=== PATIENT | female | born 1980 | race Asian ===

== ENCOUNTER 2019-10-19 06:47 | Outpatient (CLI) | payer OTHER, SELFPAY ==
--- NOTE | ~2019-10-19 | US_ITS ---
EXAMINATION: US thyroid DATE: 10/19/2019 08:04 INDICATION: Nontoxic goiter TECHNIQUE: Multiple ultrasound images of the thyroid were obtained. COMPARISON: None. FINDINGS: The right thyroid lobe measures 4.8 x 1.9 x 1.9 cm. The left thyroid lobe measures 4.6 x 1.6 x 1.8 c m. Thyroid isthmus measures 3-4 mm in thickness. No discrete nodules identified. There is normal echo texture, echogenicity and vascular flow throughout the thyroid gland. IMPRESSION: 1. Normal thyroid ultrasound. Reviewed, dictated and finalized at location A.
[2019-10-19 08:00] LABS: Alanine Aminotransferase 14 U/L (4-35); Albumin Level 4.4 g/dL (3.5-5.1); Alkaline Phosphatase 52 U/L (38-126); Aspartate Amino Transferase 26 U/L (14-36); Bilirubin,Total 0.3 mg/dL (0.2-1.3); Blood Urea Nitrogen 10 mg/dL (7-17); Calcium 9.3 mg/dL (8.4-10.2); Carbon Dioxide 28 mmol/L (22-30); Chloride 107 mmol/L (98-107); Estimated Glomerular Filt Rate > 60; Glucose 87 mg/dL (65-105); Magnesium 2.1 mg/dL (1.6-2.3); Potassium 3.7 mmol/L (3.4-5.0); Sodium 142 mmol/L (137-145)
[2019-10-19 11:10] LABS: Free T4 Free Thyroxine 1.19 ng/mL (0.78-2.19); Vitamin D 25 Hydroxy 20.5 ng/mL
[2019-10-20 20:15] LABS: Triiodothyronine T3 Free 2.7 pg/mL (2.3-4.2)
[2019-10-21 02:00] LABS: Thyroid Peroxidase Antibodies 7 IU/mL (<9)
[2019-10-21 04:08] LABS: Adrenocorticotropic Hormone 19 pg/mL (6-50)
[2019-10-21 15:06] LABS: Thyroid Stimulating Immunoglob 182 % baseline (<140)
== END 2019-10-19 06:48 | disposition home or self-care (01) ==
PROVIDERS: Visit Provider Internal Medicine Endocrinology, Diabetes & Metabolism
DX: E05.90 Thyrotoxicosis, unspecified without thyrotoxic crisis or storm (principal); I95.9 Hypotension, unspecified; E87.6 Hypokalemia; E55.9 Vitamin D deficiency, unspecified
CPT/HCPCS: 36415; 76536; 80053; 82024; 82088; 82248; 82306; 82533; 83735; 84133; 84244; 84439; 84443; 84445; 84481; 86376

== ENCOUNTER 2019-12-12 07:16 | Outpatient (CLI) | payer OTHER, SELFPAY ==
[2019-12-12 08:25] LABS: Alanine Aminotransferase 14 U/L (4-35); Albumin Level 4.2 g/dL (3.5-5.1); Alkaline Phosphatase 55 U/L (38-126); Aspartate Amino Transferase 24 U/L (14-36); Bilirubin,Total 0.2 mg/dL (0.2-1.3); Blood Urea Nitrogen 15 mg/dL (7-17); Calcium 8.6 mg/dL (8.4-10.2); Carbon Dioxide 27 mmol/L (22-30); Chloride 106 mmol/L (98-107); Estimated Glomerular Filt Rate > 60; Glucose 70 mg/dL (65-105); Potassium 3.7 mmol/L (3.4-5.0); Sodium 140 mmol/L (137-145)
[2019-12-12 09:45] LABS: Free T4 Free Thyroxine 1.03 ng/mL (0.78-2.19); Vitamin D 25 Hydroxy 44.5 ng/mL
[2019-12-15 04:39] LABS: Thyroid Peroxidase Antibodies 6 IU/mL (<9)
[2019-12-15 12:24] LABS: Triiodothyronine T3 Free 2.7 pg/mL (2.3-4.2)
[2019-12-15 12:40] LABS: Thyroid Stimulating Immunoglob 164 % baseline (<140)
== END 2019-12-12 07:17 | disposition home or self-care (01) ==
PROVIDERS: PCP Family Medicine; Visit Provider Internal Medicine Endocrinology, Diabetes & Metabolism
DX: E05.90 Thyrotoxicosis, unspecified without thyrotoxic crisis or storm (principal); E55.9 Vitamin D deficiency, unspecified
CPT/HCPCS: 36415; 80053; 82306; 84439; 84443; 84445; 84481; 86376

== ENCOUNTER 2020-04-16 08:34 | Outpatient (CLI) | payer OTHER, SELFPAY ==
[2020-04-16 09:12] LABS: Alanine Aminotransferase 15 U/L (4-35); Albumin Level 4.1 g/dL (3.5-5.1); Alkaline Phosphatase 43 U/L (38-126); Anion Gap 7 mmol/L (8-16); Aspartate Amino Transferase 25 U/L (14-36); Bilirubin,Total 0.5 mg/dL (0.2-1.3); Blood Urea Nitrogen 16 mg/dL (7-17); Carbon Dioxide 23 mmol/L (22-30); Chloride 110 mmol/L (98-107); Estimated Glomerular Filt Rate > 60; Glucose 66 mg/dL (65-105); Potassium 3.4 mmol/L (3.4-5.0); Sodium 140 mmol/L (137-145)
[2020-04-16 11:03] LABS: Free T4 Free Thyroxine 1.26 ng/mL (0.78-2.19); Vitamin D 25 Hydroxy 39.5 ng/mL
[2020-04-20 06:00] LABS: Thyroid Peroxidase Antibodies 7 IU/mL (<9)
[2020-04-20 14:27] LABS: Thyroid Stimulating Immunoglob 172 % baseline (<140)
[2020-04-21 05:24] LABS: Triiodothyronine T3 Free 2.9 pg/mL (2.3-4.2)
== END 2020-04-16 08:35 | disposition home or self-care (01) ==
PROVIDERS: PCP Family Medicine; Visit Provider Internal Medicine Endocrinology, Diabetes & Metabolism
DX: E05.90 Thyrotoxicosis, unspecified without thyrotoxic crisis or storm (principal); E55.9 Vitamin D deficiency, unspecified
CPT/HCPCS: 36415; 80053; 82248; 82306; 84439; 84443; 84445; 84481; 86376

== ENCOUNTER 2020-11-26 07:52 | Outpatient (CLI) | payer OTHER, SELFPAY ==
[2020-11-26 09:01] LABS: Alanine Aminotransferase 13 U/L (4-35); Albumin Level 4.4 g/dL (3.5-5.1); Alkaline Phosphatase 47 U/L (38-126); Anion Gap 6 mmol/L (8-16); Aspartate Amino Transferase 31 U/L (14-36); Bilirubin,Total 0.2 mg/dL (0.2-1.3); Blood Urea Nitrogen 13 mg/dL (7-17); Calcium 9.4 mg/dL (8.4-10.2); Carbon Dioxide 23 mmol/L (22-30); Chloride 114 mmol/L (98-107); Estimated Glomerular Filt Rate > 60; Glucose 72 mg/dL (65-105); Potassium 3.3 mmol/L (3.4-5.0); Sodium 143 mmol/L (137-145)
[2020-11-26 09:31] LABS: Thyroid Stimulating Hormone < 0.015 uIU/mL (0.465-4.680)
[2020-11-26 10:07] LABS: Free T4 Free Thyroxine 1.23 ng/mL (0.78-2.19); Vitamin D 25 Hydroxy 39.6 ng/mL
[2020-11-29 08:22] LABS: Thyroid Peroxidase Antibodies 6 IU/mL (<9)
[2020-11-30 14:36] LABS: Thyroid Stimulating Immunoglob 199 % baseline (<140)
[2020-12-01 07:00] LABS: Triiodothyronine T3 Free 3.1 pg/mL (2.3-4.2)
== END 2020-11-26 07:53 | disposition home or self-care (01) ==
PROVIDERS: PCP Family Medicine; Visit Provider Internal Medicine Endocrinology, Diabetes & Metabolism
DX: E05.90 Thyrotoxicosis, unspecified without thyrotoxic crisis or storm (principal); E55.9 Vitamin D deficiency, unspecified
CPT/HCPCS: 36415; 80053; 82306; 84439; 84443; 84445; 84481; 86376

== ENCOUNTER 2020-12-09 08:55 | Outpatient (CLI) | payer OTHER, SELFPAY ==
--- NOTE | 2020-12-12 11:34 | WPDHOMESLEEP ---
Sleep Study - Home Unattended Date of Study: 12/09/20 Ordering Provider: Fabián Holman MD Interpreting Provider: Debra Parsons MD Home Sleep Study Type: Apnea Link Air Height: 1.55 m Weight: 53.524 kg Body Mass Index: 22.3 Neck Circumference (inches): 12.25 [place]: 10 Reason for Sleep Study witnessed apneas; paroxysmal nocturnal dyspnea, RV enlargement, moderate tricuspid regurgitation Sleep History Viola Davis is a 40 year old female with witnessed apneas per her . She has paroxysmal nocturnal dyspnea. Echocardiogram on 12/04/2019 shows normal LV systolic function, EF 60-65%, moderate enlargement of the right ventricle with mild right ventricular hypokinesis, moderate enlargement of the right atrium, moderate tricuspid regurgitation and pulmonary hypertension, improved compared to ECHO June 2018 with RVSP 40-45 mmHg. She does not awaken suddenly from sleep feeling short of breath. She does not awaken at night with heartburn, belching or coughing. She rarely snores. She does not snore loudly enough that others complain. She rarely has trouble sleeping with a cold. She does not gasp for breath at night. She occasionally has breathing problems witnessed by her . She does not sweat excessively at night. She rarely notices her heart pounding or beating irregularly at night. She rarely falls asleep during the day, rarely falls asleep involuntarily however occasionally falls asleep while driving. She does not have loss of muscle tone with strong emotion. She does not have daytime difficulties due to excessive sleepiness. She does not feel paralyzed on waking or falling asleep and does not have vivid dreamlike scenes upon awakening or falling asleep. She does not feel afraid to go to sleep. She rarely has nightmares. She rarely remembers her dreams. She rarely has racing thoughts. She rarely feels sad, depressed or anxious. She occasionally has muscular tension. She does not notice parts of her body jerking and she does not kick at night. She frequently has crawling and aching feelings in her legs. She occasionally has leg pain at night. She does not have morning jaw pain. She does not grind her teeth during sleep. She rarely is bothered by pain during the day. She occasionally has awakened by pain at night. She rarely wakes up feeling stiff in the morning. She frequently wakes up with sore achy muscles. She rarely wakes up with pain in the neck and spine. She has headaches, fatigue and memory problems Normal bedtime is between 9:00 p.m. and 10:00 p.m., falling asleep within 10-30 minutes, typically waking 3-5 times at night to go to the bathroom or take care of her child. She stays awake anywhere between 2-5 minutes. She wakes the morning at 4:30 a.m.. Her weekend schedule is different, going to bed between 9:00 p.m. and midnight, waking by 7:00 a.m.. She does take naps in the afternoon or evening. A short 10-15 minute nap can be refreshing. Most of the time she feels good in the morning. Habits: Never smoked. Caffeine 1 serving per day. Alcohol 3 glasses of wine per week. No recreational drugs. [facility] Past Medical History Medical History (Updated 12/12/20 @ 11:50 by Debra Parsons MD) Hypersomnolence Hyperthyroidism Non-rheumatic mitral regurgitation Palpitation Pulmonary hypertension Right ventricular enlargement Seasonal allergies SVT (supraventricular tachycardia) Surgical History Surgical History Previous section Family History Family History Father Family history of emphysema Mother Diabetes mellitus Social History Social History Smoking status: Never smoker Alcohol intake: never Medications Medications: methimazole 5 mg 3 times a day ferrous sulfate 325 mg extended release ( 6
[2020-12-12 12:00] VITALS: BMI 22.3
== END 2020-12-13 09:23 | disposition home or self-care (01) ==
LOC: ANHCSM 12-13 08:55
PROVIDERS: PCP Family Medicine; Visit Provider Internal Medicine Cardiovascular Disease
DX: G47.19 Other hypersomnia (principal); I27.20 Pulmonary hypertension, unspecified; I51.7 Cardiomegaly; I47.1 Supraventricular tachycardia; R06.81 Apnea, not elsewhere classified
CPT/HCPCS: 95806

== ENCOUNTER 2021-01-26 11:42 | Outpatient (CLI) | payer OTHER, SELFPAY ==
--- NOTE | ~2021-01-26 | NM_ITS ---
EXAMINATION: NM thyroid scan w uptake DATE: 01/27/2021 12:48 INDICATION: Hyperthyroidism. COMPARISON: Ultrasound 10/19/2019 TECHNIQUE: 0.379 mCi I-123 was administered orally. Scintigraphic images of the thyroid gland were o btained at 24 hours. Thyroid uptake was calculated by the technologist. FINDINGS: The thyroid uptake is 37% (normal 10-30%), with the right lobe measuring 18% uptake and the left 21%. There is no focal area of decreased or increased activity to suggest hypofunctioning or hyperfunctio bijan nodule. IMPRESSION: 1. Increased 24-hour iodine uptake, consistent with Graves' disease. Reviewed, dictated and finalized at location A.
== END 2021-01-26 11:43 | disposition home or self-care (01) ==
PROVIDERS: PCP Family Medicine; Visit Provider Internal Medicine Endocrinology, Diabetes & Metabolism
DX: E05.90 Thyrotoxicosis, unspecified without thyrotoxic crisis or storm (principal)
CPT/HCPCS: 78014; A9516

== ENCOUNTER 2021-03-03 17:11 | Outpatient (CLI) | payer OTHER, SELFPAY ==
[2021-03-03 18:11] LABS: Alanine Aminotransferase 20 U/L (4-35); Albumin Level 4.5 g/dL (3.5-5.1); Alkaline Phosphatase 51 U/L (38-126); Anion Gap 9 mmol/L (8-16); Aspartate Amino Transferase 27 U/L (14-36); Bilirubin,Total 0.3 mg/dL (0.2-1.3); Blood Urea Nitrogen 11 mg/dL (7-17); Carbon Dioxide 19 mmol/L (22-30); Chloride 111 mmol/L (98-107); Estimated Glomerular Filt Rate > 60; Glucose 106 mg/dL (65-110); Potassium 3.2 mmol/L (3.4-5.0); Sodium 139 mmol/L (137-145)
[2021-03-03 19:38] LABS: Free T4 Free Thyroxine 0.98 ng/mL (0.78-2.19)
[2021-03-06 02:22] LABS: Thyroid Peroxidase Antibodies 7 IU/mL (<9)
[2021-03-09 13:12] LABS: Thyroid Stimulating Immunoglob 120 % baseline (<140)
[2021-03-11 07:20] LABS: Triiodothyronine T3 Free 2.8 pg/mL (2.3-4.2)
== END 2021-03-03 17:12 | disposition home or self-care (01) ==
LOC: ANHLAB 17:11
PROVIDERS: PCP Family Medicine; Visit Provider Internal Medicine Endocrinology, Diabetes & Metabolism
DX: E05.90 Thyrotoxicosis, unspecified without thyrotoxic crisis or storm (principal)
CPT/HCPCS: 36415; 80053; 84439; 84443; 84445; 84481; 86376

== ENCOUNTER 2021-08-07 09:04 | Outpatient (CLI) | payer OTHER, SELFPAY ==
[2021-08-10 05:16] LABS: Triiodothyronine T3 Free 2.4 pg/mL (2.3-4.2)
== END 2021-08-07 09:05 | disposition home or self-care (01) ==
PROVIDERS: PCP Family Medicine
DX: E05.90 Thyrotoxicosis, unspecified without thyrotoxic crisis or storm (principal)
CPT/HCPCS: 36415; 84439; 84443; 84481

== ENCOUNTER 2022-02-09 15:51 | Outpatient (CLI) | payer OTHER, SELFPAY ==
[2022-02-09 18:50] LABS: Free T4 Free Thyroxine 1.29 ng/mL (0.78-2.19)
[2022-02-13 20:04] LABS: Triiodothyronine T3 Free 2.8 pg/mL (2.3-4.2)
== END 2022-02-09 15:52 | disposition home or self-care (01) ==
LOC: ANHLAB 15:56
PROVIDERS: PCP Family Medicine
DX: E05.00 Thyrotoxicosis with diffuse goiter without thyrotoxic crisis or storm (principal)
CPT/HCPCS: 36415; 84439; 84443; 84481

== ENCOUNTER 2022-06-23 07:51 | Outpatient (CLI) | payer OTHER, SELFPAY ==
[2022-06-23 08:33] LABS: Anion Gap 10 mmol/L (8-16); Blood Urea Nitrogen 14 mg/dL (7-17); Calcium 8.5 mg/dL (8.4-10.2); Carbon Dioxide 21 mmol/L (22-30); Chloride 112 mmol/L (98-107); Cholesterol 148 mg/dL (0-200); Estimated Glomerular Filt Rate > 60; Glucose 61 mg/dL (65-110); HDL Direct 53 mg/dL; Potassium 3.5 mmol/L (3.4-5.0); Sodium 143 mmol/L (137-145); Triglycerides 82 mg/dL (<150)
[2022-06-23 08:41] LABS: LDL Cholesterol Direct 55 mg/dL
[2022-06-23 09:12] LABS: Vitamin D 25 Hydroxy 34.4 ng/mL
== END 2022-06-23 07:52 | disposition home or self-care (01) ==
LOC: ANHLAB 07:54
PROVIDERS: PCP Family Medicine; Visit Provider Family Medicine
DX: Z00.00 Encounter for general adult medical examination without abnormal findings (principal); Z13.1 Encounter for screening for diabetes mellitus; Z13.220 Encounter for screening for lipoid disorders; E55.9 Vitamin D deficiency, unspecified
CPT/HCPCS: 36415; 80048; 80061; 82306

== ENCOUNTER 2023-07-06 08:24 | Outpatient (CLI) | payer OTHER, SELFPAY ==
[2023-07-06 10:03] LABS: Alanine Aminotransferase 21 U/L (6-35); Albumin Level 4.1 g/dL (3.5-5.1); Alkaline Phosphatase 54 U/L (38-126); Anion Gap 9 mmol/L (8-16); Aspartate Amino Transferase 29 U/L (14-36); Bilirubin,Total 0.5 mg/dL (0.2-1.3); Blood Urea Nitrogen 15 mg/dL (7-17); Calcium 8.5 mg/dL (8.4-10.2); Carbon Dioxide 18 mmol/L (22-30); Chloride 117 mmol/L (98-107); Cholesterol 151 mg/dL (0-200); Estimated Glomerular Filt Rate 41; Glucose 79 mg/dL (65-110); HDL Direct 50 mg/dL; Potassium 3.1 mmol/L (3.4-5.0); Sodium 144 mmol/L (137-145); Triglycerides 58 mg/dL (<150)
[2023-07-06 10:14] LABS: LDL Cholesterol Direct 71 mg/dL
[2023-07-06 10:33] LABS: Free T4 Free Thyroxine 1.21 ng/mL (0.78-2.19)
[2023-07-06 10:34] LABS: Thyroid Stimulating Hormone 0.799 uIU/mL (0.465-4.680)
== END 2023-07-06 08:25 | disposition home or self-care (01) ==
LOC: ANHLAB 08:26
PROVIDERS: PCP Family Medicine; Visit Provider Physician Assistant Medical
DX: E05.00 Thyrotoxicosis with diffuse goiter without thyrotoxic crisis or storm (principal); E78.2 Mixed hyperlipidemia
CPT/HCPCS: 36415; 80053; 80061; 84439; 84443

== ENCOUNTER 2023-07-11 15:39 | Outpatient (CLI) | payer OTHER, SELFPAY ==
[2023-07-11 16:07] LABS: Basophils Percent Auto 0.3 % (0.2-1.2); Eosinophils Absolute Auto 0.1 K/mm3 (0-0.3); Hematocrit 32.4 % (37.0-47.0); Hemoglobin 10.3 g/dL (12.0-15.0); Immature Granulocyte Absolute 0.02 K/mm3 (0.00-0.031); Immature Granulocyte Percent A 0.3 % (0-0.5); Lymphocytes Absolute Auto 2.02 K/mm3 (0.9-3.2); Lymphocytes Percent Auto 33.3 % (18.3-44.2); Mean Corpuscular HGB Conc 31.8 g/dl (32-36); Mean Corpuscular Hemoglobin 30.5 pg (26-34); Mean Corpuscular Volume 95.9 fl (80-100); Mean Platelet Volume 9.7 fl (7.4-10.4); Monocytes Absolute Auto 0.5 K/mm3 (0.1-0.6); Monocytes Percent Auto 8.7 % (2.6-8.5); Neutrophils Absolute Auto 3.4 K/mm3 (1.3-6.7); Neutrophils Percent Auto 55.4 % (45.5-73.1); Platelet Count Result 221 k/mm3 (150-375); Red Blood Count 3.38 M/mm3 (4.2-5.4); Red Cell Distribution Width 13.2 % (11.5-14.5); White Blood Count 6.1 K/mm3 (4.5-10.0)
[2023-07-11 17:13] LABS: Anion Gap 7 mmol/L (8-16); Blood Urea Nitrogen 14 mg/dL (7-17); Calcium 8.4 mg/dL (8.4-10.2); Carbon Dioxide 19 mmol/L (22-30); Chloride 114 mmol/L (98-107); Estimated Glomerular Filt Rate 41; Glucose 103 mg/dL (65-110); Magnesium 1.9 mg/dL (1.6-2.3); Potassium 2.8 mmol/L (3.4-5.0); Sodium 140 mmol/L (137-145)
== END 2023-07-11 15:40 | disposition home or self-care (01) ==
LOC: ANHLAB 15:40
PROVIDERS: PCP Family Medicine; Visit Provider Physician Assistant Medical
DX: E87.6 Hypokalemia (principal); R53.83 Other fatigue
CPT/HCPCS: 36415; 80048; 83735; 85025

== ENCOUNTER 2023-07-12 21:08 | Emergency (ER) | payer OTHER, SELFPAY ==
[2023-07-12] VITALS (7 sets, daily range): BP systolic 110–115; BP diastolic 72–86; PULSE 68–77; RESP 13–18; TEMP 37.1; O2SAT 100
--- NOTE | 2023-07-12 21:18 | ECG_ITS ---
Measurements Intervals [place] Rate: 66 P: 57 DE: 148 QRS: 65 QRSD: 111 T: 31 QT: 366 QTc: 386 Interpretive Statements SINUS RHYTHM MODERATE INTRAVENTRICULAR CONDUCTION DELAY [110+ ms QRS DURATION] NONSPECIFIC T-WAVE ABNORMALITY NO PREVIOUS ECG AVAILABLE FOR COMPARISON Electronically Signed On 07-13-2023 9:02:13 CANDY DEPOSITING MACHINE OPERATOR by Sherrill Marroquin M.D.
[2023-07-12 21:32] LABS: Basophils Percent Auto 0.3 % (0.2-1.2); Eosinophils Absolute Auto 0.2 K/mm3 (0-0.3); Eosinophils Percent Auto 2.8 % (0-4.4); Hematocrit 36.1 % (37.0-47.0); Hemoglobin 11.2 g/dL (12.0-15.0); Immature Granulocyte Absolute 0.01 K/mm3 (0.00-0.031); Immature Granulocyte Percent A 0.1 % (0-0.5); Lymphocytes Absolute Auto 2.76 K/mm3 (0.9-3.2); Lymphocytes Percent Auto 40.1 % (18.3-44.2); Mean Corpuscular Hemoglobin 30.3 pg (26-34); Mean Corpuscular Volume 97.6 fl (80-100); Mean Platelet Volume 9.7 fl (7.4-10.4); Monocytes Absolute Auto 0.6 K/mm3 (0.1-0.6); Neutrophils Absolute Auto 3.3 K/mm3 (1.3-6.7); Neutrophils Percent Auto 47.7 % (45.5-73.1); Platelet Count Result 239 k/mm3 (150-375); Red Cell Distribution Width 13.3 % (11.5-14.5); White Blood Count 6.9 K/mm3 (4.5-10.0)
--- NOTE | 2023-07-12 21:42 | ED.GENADULT ---
HPI - General Adult General Chief complaint: Unspecified Stated complaint: potassium levels are low Time Seen by Provider: 07/12/23 21:26 History of Present Illness HPI narrative: 42-year-old female presenting to the emergency department for evaluation of low potassium. Patient had follow-up with a new primary care physician last week and had labs drawn on Saturday. Patient was called yesterday to have repeat labs and her potassium was still low. Patient was called today and told that she needed to present to the emergency department for her critically low potassium. Patient states he does have history of Graves disease and has had issues with tachycardia previously for which he follows up with Dr. Holman. patient denies any nausea vomiting diarrhea chest pain shortness of breath decreased p.o. intake or urinary symptoms Related Data Allergies Allergy/AdvReac Type Severity Reaction Status Date / Time No Known Allergies Allergy Verified 07/02/23 13:51 Review of Systems Review of Systems: All systems reviewed & are unremarkable except as noted in HPI and below PMFSH Past Medical History Medical History (Updated 07/13/23 @ 01:23 by Dm Valladares MD) Hypersomnolence Hyperthyroidism Non-rheumatic mitral regurgitation Palpitation Pulmonary hypertension Right ventricular enlargement Seasonal allergies SVT (supraventricular tachycardia) Surgical History Surgical History Previous section Family History Family History Father Family history of emphysema Mother Diabetes mellitus Social History Social History Smoking status: Never smoker Alcohol intake: never Exam Narrative: APPEARANCE: Well appearing, no pain, no distress, well-nourished. HEAD: normocephalic, atraumatic. EYES: PERRLA/EOMI, conjunctivae clear. NOSE: Normal no drainage NECK: Supple. No adenopathy, no masses. RESPIRATORY: Airway patent, respirations nonlabored. Clear to auscultation bilaterally, no rales, rhonchi, wheezing. CARDIOVASCULAR: Regular rate and rhythm without murmurs rubs or gallops. ABDOMINAL: Soft, nontender, nondistended, normal bowel sounds MUSCULOSKELETAL: Moves all extremities. Strength/ROM intact, No edema, No calf tenderness. NEURO: Alert. Cranial nerves II through XII intact. grossly intact SKIN: Warm, dry. Normal Color Course Course Emergency Course: 42-year-old female presenting to the emergency department for evaluation of hypokalemia. Patient's potassium was replaced both IV and orally. On recheck patient's potassium was 3.5. Patient and family were updated on the results of the workup and on the improved potassium. They were encouraged to have close follow-up with the primary care physician. They were also advised to take the potassium supplements that they have at home. Vital Signs Vital signs: Vital Signs Temperature 98.8 F 07/12/23 21:10 Pulse Rate 73 07/12/23 21:10 Respiratory Rate 14 07/12/23 21:10 Blood Pressure 115/72 07/12/23 21:10 Pulse Oximetry 100 07/12/23 21:10 Oxygen Delivery Room Air 07/12/23 21:10 Temperature 98.8 F 07/12/23 21:10 Pulse Rate 68 07/12/23 21:46 Respiratory Rate 17 07/12/23 21:46 Blood Pressure 111/80 07/12/23 21:46 Pulse Oximetry 100 07/12/23 21:46 Oxygen Delivery Room Air 07/12/23 21:10 Medical Decision Making Vital Signs Vital Signs: Vital Signs Temperature 98.8 F 07/12/23 21:10 Pulse Rate 73 07/12/23 21:10 Respiratory Rate 14 07/12/23 21:10 Blood Pressure 115/72 07/12/23 21:10 Pulse Oximetry 100 07/12/23 21:10 Oxygen Delivery Room Air 07/12/23 21:10 Temperature 98.8 F 07/12/23 21:10 Pulse Rate 68 07/12/23 21:46 Respiratory Rate 17 07/12/23 21:46 Blood Pressure 111/80 07/12/23 21:46 Pulse Oximet
[2023-07-12 21:48] LABS: Alanine Aminotransferase 23 U/L (6-35); Albumin Level 4.6 g/dL (3.5-5.1); Alkaline Phosphatase 61 U/L (38-126); Anion Gap 13 mmol/L (8-16); Aspartate Amino Transferase 34 U/L (14-36); Bilirubin,Total 0.4 mg/dL (0.2-1.3); Blood Urea Nitrogen 13 mg/dL (7-17); Calcium 9.1 mg/dL (8.4-10.2); Carbon Dioxide 18 mmol/L (22-30); Chloride 112 mmol/L (98-107); Estimated CRCL calculation 29 ml/min; Estimated Glomerular Filt Rate 35; Glucose 64 mg/dL (65-110); Potassium 2.5 mmol/L (3.4-5.0); Sodium 143 mmol/L (137-145)
[2023-07-12 21:54] LABS: Troponin I < 0.012 ng/mL (0.000-0.034)
[2023-07-12] MEDS: SODIUM CHLORIDE 0.9% IV 1,000 ML 999 ML IV CONT (22:18)
[2023-07-12] MEDS: POTASSIUM CHLORIDE 20 MEQ PACKET (FOR LIQUID) 40 MEQ PO (22:18)
[2023-07-12] MEDS: KCL 20 MEQ/SW 100 ML 100 ML 50 MEQ IVPB (22:19)
--- NOTE | 2023-07-12 23:19 | PC.NURSE ---
This RN assumed care of patient. This RN took patient report from ROMAN Soni.
[2023-07-13] MEDS: SODIUM CHLORIDE 0.9% IV 1,000 ML 200 ML IV CONT (00:38)
[2023-07-13 01:14] LABS: Anion Gap 8 mmol/L (8-16); Blood Urea Nitrogen 13 mg/dL (7-17); Calcium 7.8 mg/dL (8.4-10.2); Carbon Dioxide 17 mmol/L (22-30); Chloride 118 mmol/L (98-107); Estimated CRCL calculation 31 ml/min; Estimated Glomerular Filt Rate 38; Glucose 85 mg/dL (65-110); Potassium 3.5 mmol/L (3.4-5.0); Sodium 143 mmol/L (137-145)
== END 2023-07-13 01:56 | disposition home or self-care (01) ==
PROVIDERS: Emergency Provider Emergency Medicine; PCP Family Medicine
DX: E87.6 Hypokalemia (principal)
CPT/HCPCS: 36415; 80048; 80053; 84484; 85025; 93005; 96361; 96365; 96366; 99284; A9270; J3480; J7030

== ENCOUNTER 2023-07-16 16:57 | Outpatient (CLI) | payer OTHER, SELFPAY ==
[2023-07-16 17:29] LABS: Appearance Urine Clear (Clear); Bilirubin Urine Negative (Negative); Blood Urine Negative (Negative); Color Urine Yellow (Yellow); Glucose Urine UA Negative (Negative); Ketones Urine Negative (Negative); Leukocyte Esterase Ur Negative LEU/UL (Negative); Nitrate Urine Negative (Negative); Protein Urine Negative (Negative); Specific Grav Ur 1.005 (1.001-1.035); Urobilinogen Urine 0.2 mg/dL (<2.0)
[2023-07-16 17:34] LABS: Add Urine Microscopic? NO
[2023-07-16 18:26] LABS: Anion Gap 12 mmol/L (8-16); Blood Urea Nitrogen 18 mg/dL (7-17); Carbon Dioxide 17 mmol/L (22-30); Chloride 109 mmol/L (98-107); Estimated Glomerular Filt Rate 35; Glucose 119 mg/dL (65-110); Potassium 2.6 mmol/L (3.4-5.0); Sodium 138 mmol/L (137-145)
== END 2023-07-16 16:58 | disposition home or self-care (01) ==
LOC: ANHLAB 16:59
PROVIDERS: PCP Family Medicine; Visit Provider Family Medicine
DX: N28.9 Disorder of kidney and ureter, unspecified (principal); E87.6 Hypokalemia
CPT/HCPCS: 36415; 80048; 81003

== ENCOUNTER 2023-07-18 15:34 | Outpatient (CLI) | payer OTHER, SELFPAY ==
--- NOTE | ~2023-07-18 | US_ITS ---
EXAMINATION: US thyroid DATE: 07/18/2023 15:59 INDICATION: Thyroid toxicosis with diffuse goiter. TECHNIQUE: Multiple ultrasound images of the thyroid were obtained. COMPARISON: 10/19/2019; thyroid scan 01/27/2021. FINDINGS: The right thyroid lobe measures 4.8 x 1.6 x 1.7 cm. The left thyroid lobe measures 5.1 x 1.4 x 2.1 c m. The isthmus measures 0.5 cm. There is normal echotexture and echogenicity throughout the thyroid g land. No discrete nodules identified. Normal vascular flow is present. IMPRESSION: Normal thyroid ultrasound findings. Reviewed, dictated and finalized at location K. CE SPECIALIST
== END 2023-07-18 15:35 | disposition home or self-care (01) ==
LOC: ANHIMG 15:38
PROVIDERS: PCP Family Medicine; Visit Provider Physician Assistant Medical
DX: E05.00 Thyrotoxicosis with diffuse goiter without thyrotoxic crisis or storm (principal)
CPT/HCPCS: 76536

== ENCOUNTER 2023-07-19 15:56 | Outpatient (CLI) | payer OTHER, SELFPAY ==
[2023-07-19 16:35] LABS: Anion Gap 9 mmol/L (8-16); Blood Urea Nitrogen 14 mg/dL (7-17); Calcium 8.6 mg/dL (8.4-10.2); Carbon Dioxide 15 mmol/L (22-30); Chloride 115 mmol/L (98-107); Estimated Glomerular Filt Rate 38; Glucose 97 mg/dL (65-110); Potassium 3.8 mmol/L (3.4-5.0); Sodium 139 mmol/L (137-145)
[2023-07-19 16:44] LABS: Potassium Urine Random 73.8 meq/L
== END 2023-07-19 15:57 | disposition home or self-care (01) ==
PROVIDERS: PCP Family Medicine; Visit Provider Family Medicine
DX: E87.6 Hypokalemia (principal)
CPT/HCPCS: 36415; 80048; 84133

== ENCOUNTER 2023-07-29 17:03 | Outpatient (CLI) | payer OTHER, SELFPAY ==
[2023-07-29 17:55] LABS: Anion Gap 14 mmol/L (8-16); Blood Urea Nitrogen 7 mg/dL (7-17); Carbon Dioxide 13 mmol/L (22-30); Chloride 113 mmol/L (98-107); Estimated Glomerular Filt Rate 49; Glucose 93 mg/dL (65-110); Potassium 3.3 mmol/L (3.4-5.0); Sodium 140 mmol/L (137-145)
== END 2023-07-29 17:04 | disposition home or self-care (01) ==
LOC: ANHLAB 17:04
PROVIDERS: PCP Family Medicine; Visit Provider Family Medicine
DX: E87.6 Hypokalemia (principal)
CPT/HCPCS: 36415; 80048

== ENCOUNTER 2023-08-08 08:08 | Emergency (ER) | payer OTHER, SELFPAY ==
--- NOTE | ~2023-08-08 | XR_ITS ---
EXAMINATION: XR chest 2V DATE: 08/08/2023 08:35 INDICATION: Productive cough. TECHNIQUE: Frontal and lateral views of the chest were obtained. COMPARISON: Chest CT 05/31/2017 FINDINGS: There are airspace opacities in the right middle lobe, posterior segment right upper lobe, and lingula, consistent with pneumonia. No pleural effusion or pneumothorax. The heart size is normal . IMPRESSION: 1. Bilateral pneumonia. Reviewed, dictated and finalized at location E. H FINISHER IMPRESSION: 1. Bilateral pneumonia.
--- NOTE | 2023-08-08 08:15 | ED.URI ---
HPI - URI/Sore Throat General Chief Complaint: Upper Respiratory Infection Stated Complaint: cough,congestion Time Seen by Provider: 08/08/23 08:15 Source: patient Mode of arrival: ambulatory Limitations: no limitations History of Present Illness HPI Narrative: Viola is a 42-year-old female patient presenting to the clinic today with complaints cough and congestion x3 weeks. She reports that she initially had fever with the illness and that went away however yesterday she developed a fever again. Temperature today is 39.4? C. Reporting some shortness of breath as well. SpO2 is 100% is able to speak in full sentences. MD elicited complaint: fever, cough, nasal congestion and other (Shortness of breath) Related Data Allergies Allergy/AdvReac Type Severity Reaction Status Date / Time No Known Allergies Allergy Verified 08/08/23 08:15 Review of Systems Review of Systems: Pertinent positives per HPI. Patient denies any fever, chills, rash, headache, visual changes, dizziness,chest pain, palpitations, nausea, vomiting, diarrhea, constipation, abdominal pain, or any urinary issues. PMFSH Past Medical History Medical History Hypersomnolence Hyperthyroidism Non-rheumatic mitral regurgitation Palpitation Pulmonary hypertension Right ventricular enlargement Seasonal allergies SVT (supraventricular tachycardia) Surgical History Surgical History Previous section Family History Family History Father Family history of emphysema Mother Diabetes mellitus Social History Social History Smoking status: Never smoker Alcohol intake: never Comments At the time of my signature, I reviewed and agree with the nursing past medical, surgical, social, and family history. There is no relevant family history pertinent to the patient complaint. Exam Narrative: General: Well-developed, well nourished, in no apparent distress Head: Normocephalic, atraumatic Eyes: Pupils equally round and reactive to light bilaterally, EOM intact, sclera and conjunctive clear, no discharge, lids normal Ears: TMs intact and congested, ear canals clear, no drainage, grossly hearing normal. Nose: Nares patent, clear nasal discharge, no inflammation, no sinus tenderness. Mouth: Oral pharynx without lesions or masses, good dentition, MMM. Postnasal drip Neck: Supple, trachea midline, no enlargement of anterior or posterior cervical nodes, no thyroid masses or goiter palpable. Cardio: Regular rate and rhythm, s1 and s2 normal, no murmur appreciated. Resp: Coarse and congested lung sounds, no wheezing or rubs Course Course Emergency Course: Portions of this record may have been created with voice recognition software. Level of Care: Express Care Visit Vital Signs Vital signs: Vital signs reviewed MDM - URI/Sore Throat MDM Narrative Medical decision making narrative: At the time of visit patient is resting comfortably on the exam table. Patient appears to be nontoxic. Chest x-ray shows bilateral pneumonia. SpO2 is 100% on room air. Patient is febrile-600 mg of Motrin given in the clinic today. Incentive spirometer given and instructions on how to use or reviewed, prescriptions for azithromycin, Augmentin, albuterol inhaler, and Mucinex was sent to the pharmacy. Supportive measures were discussed with the patient and they voiced understanding discharge instructions and agrees to treatment plan. Strict return precautions reviewed Differential Diagnosis Differential diagnosis: Likely upper respiratory infection, otitis media, sinusitis, viral infection, bronchitis, influenza, pharyngitis and other (COVID) Imaging Data Radiologist's impression: ITS Impressions Chest X-Ray 08/08/23
[2023-08-08 08:19] VITALS: BP 111/64; PULSE 101; RESP 16; TEMP 39.4; O2SAT 100
[2023-08-08 08:46] VITALS: TEMP 39.4
[2023-08-08] MEDS: IBUPROFEN 600 MG TABLET PO (08:46)
== END 2023-08-08 08:58 | disposition home or self-care (01) ==
PROVIDERS: Emergency Provider Nurse Practitioner Family; PCP Family Medicine
DX: J18.9 Pneumonia, unspecified organism (principal); E05.90 Thyrotoxicosis, unspecified without thyrotoxic crisis or storm; I27.20 Pulmonary hypertension, unspecified
CPT/HCPCS: 71046; 99213; A9270; G0463

== ENCOUNTER 2023-08-21 15:16 | Outpatient (CLI) | payer OTHER, SELFPAY ==
--- NOTE | ~2023-08-21 | XR_ITS ---
XR chest 2V DATE: 08/21/2023 15:43 INDICATION: Pneumonia TECHNIQUE: PA and lateral views COMPARISON: 08/08/2023 2 view chest FINDINGS: The right cardiac margin is now visible since 08/08/2023 indicating improvement of middle lo be infiltrate or atelectasis. There is persistent infiltrate or atelectasis in both lower lung zones and the right mid lung. The infiltrates appear mildly improved on the right, relatively unchanged in the left. No pleural effusion or pulmonary vascular congestion or pneumothorax. Normal heart size. No hilar or mediastinal enlargement. Included skeletal structures are unremarkable. IMPRESSION: Mild interval improvement of right mid and lower lung infiltrates and stable left lower l jill infiltrate since 08/08/2023 Reviewed, dictated and finalized at location B. RUCTIONAL RESOURCE TEACHER IMPRESSION: Mild interval improvement of right mid and lower lung infiltrates a nd stable left lower lung infiltrate since 08/08/2023
== END 2023-08-21 15:17 | disposition home or self-care (01) ==
LOC: ANHIMG 15:18
PROVIDERS: PCP Family Medicine; Visit Provider Internal Medicine Nephrology
DX: E87.6 Hypokalemia (principal); R94.4 Abnormal results of kidney function studies
CPT/HCPCS: 71046

== ENCOUNTER 2023-08-24 10:23 | Outpatient (CLI) | payer OTHER, SELFPAY ==
[2023-08-24 11:07] LABS: Hematocrit 33.1 % (37.0-47.0); Mean Corpuscular HGB Conc 30.2 g/dl (32-36); Mean Corpuscular Hemoglobin 29.9 pg (26-34); Mean Corpuscular Volume 99.1 fl (80-100); Mean Platelet Volume 9.6 fl (7.4-10.4); Platelet Count Result 248 k/mm3 (150-375); Red Blood Count 3.34 M/mm3 (4.2-5.4); Red Cell Distribution Width 14.7 % (11.5-14.5); White Blood Count 4.4 K/mm3 (4.5-10.0)
[2023-08-24 11:17] LABS: Appearance Urine Clear (Clear); Bacteria Urine None Seen /hpf; Bilirubin Urine Negative (Negative); Blood Urine Negative (Negative); Color Urine Yellow (Yellow); Glucose Urine UA Negative (Negative); Ketones Urine Negative (Negative); Leukocyte Esterase Ur Negative LEU/UL (NEGATIVE); Nitrate Urine Negative (Negative); Non Pathogenic Casts 0-2; Protein Urine Trace mg/dL (Negative); RBC Urine 0-2 /hpf (0-2); Specific Grav Ur 1.005 (1.001-1.035); Squamous Epithelial Cell Urine Few /hpf (Few); Urobilinogen Urine 0.2 mg/dL (<2.0); WBC Urine 0-5 /hpf (0-3); pH Urine 7.5 (5.0-9.0)
[2023-08-24 11:18] LABS: Add Urine Microscopic? YES
[2023-08-24 11:30] LABS: Erythrocyte Sedimentation Rate 72 mm/hr (0-20)
[2023-08-24 11:34] LABS: Complement C3 77 mg/dL (88-165)
[2023-08-24 12:05] LABS: Albumin Level 3.8 g/dL (3.5-5.1); Anion Gap 9 mmol/L (8-16); Blood Urea Nitrogen 10 mg/dL (7-17); Calcium 8.7 mg/dL (8.4-10.2); Carbon Dioxide 18 mmol/L (22-30); Chloride 115 mmol/L (98-107); Creatine Kinase 36 U/L (30-135); Estimated Glomerular Filt Rate 49; Glucose 87 mg/dL (65-110); Potassium 2.6 mmol/L (3.4-5.0); Sodium 142 mmol/L (137-145)
[2023-08-24 12:17] LABS: Creatinine Urine 27.9 mg/dL; Total Protein Urine Random 37 mg/dL; Ur Ttl Prot Creatinine Ratio 1.33 mg/mg (0-0.20)
[2023-08-24 12:18] LABS: Potassium Urine Random 21.4 meq/L; Sodium Urine Random 44 meq/L
[2023-08-27 01:03] LABS: Lambda Light Chain 68.7 mg/L (5.7-26.3)
[2023-08-28 10:31] LABS: Anti Glomerular Basement Memb <1.0 AI (<1.0)
[2023-08-28 13:22] LABS: Chloride Rand Ur 57 mmol/L (32-290); Chloride/Creatinine Rand Ur 190 (38-318); Creatinine Random Urine 30 mg/dL (20-275)
[2023-08-29 09:46] LABS: Complement Total CH50 50 U/mL (31-60)
[2023-08-29 14:44] LABS: Anti Nuclear Antibody Pattern Nuclear, Speckled; Anti Nuclear Antibody Titer >=1:1280 (Negative)
[2023-08-29 16:41] LABS: Renin 1.21 ng/mL/h (0.25-5.82)
[2023-08-30 14:10] LABS: ANCA Screen Negative (Negative)
== END 2023-08-24 10:24 | disposition home or self-care (01) ==
LOC: ANHLAB 10:24
PROVIDERS: PCP Family Medicine; Visit Provider Internal Medicine Nephrology
DX: R94.4 Abnormal results of kidney function studies (principal); E87.6 Hypokalemia
CPT/HCPCS: 36415; 80069; 81001; 82088; 82436; 82550; 82570; 83520; 83883; 84133; 84156; 84244; 84300; 85027; 85652; 86036; 86038; 86039; 86160; 86162; 86334

== ENCOUNTER 2023-08-26 06:42 | Outpatient (CLI) | payer OTHER, SELFPAY ==
[2023-08-26 09:17] LABS: Potassium 24 Hour Urine 42.7 mmol/24 (25-125)
[2023-08-30 15:43] LABS: Albumin 5 %; Creat 24 Hr 0.86 g/24 h (0.50-2.15); Pro/Creat Ratio 1022 mg/g creat (<150); Pro/Creat Ratio mg/mg 1.022 (<0.150); Protein,total, 24 Hr Ur 882 mg/24 h (<150)
== END 2023-08-26 06:43 | disposition home or self-care (01) ==
LOC: ANHLAB 06:43
PROVIDERS: PCP Family Medicine; Visit Provider Internal Medicine Nephrology
DX: R94.4 Abnormal results of kidney function studies (principal); E87.6 Hypokalemia
CPT/HCPCS: 82530; 86335

== ENCOUNTER 2023-09-02 16:44 | Outpatient (CLI) | payer OTHER, SELFPAY ==
--- NOTE | ~2023-09-02 | US_ITS ---
EXAMINATION: US renal BI DATE: 09/02/2023 17:30 INDICATION: Disorder of the kidneys with low potassium TECHNIQUE: Multiple ultrasound grayscale images of the kidneys were obtained. COMPARISON: None. FINDINGS: The right kidney measures 10.5 x 4.4 x 5.2 cm. The left kidney measures 11.6 x 5.5 x 4.0 cm. The kidn eys demonstrate normal echogenicity. There is mild bilateral hydronephrosis. No stones identified. Th e normal-appearing bladder is distended to 13.2 x 12.5 x 9.7 cm. Bilateral ureteral jets are visualiz ed in the bladder on color Doppler. IMPRESSION: 1. Mild bilateral hydronephrosis with bilateral ureteral jets visualized in the bladder. Involvement of both kidneys suggests either chronic bladder obstruction or neurogenic bladder. No evident urolit hiasis. Reviewed, dictated and finalized at location A. NEL MARKETING MANAGER IMPRESSION: 1. Mild bilateral hydronephrosis with bilateral ureteral jets visualized in th e bladder. Involvement of both kidneys suggests either chronic bladder obstruct ion or neurogenic bladder. No evident urolithiasis.
== END 2023-09-02 16:45 | disposition home or self-care (01) ==
LOC: ANHIMG 16:46
PROVIDERS: PCP Family Medicine; Visit Provider Internal Medicine Nephrology
DX: N13.39 Other hydronephrosis (principal)
CPT/HCPCS: 76775

== ENCOUNTER 2023-09-17 08:45 | Outpatient (CLI) | payer OTHER, SELFPAY ==
[2023-09-16 09:49] VITALS: BMI 19.4
--- NOTE | 2023-09-16 09:49 | PC.NURSE ---
Pre Radiology instructions Report to the outpatient [facility] on date 09/17/23 at time 0830 for procedure Time: 1030. YOU MAY BE MONITORED AT HOSPITAL FOR UP TO 4 HOURS AFTER YOUR PROCEDURE. A visitor will be allowed to accompany the patient into the hospital. You and your visitor will be asked to self-screen and do not enter if you have any COVID symptoms. A mask is OPTIONAL within the hospital. Patients are to have no food or drink 6 hours prior to procedure time Driving will be restricted after the procedure, you must have a person to drive you home. Labs will be drawn in preop area and once reviewed, you will be taken to radiology area for procedure. When the procedure is completed, you will be taken to outpatient where you will be monitored for several hours. You may have one visitor in this area. Other than holding anti-coagulants, patient may take other medication(s) as scheduled. Prior to your appointment date patients are instructed to hold anti-coagulants after discussing with ordering provider to stop. If unable to discontinue anti-coagulants please notify radiologist. ? No aspirin or warfarin (Coumadin) for 7 days prior to the procedure. ? No clopidogrel (Plavix), ticagrelor (Brilinta), prasugrel (Effient) or dabigatran (Pradaxa) for 5 days prior to the procedure. ? No rivaroxaban (Xarelto), apixaban (Eliquis), dipyridamole (Aggrenox or Persantine) or cilostazol (Pletal) for 2 days prior to the procedure. Medications to discontinue per physician: N/A Date to take last dose: N/A Please leave all valuables, including medications, at home the day of procedure. The hospital will not accept responsibility for valuables. Wear comfortable, loose fitting clothing.? Follow any additional instructions given to you from ordering provider. Telephone instructions given to PT - BENNETT PATEL and asked if any additional questions and then verbalized understanding. Patient advised to call scheduling provider office or registration scheduling [phone] if any additional questions.
[2023-09-17] VITALS (13 sets, daily range): BP systolic 83–103; BP diastolic 52–70; PULSE 61–84; RESP 15–18; TEMP 36.9; O2SAT 98–100
--- NOTE | ~2023-09-17 | US_ITS ---
EXAMINATION: US biopsy renal DATE: 09/17/2023 10:55 INDICATION: Renal potassium wasting. Increased creatinine. Positive OSMANY. TECHNIQUE: The procedure including the risks, benefits, and alternatives was discussed with the patie nt. Risks discussed included bleeding and infection. The patient understood the risks and agreed to p roceed. A timeout was performed to verify the patient's name, date of , and procedure to be p erformed. The skin overlying the left kidney was prepped and draped in usual sterile fashion. Anest hetic was administered with 1% lidocaine subcutaneously. An 18 gauge core biopsy needle was then use d to obtain 3 core biopsy specimens under continuous sonographic guidance. The entry site was cleaned and dressed. There were no immediate complications. FINDINGS: Ultrasound images demonstrate the needle in the kidney. IMPRESSION: 1. Ultrasound-guided random left kidney core needle biopsy. Reviewed, dictated and finalized at location A. RICT TRAFFIC CHIEF
[2023-09-17 09:24] LABS: Mean Platelet Volume 9.5 fl (7.4-10.4); Platelet Count Result 241 k/mm3 (150-375)
[2023-09-17 09:47] LABS: INR 0.9; Prothrombin Time 12.3 Seconds (11.1-14.7)
--- NOTE | 2023-09-17 11:15 | SUR.PHASEII ---
1110: Dr. Clarke at bedside to assess patient. No new orders.
[2023-09-17] MEDS: SODIUM CHLORIDE 0.9% IV 250 ML 999 ML IV CONT (11:16)
[2023-09-17] MEDS: SODIUM CHLORIDE 0.9% IV 1,000 ML 100 ML IV CONT (12:01)
== END 2023-09-17 15:00 | disposition home or self-care (01) ==
LOC: ANHSURGERY 15:49
PROVIDERS: PCP Family Medicine; Referring Provider Internal Medicine Nephrology; Visit Provider Radiology Diagnostic Radiology
PROC: (CPT 76942; principal; 2023-09-17 10:30)
DX: Z01.818 Encounter for other preprocedural examination (principal); E87.6 Hypokalemia; R76.0 Raised antibody titer; R94.4 Abnormal results of kidney function studies
CPT/HCPCS: 36415; 50200; 76942; 85049; 85610; 88300; 88305; 88313; 88329; 88342; 88346; 88350; J7030

== ENCOUNTER 2023-09-21 11:23 | Emergency (ER) | payer OTHER, SELFPAY ==
--- NOTE | ~2023-09-21 | XR_ITS ---
EXAMINATION: XR chest 2V DATE: 09/21/2023 11:53 INDICATION: Cough. Pneumonia. Fever. TECHNIQUE: Frontal and lateral views of the chest were obtained. COMPARISON: Chest 2 views 08/21/2023, chest CT 05/31/2017 FINDINGS: There are airspace opacities in right middle lobe and lingula. No pleural effusion or pneum othorax. The heart size is normal. IMPRESSION: 1. Airspace opacities in right middle lobe and lingula with worsening in the right middle lobe, consi stent with pneumonia. Reviewed, dictated and finalized at location A. PER OPENER IMPRESSION: 1. Airspace opacities in right middle lobe and lingula with worsening in the ri ght middle lobe, consistent with pneumonia.
[2023-09-21 11:39] VITALS: BP 118/69; PULSE 103; RESP 18; TEMP 39; O2SAT 100
--- NOTE | 2023-09-21 11:44 | ED.GENADULT ---
HPI - General Adult General Chief complaint: Upper Respiratory Infection Stated complaint: pain in chest right side, cold,cough,fever Source: patient, RN notes reviewed and old records reviewed Mode of arrival: ambulatory Limitations: no limitations History of Present Illness HPI narrative: 43-year-old female presents to [facility] with complaints of cough, congestion, bilateral rib pain this started several days ago. Patient states had cough to 3 weeks ago but unclear if cough is been continuous. Patient taking [id number] medications with no relief. Patient this is states started during fever last p.m. Related Data Allergies Allergy/AdvReac Type Severity Reaction Status Date / Time No Known Allergies Allergy Verified 09/21/23 11:25 Review of Systems Constitutional: Constitutional: Reports no additional constitutional complaints, Reports body ache(s), Denies chills, Denies fatigue, Reports fever(s) and Denies headache(s) Eyes: Eyes: Reports no additional eye complaints and Denies blurry vision ENT: Reports system reviewed and no additional complaints, except as documented, Denies vertigo, Denies dizziness, Denies ear discharge, Denies otalgia, Denies facial pain, Denies headache(s), Reports nasal congestion, Reports nasal discharge, Denies sinus pain, Denies sinus pressure and Denies sore throat Cardiovascular: Cardiovascular: Reports no additional cardiovascular complaints, Denies chest pain, Denies chest pain at rest, Denies rapid heart rate, Denies dyspnea and Reports other ( Bilateral rib pain) Respiratory: Respiratory: Reports no additional respiratory complaints, Reports chest congestion, Reports cough, Denies pain on inspiration, Reports pain with cough and Denies dyspnea Gastrointestinal: Gastrointestinal: Denies abdominal pain, Denies diarrhea, Denies nausea and Denies vomiting Integumentary/Breasts: Skin/Breast: Denies rash Neurologic: Reports system reviewed and no additional complaints, except as documented, Denies vertigo, Denies dizziness and Denies headache(s) Endocrine: Endocrine: Denies fatigue PMF Past Medical History Medical History Hypersomnolence Hyperthyroidism Non-rheumatic mitral regurgitation Palpitation Pulmonary hypertension Right ventricular enlargement Seasonal allergies SVT (supraventricular tachycardia) Surgical History Surgical History Previous section Family History Family History Father Family history of emphysema Mother Diabetes mellitus Social History Social History Smoking status: Never smoker Alcohol intake: never Do You Feel Safe in your Home?: Yes Lack of Transportation: No Lack of Food: Never True Current Housing: I Have Housing Concerned About Future Housing: No Difficulty Paying Gas/Electric Bills: No Difficulty Paying for Meds: No Currently Unemployed: No Education: High School Diploma/GED Difficulty w/ Childcare or Family Care: No Gender identity (if verbalized by the patient): Female Comments At the time of my signature, I reviewed and agree with the nursing past medical, surgical, social, and family history. There is no relevant family history pertinent to the patient complaint. Exam Const: General: cooperative, healthy appearing, no acute distress and well nourished Nutritional Appearance: well nourished Orientation/consciousness: patient oriented x3 Limitations: no limitations HENMT: Head: normal to inspection and normocephalic Ears: external ears normal, TM's normal bilaterally, EAC's normal and mastoids normal Face/Nose/Sinus: Normal nasal mucous membranes and turbinates present, normal facial exam and sinuses nontender Face and sinus: normal facial exam Mouth: Yes Normal oral and p
[2023-09-21 11:55] VITALS: TEMP 39
[2023-09-21] MEDS: ACETAMINOPHEN 500 MG TABLET 1000 MG PO (11:55)
[2023-09-21 12:12] VITALS: TEMP 38.1
== END 2023-09-21 12:12 | disposition home or self-care (01) ==
PROVIDERS: Emergency Provider Registered Nurse; PCP Family Medicine
DX: J18.9 Pneumonia, unspecified organism (principal); Z20.822 Contact with and (suspected) exposure to COVID-19; E05.90 Thyrotoxicosis, unspecified without thyrotoxic crisis or storm; I34.0 Nonrheumatic mitral (valve) insufficiency; I27.20 Pulmonary hypertension, unspecified
CPT/HCPCS: 71046; 87426; 87804; 99213; A9270; G0463

== ENCOUNTER 2023-10-17 14:47 | Outpatient (CLI) | payer OTHER, SELFPAY ==
[2023-10-17 16:47] LABS: Alanine Aminotransferase 18 U/L (6-35); Albumin Level 4.2 g/dL (3.5-5.1); Alkaline Phosphatase 79 U/L (38-126); Anion Gap 9 mmol/L (4-12); Aspartate Amino Transferase 30 U/L (14-36); Bilirubin,Total 0.4 mg/dL (0.2-1.3); Blood Urea Nitrogen 18 mg/dL (7-17); Calcium 9.2 mg/dL (8.4-10.2); Carbon Dioxide 15 mmol/L (22-30); Chloride 116 mmol/L (98-107); Estimated Glomerular Filt Rate 49; Glucose 75 mg/dL (65-110); Potassium 3.4 mmol/L (3.4-5.0); Sodium 140 mmol/L (137-145)
[2023-10-17 17:17] LABS: Thyroid Stimulating Hormone < 0.015 uIU/mL (0.465-4.680)
[2023-10-17 17:35] LABS: Free T4 Free Thyroxine 3.96 ng/mL (0.78-2.19)
[2023-10-21 20:01] LABS: Thyrotropin Receptor Antibody 4.16 IU/L (<=2.00)
[2023-10-22 06:01] LABS: Thyroid Peroxidase Antibodies 5 IU/mL (<9)
[2023-10-23 14:15] LABS: Thyroid Stimulating Immunoglob 278 % baseline (<140)
== END 2023-10-17 14:48 | disposition home or self-care (01) ==
LOC: ANHLAB 14:49
PROVIDERS: PCP Family Medicine; Visit Provider Internal Medicine
DX: E87.6 Hypokalemia (principal); E05.00 Thyrotoxicosis with diffuse goiter without thyrotoxic crisis or storm
CPT/HCPCS: 36415; 80053; 83519; 84439; 84443; 84445; 86376

== ENCOUNTER 2023-11-04 15:52 | Outpatient (CLI) | payer OTHER, SELFPAY ==
--- NOTE | ~2023-11-04 | XR_ITS ---
EXAMINATION: XR chest 2V 11/04/2023 15:41 INDICATION: Pneumonia PROCEDURE: Comparison to multiple prior studies sequentially, with oldest reviewed study dated 2023. COMPARISON: 08/21/2023 FINDINGS: The lungs are clear. The cardiomediastinal silhouette is within normal limits. There are no pleural effusions. There is no pneumothorax suspected. IMPRESSION: 1: NO ACUTE CARDIOPULMONARY DISEASE. Reviewed, dictated and finalized at location B.
[2023-11-04 16:06] LABS: Eosinophils Absolute Auto 0.2 K/mm3 (0-0.3); Eosinophils Percent Auto 4.2 % (0-4.4); Hematocrit 37.9 % (37.0-47.0); Hemoglobin 11.8 g/dL (12.0-15.0); Immature Granulocyte Absolute 0.01 K/mm3 (0.00-0.031); Immature Granulocyte Percent A 0.2 % (0-0.5); Lymphocytes Absolute Auto 1.85 K/mm3 (0.9-3.2); Lymphocytes Percent Auto 36.7 % (18.3-44.2); Mean Corpuscular HGB Conc 31.1 g/dl (32-36); Mean Corpuscular Hemoglobin 29.9 pg (26-34); Mean Corpuscular Volume 95.9 fl (80-100); Mean Platelet Volume 9.8 fl (7.4-10.4); Monocytes Absolute Auto 0.7 K/mm3 (0.1-0.6); Monocytes Percent Auto 14.3 % (2.6-8.5); Neutrophils Absolute Auto 2.3 K/mm3 (1.3-6.7); Neutrophils Percent Auto 44.6 % (45.5-73.1); Platelet Count Result 217 k/mm3 (150-375); Red Blood Count 3.95 M/mm3 (4.2-5.4); Red Cell Distribution Width 12.9 % (11.5-14.5)
== END 2023-11-04 15:53 | disposition home or self-care (01) ==
LOC: ANHIMG 15:53
PROVIDERS: PCP Family Medicine; Visit Provider Physician Assistant
DX: J18.9 Pneumonia, unspecified organism (principal); D64.9 Anemia, unspecified
CPT/HCPCS: 36415; 71046; 85025

== ENCOUNTER 2023-11-12 13:12 | Outpatient (CLI) | payer OTHER, SELFPAY ==
--- NOTE | ~2023-11-12 | NM_ITS ---
EXAMINATION: GLADIS jordan renal scan DATE: 11/12/2023 14:27 INDICATION: Abnormal result of kidney function studies TECHNIQUE: 7.8 mCi Tc-99m MAG3 was administered IV. 40 mg furosemide was administered IV immediately afterward. The patient was scanned in the supine position. A posterior abdominal radionuclide angiog opal was obtained. A subsequent time course of static images of the kidneys, ureters, and bladder was obtained. COMPARISON: None FINDINGS: The posterior abdominal radionuclide angiogram and sequential static images show normal size, positio n, and morphology of the kidneys. Peak renal parenchymal uptake was 3.4 min in left kidney and 3.4 mi n in right kidney (normal peak 3-5 minutes). The relative early renal uptake was 49% on the left and 51% on the right (<40% is abnormal). No abnormalities of the ureters or bladder are seen. T1/2 for clearance of activity from the left kidney and proximal collecting system was 8 minutes. T1/2 for clearance of activity from the right kidney and proximal collecting system was 9 minutes. Notes on interpretation: T1/2 <10 minutes is normal, 10-15 minutes is low grade obstruction of questi onable clinical significance, 15-20 minutes is partial obstruction that is likely clinically signific ant, >20 minutes is high grade obstruction. Note that false positives may be seen with supine positio bijan, dehydration, severely dilated nonobstructed kidney, atonic collecting system, poor renal functi on, and chronic furosemide use. IMPRESSION: 1. Symmetric kidney function. 2. No delay in contrast clearance from either kidney to suggest fixed obstruction. Reviewed, dictated and finalized at location A. IMPRESSION: 1. Symmetric kidney function. 2. No delay in contrast clearance from either kidney to suggest fixed obstruct ion.
== END 2023-11-12 13:13 | disposition home or self-care (01) ==
LOC: ANHIMG 13:16
PROVIDERS: PCP Family Medicine; Visit Provider Internal Medicine Nephrology
DX: R94.4 Abnormal results of kidney function studies (principal)
CPT/HCPCS: 78708; A9562; J1940

== ENCOUNTER 2023-11-12 15:12 | Outpatient (CLI) | payer OTHER, SELFPAY ==
--- NOTE | ~2023-11-12 | CT_ITS ---
Non-contrast CT scan of the Abdomen and Pelvis Clinical indication: Hydronephrosis Technique: 2.5 mm axial scans were obtained through the abdomen and pelvis without intravenous or or al contrast. Dose reduction technique was used on this scan by utilizing automated exposure control a nd iterative reconstruction technique. The dose-length product (DLP) was 213.59 mGy-cm. Findings: Images through the lung bases reveal chronic scarring and mild bronchiectatic change in th e lingula and right middle lobe. Probable minimal bilateral hydronephrosis. No renal mass or stone identified. The liver, spleen, pancreas, gallbladder, and adrenals appear normal. There is no aortic aneurysm. There is no evidence of bowel obstruction. Images through the pelvis were performed. There is no evidence of ascites or lymphadenopathy. Urinary bladder is well distended, otherwise unremarkable. IUD in place. No adnexal mass seen. Impression: Minimal bilateral hydronephrosis, possibly related to distended urinary bladder. No obstructing mass or stone identified. Correlate for any possibility of bladder outlet obstruction. IUD in place. Reviewed, dictated and finalized at [facility]. Impression: Minimal bilateral hydronephrosis, possibly related to distended urinary bladder . No obstructing mass or stone identified. Correlate for any possibility of radha dder outlet obstruction. IUD in place.
== END 2023-11-12 15:13 ==
PROVIDERS: PCP Urology; Visit Provider Urology
DX: N13.30 Unspecified hydronephrosis (principal); Z97.5 Presence of (intrauterine) contraceptive device
CPT/HCPCS: 74176

== ENCOUNTER 2023-11-20 15:54 | Outpatient (CLI) | payer OTHER, SELFPAY ==
--- NOTE | ~2023-11-20 | MM_ITS ---
EXAMINATION: MM screening vishnu BI w danny HISTORY: Screening TECHNIQUE: Craniocaudal and mediolateral oblique 3-D tomosynthesis images were obtained and synthetic 2-D images were generated. CAD analysis was submitted and interpreted. COMPARISON: No prior mammogram is available for comparison at this institution. BREAST PARENCHYMAL COMPOSITION: Dense: The breasts are extremely dense, which lowers the sensitivity of mammography. FINDINGS: There is no evidence of suspicious mass, calcification, or architectural distortion to sugg est malignancy in either breast. There has been no suspicious interval change. IMPRESSION: 1. No mammographic evidence of malignancy. 2. Recommend routine screening mammography in one year. BI-RADS Category 1: Negative Reviewed, dictated and finalized at location B.
== END 2023-11-20 15:55 | disposition home or self-care (01) ==
LOC: ANHIMG 15:57
PROVIDERS: PCP Urology; Visit Provider Physician Assistant Medical
DX: Z12.31 Encounter for screening mammogram for malignant neoplasm of breast (principal)
CPT/HCPCS: 77063; 77067

== ENCOUNTER 2023-12-12 15:53 | Outpatient (CLI) | payer OTHER, SELFPAY ==
[2023-12-12 16:32] LABS: Albumin Level 4.1 g/dL (3.5-5.1); Anion Gap 10 mmol/L (4-12); Blood Urea Nitrogen 15 mg/dL (7-17); Calcium 8.3 mg/dL (8.4-10.2); Carbon Dioxide 14 mmol/L (22-30); Chloride 117 mmol/L (98-107); Estimated Glomerular Filt Rate 35; Glucose 93 mg/dL (65-110); Phosphorus 2.7 mg/dL (2.5-4.5); Potassium 2.5 mmol/L (3.4-5.0); Sodium 141 mmol/L (137-145)
== END 2023-12-12 15:54 | disposition home or self-care (01) ==
PROVIDERS: PCP Family Medicine; Visit Provider Internal Medicine Nephrology
DX: R94.4 Abnormal results of kidney function studies (principal)
CPT/HCPCS: 36415; 80069

== ENCOUNTER 2023-12-17 16:39 | Outpatient (CLI) | payer OTHER, SELFPAY ==
[2023-12-17 17:19] LABS: Anion Gap 6 mmol/L (4-12); Blood Urea Nitrogen 14 mg/dL (7-17); Calcium 8.5 mg/dL (8.4-10.2); Carbon Dioxide 16 mmol/L (22-30); Chloride 117 mmol/L (98-107); Estimated Glomerular Filt Rate 41; Glucose 90 mg/dL (65-110); Phosphorus 2.5 mg/dL (2.5-4.5); Potassium 3.5 mmol/L (3.4-5.0); Sodium 139 mmol/L (137-145)
== END 2023-12-17 16:40 | disposition home or self-care (01) ==
LOC: ANHLAB 16:41
PROVIDERS: PCP Family Medicine; Visit Provider Internal Medicine Nephrology
DX: E87.6 Hypokalemia (principal)
CPT/HCPCS: 36415; 80069

== ENCOUNTER 2024-01-02 15:53 | Outpatient (CLI) | payer OTHER, SELFPAY ==
[2024-01-02 16:53] LABS: Albumin Level 4.7 g/dL (3.5-5.1); Anion Gap 12 mmol/L (4-12); Blood Urea Nitrogen 16 mg/dL (7-17); Calcium 8.8 mg/dL (8.4-10.2); Carbon Dioxide 17 mmol/L (22-30); Chloride 114 mmol/L (98-107); Estimated Glomerular Filt Rate 41; Glucose 69 mg/dL (65-110); Phosphorus 3.6 mg/dL (2.5-4.5); Sodium 143 mmol/L (137-145)
[2024-01-02 16:58] LABS: Complement C3 88 mg/dL (88-165)
[2024-01-02 17:23] LABS: Erythrocyte Sedimentation Rate 25 mm/hr (0-20)
[2024-01-06 12:24] LABS: NIL 0.02 IU/mL; Quantiferon TB Plus, 1T NEGATIVE (NEGATIVE); TB1-NIL 0.02 IU/mL; TB2-NIL 0.03 IU/mL
[2024-01-06 12:43] LABS: Angiotensin Converting Enzyme 33 U/L (9-67); Complement Total CH50 46 U/mL (31-60)
[2024-01-06 13:19] LABS: SM Antibody <1.0 NEG AI (<1.0 NEG); SM/RNP Antibody <1.0 NEG AI (<1.0 NEG); SS-A >8.0 POS AI (<1.0 NEG); SS-B 3.8 POS AI (<1.0 NEG)
[2024-01-07 13:00] LABS: Anti Nuclear Antibody Pattern Nuclear, Speckled
[2024-01-09 22:28] LABS: Cryoglobulin, QL Negative (Negative)
== END 2024-01-02 15:54 | disposition home or self-care (01) ==
LOC: ANHLAB 15:54
PROVIDERS: PCP Family Medicine; Visit Provider Internal Medicine Nephrology
DX: N12 Tubulo-interstitial nephritis, not specified as acute or chronic (principal); R94.4 Abnormal results of kidney function studies; E87.6 Hypokalemia
CPT/HCPCS: 36415; 80069; 82164; 82595; 85652; 86038; 86039; 86160; 86162; 86225; 86235; 86480

== ENCOUNTER 2024-01-04 07:36 | Outpatient (CLI) | payer OTHER, SELFPAY ==
[2024-01-04 08:47] LABS: Alanine Aminotransferase 18 U/L (6-35); Alkaline Phosphatase 64 U/L (38-126); Aspartate Amino Transferase 26 U/L (14-36); Bilirubin,Total 0.4 mg/dL (0.2-1.3); Cholesterol 128 mg/dL (0-200); HDL Direct 47 mg/dL; Triglycerides 74 mg/dL (<150)
[2024-01-04 08:58] LABS: LDL Cholesterol Direct 67 mg/dL
== END 2024-01-04 07:37 | disposition home or self-care (01) ==
LOC: ANHLAB 07:37
PROVIDERS: PCP Family Medicine; Visit Provider Physician Assistant Medical
DX: Z00.00 Encounter for general adult medical examination without abnormal findings (principal); E78.2 Mixed hyperlipidemia
CPT/HCPCS: 36415; 80061; 80076

== ENCOUNTER 2024-01-13 16:35 | Outpatient (CLI) | payer OTHER, SELFPAY ==
[2024-01-13 17:20] LABS: Albumin Level 4.3 g/dL (3.5-5.1); Anion Gap 8 mmol/L (4-12); Blood Urea Nitrogen 17 mg/dL (7-17); Calcium 8.3 mg/dL (8.4-10.2); Carbon Dioxide 17 mmol/L (22-30); Chloride 113 mmol/L (98-107); Estimated Glomerular Filt Rate 41; Glucose 90 mg/dL (65-110); Phosphorus 3.3 mg/dL (2.5-4.5); Potassium 3.9 mmol/L (3.4-5.0); Sodium 138 mmol/L (137-145)
[2024-01-16 10:54] LABS: NIL 0.04 IU/mL; Quantiferon TB Plus, 1T NEGATIVE (NEGATIVE); TB1-NIL 0.01 IU/mL; TB2-NIL 0.01 IU/mL
== END 2024-01-13 16:36 | disposition home or self-care (01) ==
LOC: ANHLAB 16:37
PROVIDERS: PCP Family Medicine; Visit Provider Internal Medicine Nephrology
DX: N12 Tubulo-interstitial nephritis, not specified as acute or chronic (principal)
CPT/HCPCS: 36415; 80069; 86480

== ENCOUNTER 2024-02-04 15:08 | Outpatient (CLI) | payer OTHER, SELFPAY ==
[2024-02-04 15:42] LABS: Hemoglobin 11.8 g/dL (12.0-15.0); Mean Corpuscular HGB Conc 31.9 g/dl (32-36); Mean Corpuscular Hemoglobin 29.6 pg (26-34); Mean Platelet Volume 9.6 fl (7.4-10.4); Platelet Count Result 243 k/mm3 (150-375); Red Blood Count 3.98 M/mm3 (4.2-5.4); Red Cell Distribution Width 13.5 % (11.5-14.5); White Blood Count 4.3 K/mm3 (4.5-10.0)
[2024-02-04 15:56] LABS: Alanine Aminotransferase 25 U/L (6-35); Albumin Level 4.3 g/dL (3.5-5.1); Alkaline Phosphatase 64 U/L (38-126); Anion Gap 9 mmol/L (4-12); Aspartate Amino Transferase 28 U/L (14-36); Bilirubin,Total 0.3 mg/dL (0.2-1.3); Blood Urea Nitrogen 20 mg/dL (7-17); Calcium 8.7 mg/dL (8.4-10.2); Carbon Dioxide 20 mmol/L (22-30); Chloride 111 mmol/L (98-107); Estimated Glomerular Filt Rate 44; Glucose 93 mg/dL (65-110); Potassium 3.5 mmol/L (3.4-5.0); Sodium 140 mmol/L (137-145)
[2024-02-04 16:19] LABS: Free T4 Free Thyroxine 1.24 ng/mL (0.78-2.19)
[2024-02-04 16:26] LABS: Thyroid Stimulating Hormone < 0.015 uIU/mL (0.465-4.680); Total Triiodothyronine (T3) 1.59 NG/ML (0.97-1.69)
== END 2024-02-04 15:09 | disposition home or self-care (01) ==
LOC: ANHLAB 15:09
PROVIDERS: PCP Family Medicine; Visit Provider Internal Medicine
DX: E05.00 Thyrotoxicosis with diffuse goiter without thyrotoxic crisis or storm (principal)
CPT/HCPCS: 36415; 80053; 84439; 84443; 84480; 85027

== ENCOUNTER 2024-03-19 14:52 | Outpatient (CLI) | payer OTHER, SELFPAY ==
[2024-03-19 15:19] LABS: Hematocrit 37.2 % (37.0-47.0); Hemoglobin 11.7 g/dL (12.0-15.0); Mean Corpuscular HGB Conc 31.5 g/dl (32-36); Mean Corpuscular Hemoglobin 30.6 pg (26-34); Mean Corpuscular Volume 97.4 fl (80-100); Mean Platelet Volume 9.7 fl (7.4-10.4); Platelet Count Result 244 k/mm3 (150-375); Red Blood Count 3.82 M/mm3 (4.2-5.4); Red Cell Distribution Width 13.2 % (11.5-14.5); White Blood Count 5.6 K/mm3 (4.5-10.0)
[2024-03-19 15:31] LABS: Albumin Level 4.4 g/dL (3.5-5.1); Anion Gap 14 mmol/L (4-12); Blood Urea Nitrogen 21 mg/dL (7-17); Calcium 8.6 mg/dL (8.4-10.2); Carbon Dioxide 12 mmol/L (22-30); Chloride 111 mmol/L (98-107); Estimated Glomerular Filt Rate 38; Glucose 85 mg/dL (65-110); Phosphorus 4.3 mg/dL (2.5-4.5); Potassium 3.3 mmol/L (3.4-5.0); Sodium 137 mmol/L (137-145)
[2024-03-19 15:58] LABS: Total Triiodothyronine (T3) 1.55 NG/ML (0.97-1.69)
[2024-03-19 17:21] LABS: Creatinine Urine 57.3 mg/dL; Total Protein Urine Random 52 mg/dL; Ur Ttl Prot Creatinine Ratio 0.91 mg/mg (0-0.20)
[2024-03-19 17:27] LABS: Parathyroid Intact 37.4 pg/mL (14.5-75.2)
== END 2024-03-19 14:53 | disposition home or self-care (01) ==
LOC: ANHLAB 14:54
PROVIDERS: Internal Medicine Nephrology; PCP Family Medicine; Visit Provider Internal Medicine
DX: E05.00 Thyrotoxicosis with diffuse goiter without thyrotoxic crisis or storm (principal); R94.4 Abnormal results of kidney function studies
CPT/HCPCS: 36415; 80069; 82570; 83970; 84156; 84439; 84480; 85027

== ENCOUNTER 2024-06-08 17:11 | Outpatient (CLI) | payer OTHER, SELFPAY ==
[2024-06-08 18:05] LABS: Alanine Aminotransferase 25 U/L (6-35); Alkaline Phosphatase 61 U/L (38-126); Anion Gap 9 mmol/L (4-12); Aspartate Amino Transferase 33 U/L (14-36); Bilirubin,Total 0.2 mg/dL (0.2-1.3); Blood Urea Nitrogen 17 mg/dL (7-17); Calcium 8.4 mg/dL (8.4-10.2); Carbon Dioxide 22 mmol/L (22-30); Chloride 108 mmol/L (98-107); Estimated Glomerular Filt Rate 44; Glucose 77 mg/dL (65-110); Potassium 3.4 mmol/L (3.4-5.0); Sodium 139 mmol/L (137-145)
[2024-06-08 18:34] LABS: Total Triiodothyronine (T3) 1.33 NG/ML (0.97-1.69)
== END 2024-06-08 17:12 | disposition home or self-care (01) ==
LOC: ANHLAB 17:13
PROVIDERS: PCP Family Medicine; Visit Provider Internal Medicine
DX: E05.00 Thyrotoxicosis with diffuse goiter without thyrotoxic crisis or storm (principal)
CPT/HCPCS: 36415; 80053; 84439; 84443; 84480

== ENCOUNTER 2024-07-11 09:34 | Outpatient (CLI) | payer OTHER, SELFPAY ==
[2024-07-11 09:49] LABS: Basophils Percent Auto 0.3 % (0.2-1.2); Eosinophils Absolute Auto 0.3 K/mm3 (0-0.3); Eosinophils Percent Auto 4.3 % (0-4.4); Hematocrit 40.2 % (37.0-47.0); Hemoglobin 12.9 g/dL (12.0-15.0); Immature Granulocyte Absolute 0.01 K/mm3 (0.00-0.031); Immature Granulocyte Percent A 0.2 % (0-0.5); Lymphocytes Absolute Auto 1.38 K/mm3 (0.9-3.2); Mean Corpuscular HGB Conc 32.1 g/dl (32-36); Mean Corpuscular Hemoglobin 31.4 pg (26-34); Mean Corpuscular Volume 97.8 fl (80-100); Mean Platelet Volume 9.5 fl (7.4-10.4); Monocytes Absolute Auto 0.6 K/mm3 (0.1-0.6); Monocytes Percent Auto 9.9 % (2.6-8.5); Neutrophils Absolute Auto 3.5 K/mm3 (1.3-6.7); Neutrophils Percent Auto 61.3 % (45.5-73.1); Platelet Count Result 203 k/mm3 (150-375); Red Blood Count 4.11 M/mm3 (4.2-5.4); White Blood Count 5.8 K/mm3 (4.5-10.0)
[2024-07-11 10:11] LABS: Alanine Aminotransferase 31 U/L (6-35); Albumin Level 4.4 g/dL (3.5-5.1); Alkaline Phosphatase 62 U/L (38-126); Aspartate Amino Transferase 37 U/L (14-36); Bilirubin,Total 0.7 mg/dL (0.2-1.3); Cholesterol 165 mg/dL (0-200); HDL Direct 56 mg/dL; Triglycerides 68 mg/dL (<150)
[2024-07-11 10:22] LABS: LDL Cholesterol Direct 66 mg/dL
[2024-07-11 10:47] LABS: Iron 75 ug/dL (37-170)
[2024-07-11 10:56] LABS: Percent Iron Saturation 25 % (20-50)
--- OUTSIDE RECORDS SUMMARY | 2024-07-18 11:43 | XMS_ITS | Clinical Summary ---
Author Organization [facility] Address [address] [place] [address]. [place], [place] [id number] [place] [address] Care Team Providers Care Metal Grader Name Role Phone Shabana Silva Primary Care Provider [phone] Allergies No known active allergies Medications metroNIDAZOLE (FLAGYL) 500 MG tablet Take 1 tablet (500 mg total) by mouth every 8 (eight) hours. Active triamcinolone (KENALOG) 0.1 % cream Apply topically 2 (two) times daily. Active potassium chloride CR (KLOR-CON M) 20 MEQ tablet Take 1 tablet (20 mEq total) by mouth daily. Active Vitamin D, Ergocalciferol, 47487 units Cap Take 1 capsule every week by oral route in the morning for 90 days Active Active Problems Problem Noted Date Diagnosed Date History of itching of eye 09/19/2022 Hyperthyroidism 08/06/2022 Pain in both feet 07/26/2022 Family History Medical History Relation Comments Diabetes Mother Lupus Sister Erythematosis Relation Status Comments Mother Sister Social History Tobacco Use Types Packs/Day Years Used Date Smoking Tobacco: Never Smokeless Tobacco: Never Tobacco Cessation:Counseling Given: Not Answered Comments Unknown Sex and Gender Information Value Date Recorded Sex Assigned at Female 10/02/2022 11:35 AM CDT Legal Sex Female 11:30 AM CDT Gender Identity Female 10/02/2022 11:35 AM CDT Sexual Orientation Not on file Plan of Treatment Health Maintenance Due Date Last Done Comments Cervical Cancer Screening Pa p Smear (Age 30 to 64) Every 3 Years 1978 Colorectal Cancer Screening Colonoscopy (10 Years) 1978 Annual Physical 1981 Hepatitis C 1996 DTaP, Tdap and Td Vaccines ( 1 - Tdap) 1997 Hepatitis B Vaccines (1 of 3 - 19+ 3-dose series) 1997 Cervical Cancer Screening Pelon blackburn with HPV Testing (Age 30 to 64) Every 5 Years 2008 Cervical Cancer Screening with HPV 2008 Mammogram Screening 2018 COVID-19 Vaccine ( - 2023-2 5 season) 2024 Influenza Adult (#1) 2024 HPV Vaccines Aged Out No longer eligi ble based on patient's age to complete this topic Meningococcal Vaccine Aged Out No dionne kelsy eligible based on patient's age to complete this topic Pneumococcal Vaccine: Pediat rics (0 to 5 Years) and At-Risk Patients (6 to 64 Years) Aged Out No longer eligible b ased on patient's age to complete this topic RSV Immunizations Under 20 Months Aged Out No longer eligible based on patient's age to complete this topic Insurance [employer] Care Teams Metal Grader Relationship Specialty Start Date End Date Shabana Silva PA [address] [place] [address] PCP - General PHYSICIAN METALLOGRAPHY TEACHER 01/14/23
--- OUTSIDE RECORDS SUMMARY | 2024-07-18 11:43 | XMS_ITS | Encounter Summary ---
Author Organization [facility] Address [address] [place] [address]. [place], [place] [id number] [place] [address] Care Team Providers Care Solar Installation Helper Name Role Phone Unavailable Primary Care Provider Unavailabl e Reason for Visit * Reason Comments Lab (SCAN) Encounter Details Date Type Department Care Team (Latest Contact Info) Description 06/23/2022 Scan [facility] Scanned, [facility] Lab (SCAN) Social History Tobacco Use Types Packs/Day Years Used Date Smoking Tobacco: Never Assessed Comments Unknown Sex and Gender Information Value Date Recorded Sex Assigned at Female 10/02/2022 11:35 AM CDT Legal Sex Female 11:30 AM CDT Gender Identity Female 10/02/2022 11:35 AM CDT Sexual Orientation Not on file documented as of this encounter Plan of Treatment Not on file documented as of this encounter Procedures Procedure Name Priority Date/Time Associated Diagnosis Comments OUTSIDE LAB (SCAN ORDER) 06/23/2022 OUTSIDE LAB (SCAN ORDER) 06/23/2022 documented in this encounter Results * OUTSIDE LAB (SCAN) (06/23/2022) 06/23/2022 [facility] Scanned SCANNING Final Resu lt * OUTSIDE LAB (SCAN) (06/23/2022) 06/23/2022 [facility] Scanned SCANNING Final Resu lt documented in this encounter Visit Diagnoses Not on filedocumented in this encounter
--- OUTSIDE RECORDS SUMMARY | 2024-07-18 11:43 | XMS_ITS | Clinical Summary ---
Author Organization [facility] Address [address] [place] [address] Phone Care Team Providers Care Resort Housekeeper Name Role Phone Unavailable Primary Care Provider Unavailabl e Social History Tobacco Use Types Packs/Day Years Used Date Smoking Tobacco: Never Assessed Comments Unknown Sex and Gender Information Value Date Recorded Sex Assigned at Not on file Legal Sex Female 5:13 PM CDT Gender Identity Not on file Sexual Orientation Not on file Plan of Treatment Health Maintenance Due Date Last Done Comments Hepatitis C Virus (HCV) Screening 1978 Hepatitis B Immunization (1 of 3 - 19+ 3-dose series) 1997 Pap Smear 1999 Cervical Cancer Screening (CCS) 2008 HPV/Cotest 2008 Discussion re Starting/Frequency of Mammograms 2018 SARS-COV-2 Immunization ( season) 2023 07/16/2021, 10/15/2020, 09/23/2020 Colonoscopy 2023 Colorectal Cancer Screening 2023 Influenza Immunization (Season Ended) 2024 04/29/2021, 05/21/2020, 04/30/2019, Additional history exists DTaP/Tdap/Td Immunization Discontinued 04/12/2017 TdaP Immunization Completed 04/12/2017 Meningococcal Immunization (ACWY) Aged Out No longer eligible based on patient's age to complete this topic Pneumococcal Immunization Combined Aged Out No longer eligible based on patient's age to complete this topic Rotavirus Immunization Aged Out No lo nger eligible based on patient's age to complete this topic
--- OUTSIDE RECORDS SUMMARY | 2024-07-18 11:43 | XMS_ITS | Encounter Summary ---
Author Organization [facility] Address [address] [place] [address] Care Team Providers Care Can Tender Name Role Phone Unavailable Primary Care Provider Unavailabl e Encounter Details Date Type Department Care Team (Late st Contact Info) Description 06/21/2021 Lab Requisition [facility] Community Testing [facility] [address] [place] [address] James Arndt MD [address] [place] [address] [place] [address] Social History Tobacco Use Types Packs/Day Years Used Date Smoking Tobacco: Never Assessed Comments Unknown Sex and Gender Information Value Date Recorded Sex Assigned at Not on file Legal Sex Female 5:13 PM CDT Gender Identity Not on file Sexual Orientation Not on file documented as of this encounter Plan of Treatment Not on file documented as of this encounter Procedures Procedure Name Priority Date/Time Associated Diagnosis Comments SARS-COV-2 PCR [facility] ONLY Routine 06/21/2021 1:00 PM ROLLER BEARING INSPECTOR documented in this encounter Visit Diagnoses Not on filedocumented in this encounter
--- OUTSIDE RECORDS SUMMARY | 2024-07-18 11:43 | XMS_ITS | Encounter Summary ---
Author Organization [facility] Address [address] [place] [address] Care Team Providers Care Display Maker Name Role Phone Unavailable Primary Care Provider Unavailabl e Encounter Details Date Type Department Care Team (Late st Contact Info) Description 06/21/2021 1:00 PM EQUIPMENT SERVICES ASSOCIATE Rapid Evaluation [facility] Community Testing [facility] [address] [place] [address] Social History Tobacco Use Types Packs/Day Years Used Date Smoking Tobacco: Never Assessed Comments Unknown Sex and Gender Information Value Date Recorded Sex Assigned at Not on file Legal Sex Female 5:13 PM CDT Gender Identity Not on file Sexual Orientation Not on file documented as of this encounter Plan of Treatment Not on file documented as of this encounter Visit Diagnoses Not on filedocumented in this encounter
--- OUTSIDE RECORDS SUMMARY | 2024-07-18 11:43 | XMS_ITS | Encounter Summary ---
Author Organization [facility] Address [address] [place] [address]. [place], [place] [id number] [place] [address] Care Team Providers Care Distillery Laborer Name Role Phone Unavailable Primary Care Provider Unavailabl e Reason for Visit * Reason Onset Date Comments Appointment Request 10/02/2022 Encounter Details Date Type Department Care Team (Late st Contact Info) Description 10/02/2022 Telephone [facility] End[facility] - [place] [address] Norman Mena MD Appointment Request Social History Tobacco Use Types Packs/Day Years Used Date Smoking Tobacco: Never Assessed Comments Unknown Sex and Gender Information Value Date Recorded Sex Assigned at Female 10/02/2022 11:35 AM CDT Legal Sex Female 11:30 AM CDT Gender Identity Female 10/02/2022 11:35 AM CDT Sexual Orientation Not on file documented as of this encounter Progress Notes * Marry Don - 10/02/2022 11:41 AM CDT Patient and her returned call to start new patient appt with Dr Mena? Patient verbalized??HIPPA??authorization? Completed registration? Please return call to patients regarding??scheduling? [phone]?? documented in this encounter Plan of Treatment Not on file documented as of this encounter Visit Diagnoses Not on filedocumented in this encounter
--- OUTSIDE RECORDS SUMMARY | 2024-07-18 11:44 | XMS_ITS | Encounter Summary ---
Author Organization [facility] Address [address] [place] [address] Phone Care Team Providers Care Hot Blast Worker Name Role Phone Gloria Paula MD Primary Care Provider + Reason for Visit * Consultation (Routine) - Closed Specialty Diagnoses / Procedures Referred By Myron t Referred To Contact Endocrinology Diagnoses Hyperthyroidism Kezia Marshall MD Phone: tel: fax: [facility] (All Locations) Referral ID Status Reason Start Date Expiration Date V isits Requested Visits Authorized [id number] Closed Specialty Services Required 04/24/2021 12 12 Encounter Details Date Type Department Care Team (Latest Contact Info) Description 07/24/2022 4:40 PM VIDEO GAME PROGRAMMER Telemedicine [facility] Endocrinology Metabolism and Lipid [address] [facility] Advanced Medicine 5th [place] [address] [place] [phone] Graves disease (Primary Dx) Social History Tobacco Use Types Packs/Day Years Used Date Smoking Tobacco: Never Smokeless Tobacco: Never Tobacco Cessation:Counseling Given: Not Answered Alcohol Use Standard Drinks/Week Comments No 0 (1 standard drink = 0.6 oz pur e alcohol) Comments Unknown Sex and Gender Information Value Date Recorded Sex Assigned at Not on file Legal Sex Female 4:09 PM CDT Gender Identity Not on file Sexual Orientation Straight 04/26/2021 12 :41 PM CDT documented as of this encounter Last Filed Vital Signs Vital Sign Reading Time Taken Comments Blood Pressure - - Pulse - - Temperature - - Respiratory Rate - - Oxygen Saturation - - Inhaled Oxygen Concentration - - Weight 50.8 kg (112 lb) 07/24/2022 10:29 AM VIDEO GAME PROGRAMMER Height 154.9 cm (5' 1 ) 07/24/2022 10:29 AM VIDEO GAME PROGRAMMER Body Mass Index 21.16 07/24/2022 10:29 AM VIDEO GAME PROGRAMMER documented in this encounter Progress Notes * Michael Luo MD - 07/24/2022 4:40 PM CST Images from the original note were not included. This was a telemedicine visit with Viola Davis alone which took place via Real-time video connection (Uptake, Un[employer]istry[employer] or similar). During the visit, I was located in the office and the patient was located [facility]. The patient visit started at 4:40 and ended at 5:00 PM. My total encounter time on 07/24/2022 was 20 minutes which was spent in the activities documented in the note. This includes time spent prior to the visit and after the visit in direct care of the patient. This time does not include time spent in any separately reportable services. The patient: has been informed that the visit may not be secure and acknowledged the information. The option of participating in a telephone or video visit during the [facility] [place] [address] emergencywas explained to them. After being given an opportunity to ask questions about and discuss this type of visit, they verbally consented to proceeding with the telephone/video visit and understand thatthis service replaces an office visit. Chief Complain: Graves disease Viola Davis is a 41 y.o. female who returns for follow of Graves disease She was initially referred here by another president practicing urologist Dr. Marshall for hyperthyroidism for possible NAVAS. She said that she was diagnosed with Graves disease 4 years ago during her . She wasinitially on PTU then during her 4th month of was switched to methimazole. At the beginning , she was on 5 mg daily but for the last 2 years a, she has been on 5 mg EOD. Previous labs showed elevated TSI, with normal TPO. She initially agreed on NAVAS but refused later on given the holidays 06/11: Reviewed and discussed NM scans with patient She refused NAVAS scan given the upcoming holidays and logistics of staying away from her children She reported stopping her MMI 1 month prior to NM scans Her TFT were normal 06/01/2021 Advised to continue to hold MMI for given normal TFT and recheck TFT Her TFT remain normal off MMI Patient doing well now and denies sx of hyperthyroidism No recent TFT , although patient thinks she did have them checked through PCP We obtained outside labs records below and left VM to PCP office to get those if any I have reviewed: allergies, current medications, past family history, past medical history, past social history, past surgical history, and problem list Review of Systems Review of systems per HPI and otherwise all other systems are negative Physical exam: Ht 154.9 cm (5' 1 ) Wt 50.8 kg (112 lb) BMI 21.16 kg/m?? General: Alert, no visible distress Eyes: EOMI, no proptosis visible Neck: No obvious neck masses appreciated on visual exam Lungs: normal effort, appears comfortable Neuro: grossly intact, alert and oriented x 3 Skin: No rash visible Psych: cooperative, normal insight and judgement, appropriate affect Lab Review Lab Results Component Value Date TSH 1.23 06/01/2021 TSH 2.47 05/01/2021 FREET4 1.32 06/01/2021 FREET4 1.15 05/01/2021 Assessment/Plan Problem List Endocrine and Metabolic Graves disease - Primary Current Assessment & Plan Off MMI Follow up thyroid function tests All questions answered Patient in agreement with the above plan Return to clinic as needed Michael Luo MD O GAME PROGRAMMER documented in this encounter Miscellaneous Notes * Assessment & Plan Note - Michael Luo MD - 07/24/2022 4:27 PM CSTAssociated Problem(s): Graves disease Off MMI Follow up thyroid function tests O GAME PROGRAMMER documented in this encounter Plan of Treatment Not on file documented as of this encounter Visit Diagnoses Diagnosis Graves disease- Primary Toxic diffuse goiter without mention of thyrotoxic crisis or storm documented in this encounter Care Teams Hot Blast Worker Relationship Specialty Start Date End Date Gloria Paula MD [address] [place] [address] [place] [address] PCP - General Family Medicine 12/04/19 documented as of this encounter
--- OUTSIDE RECORDS SUMMARY | 2024-07-18 11:44 | XMS_ITS | Encounter Summary ---
Author Organization [facility] Address [address] [place] [address] Phone Care Team Providers Care Family Readiness Support Assistant Name Role Phone Gloria Paula MD Primary Care Provider + Reason for Visit * Consultation (Routine) - Closed Specialty Diagnoses / Procedures Referred By Myron t Referred To Contact Endocrinology Diagnoses Hyperthyroidism Kezia Marshall MD Phone: tel: fax: [facility] (All Locations) Referral ID Status Reason Start Date Expiration Date V isits Requested Visits Authorized [id number] Closed Specialty Services Required 04/24/2021 12 12 Encounter Details Date Type Department Care Team (Latest Contact Info) Description 01/30/2022 4:40 PM CDT Telemedicine [facility] Endocrinology Metabolism and Lipid [address] [facility] 5th [place] [address] [place] [id number] Graves disease (Primary Dx) Social History Tobacco Use Types Packs/Day Years Used Date Smoking Tobacco: Never Smokeless Tobacco: Never Alcohol Use Standard Drinks/Week Comments No 0 [...] - Inhaled Oxygen Concentration - - Weight 51.3 kg (113 lb) 01/30/2022 10:31 AM CDT Height 154.9 cm (5' 1 ) 01/30/2022 10:31 AM CDT Body Mass Index 21.35 01/30/2022 10:31 AM CDT documented in this encounter Progress Notes * Michael Luo MD - 01/30/2022 4:40 PM CDT This was a telemedicine visit with Viola Davis alone which took place via Real-time video connection ([employer], [employer] or similar). During the visit, I was located in the office and the patient was located home in the [facility]. The patient visit started at 4:40 and ended at 5:00 PM. My total encounter time on 01/30/2022 was 20 minutes which was spent in the activities documented in the note.This includes time spent prior to the visit and after the visit in direct care of the patient. Thistime does not include time spent in any separately reportable services. The patient: has been informed that the visit may not be secure and acknowledged the information. The option of participating in a telephone or video visit during the [address] emergency[address] explained to them. After being given an opportunity to ask questions about and discuss this type of visit, they verbally consented to proceeding with the telephone/video visit and understand thatthis service replaces an office visit. Chief Complain: Graves disease ?? Viola Davis is a 41 y.o. female who returns for follow of Graves disease ?? She was initially referred here by another marine geologist ??Dr. Marshall for hyperthyroidism for possible NAVAS. She said that she was diagnosed with Graves disease 4 years ago during her . She was initially on PTU then during her 4th month of was switched to methimazole. At the beginning , she was on 5 mg daily but for the last 2 years a, she has been on 5 mg EOD. Previous labs showed elevated TSI, with normal TPO. ?? She initially agreed on NAVAS but refused [...] for given normal TFT and recheck TFT Patient doing well now and denies sx of hyperthyroidism I have reviewed: allergies, current medications, past family history, past medical history, past social history, past surgical history and problem list Review of Systems Review of systems per HPI and otherwise all other systems are negative Physical exam: Ht 154.9 cm (5' 1 ) Wt 51.3 kg (113 lb) BMI 21.35 kg/m?? General: Alert, no visible distress Eyes: [...] Off MMI Follow up thyroid function tests Relevant Orders T3, free T4, free TSH Thyroid stimulating immunoglobulin All questions answered Patient in agreement with the above plan Return to clinic in 6 months Michael Luo MD * Nisha Trevino RN - 01/30/2022 4:40 PM CDT Orders mailed documented in this encounter Miscellaneous Notes * Assessment & Plan Note - Michael Luo MD - 01/30/2022 4:34 PM CDTAssociated Problem(s): Graves disease Off MMI Follow up thyroid function tests documented in this encounter Plan of Treatment Scheduled Orders Name Type Priority Associated Diagnoses Orde r Schedule T3, free Lab Routine Graves disease Expected: 02/01/2022 (Approximate), Expires: 01/30/2023 T4, free Lab Routine Graves disease Expected: 02/01/2022 (Approximate), Expires: 01/30/2023 TSH Lab Routine Graves disease Expected: 02/01/2022 (Approximate), Expires: 01/30/2023 Thyroid stimulating immunoglobulin Lab Routine Graves disease Expected: 01/30/2022, Expires: 01/30/2023 documented as of this encounter Visit Diagnoses Diagnosis Graves disease- Primary Toxic diffuse goiter without mention of thyrotoxic crisis or storm documented in this encounter Care Teams Family Readiness Support Assistant Relationship Specialty Start Date End Date Gloria Paula MD [address] [address] PCP - General Family Medicine 12/04/19 documented as of this encounter
--- OUTSIDE RECORDS SUMMARY | 2024-07-18 11:44 | XMS_ITS | Encounter Summary ---
Author Organization [facility] Address [address] [place] [address] Phone Care Team Providers Care Dentofacial Orthopedics Dentist Name Role Phone Gloria Paula MD Primary Care Provider + Encounter Details Date Type Department Care Team (Late st Contact Info) Description 06/28/2021 Telephone [facility] Endocrinology Metabolism and Lipid [address] [facility] 5th [place] [address] [place] [address] Nisha Trevino RN Social History Tobacco Use Types Packs/Day Years [...] PM CDT documented as of this encounter Miscellaneous Notes * Telephone Encounter - Nisha Trevino RN - 06/28/2021 4:04 PM CARD ASSEMBLER Orders mailed ASSEMBLER * Telephone Encounter - Nisha Trevino RN - 06/28/2021 4:04 PM CARD ASSEMBLER ----- Message from Michael Luo MD sent at 06/06/2021 9:42 AM CARD ASSEMBLER ----- Patient needs external labs mailed for Jul 2021 Please arrange Thank you! Michael Luo MD ASSEMBLER documented in this encounter Plan of Treatment Not on file documented as of this encounter Visit Diagnoses Not on filedocumented in this encounter Care Teams Dentofacial Orthopedics Dentist Relationship Specialty Start Date End Date Gloria Paula MD [address] [place] [address] PCP - General Family Medicine 12/04/19 documented as of this encounter
--- OUTSIDE RECORDS SUMMARY | 2024-07-18 11:44 | XMS_ITS | Encounter Summary ---
Author Organization [facility] Address [address] [place] [address] Care Team Providers Care Electronic Prepress Operator Name Role Phone Gloria Paula MD Primary Care Provider + Reason for Visit * Cardiology (Routine) - Closed Specialty Diagnoses / Procedures Referred By Myron mojica Referred To Contact Diagnoses Nonrheumatic tricuspid valve regurgitation Right ventricular enlargement Procedures Transthoracic Echo (TTE) Complete W Doppler/CF Radha Murrieta NP [address] [address] Phone: tel: fax: [facility] Referral ID Status Reason Start Date Expiration Date Visits Re quested Visits Authorized [id number] Closed 04/02/2023 05/01/2024 1 1 Encounter Details Date Type Department Care Team (Latest Contact Info) Description 05/31/2023 2:00 PM AMMONIA BOX TENDER Ancillary Procedure [facility] Cardiology [address] [place] [phone] Nonrheumatic tricuspid valve regurgitation; Right ventricular enlargement Social History Tobacco Use Types Packs/Day Years [...] Sign Reading Time Taken Comments Blood Pressure 92/65 05/31/2023 2:41 PM AMMONIA BOX TENDER Pulse - - Temperature - - Respiratory Rate - - Oxygen Saturation - - Inhaled Oxygen Concentration - - Weight - - Height - - Body Mass Index - - documented in this encounter Plan of Treatment Not on file documented as of this encounter Procedures Procedure Name Priority Date/Time Associated Diagnosis Comments TRANSTHORACIC ECHO (TTE) COMPLETE W DOPPLER/CF WO CONTRAST Routine 05/31/2023 2:41 PM AMMONIA BOX TENDER Nonrheumatic tricuspid valve regurgitation Right ventricular enlargement documented in this encounter Results * TRANSTHORACIC ECHO (TTE) COMPLETE W DOPPLER/CF WO CONTRAST (05/31/2023 2:41 PM AMMONIA BOX TENDER) Anatomical Region Laterality Modality Ultrasound 05/31/2023 2:24 PM AMMONIA BOX TENDER Narrative 05/31/2023 4:01 PM AMMONIA BOX TENDER [facility] Cardiology [address] [facility] [address] [id number] [address] [facility] [address] [place], [place] [address] P:[phone] P:[phone] Echocardiographic Report Patient Name: BENNETT DAVIS : 1980 Study Date: 05/31/2023 2:24:09 PM Gender: F Tech: JM Ref Provider: RADHA MURRIETA Height(Cm): 155 BSA: 1.47 Weight(Kg): 49.9 ?Heart Rate: 71 BP: 92 / 65 ? Quality: Good Order Provider: RADHA MURRIETA PROCEDURES: Echocardiographic Report: Transthoracic echocardiogram with complete 2D, M-Mode, and color Doppler examination. With Strain Analysis. INDICATIONS: Evaluate RV enlargement, TR. Measurements: 2D/M Mode ?Doppler Measurement ?Value ?Normal Range ?Measurement ?Value ?Normal Range LVIDd 2D ? 4.16 ? [ 3.90 - 5.30 ] cm ?AGUSTIN Vmax ? 1.84 ? [ 2.00 - 4.00 ] cm2 LVIDs 2D ? 2.74 ? [ 2.30 - 3.90 ] cm ?AV Mean PG ? 3 ?mmHg LVPWd 2D ? 0.94 ? [ 0.60 - 1.00 ] cm ?AV Peak Kiran ?1.19 ? m/s IVSd 2D ?0.87 ? [ 0.60 - 0.90 ] cm ?AV Peak PG ? 6 ?mmHg LA Volume Index ?15 ? [ 16 - 28 ] cc/m2 ? AV VTI ? 23.54 ?cm LVOT Diam ?1.88 ?[ 1.70 - 2.10 ] cm LVOT Peak Kiran ?0.79 ?[ 0.70 - 1.10 ] m/s LVOT VTI ? 14.51 ? cm MV E Peak Kiran ?0.67 ?[ 0.60 - 1.30 ] m/s MV A Peak Kiran ?0.46 ?[ 0.40 - 0.80 ] m/s MV Decel Time ?231 ? [ 150 - 200 ] msec TR Peak Kiran ?0.02 ?m/s TR Peak PG ? 23 ?mmHg Lateral E` ? 0.12 ?m/s E` ? 0.11 ?m/s E/E` ? 5 Measurement ?Value ?Normal Range ?Measurement ?Value ?Normal Range 2D/M Mode ?Doppler - FINDINGS: Interpretation Site: Exam was interpreted at [facility]. Left Ventricle: Normal left ventricular size. Normal left ventricular wall thickness. Normal global left ventricular systolic function. Ejection fraction is visually estimated at 60-65 %. Ejection fraction is measured at 67 %. Global Longitudinal Strain is -22 %. Right Ventricle: Normal right ventricular size. Normal right ventricular systolic function. Left Atrium: The left atrium is normal in size. Right Atrium: The right atrium is normal in size. Atrial Septum: Normal atrial septum. Mitral Valve: Mild mitral valve regurgitation. Aortic Valve: No evidence of hemodynamically significant aortic stenosis by Doppler. Aortic cusps appear mildly sclerotic. Trileaflet aortic valve. No aortic regurgitation. Tricuspid Valve: Estimated peak RVSP is 38 mmHg. Mild tricuspid regurgitation. Pulmonic Valve: Pulmonic valve not well visualized. Pericardium: Normal pericardium with no significant pericardial effusion. Aorta: Normal aortic root. IVC: Dilated inferior vena cava with poor inspiratory collapse consistent with elevated right atrial pressures. CONCLUSIONS: Normal left ventricular size. Normal left ventricular wall thickness. Normal global left ventricular systolic function. Ejection fraction is visually estimated at 60-65 %. Ejection fraction is measured at 67 %. Global Longitudinal Strain is -22 %. Normal right ventricular size. Normal right ventricular systolic function. Mild mitral valve regurgitation. Estimated peak RVSP is 38 mmHg. Mild tricuspid regurgitation. Electronically Signed By: Anai Blankenship MD 2023-05-31 16:01:02 AMMONIA BOX TENDER Procedure Note Anai Blankenship MD - 05/31/2023 [facility] Cardiology [address] [facility] [address] [address] [address] [facility] [address] [address] P:[phone] P:[phone] Echocardiographic Report Patient Name: BENNETT DAVISPatient ID: [id number] : [id number] Date: 05/31/2023 2:24:09 PM Gender: FAccession #: [id number] Tech: JMRef Provider: RADHA MURRIETA Height(Cm): 155BSA: 1.47 Weight(Kg): 49.9 Heart Rate: 71 BP: 92 / 65 Quality: Good Order Provider: RADHA MURRIETA PROCEDURES: Echocardiographic Report: Transthoracic echocardiogram with complete 2D, M-Mode, and color Dopplerexamination. With Strain Analysis. INDICATIONS: Evaluate RV enlargement, TR. Measurements: 2D/M ModeDoppler Measurement Value Normal Range MeasurementValue Normal Range LVIDd 2D 4.16 [ 3.90 - 5.30 ] cm AGUSTIN Vmax1.84 [ 2.00 - 4.00 ] cm2 LVIDs 2D 2.74 [ 2.30 - 3.90 ] cm AV Mean PG3 mmHg LVPWd 2D 0.94 [ 0.60 - 1.00 ] cm AV Peak Vel1.19 m/s IVSd 2D 0.87 [ 0.60 - 0.90 ] cm AV Peak PG6 mmHg LA Volume Index 15 [ 16 - 28 ] cc/m2 AV VTI23.54 cm LVOT Diam 1.88 [ 1.70 - 2.10 ] cm LVOT Peak Kiran 0.79 [ 0.70 - 1.10 ] m/s LVOT VTI 14.51 cm MV E Peak Kiran 0.67 [ 0.60 - 1.30 ] m/s MV A Peak Kiran 0.46 [ 0.40 - 0.80 ] m/s MV Decel Time 231 [ 150 - 200 ] msec TR Peak Kiran 0.02 m/s TR Peak PG 23 mmHg Lateral E` 0.12 m/s E` 0.11 m/s E/E` 5 Measurement Value Normal Range MeasurementValue Normal Range 2D/M ModeDoppler - FINDINGS: Interpretation Site: Exam was interpreted at [facility]. Left Ventricle: Normal left ventricular size. Normal left ventricular wall thickness.Normal global left ventricular systolic function. Ejection fraction is visually estimated at60-65 %. Ejection fraction is measured at 67 %. Global Longitudinal Strain is -22%. Right Ventricle: Normal right ventricular size. Normal right ventricular systolicfunction. Left Atrium: The left atrium is normal in size. Right Atrium: The right atrium is normal in size. Atrial Septum: Normal atrial septum. Mitral Valve: Mild mitral valve regurgitation. Aortic Valve: No evidence of hemodynamically significant aortic stenosis by Doppler.Aortic cusps appear mildly sclerotic. Trileaflet aortic valve. No aorticregurgitation. Tricuspid Valve: Estimated peak RVSP is 38 mmHg. Mild tricuspid regurgitation. Pulmonic Valve: Pulmonic valve not well visualized. Pericardium: Normal pericardium with no significant pericardial effusion. Aorta: Normal aortic root. IVC: Dilated inferior vena cava with poor inspiratory collapse consistent withelevated right atrial pressures. CONCLUSIONS: Normal left ventricular size. Normal left ventricular wall thickness.Normal global left ventricular systolic function. Ejection fraction is visually estimated at60-65 %. Ejection fraction is measured at 67 %. Global Longitudinal Strain is -22%. Normal right ventricular size. Normal right ventricular systolicfunction. Mild mitral valve regurgitation. Estimated peak RVSP is 38 mmHg. Mild tricuspid regurgitation. Electronically Signed By: Anai Blankenship MD 2023-05-31 16:01:02 AMMONIA BOX TENDER Radha Murrieta NP CV ECHO PROCEDURES Final Result documented in this encounter Visit Diagnoses Diagnosis Nonrheumatic tricuspid valve regurgitation Right ventricular enlargement Cardiomegaly documented in this encounter Care Teams Electronic Prepress Operator Relationship Specialty Start Date End Date Gloria Paula MD [address] [place] [address] PCP - General Family Medicine 12/04/19 documented as of this encounter
--- OUTSIDE RECORDS SUMMARY | 2024-07-18 11:44 | XMS_ITS | Encounter Summary ---
Author Organization [facility] Address [address] [place] [address] Phone Care Team Providers Care Employment Law Specialist Name Role Phone Gloria Paula MD Primary Care Provider + Encounter Details Date Type Department Care Team (Late st Contact Info) Description 02/02/2022 Telephone [facility] Endocrinology Metabolism and Lipid [address] [facility] 5th [place] [address] [place] [address] Nisha Trevino RN Social History [...] Telephone Encounter - Nisha Trevino RN - 02/02/2022 2:03 PM CDT Orders mailed * Telephone Encounter - Nisha Trevino RN - 02/02/2022 2:03 PM CDT ----- Message from Nisha Trevino RN sent at 02/01/2022 4:31 PM CDT ----- Printed, need to be mailed ----- Message ----- From: Michale Luo MD Sent: 01/30/2022 4:59 PM CDT To: [facility] Clinical [place], # Please mail external orders documented in this encounter Plan of Treatment Not on file documented as of this encounter Visit Diagnoses Not on filedocumented in this encounter Care Teams Employment Law Specialist Relationship Specialty Start Date End Date Gloria Paula MD [address] [place] [address] PCP - General Family Medicine 12/04/19 documented as of this encounter
--- OUTSIDE RECORDS SUMMARY | 2024-07-18 11:44 | XMS_ITS | Encounter Summary ---
Author Organization [facility] Address [address] [place] [address] Care Team Providers Care Machine Marker Name Role Phone Gloria Paula MD Primary Care Provider + Encounter Details Date Type Department Care Team (Late st Contact Info) Description 06/01/2021 11:45 AM PARARESCUE MANAGER Lab [facility] [address] [facility] 1st [place] [address] Michael Luo MD [address] [address] Graves disease Discharge Disposition: Discharge to home or self care Social History Tobacco Use Types Packs/Day Years [...] PM CDT documented as of this encounter Discharge Disposition Disposition Code Departure Means Destination Discharge to home or self care documented in this encounter Plan of Treatment Not on file documented as of this encounter Procedures Procedure Name Priority Date/Time Associated Diagnosis Comments T3, FREE Routine 06/01/2021 11:36 AM PARARESCUE MANAGER Graves disease TSH Routine 06/01/2021 11:36 AM PARARESCUE MANAGER Graves disease T4, FREE Routine 06/01/2021 11:36 AM PARARESCUE MANAGER Graves disease documented in this encounter Results * T4, free (06/01/2021 11:36 AM PARARESCUE MANAGER) Free T4 1.32 0.90 - 1.70 ng/dL [facility] Blood 06/01/2021 11:3 6 AM PARARESCUE MANAGER 06/01/2021 11:42 AM PARARESCUE MANAGER us Michael Luo MD LAB BLOOD ORDERABLES Final Resu lt Performing Organization Address City/[facility]/ZIP Co de Phone Number [facility] [place] [address] * TSH (06/01/2021 11:36 AM PARARESCUE MANAGER) Thyroid Stimulating Hormone 1.23 0.30 - 4.20 mcIUnit/mL [facility] Blood 06/01/2021 11:3 6 AM PARARESCUE MANAGER 06/01/2021 11:42 AM PARARESCUE MANAGER us Michael Luo MD LAB BLOOD ORDERABLES Final Resu lt Performing Organization Address City/[facility]/ZIP Co de Phone Number [facility] [place] [address] * T3, free (06/01/2021 11:36 AM PARARESCUE MANAGER) Free T3 2.4 2.0 - 4.4 pg/mL [facility] Blood 06/01/2021 11:3 6 AM PARARESCUE MANAGER 06/01/2021 11:42 AM PARARESCUE MANAGER us Michael Luo MD LAB BLOOD ORDERABLES Final Resu lt [facility] [place] [address] documented in this encounter Visit Diagnoses Diagnosis Graves disease Toxic diffuse goiter without mention of thyrotoxic crisis or storm documented in this encounter Care Teams Machine Marker Relationship Specialty Start Date End Date Gloria Paula MD [address] [place] [address] [address] [place] [address] PCP - General Family Medicine 12/04/19 documented as of this encounter
--- OUTSIDE RECORDS SUMMARY | 2024-07-18 11:44 | XMS_ITS | Encounter Summary ---
Author Organization [facility] Address [address] [facility] [address] [place] [address] Care Team Providers Care Circulation Manager Name Role Phone Gloria Paula MD Primary Care Provider + Encounter Details Date Type Department Care Team (Late st Contact Info) Description 04/02/2023 Telephone [facility] Cardiology [address] [place] [address] Tammie Murrieta, LOW [address] [place] [address] Social History Tobacco Use Types Packs/Day Years [...] encounter Miscellaneous Notes * Telephone Encounter - Verónica Reynolds RN - 04/02/2023 2:19 PM CDT Called pt, no answer, unable to leave VM. Called and spoke with pts , message from CT below reviewed, he will have pt call to schedule TTE. * Telephone Encounter - Verónica Reynolds RN - 04/02/2023 2:12 PM CDT ----- Message from Tammie Murrieta NP sent at 04/02/2023 1:17 PM CDT ----- Please let her know I talked to Dr. Holman and he wants her to have another echo b/c it has been 3 years. Please schedule TTE in the next 1-3 months. Thank you. documented in this encounter Plan of Treatment Not on file documented as of this encounter Visit Diagnoses Diagnosis Right ventricular enlargement- Primary Cardiomegaly Nonrheumatic tricuspid valve regurgitation documented in this encounter Care Teams Circulation Manager Relationship Specialty Start Date End Date Gloria Paula MD [address] [place] [address] [address] PCP - General Family Medicine 12/04/19 documented as of this encounter
--- OUTSIDE RECORDS SUMMARY | 2024-07-18 11:44 | XMS_ITS | Encounter Summary ---
Author Organization [facility] Healthcare Address [address] [place] [id number] Care Team Providers Care Aviation Neuropsychologist Name Role Phone Gloria Paula MD Primary Care Provider + Reason for Visit * Reason Comments SVT PHT Valve Disorder Annual f/u Encounter Details Date Type Department Care Team (Latest Contact Info) Description 04/14/2024 3:30 PM CDT Office Visit [facility] Medical Group Cardiology [address] [facility] [address] [place] [address] Fabián Holman MD [facility] [place] [id number] Non-rheumatic mitral regurgitation (Primary Dx); Pulmonary HTN (HCC); SVT (supraventricular tachycardia) (HCC); Right ventricular enlargement; Hypokalemia; Lipid screening Social History Tobacco Use Types Packs/Day Years Used Date Smoking Tobacco: Never Smokeless Tobacco: Never Alcohol Use Standard Drinks/Week Comments No 0 (1 standard drink = 0.6 oz pur e alcohol) Personal Safety Answer Date Recorded Getting School Help Needed Not on file 08/25 Comments Unknown Sex and Gender Information Value Date Recorded Sex Assigned at Not on file Legal Sex Female 4:09 PM CDT Gender Identity Not on file Sexual Orientation Straight 04/26/2021 12 :41 PM CDT documented as of this encounter Last Filed Vital Signs Vital Sign Reading Time Taken Comments Blood Pressure 90/58 04/14/2024 3:26 PM CDT Pulse 79 04/14/2024 3:26 PM CDT Temperature - - Respiratory Rate - - Oxygen Saturation 99% 04/14/2024 3:26 PM CDT Inhaled Oxygen Concentration - - Weight 49 kg (108 lb) 04/14/2024 3:26 PM CDT Height 154.9 cm (5' 1 ) 04/14/2024 3:26 PM CDT Body Mass Index 20.41 04/14/2024 3:26 PM CDT documented in this encounter Progress Notes * Fabián Holman MD - 04/14/2024 3:30 PM CDT [facility] DATE OF VISIT: 04/14/2024 CHIEF COMPLAINT Chief Complaint Patient presents with SVT PHT Valve Disorder Annual f/u HPI Viola Davis is a 43 y.o. female with a history of SVT. I saw her in the hospital in May 2017. She had undergone a on May 29, 2017. She was found to be severely anemic post . She was transferred to the ICU for observational purposes and there were episodes of SVT/tachycardia with a heart rate around 170. EKG appeared to be supraventricular tachycardia possibly AVNRT versus AVRT. She was started on metoprolol. Her electrolytes were also replaced. She did take her metoprolol after she was discharged but then she ran out and did not have it refilled she had no refills. She did started developed worsening palpitations. She went to the ER recently because of SVT. She has had increased episodes of sudden onset and sudden offset palpitations lasting for seconds up to minutes at a time. They did occur 2-3 times daily. In the ER they started her on metoprolol 12.5 mg p.o. b.i.d.. Her symptoms have improved but she is still having some episodes a few times per week. She has also reduced her caffeine intake which has also helped. She has no other associated symptoms and denies any chest pain, shortness of breath, syncope, presyncope, paroxysmal nocturnal dyspnea, orthopnea, edema. Follow-up note 10/18/2017: She has a few episodes of palpitations but these have markedly improved.Her last episode was about a week ago. It lasted for less than 30 seconds. Overall she thinks she is doing much better and she denies any other chest pain, shortness of breath, syncope, presyncope, paroxysmal nocturnal dyspnea, orthopnea, edema. Follow-up note 06/24/2018: She still has palpitations occurring a couple times per week which will last for a few minutes at a time. No associated symptoms of syncope or presyncope. She has no chest pain. No paroxysmal nocturnal dyspnea, orthopnea, shortness of breath Follow-up note 04/15/2019: She denies any chest pain, shortness breath, syncope, presyncope, paroxysmal nocturnal dyspnea, orthopnea, edema or palpitations. Follow-up note 12/22/2019: She denies any chest pain, shortness breath, syncope, presyncope, paroxysmal nocturnal dyspnea orthopnea, edema. She does have some palpitations at times which can last from seconds to minutes. She does have some shortness of breath at that time. She notices these episodes ever she is nervous or stressed. Follow-up note 04/08/2020: MRI showed mild RV enlargement with moderate tricuspid regurgitation. Noother abnormalities are seen. She returns today feeling okay. She has developed some sharp pains inher chest. It is located in left upper chest described as a poking pain. It will last for about 5 minutes and go away on its own. It is not exertional. It does not radiate nor is associated with other symptoms such as nausea, shortness of breath or diaphoresis. She still has some occasional palpitations adequate her rarely. She has no syncope, presyncope, paroxysmal nocturnal dyspnea orthopnea, edema. Follow-up note 10/14/2020: She has had a few palpitations lasting for a couple seconds. It occurs whenever she is stressed or tired. She has no associated symptoms with the palpitations. She denies any chest pain, syncope, presyncope, paroxysmal nocturnal dyspnea, orthopnea. No edema. She is accompanied today with her . Her does state that she has witnessed apnea. She also has excessive daytime sleepiness and hypersomnia. she almost falls asleep driving at times Follow-up note 04/21/2021: Has a few episodes of palpitations which will last for 30 seconds or so.It occurs a couple times per week. Also has some poking chest pain which last for a minute or so usual whenever she is doing activities with her arms. This occurs on a daily basis. Overall though hersymptoms have not changed. She denies any syncope, presyncope, paroxysmal nocturnal dyspnea, orthopnea, edema. No shortness of breath. Follow-up note 02/09/2022: She has some occasional palpitations off and on which last for a few seconds. She would can have a few these a day and then none for several months. Overall these are not change. Otherwise she denies any chest pain, shortness breath, syncope, presyncope, paroxysmal nocturnal dyspnea, orthopnea or edema Follow-up with [facility] [facility] 04/01/2023: She is here for routine annual follow-up. Palpitations remain the same, happening intermittently and lasting for 2-3 seconds. Sometimes she will go days without any palpitations and sometimes she will have 2 or 3 episodes a day. 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 She has no exertional dyspnea. She is concerned her thyroid maybe causing problems again and she has appointment with endocrinology in late April. Follow-up note 04/14/2024: She denies any chest pain, shortness breath, syncope, presyncope, paroxysmal nocturnal dyspnea, orthopnea, edema or palpitations. Has had some low potassium issues and is now on supplement and following Dr. Tompkins MEDICAL HISTORY Past Medical History: Diagnosis Date Thyroid disease Social History Tobacco Use Smoking status: Never Smoker Smokeless tobacco: Never Used Substance Use Topics Alcohol use: No Drug use: No No family history on file. MEDICATIONS Medication List as of April 14, 2024 3:24 PM You have not been prescribed any medications. ALLERGIES No Known Allergies REVIEW OF SYSTEMS Review of Systems Constitutional: Negative for weight gain and weight loss. HENT: Negative for hearing loss. Eyes: Negative for blurred vision and visual disturbance. Cardiovascular: Negative for chest pain, claudication, dyspnea on exertion, irregular heartbeat, leg swelling, near-syncope, orthopnea, palpitations, paroxysmal nocturnal dyspnea and syncope. Respiratory: Negative for cough, hemoptysis, shortness of breath, snoring, sputum production and wheezing. Endocrine: Negative for cold intolerance, heat intolerance and polyuria. Hematologic/Lymphatic: Does not bruise/bleed easily. Skin: Negative for color change and rash. Musculoskeletal: Negative for falls, joint pain, joint swelling and myalgias. Gastrointestinal: Negative for abdominal pain, heartburn, nausea and vomiting. Genitourinary: Negative for dysuria. Neurological: Negative for dizziness, focal weakness, headaches, light- headedness, numbness and weakness. Psychiatric/Behavioral: Negative for depression. The patient is not nervous/anxious. Allergic/Immunologic: Negative for environmental allergies. PHYSICAL EXAM There were no vitals taken for this visit. There is no height or weight on file to calculate BMI. Physical Exam Vitals reviewed. HENT: Head: Normocephalic and atraumatic. Nose: Nose normal. Eyes: General: No scleral icterus. Conjunctiva/sclera: Conjunctivae normal. Cardiovascular: Rate and Rhythm: Normal rate and regular rhythm. Pulses: Intact distal pulses. Heart sounds: Normal heart sounds. No murmur heard. No friction rub. No gallop. Pulmonary: Effort: Pulmonary effort is normal. No respiratory distress. Breath sounds: Normal breath sounds. No wheezing or rales. Chest: Chest wall: No tenderness. Abdominal: General: Bowel sounds are normal. There is no distension. Palpations: Abdomen is soft. Tenderness: There is no abdominal tenderness. Musculoskeletal: General: Normal range of motion. Cervical back: Neck supple. Skin: General: Skin is warm and dry. Neurological: Mental Status: She is alert and oriented to person, place, and time. Psychiatric: Mood and Affect: Mood normal. LABS AND OTHER DIAGNOSTIC TESTS No results found for: WBC , HGB , HCT , MCV , PLT Chemistry No results found for: SODIUM , POTASSIUM , CHLORIDE , CO2 , BUNSER , CREATININE , GLUCOSE No results found for: CALCIUM , ALKPHOS , AST , ALT , BILITOT No results found for: CHOL No results found for: HDL No results found for: LDL ] No results found for: LDLCALC No results found for: TRIG No results found for: CHOLHDL EKG Echo EF 50-55%. Mild LVH. Grade 1 diastolic dysfunction, codb-go-bixsshiw MR, moderate TR, RVSP 35-40. Echo from May 2017 Echocardiogram 12/04/2019 Normal left ventricular systolic function. No focal wall motion abnormalities. Normal left ventricular size. Normal left ventricular wall thickness. Normal left ventricular diastolic function. Ejection fraction is visually estimated at 60-65 %. Ejection fraction is measured at 63 %. At least moderate enlargement of right ventricle. Mild right ventricular hypokinesis. There is mild enlargement of left atrium. There is moderate enlargement of right atrium. Mild mitral valve regurgitation. Moderate tricuspid regurgitation. Mild pulmonic regurgitation. Normal sinus rhythm. PHTN is better. RV is still dilated and probably larger. Echocardiogram June 2018 Normal left ventricular systolic function. No focal wall motion abnormalities. Normal left ventricular size. Normal left ventricular wall thickness. Impaired diastolic relaxation Grade I. Ejection fraction is visually estimated at 55-60 %. Ejection fraction is measured at 57 %. Moderate enlargement of right ventricle. Mild right ventricular hypokinesis. There is mild enlargement of left atrium. There is mild enlargement of right atrium. Mild mitral valve regurgitation. Normal appearance of the tricuspid valve. Mild pulmonary hypertension based on right ventricular systolic pressure. Estimated peak RVSP is 40-45 mmHg. Moderate tricuspid regurgitation. Normal sinus rhythm. Cardiac MRI January 18 2020 1. Subjective mild right ventricular enlargement which my be secondary to the moderate tricuspid regurgitation. There are no findings specific for right ventricular dysplasia.RVEF, 54%. 2. Normal left ventricular size and systolic function. LVEF 62%. Stress echo 05/27/2020 Blunted blood pressure response. No exercise induced chest pain. No Echocardiographic evidence of ischemia. Non-diagnostic exercise induced ST-T changes. Average functional capacity. Sleep study 11/2020 No apnea Echo 05/31/2023 Normal left ventricular size. Normal left ventricular wall thickness. Normal global left ventricular systolic function. Ejection fraction is visually estimated at 60-65 %. Ejection fraction is measured at 67 %. Global Longitudinal Strain is -22 %. Normal right ventricular size. Normal right ventricular systolic function. Mild mitral valve regurgitation. Estimated peak RVSP is 38 mmHg. Mild tricuspid regurgitation. ASSESSMENT Diagnoses and all orders for this visit: Non-rheumatic mitral regurgitation (Primary) Ljuu-ye-tixafssf Hypokalemia On supplement Pulmonary HTN (CMS/HCC) Improved SVT (supraventricular tachycardia) (CMS/HCC) Asymptomatic Right ventricular enlargement Not seen on most recent echo PLAN/RECOMMENDATIONS Continue current drug regimen including potassium chloride for hypokalemia. In office lipid panel today shows total cholesterol 146, HDL 55, triglycerides 170, LDL 57 Follow-up in 1 year or sooner as clinically indicated Fabián Holman MD, [facility] documented in this encounter Miscellaneous Notes * Addendum Note - Jeanette Turner MA - 04/14/2024 3:30 PM CDTAddended by: JEANETTE TURNER on: 04/14/2024 03:50 PM Modules accepted: Orders documented in this encounter Plan of Treatment Not on file documented as of this encounter Procedures Procedure Name Priority Date/Time Associated Diagnosis Comments POCT LIPID PANEL Routine 04/14/2024 3:26 PM CDT Lipid screening documented in this encounter Results * POCT lipid panel (04/14/2024 3:26 PM CDT) Cholesterol, POC 146 mg/dL HDL, POC 55 mg/dL Triglycerides, POC 170 mg/dL LDL Cholesterol POC 57 mg/dL Chol/HDL Ratio, POC 1.0 Non-HDL Cholesterol, POC 91 mg/dL Cholesterol Total, POC 146 mg/dL Capillary blood 04/14/2024 3 :26 PM CDT us Fabián Holman MD POINT OF CARE TEST ORDERA BLES Final Result documented in this encounter Visit Diagnoses Diagnosis Non-rheumatic mitral regurgitation- Primary Pulmonary HTN (HCC) SVT (supraventricular tachycardia) (HCC) Other specified cardiac dysrhythmias Right ventricular enlargement Cardiomegaly Hypokalemia Hypopotassemia Lipid screening Screening for lipoid disorders documented in this encounter Historical Medications * This list may reflect changes made after this encounter. sodium bicarbonate 650 mg tablet Take 1 tablet (650 mg total) by mouth 2 (two) times a day 03/21/2024 potassium chloride ER 20 mEq CR tablet Take 1 tablet (20 mEq total) by mouth daily 04/13/2024 AMILoride (MIDAMOR) 5 mg tablet Take 2 tablets (10 mg total) by mouth daily 03/24/2024 added in this encounter Care Teams Aviation Neuropsychologist Relationship Specialty Start Date End Date Gloria Paula MD [address] [place] [address] [address] [place] [address] PCP - General Family Medicine 12/04/19 documented as of this encounter
--- OUTSIDE RECORDS SUMMARY | 2024-07-18 11:44 | XMS_ITS | Encounter Summary ---
Author Organization [facility] Address [address] [place] [address] Phone Care Team Providers Care Beam Worker Name Role Phone Gloria Paula MD Primary Care Provider + Encounter Details Date Type Department Care Team (Late st Contact Info) Description 06/06/2021 Orders Only [facility] Endocrinology Metabolism and Lipid [address] [facility] 5th [place] [address] [place] [address] Michael Luo MD [address] [facility] [address] [place], [place] [id number] Graves disease (Primary Dx) Social History Tobacco [...] PM CDT documented as of this encounter Plan of Treatment Scheduled Orders Name Type Priority Associated Diagnoses Orde r Schedule TSH Lab Routine Graves disease Expected: 07/31/2021 (Approximate), Expires: 06/06/2022 T4, free Lab Routine Graves disease Expected: 07/31/2021 (Approximate), Expires: 06/06/2022 T3, free Lab Routine Graves disease Expected: 07/31/2021 (Approximate), Expires: 06/06/2022 documented as of this encounter Visit Diagnoses Diagnosis Graves disease- Primary Toxic diffuse goiter without mention of thyrotoxic crisis or storm documented in this encounter Care Teams Beam Worker Relationship Specialty Start Date End Date Gloria Paula MD [address] [place] [id number] PCP - General Family Medicine 12/04/19 documented as of this encounter
--- OUTSIDE RECORDS SUMMARY | 2024-07-18 11:44 | XMS_ITS | Encounter Summary ---
Author Organization [facility] Address [address] [facility] [address] [place] [address] Care Team Providers Care Musical Instrument Mechanic Name Role Phone Gloria Paula MD Primary Care Provider + Reason for Visit * Reason Comments SVT RVE PHT 6 mo f/u Encounter Details Date Type Department Care Team (Late st Contact Info) Description 02/09/2022 3:15 PM CDT Office Visit [facility] Cardiology [address] [facility] [address] [place] [address] Fabián Holman MD [facility] [place] [phone] Pulmonary HTN (CMS/HCC) (HCC) (Primary Dx); SVT (supraventricular tachycardia) (CMS/HCC) (HCC); Hypokalemia; Non-rheumatic mitral regurgitation; Right ventricular enlargement; Lipid screening Social History Tobacco Use Types [...] Sign Reading Time Taken Comments Blood Pressure 82/50 02/09/2022 3:30 PM CDT Pulse 68 02/09/2022 3:30 PM CDT Temperature - - Respiratory Rate - - Oxygen Saturation 99% 02/09/2022 3:30 PM CDT Inhaled Oxygen Concentration - - Weight 50.8 kg (112 lb) 02/09/2022 3:30 PM CDT Height 154.9 cm (5' 1 ) 02/09/2022 3:30 PM CDT Body Mass Index 21.16 02/09/2022 3:30 PM CDT documented in this encounter Progress Notes * Fabián Holman MD - 02/09/2022 3:15 PM CDT Images from the original note were not included. [facility] DATE OF VISIT: 02/09/2022 CHIEF COMPLAINT Chief Complaint Patient presents with ??? SVT ??? RVE ??? PHT 6 mo f/u HPI Viola Davis is a 41 y.o. female with a history of SVT. [...] presyncope, paroxysmal nocturnal dyspnea, orthopnea or edema MEDICAL HISTORY Past Medical History: Diagnosis Date ??? Thyroid disease Social History Tobacco Use ??? Smoking status: Never Smoker ??? Smokeless tobacco: Never Used Substance Use Topics ??? Alcohol use: No ??? Drug use: No No family history on file. MEDICATIONS Medication List Accurate as of February 09, 2022 3:36 PM. If you have any questions, ask your nurse or doctor. CONTINUE taking these medications ferrous sulfate 325 mg (65 mg iron) capsule, extended release metoprolol tartrate 25 mg immediate release tablet Commonly known as: LOPRESSOR STOP taking these medications methIMAzole 5 mg tablet Commonly known as: TAPAZOLE Stopped by: Fabián Holman MD ALLERGIES No Known Allergies REVIEW OF SYSTEMS [...] Allergic/Immunologic: Negative for environmental allergies. PHYSICAL EXAM Blood pressure (!) 82/50, pulse 68, height 154.9 cm (5' 1 ), weight 50.8 kg (112 lb), SpO2 99 %. Body mass index is 21.16 kg/m??. Physical Exam Vitals reviewed. HENT: Head: Normocephalic [...] OTHER DIAGNOSTIC TESTS No results found for: WBC, HGB, HCT, MCV, PLT Chemistry No results found for: SODIUM, POTASSIUM, CHLORIDE, CO2, BUNSER, CREATININE, GLUCOSE No results found for: CALCIUM, ALKPHOS, AST, ALT, BILITOT No results found for: CHOL No results found for: HDL No results found for: LDL] No results found for: LDLCALC No results found for: TRIG No results found for: CHOLHDL EKG Echo EF 50-55%. Mild LVH. Grade 1 diastolic dysfunction, xdex-ty-sqpjxpgj MR, moderate TR, RVSP 35-40. Echo from [...] findings specific for right ventricular dysplasia.RVEF, 54%. ??2. Normal left ventricular size and systolic function. LVEF 62%. Stress echo 05/27/2020 Blunted blood pressure response. No exercise induced chest pain. No Echocardiographic evidence of ischemia. Non-diagnostic exercise induced ST-T changes. Average functional capacity. Sleep study 11/2020 No apnea ASSESSMENT Diagnoses and all orders for this visit: Non-rheumatic mitral regurgitation (Primary) Kzgs-rx-orqxdxcl Hypokalemia Potassium was 3.7 at last evaluation Pulmonary HTN (CMS/HCC) Improved SVT (supraventricular tachycardia) (CMS/HCC) Still having episodes a couple times per week Right ventricular enlargement Mild by RVE PLAN/RECOMMENDATIONS Continue current drug regimen. She is stable. Will Discontinue her metoprolol In office lipid panel today shows total cholesterol 134, HDL 53, LDL 62, triglycerides 95 Follow-up in 1 year or sooner as clinically indicated Fabián Holman MD, [facility] documented in this encounter Miscellaneous Notes * Addendum Note - Jeanette Turner MA - 02/09/2022 3:15 PM CDTAddended by: JEANETTE TURNER on: 02/09/2022 04:19 PM Modules accepted: Orders documented in this encounter Plan of Treatment Not on file documented as of this encounter Procedures Procedure Name Priority Date/Time Associated Diagnosis Comments POCT LIPID PANEL Routine 02/09/2022 4:19 PM CDT Lipid screening documented in this encounter Results * POCT lipid panel (02/09/2022 4:19 PM CDT) Cholesterol, POC 134 mg/dL HDL, POC 53 mg/dL Triglycerides, POC 95 mg/dL LDL Cholesterol POC 62 mg/dL Chol/HDL Ratio, POC 2.5 Non-HDL Cholesterol, POC 81 mg/dL Cholesterol Total, POC 134 mg/dL Capillary blood 02/09/2022 4 :19 PM CDT us Fabián Holman MD POINT OF CARE TEST ORDERA BLES Final Result documented in this encounter Visit Diagnoses Diagnosis Pulmonary HTN (HCC)- Primary SVT (supraventricular tachycardia) (HCC) Other specified cardiac dysrhythmias Hypokalemia Hypopotassemia Non-rheumatic mitral regurgitation Right ventricular enlargement Cardiomegaly Lipid screening Screening for lipoid disorders documented in this encounter Discontinued Medications Medication Sig Discontinue Reason Start Date End Da te methIMAzole (TAPAZOLE) 5 mg tablet Take 5 mg by mouth every other day Therapy completed 02/09/2022 documented as of this encounter Care Teams Musical Instrument Mechanic Relationship Specialty Start Date End Date Gloria Paula MD [address] [place] [id number] PCP - General Family Medicine 12/04/19 documented as of this encounter
--- OUTSIDE RECORDS SUMMARY | 2024-07-18 11:44 | XMS_ITS | Encounter Summary ---
Author Organization 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 Name Role Phone Gloria Paula MD Primary Care Provider + Reason for Referral * Diagnostic Imaging (Routine) - Closed Specialty Diagnoses / Procedures Referred By Myron mojica Referred To Contact Diagnoses Graves disease Procedures NM Thyroid Therapy Initial Consult Michael Luo MD Phone: tel: fax: [address] [phone] Referral ID Status Reason Start Date Expiration Date Visits Re quested Visits Authorized [id number] Closed 06/01/2021 07/01/2022 1 1 TURNER * Diagnostic Imaging (Routine) - Closed Specialty Diagnoses / Procedures Referred By Myron mojica Referred To Contact Diagnoses Graves disease Procedures NM Thyroid Uptake(s) Quantitive Measurements NM Thyroid Request - Uptake and/or Imaging and/or Therapy in Hyperthyroid patients Michael Luo MD Phone: tel: fax: [address] [phone] Referral ID Status Reason Start Date Expiration Date Visits Re quested Visits Authorized [id number] Closed 05/01/2021 05/31/2022 5 5 TURNER Reason for Visit * Diagnostic Imaging (Routine) - Closed Specialty Diagnoses / Procedures Referred By Contzoila t Referred To Contact Diagnoses Graves disease Procedures NM Thyroid Uptake(s) Quantitive Measurements NM Thyroid Request - Uptake and/or Imaging and/or Therapy in Hyperthyroid patients Michael Luo MD Phone: tel: fax: [address] [phone] Referral ID Status Reason Start Date Expiration Date Visits Re quested Visits Authorized [id number] Closed 05/01/2021 05/31/2022 5 5 Encounter Details Date Type Department Care Team (Latest Contact Info) Description 06/01/2021 9:48 AM SOCK TURNER - 06/01/2021 11:59 PM S[facility] TURNER Hospital Encounter [facility] Radiology [address] [place] [id number] Michael Luo MD [id number] [address] Graves disease Discharge Disposition: Discharge to home [...] PM CDT documented as of this encounter Medications at Time of Discharge ferrous sulfate 325 mg (65 mg iron) capsule, extended release Take by mouth. 04/01/2023 methIMAzole (TAPAZOLE) 5 mg tablet Take 5 mg by mouth every other day 02/09/2022 metoprolol tartrate (LOPRESSOR) 25 mg immediate release tablet Take 25 mg by mouth every other day 04/01/2023 documented as of this encounter Discharge Disposition Disposition Code Departure Means Destination Discharge to home or self care documented in this encounter Plan of Treatment Not on file documented as of this encounter Procedures Procedure Name Priority Date/Time Associated Diagnosis Comments NM THYROID UPTAKE(S) QUANTITIVE MEASUREMENTS Schedule Routine, Read Routine (OP Routine) 06/02/2021 10:10 AM SOCK TURNER Graves disease NM THYROID THERAPY INITIAL CONSULT Schedule Routine, Read Routine (OP Routine) 06/01/2021 11:08 AM SOCK TURNER Graves disease documented in this encounter Results * NM Thyroid Uptake(s) Quantitive Measurements (06/02/2021 10:10 AM SOCK TURNER) Anatomical Region Laterality Modality N/A Nuclear Medicine 06/02/2021 10:4 3 AM SOCK TURNER Impressions 06/02/2021 6:44 PM SOCK TURNER The history, physical findings and laboratory studies in this patient are consistent with the prior diagnosis of Graves disease (diffuse toxic goiter), which has recently been well controlled on methimazole and metoprolol therapy. The patient stopped methimazole approximately 1 month ago. Since stopping methimazole, she reports mild intermittent symptoms and her thyroid labs are currently normal but 24-hour I-131 thyroid uptake is elevated at 49%. The cause of the elevated I-131 thyroid uptake is unclear at this time and may be due to either persistent hyperfunctioning thyroid (with a presumed lag in thyroid laboratory abnormalities) or possibly rebound thyroid uptake following long-term methimazole therapy. Regarding treatment, the patient also currently does not want to proceed with radioactive iodine therapy given she routinely goes to sleep with her 4-year-old daughter in the same bed while her works night shifts, and she currently cannot make alternative arrangements to sleep separately for at least 1 week. This patient was discussed with Dr. Luo and it was agreed to not proceed with I-131 therapy and to hold off on methimazole therapy at this time. ??Dr. Luo will closely follow-up with the patient in 4-6 weeks including thyroid function testing. She was also instructed to contact Dr. Luo earlier if she has any worsening hyperthyroidism symptoms. ??The patient and her expressed understanding of this plan. Thank you for the referral of this patient. I, Jf Tracy M.D., saw and evaluated the patient and agree with the plan of care as documented by the resident. ??A copy of this report is being sent to the referring physician. Dictated by: Gurwinder Cardoza M.D. The radiology attending physician has personally reviewed this study, and had reviewed and/or edited this written report and agrees with it. Electronically signed by: Jf Tracy M.D. Narrative 06/02/2021 6:44 PM SOCK TURNER EXAMINATION: THYROID UPTAKE DATE STARTED: 06/01/2021 DATE COMPLETED: 06/02/2021 RADIOPHARMACEUTICAL: ??7.8 microcuries I-131 sodium iodide p.o. FINDINGS: ??The 24 hour radioactive iodine uptake is 49% of the administered dose (normal range 10-30%). CONSULTATION FOR RADIOACTIVE IODINE THERAPY DATE: 06/01/2021 HISTORY: 40 year-old woman referred by Dr. Michael Luo for consultation, evaluation and possible treatment of hyperthyroidism. The patient has been previously diagnosed with Graves disease and initiated therapy with propylthiouracil, due to , approximately 4 years ago. Following her she was transitioned to methimazole and is also taking metoprolol. The patient reports that her initial symptoms included restlessness, irritability, palpitations/tachycardia, hair loss, and dry skin. Her symptoms have been currently well managed on her methimazole/metoprolol regimen, though she reports prior intermittent mild waxing and waning of symptoms with need to adjust medication dose. On review of systems, she endorses mild weight fluctuations (up and down) and mild constipation. She denies appetite change, heat intolerance (instead has cold intolerance), excessive perspiration, eye pain/swelling, neck swelling/pain/dysphagia, pretibial myxedema, hyper-defecation, or weakness. The patient underwent tubal ligation 4 years ago. The patient has no co-morbidities. She last took methimazole approximately 1 month ago, which she had stopped for a prior scheduled thyroid uptake appointment that she later postponed until today. She had most recently been on methimazole 5 mg every other day. The patient continues on metoprolol. Otherwise, she only takes iron supplements and an energy supplement (contains B vitamins and uncertain other contents). No recent intravenous contrast, iodine supplements, cough medicine, biotin supplement, amiodarone, or anti-helminthics. The patient's maternal aunt had a goiter but she is unaware of the specific diagnosis; otherwise, no additional family history of thyroid disease. 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 The patient and her (who accompanied her on this visit) express concern that sleeping separately from their 4-year-old daughter for more than 1-2 days will be very difficult at this time, particularly given that the patient routinely goes to sleep with her daughter while her works night shifts. PHYSICAL FINDINGS: The patient is well nourished and pleasant. Her blood pressure is 96/52 mmHg, heart rate 66/min (on current metoprolol dose), and respiratory rate 12/min. ??The conjunctivae are normal. No exophthalmos/proptosis or lid lag is present, and extraocular movements are normal. Oropharynx has moist mucous membranes. The thyroid is normal in size with no palpable nodule and no bruit. ??Auscultation of the heart and lungs is normal. Her skin is mildly dry, and no evidence of pretibial myxedema is present. ??No tremor is present, and bilateral patellar reflexes are normal. Muscular movement and strength are grossly intact and symmetric. LABORATORY FINDINGS: On 11/08/2020: - TSH 0.02 uIU/mL (low) - FT4 1.63 ng/dL (normal) - Thyroglobulin Antibody 1064 IU/mL(elevated) - Thyroperoxidase Antibodies 16.9 IU/mL (normal) On 05/01/2021: - TSH 2.47 uIU/mL (normal) - FT3 2.29 pg/mL (normal) - FT4 1.15 ng/dL (normal) - TSH receptor antibody 3.19 IUnits/L (elevated) On 06/01/2021: - TSH 1.23 uIU/mL (normal) - FT3 2.4 pg/mL (normal) - FT4 1.32 ng/dL (normal) 24-hour I-131 uptake on 06/01/2021-06/02/2021: ??49% (elevated) Procedure Note Jf Tracy MD - 06/02/2021 EXAMINATION: THYROID UPTAKE DATE STARTED: 06/01/2021 DATE COMPLETED: 06/02/2021 RADIOPHARMACEUTICAL: 7.8 microcuries I-131 sodium iodide p.o. FINDINGS: The 24 hour radioactive iodine uptake is 49% of the administered dose (normal range 10-30%). CONSULTATION FOR RADIOACTIVE IODINE THERAPY DATE: 06/01/2021 HISTORY: 40 year-old woman referred by Dr. Michael Luo for consultation, evaluation and possible treatment of hyperthyroidism. The patient has been previously diagnosed with Graves disease and initiated therapy with propylthiouracil, due to , approximately 4 years ago. Following her she was transitioned to methimazole and is also taking metoprolol. The patient reports that her initial symptoms included restlessness, irritability, palpitations/tachycardia, hair loss, and dry skin. Her symptoms have been currently well managed on her methimazole/metoprolol regimen, though she reports prior intermittent mild waxing and waning of symptoms with need to adjust medication dose. On review of systems, she endorses mild weight fluctuations (up and down) and mild constipation. She denies appetite change, heat intolerance (instead has cold intolerance), excessive perspiration, eye pain/swelling, neck swelling/pain/dysphagia, pretibial myxedema, hyper-defecation, or weakness. The patient underwent tubal ligation 4 years ago. The patient has no co-morbidities. She last took methimazole approximately 1 month ago, which she had stopped for a prior scheduled thyroid uptake appointment that she later postponed until today. She had most recently been on methimazole 5 mg every other day. The patient continues on metoprolol. Otherwise, she only takes iron supplements and an energy supplement (contains B vitamins and uncertain other contents). No recent intravenous contrast, iodine supplements, cough medicine, biotin supplement, amiodarone, or anti-helminthics. The patient's maternal aunt had a goiter but she is unaware of the specific diagnosis; otherwise, no additional family history of thyroid disease. 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 The patient and her (who accompanied her on this visit) express concern that sleeping separately from their 4-year-old daughter for more than 1-2 days will be very difficult at this time, particularly given that the patient routinely goes to sleep with her daughter while her works night shifts. PHYSICAL FINDINGS: The patient is well nourished and pleasant. Her blood pressure is 96/52 mmHg, heart rate 66/min (on current metoprolol dose), and respiratory rate 12/min. The conjunctivae are normal. No exophthalmos/proptosis or lid lag is present, and extraocular movements are normal. Oropharynx has moist mucous membranes. The thyroid is normal in size with no palpable nodule and no bruit. Auscultation of the heart and lungs is normal. Her skin is mildly dry, and no evidence of pretibial myxedema is present. No tremor is present, and bilateral patellar reflexes are normal. Muscular movement and strength are grossly intact and symmetric. LABORATORY FINDINGS: On 11/08/2020: - TSH 0.02 uIU/mL (low) - FT4 1.63 ng/dL (normal) - Thyroglobulin Antibody 1064 IU/mL(elevated) - Thyroperoxidase Antibodies 16.9 IU/mL (normal) On 05/01/2021: - TSH 2.47 uIU/mL (normal) - FT3 2.29 pg/mL (normal) - FT4 1.15 ng/dL (normal) - TSH receptor antibody 3.19 IUnits/L (elevated) On 06/01/2021: - TSH 1.23 uIU/mL (normal) - FT3 2.4 pg/mL (normal) - FT4 1.32 ng/dL (normal) 24-hour I-131 uptake on 06/01/2021-06/02/2021: 49% (elevated) IMPRESSION: The history, physical findings and laboratory studies in this patient are consistent with the prior diagnosis of Graves disease (diffuse toxic goiter), which has recently been well controlled on methimazole and metoprolol therapy. The patient stopped methimazole approximately 1 month ago. Since stopping methimazole, she reports mild intermittent symptoms and her thyroid labs are currently normal but 24-hour I-131 thyroid uptake is elevated at 49%. The cause of the elevated I-131 thyroid uptake is unclear at this time and may be due to either persistent hyperfunctioning thyroid (with a presumed lag in thyroid laboratory abnormalities) or possibly rebound thyroid uptake following long-term methimazole therapy. Regarding treatment, the patient also currently does not want to proceed with radioactive iodine therapy given she routinely goes to sleep with her 4-year-old daughter in the same bed while her works night shifts, and she currently cannot make alternative arrangements to sleep separately for at least 1 week. This patient was discussed with Dr. Luo and it was agreed to not proceed with I-131 therapy and to hold off on methimazole therapy at this time. Dr. Luo will closely follow-up with the patient in 4-6 weeks including thyroid function testing. She was also instructed to contact Dr. Luo earlier if she has any worsening hyperthyroidism symptoms. The patient and her expressed understanding of this plan. Thank you for the referral of this patient. I, Jf Tracy M.D., saw and evaluated the patient and agree with the plan of care as documented by the resident. A copy of this report is being sent to the referring physician. Dictated by: Gurwinder Cardoza M.D. The radiology attending physician has personally reviewed this study, and had reviewed and/or edited this written report and agrees with it. Electronically signed by: Jf Tracy M.D. us Michael Luo MD IMG NM PROCEDURES Final Result * T3, free (06/01/2021 11:36 AM SOCK TURNER) Free T3 2.4 2.0 - 4.4 pg/mL [facility] Blood 06/01/2021 11:3 6 AM SOCK TURNER 06/01/2021 11:42 AM SOCK TURNER us Michael Luo MD LAB BLOOD ORDERABLES Final Resu lt [facility] Department [place] [address] * T4, free (06/01/2021 11:36 AM SOCK TURNER) Free T4 1.32 0.90 - 1.70 ng/dL [facility] Blood 06/01/2021 11:3 6 AM SOCK TURNER 06/01/2021 11:42 AM SOCK TURNER Michael Luo MD LAB BLOOD ORDERABLES Final Resu lt [facility] [place] [address] * TSH (06/01/2021 11:36 AM SOCK TURNER) Thyroid Stimulating Hormone 1.23 0.30 - 4.20 mcIUnit/mL [facility] Blood 06/01/2021 11:3 6 AM SOCK TURNER 06/01/2021 11:42 AM SOCK TURNER Michael Luo MD LAB BLOOD ORDERABLES Final Resu lt Performing Organization Address [facility] Co de Phone Number [facility] [place] [address] * NM Thyroid Therapy Initial Consult (06/01/2021 11:08 AM SOCK TURNER) Anatomical Region Laterality Modality Body N/A Nuclear Medicine 06/02/2021 10:4 3 AM SOCK TURNER Impressions 06/02/2021 6:44 PM SOCK TURNER The history, physical findings and laboratory studies in this patient are consistent with the prior diagnosis of Graves disease (diffuse toxic goiter), which has recently been well controlled on methimazole and metoprolol therapy. The patient stopped methimazole approximately 1 month ago. Since stopping methimazole, she reports mild intermittent symptoms and her thyroid labs are currently normal but 24-hour I-131 thyroid uptake is elevated at 49%. The cause of the elevated I-131 thyroid uptake is unclear at this time and may be due to either persistent hyperfunctioning thyroid (with a presumed lag in thyroid laboratory abnormalities) or possibly rebound thyroid uptake following long-term methimazole therapy. Regarding treatment, the patient also currently does not want to proceed with radioactive iodine therapy given she routinely goes to sleep with her 4-year-old daughter in the same bed while her works night shifts, and she currently cannot make alternative arrangements to sleep separately for at least 1 week. This patient was discussed with Dr. Luo and it was agreed to not proceed with I-131 therapy and to hold off on methimazole therapy at this time. ??Dr. Luo will closely follow-up with the patient in 4-6 weeks including thyroid function testing. She was also instructed to contact Dr. Luo earlier if she has any worsening hyperthyroidism symptoms. ??The patient and her expressed understanding of this plan. Thank you for the referral of this patient. I, Jf Tracy M.D., saw and evaluated the patient and agree with the plan of care as documented by the resident. ??A copy of this report is being sent to the referring physician. Dictated by: Gurwinder Cardoza M.D. The radiology attending physician has personally reviewed this study, and had reviewed and/or edited this written report and agrees with it. Electronically signed by: Jf Tracy M.D. Narrative 06/02/2021 6:44 PM SOCK TURNER EXAMINATION: THYROID UPTAKE DATE STARTED: 06/01/2021 DATE COMPLETED: 06/02/2021 RADIOPHARMACEUTICAL: ??7.8 microcuries I-131 sodium iodide p.o. FINDINGS: ??The 24 hour radioactive iodine uptake is 49% of the administered dose (normal range 10-30%). CONSULTATION FOR RADIOACTIVE IODINE THERAPY DATE: 06/01/2021 HISTORY: 40 year-old woman referred by Dr. Michael Luo for consultation, evaluation and possible treatment of hyperthyroidism. The patient has been previously diagnosed with Graves disease and initiated therapy with propylthiouracil, due to , approximately 4 years ago. Following her she was transitioned to methimazole and is also taking metoprolol. The patient reports that her initial symptoms included restlessness, irritability, palpitations/tachycardia, hair loss, and dry skin. Her symptoms have been currently well managed on her methimazole/metoprolol regimen, though she reports prior intermittent mild waxing and waning of symptoms with need to adjust medication dose. On review of systems, she endorses mild weight fluctuations (up and down) and mild constipation. She denies appetite change, heat intolerance (instead has cold intolerance), excessive perspiration, eye pain/swelling, neck swelling/pain/dysphagia, pretibial myxedema, hyper-defecation, or weakness. The patient underwent tubal ligation 4 years ago. The patient has no co-morbidities. She last took methimazole approximately 1 month ago, which she had stopped for a prior scheduled thyroid uptake appointment that she later postponed until today. She had most recently been on methimazole 5 mg every other day. The patient continues on metoprolol. Otherwise, she only takes iron supplements and an energy supplement (contains B vitamins and uncertain other contents). No recent intravenous contrast, iodine supplements, cough medicine, biotin supplement, amiodarone, or anti-helminthics. The patient's maternal aunt had a goiter but she is unaware of the specific diagnosis; otherwise, no additional family history of thyroid disease. 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 The patient and her (who accompanied her on this visit) express concern that sleeping separately from their 4-year-old daughter for more than 1-2 days will be very difficult at this time, particularly given that the patient routinely goes to sleep with her daughter while her works night shifts. PHYSICAL FINDINGS: The patient is well nourished and pleasant. Her blood pressure is 96/52 mmHg, heart rate 66/min (on current metoprolol dose), and respiratory rate 12/min. ??The conjunctivae are normal. No exophthalmos/proptosis or lid lag is present, and extraocular movements are normal. Oropharynx has moist mucous membranes. The thyroid is normal in size with no palpable nodule and no bruit. ??Auscultation of the heart and lungs is normal. Her skin is mildly dry, and no evidence of pretibial myxedema is present. ??No tremor is present, and bilateral patellar reflexes are normal. Muscular movement and strength are grossly intact and symmetric. LABORATORY FINDINGS: On 11/08/2020: - TSH 0.02 uIU/mL (low) - FT4 1.63 ng/dL (normal) - Thyroglobulin Antibody 1064 IU/mL(elevated) - Thyroperoxidase Antibodies 16.9 IU/mL (normal) On 05/01/2021: - TSH 2.47 uIU/mL (normal) - FT3 2.29 pg/mL (normal) - FT4 1.15 ng/dL (normal) - TSH receptor antibody 3.19 IUnits/L (elevated) On 06/01/2021: - TSH 1.23 uIU/mL (normal) - FT3 2.4 pg/mL (normal) - FT4 1.32 ng/dL (normal) 24-hour I-131 uptake on 06/01/2021-06/02/2021: ??49% (elevated) Procedure Note Jf Tracy MD - 06/02/2021 EXAMINATION: THYROID UPTAKE DATE STARTED: 06/01/2021 DATE COMPLETED: 06/02/2021 RADIOPHARMACEUTICAL: 7.8 microcuries I-131 sodium iodide p.o. FINDINGS: The 24 hour radioactive iodine uptake is 49% of the administered dose (normal range 10-30%). CONSULTATION FOR RADIOACTIVE IODINE THERAPY DATE: 06/01/2021 HISTORY: 40 year-old woman referred by Dr. Michael Luo for consultation, evaluation and possible treatment of hyperthyroidism. The patient has been previously diagnosed with Graves disease and initiated therapy with propylthiouracil, due to , approximately 4 years ago. Following her she was transitioned to methimazole and is also taking metoprolol. The patient reports that her initial symptoms included restlessness, irritability, palpitations/tachycardia, hair loss, and dry skin. Her symptoms have been currently well managed on her methimazole/metoprolol regimen, though she reports prior intermittent mild waxing and waning of symptoms with need to adjust medication dose. On review of systems, she endorses mild weight fluctuations (up and down) and mild constipation. She denies appetite change, heat intolerance (instead has cold intolerance), excessive perspiration, eye pain/swelling, neck swelling/pain/dysphagia, pretibial myxedema, hyper-defecation, or weakness. The patient underwent tubal ligation 4 years ago. The patient has no co-morbidities. She last took methimazole approximately 1 month ago, which she had stopped for a prior scheduled thyroid uptake appointment that she later postponed until today. She had most recently been on methimazole 5 mg every other day. The patient continues on metoprolol. Otherwise, she only takes iron supplements and an energy supplement (contains B vitamins and uncertain other contents). No recent intravenous contrast, iodine supplements, cough medicine, biotin supplement, amiodarone, or anti-helminthics. The patient's maternal aunt had a goiter but she is unaware of the specific diagnosis; otherwise, no additional family history of thyroid disease. 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 The patient and her (who accompanied her on this visit) express concern that sleeping separately from their 4-year-old daughter for more than 1-2 days will be very difficult at this time, particularly given that the patient routinely goes to sleep with her daughter while her works night shifts. PHYSICAL FINDINGS: The patient is well nourished and pleasant. Her blood pressure is 96/52 mmHg, heart rate 66/min (on current metoprolol dose), and respiratory rate 12/min. The conjunctivae are normal. No exophthalmos/proptosis or lid lag is present, and extraocular movements are normal. Oropharynx has moist mucous membranes. The thyroid is normal in size with no palpable nodule and no bruit. Auscultation of the heart and lungs is normal. Her skin is mildly dry, and no evidence of pretibial myxedema is present. No tremor is present, and bilateral patellar reflexes are normal. Muscular movement and strength are grossly intact and symmetric. LABORATORY FINDINGS: On 11/08/2020: - TSH 0.02 uIU/mL (low) - FT4 1.63 ng/dL (normal) - Thyroglobulin Antibody 1064 IU/mL(elevated) - Thyroperoxidase Antibodies 16.9 IU/mL (normal) On 05/01/2021: - TSH 2.47 uIU/mL (normal) - FT3 2.29 pg/mL (normal) - FT4 1.15 ng/dL (normal) - TSH receptor antibody 3.19 IUnits/L (elevated) On 06/01/2021: - TSH 1.23 uIU/mL (normal) - FT3 2.4 pg/mL (normal) - FT4 1.32 ng/dL (normal) 24-hour I-131 uptake on 06/01/2021-06/02/2021: 49% (elevated) IMPRESSION: The history, physical findings and laboratory studies in this patient are consistent with the prior diagnosis of Graves disease (diffuse toxic goiter), which has recently been well controlled on methimazole and metoprolol therapy. The patient stopped methimazole approximately 1 month ago. Since stopping methimazole, she reports mild intermittent symptoms and her thyroid labs are currently normal but 24-hour I-131 thyroid uptake is elevated at 49%. The cause of the elevated I-131 thyroid uptake is unclear at this time and may be due to either persistent hyperfunctioning thyroid (with a presumed lag in thyroid laboratory abnormalities) or possibly rebound thyroid uptake following long-term methimazole therapy. Regarding treatment, the patient also currently does not want to proceed with radioactive iodine therapy given she routinely goes to sleep with her 4-year-old daughter in the same bed while her works night shifts, and she currently cannot make alternative arrangements to sleep separately for at least 1 week. This patient was discussed with Dr. Luo and it was agreed to not proceed with I-131 therapy and to hold off on methimazole therapy at this time. Dr. Luo will closely follow-up with the patient in 4-6 weeks including thyroid function testing. She was also instructed to contact Dr. Luo earlier if she has any worsening hyperthyroidism symptoms. The patient and her expressed understanding of this plan. Thank you for the referral of this patient. I, Jf Tracy M.D., saw and evaluated the patient and agree with the plan of care as documented by the resident. A copy of this report is being sent to the referring physician. Dictated by: Gurwinder Cardoza M.D. The radiology attending physician has personally reviewed this study, and had reviewed and/or edited this written report and agrees with it. Electronically signed by: Jf Tracy M.D. Michael Luo MD IM NM PROCEDURES Final Result documented in this encounter Visit Diagnoses Diagnosis Graves disease Toxic diffuse goiter without mention of thyrotoxic crisis or storm Graves disease Toxic diffuse goiter without mention of thyrotoxic crisis or storm documented in this encounter Administered Medications Inactive Administered Medications - up to 3 most recent administrations Medication Order MAR Action Action Date Dose Rate Site i-131 diamond capsule 4-12 microcurie 4-12 microcurie, oral, Once in imaging, radiopharmaceutical, Starting on Anjelica 06/01/21 at 1106, For 1 dose Given 06/01/2021 11:00 AM SOCK TURNER 7.83 microcuries documented in this encounter Orders Medications Ordered That Delvis ht Not Have Been Administered Count Last Ordered Date First Ordered Date i-131 diamond capsule 4-12 microcurie 1 021 documented in this encounter Care Teams Manifold Operator Relationship Specialty Start Date End Date Gloria Paula MD [address] [place] [address] [place] [id number] PCP - General Family Medicine 12/04/19 documented as of this encounter
--- OUTSIDE RECORDS SUMMARY | 2024-07-18 11:44 | XMS_ITS | Encounter Summary ---
Author Organization [facility] Address [address] [place] [address] Phone Care Team Providers Care Rotary Cutter Name Role Phone Gloria Paula MD Primary Care Provider + Encounter Details Date Type Department Care Team (Late st Contact Info) Description 07/28/2022 Orders Only [facility] Endocrinology Metabolism and Lipid [address] [facility] 13th [place] [address] [place] [address] Provider, MD Dannie [address] [place], [place] [id number] Social History Tobacco Use Types Packs/Day Years [...] Procedure Name Priority Date/Time Associated Diagnosis Comments LIPID PANEL Routine 06/23/2022 BMP - BASIC METABOLIC PANEL (7) Routine 06/23/2022 VITAMIN D 25 HYDROXY Routine 06/23/2022 documented in this encounter Results * Vitamin D 25 hydroxy (06/23/2022) Blood Historical Provider MD LAB BLOOD ORDERABLES Tona l Result EXTERNAL LAB * Lipid Panel (06/23/2022) Historical Provider MD LAB BLOOD ORDERABLES Tona l Result EXTERNAL LAB * BMP - Basic Metabolic Panel (7) (06/23/2022) Historical Provider MD LAB BLOOD ORDERABLES Tona l Result Performing Organization Address City/[facility]/ZIP Co de Phone Number EXTERNAL LAB documented in this encounter Visit Diagnoses Not on filedocumented in this encounter Care Teams Rotary Cutter Relationship Specialty Start Date End Date Gloria Paula MD [address] [place] [address] [place] [id number] PCP - General Family Medicine 12/04/19 documented as of this encounter
--- OUTSIDE RECORDS SUMMARY | 2024-07-18 11:44 | XMS_ITS | Encounter Summary ---
Author Organization [facility] Address [address] [place] [address] Phone Care Team Providers Care Ply Bander Name Role Phone Gloria Paula MD Primary Care Provider + Encounter Details Date Type Department Care Team (Late st Contact Info) Description 06/06/2021 Telephone [facility] Endocrinology Metabolism and Lipid [address] [facility] 5th [place] [address] [place] [phone] Michael Luo MD [address] [facility] [place] [place] [phone] Social History Tobacco Use Types Packs/Day Years [...] encounter Miscellaneous Notes * Telephone Encounter - Michael Luo MD - 06/06/2021 9:40 AM CST Phone call Reviewed and discussed NM scans with patient She refused NAVAS scan given the upcoming holidays and logistics of staying away from her children She report stopping her MMI 1 month prior to NM scans Her TFT normal 06/01/2021 Plan: 1. Continue to hold MMI for now given normal TFT 2. Recheck TFT in 2 months - sooner if any symptoms Patient understands and agrees on plan Michael Luo MD SERVICE RUNNER documented in this encounter Plan of Treatment Not on file documented as of this encounter Visit Diagnoses Not on filedocumented in this encounter Care Teams Ply Bander Relationship Specialty Start Date End Date Gloria Paula MD [address] [place] [address] [place] [id number] PCP - General Family Medicine 12/04/19 documented as of this encounter
--- OUTSIDE RECORDS SUMMARY | 2024-07-18 11:44 | XMS_ITS | Clinical Summary ---
Author Organization [facility] [address] Address [address] [place] [address] Care Team Providers Care Banking Services Advisor Name Role Phone Gloria Paula MD Primary Care Provider + Allergies No known active allergies Medications AMILoride (MIDAMOR) 5 mg tablet Take 2 tablets (10 mg total) by mouth daily 03/24/2024 Active potassium chloride ER 20 mEq CR tablet Take 1 tablet (20 mEq total) by mouth daily 04/13/2024 Active sodium bicarbonate 650 mg tablet Take 1 tablet (650 mg total) by mouth 2 (two) times a day 03/21/2024 Active Active Problems Problem Noted Date Diagnosed Date Graves disease 05/01/2021 Assessment & Plan (07/24/2022 4:27 PM MARKET STALL VENDOR): Off MMI Follow up thyroid function tests Assessment & Plan (01/30/2022 4:39 PM CDT): Off MMI Follow up thyroid function tests Excessive daytime sleepiness 10/14/2020 Hypersomnolence 10/14/2020 Witnessed episode of apnea 10/14/2020 Right ventricular enlargement 12/22/2019 Lipid screening 12/22/2019 SVT (supraventricular tachycardia) 09/04/2017 Pulmonary HTN 09/04/2017 Non-rheumatic mitral regurgitation 09/04/2017 Hypokalemia 09/04/2017 Hyperthyroidism 11/09/2016 Assessment & Plan (08/01/2021 3:52 PM MARKET STALL VENDOR): Continue MMI on hold Will check thyroid function test and advise accordingly Surgical History Surgery Date Site/Laterality Comments SECTION Medical History Medical History Date Comments Thyroid disease Family History Relation Name Status Comments Father (Age 77) Mother Alive Social History Tobacco Use Types Packs/Day Years [...] Orientation Straight 04/26/2021 12 :41 PM CDT Obstetrics History Last Filed Vital Signs Vital Sign Reading Time Taken Comments Blood Pressure 90/58 04/14/2024 3:26 PM CDT Pulse 79 04/14/2024 3:26 PM CDT Temperature 36.8 ??C (98.3 ??F) 05/01/2021 9:54 AM CD T Respiratory Rate 15 12/22/2019 10:03 AM CDT Oxygen Saturation 99% 04/14/2024 3:26 PM CDT Inhaled Oxygen Concentration - - Weight 49 kg (108 lb) 04/14/2024 3:26 PM CDT Height 154.9 cm (5' 1 ) 04/14/2024 3:26 PM CDT Body Mass Index 20.41 04/14/2024 3:26 PM CDT Plan of Treatment Health Maintenance Due Date Last Done Comments Breast Cancer Screening-Mammogram 1978 Cervical Cancer Screening 1978 Colon Cancer Screening-Colonoscopy 1978 Depression Screening 1978 Hepatitis C Screening 1978 Hepatitis B Screening 1996 Regular Well Visit/Exam 18-64 1996 Influenza Vaccine (#1) 2024 2, 04/30/2019, 05/03/2018, Additional history exists DTaP/Tdap/Td Vaccine (2 - Td or Tdap) 04/12/2027 04/12/2017 HPV Vaccines Aged Out No longer eligi ble based on patient's age to complete this topic Pneumococcal vaccine <65 Aged Out No longer eligible based on patient's age to complete this topic Insurance CIGNA CIGNA CIGNA Care Teams Banking Services Advisor Relationship Specialty Start Date End Date Gloria Paula MD [address] [place] [address] [place] [id number] PCP - General Family Medicine 12/04/19
--- OUTSIDE RECORDS SUMMARY | 2024-07-18 11:44 | XMS_ITS | Encounter Summary ---
Author Organization [facility] Address [address] [place] [address] Phone Care Team Providers Care Garland Maker Name Role Phone Gloria Paula MD Primary Care Provider + Reason for Visit * Consultation (Routine) - Closed Specialty Diagnoses / Procedures Referred By Contzoila t Referred To Contact Endocrinology Diagnoses Hyperthyroidism Kezia Marshall MD Phone: tel: fax: [facility] (All Locations) Referral ID Status Reason Start Date Expiration Date V isits Requested Visits Authorized [id number] Closed Specialty Services Required 04/24/2021 12 12 Encounter Details Date Type Department Care Team (Latest Contact Info) Description 08/01/2021 3:40 PM ACUTE CARE PHYSICAL THERAPIST Telemedicine [facility] Endocrinology Metabolism and Lipid [address] [facility] 5th [place] [address] [place] [phone] Hyperthyroidism (Primary Dx); Graves disease Social History Tobacco Use Types Packs/Day Years [...] - Inhaled Oxygen Concentration - - Weight 54 kg (119 lb) 08/01/2021 1:01 PM ACUTE CARE PHYSICAL THERAPIST Height 154.9 cm (5' 1 ) 08/01/2021 1:01 PM ACUTE CARE PHYSICAL THERAPIST Body Mass Index 22.48 08/01/2021 1:01 PM ACUTE CARE PHYSICAL THERAPIST documented in this encounter Progress Notes * Michael Luo MD - 08/01/2021 3:40 PM CST This was a telemedicine visit with Viola Davis alone which took place via Real-time video connection ([employer], imbookin (Pogby)om or similar). During the visit, I was located in the office and the patient was located home in the [facility]. The patient visit started at 3:40 and ended at 4:00 PM. My total encounter time on 08/01/2021 was 20 minutes which was spent in [...] a telephone or video visit during the [facility] emergencywas explained to them. After being given an opportunity to ask questions about and discuss this type of visit, they verbally consented to proceeding with the telephone/video visit and understand thatthis service replaces an office visit. Chief Complain: Viola Davis is a 40 y.o. female who returns for follow of Graves disease She was initially referred here by another business unit director Dr. Marshall for hyperthyroidism for possible NAVAS. [...] to NM scans Her TFT normal 06/01/2021 Advised to continue to hold MMI for now given normal TFT and recheck TFT in 2 months - sooner if any symptoms ?? Patient doing well now and denies sx of hyperthyroidism I have reviewed: allergies, current medications, past family history, past medical history, past social history, past surgical history and problem list Review of Systems Review of systems per HPI and otherwise all other systems are negative Physical exam: Ht 154.9 cm (5' 1 ) Wt 54 kg (119 lb) BMI 22.48 kg/m?? General: Alert, no visible distress Eyes: EOMI, no proptosis visible Neck: No obvious neck masses appreciated on visual exam Lungs: normal effort, appears comfortable Neuro: grossly intact, alert and oriented x 3 Skin: No rash visible Psych: cooperative, normal insight and judgement, appropriate affect Lab Review Lab on 06/01/2021 Component Date Value Ref Range Status ??? Free T3 06/01/2021 2.4 2.0 - 4.4 pg/mL Final ??? Thyroid Stimulating Hormone 06/01/2021 1.23 0.30 - 4.20 mcIUnit/mL Final ??? Free T4 06/01/2021 1.32 0.90 - 1.70 ng/dL Final Lab on 05/01/2021 Component Date Value Ref Range Status ??? TSH receptor ab 05/01/2021 3.19* 0.00 - 1.75 IUnits/L Final Comment: ADDITIONAL INFORMATION At a decision limit of 1.75 IU/L, this assay has 97% sensitivity and 99% specificity for detection of Graves' disease. In healthy individuals and in patients with thyroid disease without diagnosis of Graves' disease, the upper limit of anti-TSHR values are 1.22 IU/L and 1.58 IU/L, respectively (97.5th percentiles). Test Performed by: [facility] [address] [place] [address] [place]: Samuel Overton M.D. Ph.D.; IA# [id number] Lab on 05/01/2021 Component Date Value Ref Range Status ??? TSH (Thyrotropin) 05/01/2021 2.47 0.27 - 4.20 uIU/mL Final ??? Free T4 05/01/2021 1.15 0.80 - 1.80 ng/dL Final ??? T3, Free 05/01/2021 2.29* 2.30 - 4.40 pg/mL Final Office Visit on 04/21/2021 Component Date Value Ref Range Status ??? Cholesterol, POC 04/21/2021 139 mg/dL Final ??? HDL, POC 04/21/2021 52 mg/dL Final ??? Triglycerides, POC 04/21/2021 49 mg/dL Final ??? LDL, Direct, POC 04/21/2021 77 mg/dL Final ??? Chol/HDL Ratio, POC 04/21/2021 2.7 Final ??? Non-HDL Cholesterol, POC 04/21/2021 89 mg/dL Final ??? Cholesterol Total, POC 04/21/2021 139 mg/dL Final Imaging: EXAMINATION: THYROID UPTAKE ?? DATE STARTED: 06/01/2021 ?? DATE COMPLETED: 06/02/2021 ?? RADIOPHARMACEUTICAL: 7.8 microcuries I-131 sodium iodide p.o. ?? FINDINGS: The 24 hour radioactive iodine uptake is 49% of the administered dose (normal range 10-30%). ?? CONSULTATION FOR RADIOACTIVE IODINE THERAPY ?? DATE: 06/01/2021 ?? HISTORY: 40 year-old woman referred by Dr. [...] patient underwent tubal ligation 4 years ago. ?? The patient has no co-morbidities. She last [...] thyroid disease. The patient works at a [employer]. She lives with her and 4-year-old daughter, [...] her daughter while her works night shifts. ?? PHYSICAL FINDINGS: The patient is well nourished [...] and strength are grossly intact and symmetric. ?? LABORATORY FINDINGS: ?? On 11/08/2020: - TSH 0.02 uIU/mL (low) - FT4 1.63 ng/dL (normal) - Thyroglobulin Antibody 1064 IU/mL(elevated) - Thyroperoxidase Antibodies 16.9 IU/mL (normal) ?? On 05/01/2021: - TSH 2.47 uIU/mL (normal) - FT3 2.29 pg/mL (normal) - FT4 1.15 ng/dL (normal) - TSH receptor antibody 3.19 IUnits/L (elevated) ?? On 06/01/2021: - TSH 1.23 uIU/mL (normal) - FT3 2.4 pg/mL (normal) - FT4 1.32 ng/dL (normal) ?? 24-hour I-131 uptake on 06/01/2021-06/02/2021: 49% (elevated) ?? IMPRESSION: The history, physical findings and laboratory [...] sleep separately for at least 1 week. ?? This patient was discussed with Dr. Luo [...] and her expressed understanding of this plan. ?? Thank you for the referral of this patient. ?? I, Jf Tracy M.D., saw and evaluated the patient and agree with the plan of care as documented by the resident. A copy of this report is being sent to the referring physician. ?? Dictated by: Gurwinder Cardoza M.D. ?? The radiology attending physician has personally reviewed this study, and had reviewed and/or edited this written report and agrees with it. ?? Electronically signed by: Jf Tracy M.D. Assessment/Plan Problem List Endocrine and Metabolic Hyperthyroidism - Primary (Chronic) Current Assessment & Plan Continue MMI on hold Will check thyroid function test and advise accordingly Relevant Orders T4, free T3, free TSH Graves disease All questions answered Patient in agreement with the above plan Return to clinic in 6 months Michael Luo MD E CARE PHYSICAL THERAPIST documented in this encounter Miscellaneous Notes * Assessment & Plan Note - Michael Luo MD - 08/01/2021 3:52 PM CSTAssociated Problem(s): Hyperthyroidism Continue MMI on hold Will check thyroid function test and advise accordingly E CARE PHYSICAL THERAPIST documented in this encounter Plan of Treatment Scheduled Orders Name Type Priority Associated Diagnoses Orde r Schedule T4, free Lab Routine Hyperthyroidism Expected: 08/01/2021, Expires: 3 T3, free Lab Routine Hyperthyroidism Expected: 08/01/2021, Expires: 3 TSH Lab Routine Hyperthyroidism Expected: 08/01/2021, Expires: 3 documented as of this encounter Visit Diagnoses Diagnosis Hyperthyroidism- Primary Thyrotoxicosis without mention of goiter or other cause, without mention of thyrotoxic crisis or storm Graves disease Toxic diffuse goiter without mention of thyrotoxic crisis or storm documented in this encounter Care Teams Garland Maker Relationship Specialty Start Date End Date Gloria Paula MD [address] [address] PCP - General Family Medicine 12/04/19 documented as of this encounter
--- OUTSIDE RECORDS SUMMARY | 2024-07-18 11:44 | XMS_ITS | Encounter Summary ---
Author Organization [facility] Address [address] [facility] [address] [place] [address] Care Team Providers Care Real Property Evaluator Name Role Phone Gloria Paula MD Primary Care Provider + Reason for Referral * Cardiology (Routine) - Closed Specialty Diagnoses / Procedures Referred By Myron t Referred To Contact Diagnoses Nonrheumatic tricuspid valve regurgitation Right ventricular enlargement Procedures Transthoracic Echo (TTE) Complete W Doppler/CF Radha Murrieta NP [address] [place] [address] Phone: tel: fax: [facility] Referral ID Status Reason Start Date Expiration Date Visits Re quested Visits Authorized [id number] Closed 04/02/2023 05/01/2024 1 1 Reason for Visit * Reason Comments Annual Exam Encounter Details Date Type Department Care Team (Late st Contact Info) Description 04/01/2023 3:30 PM CDT Office Visit [facility] Cardiology 10 [facility] [address] [address] Radha Murrieta NP [address] [facility] [address] [address] SVT (supraventricular tachycardia) (CMS/HCC) (HCC) (Primary Dx); Nonrheumatic tricuspid valve regurgitation; Right ventricular enlargement [...] Sign Reading Time Taken Comments Blood Pressure 92/60 04/01/2023 3:14 PM CDT Pulse 62 04/01/2023 3:14 PM CDT Temperature - - Respiratory Rate - - Oxygen Saturation 99% 04/01/2023 3:14 PM CDT Inhaled Oxygen Concentration - - Weight 49.9 kg (110 lb) 04/01/2023 3:14 PM CDT Height 154.9 cm (5' 1 ) 04/01/2023 3:14 PM CDT Body Mass Index 20.78 04/01/2023 3:14 PM CDT documented in this encounter Progress Notes * Radha Murrieta NP - 04/01/2023 3:30 PM CDT Images from the original note were not included. [facility] Cardiology [address] [place] [address] Date of Visit: 04/01/2023 Patient ID: Bennett Davis 1980 Chief Complaint Patient presents with Annual Exam Bennett Davis is a 42 y.o. female who is an established patient of Dr. Holman with a history ofSVT coming to the office for annual follow-up. History of Present Illness: Bennett Davis is a 42 y.o. female with a history of SVT. [...] nocturnal dyspnea, orthopnea or edema Follow-up with BECK OPERATOR 04/01/2023: She is here for routine annual [...] has appointment with endocrinology in late April. Records that I personally reviewed on the day of this visit include: (the interpretation is outlined in the HPI above) 02/09/[address] Holman. I have also reviewed: allergies, current medications, past family history, past medical history, past social history, past surgical history and problem list. Medical History: Past Medical History: Diagnosis Date Thyroid disease Past Surgical History: Procedure Laterality Date SECTION Social History Tobacco Use Smoking Status Never Smokeless Tobacco Never Social History Tobacco Use Smoking status: Never Smokeless tobacco: Never Substance and Sexual Activity Drug use: No Sexual activity: Yes Partners: Female Alcohol Use: Not on file History reviewed. No pertinent family history. Review of Systems Constitutional: Positive for weight loss. Negative for malaise/fatigue and weight gain. Cardiovascular: Positive for palpitations. Negative for chest pain, claudication, dyspnea on exertion, leg swelling, near-syncope, orthopnea, paroxysmal nocturnal dyspnea and syncope. Respiratory: Negative for cough, shortness of breath and sleep disturbances due to breathing. Hematologic/Lymphatic: Negative for bleeding problem. Does not bruise/bleed easily. Neurological: Negative for dizziness and light-headedness. Vital Signs: BP 92/60 (BP Location: Right arm, Patient Position: Sitting) Pulse 62 Ht 154.9 cm (5' 1 ) Wt 49.9 kg (110 lb) SpO2 99% BMI 20.78 kg/m?? Physical Exam Constitutional: General: She is not in acute distress. Appearance: She is well-developed. HENT: Head: Normocephalic and atraumatic. Eyes: General: No scleral icterus. Conjunctiva/sclera: Conjunctivae normal. Neck: Vascular: No JVD. Trachea: No tracheal deviation. Cardiovascular: Rate and Rhythm: Normal rate and regular rhythm. Heart sounds: Normal heart sounds. No murmur heard. Pulmonary: Effort: Pulmonary effort is normal. No respiratory distress. Breath sounds: Normal breath sounds. Skin: General: Skin is warm and dry. Neurological: Mental Status: She is alert and oriented to person, place, and time. Psychiatric: Mood and Affect: Mood normal. Behavior: Behavior normal. No Known Allergies No current outpatient medications on file. No results found for: POTASSIUM , BUNSER , CREATININE , CHOL , TRIG , LDL , LDLCALC , HDL No results found for: WBC , HGB , HCT , MCV , PLT No results found for this or any previous visit (from the past 4 hour(s)). Lab Results Component Value Date POCCHOL 134 02/09/2022 POCHDL 53 02/09/2022 POCTRIG 95 02/09/2022 POCLDL 62 02/09/2022 POCNONHDL 81 02/09/2022 POCCHLPL 134 02/09/2022 Assessment: Diagnoses and all orders for this visit: SVT (supraventricular tachycardia) (CMS/HCC) (HCC) (Primary) Nonrheumatic tricuspid valve regurgitation - Transthoracic Echo (TTE) Complete W Doppler/CF; Future Right ventricular enlargement - Transthoracic Echo (TTE) Complete W Doppler/CF; Future Plan/Recommendations: She has a history of SVT. She was previously on metoprolol but it was stopped last year and her palpitations have remained brief and manageable. Remain off metoprolol but notify us if palpitations become more problematic. Previous cardiac imaging has shown RV enlargement and moderate tricuspid valve regurgitation. This was last evaluated 3 years ago. Reassess by repeat TTE in the next 1-3 months. Return to the office to see Dr. Holman in 12 months. Call us sooner with questions or concerns. 04/01/2023 JOHN Campbell- Nurse Practitioner with [facility] Cardiology This note is dictated and transcribed using [employer] Software. Front End Mechanic variancesmay occur. Despite proofreading, typographical errors may occur. documented in this encounter Plan of Treatment Not on file documented as of this encounter Results * TRANSTHORACIC ECHO (TTE) COMPLETE W DOPPLER/CF WO CONTRAST (05/31/2023 2:41 PM NEWS DIRECTOR) Anatomical Region Laterality Modality Ultrasound 05/31/2023 2:24 PM NEWS DIRECTOR Narrative 05/31/2023 4:01 PM NEWS DIRECTOR [facility] Cardiology [address] [facility] [address] [address] [address] [facility] [address], [place] [address] P:[phone] P:[phone] Echocardiographic Report Patient Name: BENNETT DAVIS : 1980 Study Date: 05/31/2023 2:24:09 PM Gender: F Tech: Ref Provider: RADHA MURRIETA Height(Cm): 155 BSA: [...] FINDINGS: Interpretation Site: Exam was interpreted at [facility]. Left Ventricle: Normal left ventricular size. Normal [...] Signed By: Anai Blankenship MD 2023-05-31 16:01:02 NEWS DIRECTOR Procedure Note Anai Blankenship MD - 05/31/2023 [facility] Cardiology [address] [facility] [address], [place] [address] [address] [facility] [address], [place] [address] P:[phone] P:[phone] Echocardiographic Report Patient Name: BENNETT DAVISPatient ID: [id number] : [id number] Date: 05/31/2023 2:24:09 PM Gender: FAccession #: [id number] Tech: JMRef Provider: RADHA MURRIETA Height(Cm): 155BSA: [...] FINDINGS: Interpretation Site: Exam was interpreted at [facility]. Left Ventricle: Normal left ventricular size. Normal [...] Signed By: Anai Blankenship MD 2023-05-31 16:01:02 NEWS DIRECTOR Radha Murrieta NP CV ECHO PROCEDURES Final Result documented in this encounter Visit Diagnoses Diagnosis SVT (supraventricular tachycardia) (HCC)- Primary Other specified cardiac dysrhythmias Nonrheumatic tricuspid valve regurgitation Right ventricular enlargement Cardiomegaly Nonrheumatic tricuspid valve regurgitation Right ventricular enlargement Cardiomegaly documented in this encounter Discontinued Medications Medication Sig Discontinue Reason Start Date End Da te ferrous sulfate 325 mg (65 mg iron) capsule, extended release Take by mouth. Therapy completed 04/01/2023 metoprolol tartrate (LOPRESSOR) 25 mg immediate release tablet Take 25 mg by mouth every other day Therapy completed 04/01/2023 documented as of this encounter Care Teams Real Property Evaluator Relationship Specialty Start Date End Date Gloria Paula MD [address] [place] [address] PCP - General Family Medicine 12/04/19 documented as of this encounter
--- OUTSIDE RECORDS SUMMARY | 2024-07-18 11:44 | XMS_ITS | Encounter Summary ---
Author Organization [facility] Address [address] [place] [address] Phone Care Team Providers Care Reagent Tender Helper Name Role Phone Gloria Paula MD Primary Care Provider + Encounter Details Date Type Department Care Team (Late st Contact Info) Description 05/19/2021 Telephone [facility] Endocrinology Metabolism and Lipid [address] [facility] 5th [place] [address] [place] [address] Nisha Trevino RN Social History [...] Telephone Encounter - Michael Luo MD - 05/19/2021 1:47 PM CDT Thank you! * Telephone Encounter - Nisha Trevino RN - 05/19/2021 1:45 PM CDT Patient scheduled for Nuc Medicine on 06/01. Is aware she is to stop the methimazole 3 days prior to the procedure * Telephone Encounter - Nisha Trevino RN - 05/19/2021 1:44 PM CDT ----- Message from Michael Luo MD sent at 05/07/2021 8:13 PM CDT ----- Hi, Please advise patient to stop MMI once she is scheduled with nuclear medicine for [facility] treatment I do not see it scheduled yet Thank you! Michael Luo MD documented in this encounter Plan of Treatment Not on file documented as of this encounter Visit Diagnoses Not on filedocumented in this encounter Care Teams Reagent Tender Helper Relationship Specialty Start Date End Date Gloria Paula MD [address] [place] [address] [address] [place] [address] PCP - General Family Medicine 12/04/19 documented as of this encounter
--- OUTSIDE RECORDS SUMMARY | 2024-07-18 11:44 | XMS_ITS | Encounter Summary ---
Author Organization [facility] Address [address] [place] [address] Care Team Providers Care Bed Bug Exterminator Name Role Phone Gloria Paula MD Primary Care Provider + Reason for Referral * Diagnostic Imaging (Routine) - Closed Specialty Diagnoses / Procedures Referred By Myron mojica Referred To Contact Diagnoses Graves disease Procedures NM Consultation I-131 Outpatient Michael Lou MD Phone: tel: fax: [address] [phone] Referral ID Status Reason Start Date Expiration Date Visits Re quested Visits Authorized [id number] Closed 06/01/2021 07/01/2022 1 1 OPERATING ROOM Reason for Visit * Diagnostic Imaging (Routine) - Closed Specialty Diagnoses / Procedures Referred By Myron mojica Referred To Contact Diagnoses Graves disease Procedures NM Thyroid Uptake(s) Quantitive Measurements NM Thyroid Request - Uptake and/or Imaging and/or Therapy in Hyperthyroid patients Michael Luo MD Phone: tel: fax: [address] [phone] Referral ID Status Reason Start Date Expiration Date Visits Re quested Visits Authorized [id number] Closed 05/01/2021 05/31/2022 5 5 Encounter Details Date Type Department Care Team (Latest Contact Info) Description 06/02/2021 8:52 AM RN OPERATING ROOM - 06/02/2021 11:59 PM RN OPERATING ROOM Hospital Encounter [facility] Radiology [address] [facility] [place] [address] Michael Luo MD [address] [facility] [address] [place] [address] Graves disease Discharge Disposition: Discharge to home [...] Read Routine (OP Routine) 06/02/2021 10:10 AM RN OPERATING ROOM Graves disease NM CONSULTATION I-131 OUTPATIENT Schedule Routine, Read Routine (OP Routine) 06/02/2021 10:10 AM RN OPERATING ROOM Graves disease documented in this encounter Results * NM Consultation I-131 Outpatient (06/02/2021 10:10 AM RN OPERATING ROOM) Anatomical Region Laterality Modality N/A Nuclear Medicine 06/02/2021 10:4 3 AM RN OPERATING ROOM Impressions 06/02/2021 6:44 PM RN OPERATING ROOM The history, physical findings and laboratory studies [...] Jf Tracy M.D. Narrative 06/02/2021 6:44 PM RN OPERATING ROOM EXAMINATION: THYROID UPTAKE DATE STARTED: 06/01/2021 DATE [...] by: Jf Tracy M.D. Michael Luo MD [facility] PROCEDURES Final Result documented in this encounter Visit Diagnoses Diagnosis Graves disease Toxic diffuse goiter without mention of thyrotoxic crisis or storm documented in this encounter Care Teams Bed Bug Exterminator Relationship Specialty Start Date End Date Gloria Paula MD [address] [place] [address] PCP - General Family Medicine 12/04/19 documented as of this encounter
--- OUTSIDE RECORDS SUMMARY | 2024-07-18 11:44 | XMS_ITS | Encounter Summary ---
Author Organization [facility] Address [address] [place] [address] Care Team Providers Care Supervisor Major Appliance Assembly Name Role Phone Gloria Paula MD Primary Care Provider + Encounter Details Date Type Department Care Team (Late st Contact Info) Description 05/01/2021 3:50 PM CDT Lab [address] [address] Graves disease Social History Tobacco Use Types [...] Procedure Name Priority Date/Time Associated Diagnosis Comments TSH RECEPTOR ANTIBODY Routine 05/01/2021 11:14 AM CDT Graves disease documented in this encounter Results * (ABNORMAL) TSH receptor antibody (05/01/2021 11:14 AM CDT) TSH receptor ab 3.19(H) 0.00 - 1.75 IUnits/L [facility] Comment: ADDITIONAL INFORMATION At a decision limit of 1.75 IU/L, this assay has 97% sensitivity and 99% specificity for detection of Graves' disease. In healthy individuals and in patients with thyroid disease without diagnosis of Graves' disease, the upper limit of anti-TSHR values are 1.22 IU/L and 1.58 IU/L, respectively (97.5th percentiles). Test Performed by: [facility] [address] [place] [address] Anesthesiology Crna: Samuel Overton M.D. Ph.D.; CLIA# [id number] Blood 05/01/2021 11:1 4 AM CDT 05/01/2021 4:42 PM CDT us Michael Luo MD LAB BLOOD ORDERABLES Final Resu lt [facility] [place] [address] documented in this encounter Visit Diagnoses Diagnosis Graves disease Toxic diffuse goiter without mention of thyrotoxic crisis or storm documented in this encounter Care Teams Supervisor Major Appliance Assembly Relationship Specialty Start Date End Date Gloria Paula MD [address] [address] PCP - General Family Medicine 12/04/19 documented as of this encounter
--- OUTSIDE RECORDS SUMMARY | 2024-07-18 11:44 | XMS_ITS | Referral Summary ---
Author Organization [facility] [address] Address [address] [place] [address] Care Team Providers Care Braille Operator Name Role Phone Gloria Paula MD [...] 05/01/2021 Assessment & Plan (07/24/2022 4:27 PM ASSOCIATE AGENT INSURANCE SALES): Off MMI Follow up thyroid function tests Assessment & Plan (01/30/2022 4:39 PM CDT): Off MMI Follow up thyroid function tests Excessive daytime sleepiness 10/14/2020 Hypersomnolence 10/14/2020 Witnessed episode of apnea 10/14/2020 Right ventricular enlargement 12/22/2019 Lipid screening 12/22/2019 SVT (supraventricular tachycardia) 09/04/2017 Pulmonary HTN 09/04/2017 Non-rheumatic mitral regurgitation 09/04/2017 Hypokalemia 09/04/2017 Hyperthyroidism 11/09/2016 Assessment & Plan (08/01/2021 3:52 PM ASSOCIATE AGENT INSURANCE SALES): Continue MMI on hold Will check thyroid function test and advise accordingly Social History Tobacco Use Types Packs/Day Years [...] Orientation Straight 04/26/2021 12 :41 PM CDT Last Filed Vital Signs Vital Sign Reading [...] 04/14/2024 3:26 PM CDT Plan of Treatment Not on file Insurance CIGNA CIGNA CIGNA Care Teams Braille Operator Relationship Specialty Start Date End Date Gloria Paula MD [address] [place] [address] [address] [place] [address] PCP - General Family Medicine 12/04/19
--- OUTSIDE RECORDS SUMMARY | 2024-07-18 11:45 | XMS_ITS | Encounter Summary ---
Author Organization [facility] Address [address] [facility] [address] [place] [address] Care Team Providers Care Sales Marketing Manager Name Role Phone Gloria Paula MD Primary Care Provider + Encounter Details Date Type Department Care Team (Late st Contact Info) Description 12/13/2020 Telephone [facility] Cardiology [address] [facility] [address] [place] [address] Fabián Holman MD [address] [place] [phone] Social History Tobacco Use Types Packs/Day Years [...] encounter Miscellaneous Notes * Telephone Encounter - Angelia Cortez RN - 12/13/2020 2:39 PM CDT No evidence of sleep apnea by home sleep test ----- Message ----- From: Maryanne Osborne RN Sent: 12/13/2020 ?? 7:56 AM CDT To: Fabián Holman MD Subject: Edit ? The scan below was edited by Maryanne Osborne RN [[id number]] on 12/13/2020 at 7:56 AM; it is attached to the following: Abstract on 12/13/2020 with Fabián Holman. LM on pt VM regarding note from [facility]. CB# given for any further questions. documented in this encounter Plan of Treatment Not on file documented as of this encounter Visit Diagnoses Not on filedocumented in this encounter Care Teams Sales Marketing Manager Relationship Specialty Start Date End Date Gloria Paula MD [address] [place] [address] [address] [place] [address] PCP - General Family Medicine 12/04/19 documented as of this encounter
--- OUTSIDE RECORDS SUMMARY | 2024-07-18 11:45 | XMS_ITS | Encounter Summary ---
Author Organization [facility] Address [address] [facility] [address] [place] [address] Care Team Providers Care Bodywork Therapist Name Role Phone Gloria Paula MD Primary Care Provider + Reason for Visit * Reason Comments Follow-up 6 f/u on MR, SVT, RV E, PHT Encounter Details Date Type Department Care Team (Late st Contact Info) Description 10/14/2020 3:00 PM CDT Office Visit [facility] Cardiology [address] [place] [address] Fabián Holman MD [facility] [place] [id number] Pulmonary HTN (CMS/HCC) (Primary Dx); Right ventricular enlargement; SVT (supraventricular tachycardia) (CMS/HCC); Non-rheumatic mitral regurgitation; Witnessed episode of apnea; Hypersomnolence; Excessive daytime sleepiness Social History Tobacco Use Types Packs/Day Years [...] Sign Reading Time Taken Comments Blood Pressure 86/50 10/14/2020 2:53 PM CDT Pulse 65 10/14/2020 2:53 PM CDT Temperature - - Respiratory Rate - - Oxygen Saturation 98% 10/14/2020 2:53 PM CDT Inhaled Oxygen Concentration - - Weight 54.4 kg (120 lb) 10/14/2020 2:53 PM CDT Height 154.9 cm (5' 1 ) 10/14/2020 2:53 PM CDT Body Mass Index 22.67 10/14/2020 2:53 PM CDT documented in this encounter Progress Notes * Fabián Holman MD - 10/14/2020 3:00 PM CDT [facility] DATE OF VISIT: 10/14/2020 CHIEF COMPLAINT Chief Complaint Patient presents with ??? Follow-up 6 f/u on MR, SVT, RVE, PHT HPI Viola Davis is a 40 y.o. female with a history of SVT. [...] she almost falls asleep driving at times MEDICAL HISTORY Past Medical History: Diagnosis Date ??? Thyroid disease Social History Tobacco Use ??? Smoking status: Never Smoker ??? Smokeless tobacco: Never Used Substance Use Topics ??? Alcohol use: No ??? Drug use: No No family history on file. MEDICATIONS Home Medications FERROUS SULFATE 325 MG (65 MG IRON) CAPSULE, EXTENDED RELEASE Take by mouth. METHIMAZOLE (TAPAZOLE) 5 MG TABLET Take 5 mg by mouth 3 (three) times a day. METOPROLOL TARTRATE (LOPRESSOR) 25 MG IMMEDIATE RELEASE TABLET metoprolol tartrate 25 mg tablet TK 1 T PO QD POTASSIUM CHLORIDE ER (KLOR-CON) 20 MEQ CR TABLET Take 1 tablet (20 mEq total) by mouth daily ALLERGIES No Known Allergies REVIEW OF SYSTEMS Review of Systems Constitution: Negative for weight gain and weight loss. [...] environmental allergies. PHYSICAL EXAM Blood pressure (!) 86/50, pulse 65, height 154.9 cm (5' 1 ), weight 54.4 kg (120 lb), SpO2 98 %. Body mass index is 22.67 kg/m??. Physical Exam Constitutional: She is oriented to person, place, and time. She appears well-nourished. HENT: Head: Normocephalic and atraumatic. Nose: Nose normal. Eyes: Conjunctivae and EOM are normal. No scleral icterus. Cardiovascular: Normal rate, regular rhythm, normal heart sounds and intact distal pulses. Exam reveals no gallop and no friction rub. No murmur heard. Pulmonary/Chest: Effort normal and breath sounds normal. No respiratory distress. She has no wheezes. She has no rales. She exhibits no tenderness. Abdominal: Soft. Bowel sounds are normal. She exhibits no distension. There is no abdominal tenderness. Musculoskeletal: General: No edema. Normal range of motion. Cervical back: Neck supple. Neurological: She is alert and oriented to person, place, and time. Skin: Skin is warm and dry. Psychiatric: She has a normal mood and affect. LABS AND OTHER DIAGNOSTIC TESTS No results [...] 50-55%. Mild LVH. Grade 1 diastolic dysfunction, yqsj-ef-koyubsoy MR, moderate TR, RVSP 35-40. Echo from [...] exercise induced ST-T changes. Average functional capacity. ASSESSMENT Diagnoses and all orders for this visit: Non-rheumatic mitral regurgitation (Primary) Ukke-bg-hfnawtas Hypokalemia Potassium was 3.7 at last evaluation Pulmonary HTN (CMS/HCC) Improved SVT (supraventricular tachycardia) (CMS/HCC) Still having episodes a couple times per week Right ventricular enlargement Mild by RVE Hypersomnolence Excessive daytime sleepiness Witnessed episode of apnea PLAN/RECOMMENDATIONS Home sleep study because of her hypersomnolence, excessive daytime sleepiness, witnessed episode ofapnea, arrhythmia, RV enlargement with pulmonary hypertension. Follow-up in 6 months or sooner as clinically indicated Fabián Holman MD, [facility] documented in this encounter Plan of Treatment Not on file documented as of this encounter Visit Diagnoses Diagnosis Pulmonary HTN (HCC)- Primary Right ventricular enlargement Cardiomegaly SVT (supraventricular tachycardia) (HCC) Other specified cardiac dysrhythmias Non-rheumatic mitral regurgitation Witnessed episode of apnea Hypersomnolence Hypersomnia, unspecified Excessive daytime sleepiness documented in this encounter Care Teams Bodywork Therapist Relationship Specialty Start Date End Date Gloria Paula MD [address] [place] [address] [address] PCP - General Family Medicine 12/04/19 documented as of this encounter
--- OUTSIDE RECORDS SUMMARY | 2024-07-18 11:45 | XMS_ITS | Encounter Summary ---
Author Organization [facility] Address [address] [place] [address] Care Team Providers Care Truck Body Repairer Name Role Phone Gloria Paula MD Primary Care Provider + Reason for Referral * Cardiology (Routine) - Closed Specialty Diagnoses / Procedures Referred By Contac t Referred To Contact Diagnoses Atypical chest pain SVT (supraventricular tachycardia) (HCC) Procedures Echo Exercise Stress Test Only Ema Dunlap MD [address] [place] [address] Phone: tel: fax: [facility] Referral ID Status Reason Start Date Expiration Date Visits Re quested Visits Authorized [id number] Closed 05/03/2020 10/30/2020 1 1 Reason for Visit * Reason Comments Valve Disorder Rapid Heart Rate 3 mo f/u Encounter Details Date Type Department Care Team (Late st Contact Info) Description 04/08/2020 3:00 PM CDT Office Visit [facility] Cardiology [address] [facility] [address] [facility] [address] [place] [address] mEa Dunlap MD [address] [place] [address] Atypical chest pain (Primary Dx); SVT (supraventricular tachycardia) (CMS/HCC); Pulmonary HTN (CMS/HCC); Non-rheumatic mitral regurgitation; Right ventricular enlargement Social History Tobacco [...] Sign Reading Time Taken Comments Blood Pressure 88/48 04/08/2020 2:59 PM CDT Pulse 66 04/08/2020 2:59 PM CDT Temperature - - Respiratory Rate - - Oxygen Saturation 99% 04/08/2020 2:59 PM CDT Inhaled Oxygen Concentration - - Weight 54 kg (119 lb) 04/08/2020 2:59 PM CDT Height 154.9 cm (5' 1 ) 04/08/2020 2:59 PM CDT Body Mass Index 22.48 04/08/2020 2:59 PM CDT documented in this encounter Ordered Prescriptions Prescription Sig Dispense Quantity Refills Last Filled Start Date End Date potassium chloride ER (KLOR-CON) 20 mEq CR tablet Take 1 tablet (20 mEq total) by mouth daily 30 tablet 11 04/08/2020 04/08/2021 documented in this encounter Progress Notes * Ema Dunlap MD - 04/08/2020 3:00 PM CDT [facility] DATE OF VISIT: 04/08/2020 CHIEF COMPLAINT Chief Complaint Patient presents with ??? Valve Disorder ??? Rapid Heart Rate 3 mo f/u HPI Viola Davis is a 39 y.o. female with a history of SVT. [...] syncope, presyncope, paroxysmal nocturnal dyspnea orthopnea, edema. MEDICAL HISTORY Past Medical History: Diagnosis Date [...] environmental allergies. PHYSICAL EXAM Blood pressure (!) 88/48, pulse 66, height 154.9 cm (5' 1 ), weight 54 kg (119 lb), SpO2 99 %. Body mass index is 22.48 kg/m??. Physical Exam Constitutional: She is oriented to person, place, and time. She appears well-nourished. HENT: Head: Normocephalic and atraumatic. Nose: Nose normal. Eyes: Conjunctivae and EOM are normal. No scleral icterus. Neck: Neck supple. Cardiovascular: Normal rate, regular rhythm, normal heart sounds and intact distal pulses. Exam reveals no gallop and no friction rub. No murmur heard. Pulmonary/Chest: Effort normal and breath sounds normal. No respiratory distress. She has no wheezes. She has no rales. She exhibits no tenderness. Abdominal: Soft. Bowel sounds are normal. She exhibits no distension. There is no abdominal tenderness. Musculoskeletal: Normal range of motion. General: No edema. Neurological: She is alert and oriented to [...] 50-55%. Mild LVH. Grade 1 diastolic dysfunction, weoz-[id number] MR, moderate TR, RVSP 35-40. Echo from [...] ventricular size and systolic function. LVEF 62%. ASSESSMENT Diagnoses and all orders for this visit: Non-rheumatic mitral regurgitation (Primary) [id number] Hypokalemia Potassium was 3.7 at last evaluation Pulmonary HTN (CMS/HCC) Improved SVT (supraventricular tachycardia) (CMS/HCC) Still having episodes a couple times per week Right ventricular enlargement Mild by RVE Atypical chest pain PLAN/RECOMMENDATIONS 1. Because of her hypotension, I am going to cut her metoprolol down to 12.5 mg daily 2. Trial of [id number] NSAID take as recommended on bottle for 5-7 days 3. Exercise stress echocardiogram because of atypical chest pain Follow-up in 6 months or sooner as clinically indicated Ema Dunlap MD, [facility] documented in this encounter Miscellaneous Notes * Addendum Note - Jeanette Turner MA - 04/08/2020 3:00 PM CDTAddended by: JEANETTE TURNER on: 04/08/2020 04:11 PM Modules accepted: Orders documented in this encounter Plan of Treatment Not on file documented as of this encounter Results * STRESS ECHO EXERCISE WO DOPPLER/CF WO CONTRAST (05/27/2020 9:38 AM SUEDING AND BUFFING MACHINE OPERATOR) Anatomical Region Laterality Modality Ultrasound 05/27/2020 8:05 AM SUEDING AND BUFFING MACHINE OPERATOR Narrative 05/27/2020 12:53 PM SUEDING AND BUFFING MACHINE OPERATOR [facility] Cardiology [address], [place] [address] [address], [place] [address] P:[phone] P:[phone] Echocardiographic Report Patient Name: VIOLA DAVIS : 1980 Study Date: 05/27/2020 8:05:59 AM Gender: F Tech: Location: [place] Ref.Provider: PATRICIASANG Height(Cm): 155 BSA: 1.52 Weight(Kg): 53.98 Heart Rate: 63 BP: 88/50 Quality: Good Order Provider: EMA DUNLAP Procedures: Stress Echo Report: Treadmill stress echocardiogram. Indications: Chest Pain and SVT, Medications: Iron, Tapazole, Metoprolol, Potassium, and Stress test monitored by: Angelia Cortez RN. Findings: Stress Echo: Protocol - Arnol Protocol. Exercise Time - 9.12 min. Baseline Heart Rate - 63. Peak Heart Rate - 165. Predicted Maximal Heart Rate - 179. 85% MPHR - 152. Baseline BP - 88/50. Peak BP - 98/60. Rate Pressure Product - 79572. METS Achieved - 10.10. Percent Predicted Maximal HR Achieved - 92 %. Interpretation Site: Exam was interpreted at [facility]. Performance: Average exercise functional capacity. Hemodynamic Response: Blunted blood pressure response. Arrhythmia: Supraventricular tachycardia HR 180-190 in recovery resolved after Valsalva maneuvers <1 minute. Frequent atrial premature contraction. Termination: Fatigue. Resting ECG: Normal sinus rhythm. Exercise ECG: Non-diagnostic ST-T wave changes with exercise. Resting LV Function: Normal left ventricular size, normal systolic function, normal wall thickness with no segmental wall motion abnormalities at rest. Post Stress LV Function: Post exercise left ventricular global systolic contractility is hyperdynamic, no segmental wall motion abnormalities, and chamber size is smaller. Global Systolic Function is normal. Conclusions: Blunted blood pressure response. No exercise induced chest pain. No Echocardiographic evidence of ischemia. Non-diagnostic exercise induced ST-T changes. Average functional capacity. Electronically Signed By: Geovany Moore MD 2020-05-27 12:53:27 SUEDING AND BUFFING MACHINE OPERATOR Procedure Note Maik Moore MD - 05/27/2020 [facility] Cardiology [address] [facility] [address], [place] [address] [address], [place] [address] P:[phone] P:[phone] Echocardiographic Report Patient Name: VIOLA DAVISPatient ID: [id number] : [id number] Date: 05/27/2020 8:05:59 AM Gender: FAccession #: [id number] Tech: GMLocation: [place] Ref.Provider: Helen(Cm): 155 BSA: 1.52Weight(Kg): 53.98 Heart Rate: 63BP: 88/50 Quality: GoodOrder Provider: EMA DUNLAP Procedures: Stress Echo Report: Treadmill stress echocardiogram. Indications: Chest Pain and SVT, Medications: Iron, Tapazole, Metoprolol, Potassium,and Stress test monitored by: Angelia Cortez RN. Findings: Stress Echo: Protocol - Arnol Protocol. Exercise Time - 9.12 min. Baseline Heart Rate -63. Peak Heart Rate - 165. Predicted Maximal Heart Rate - 179. 85% MPHR - 152. BaselineBP - 88/50. Peak BP - 98/60. Rate Pressure Product - 75590. METS Achieved - 10.10. PercentPredicted Maximal HR Achieved - 92 %. Interpretation Site: Exam was interpreted at [facility]. Performance: Average exercise functional capacity. Hemodynamic Response: Blunted blood pressure response. Arrhythmia: Supraventricular tachycardia HR 180-190 in recovery resolved afterValsalva maneuvers <1 minute. Frequent atrial premature contraction. Termination: Fatigue. Resting ECG: Normal sinus rhythm. Exercise ECG: Non-diagnostic ST-T wave changes with exercise. Resting LV Function: Normal left ventricular size, normal systolic function, normal wallthickness with no segmental wall motion abnormalities at rest. Post Stress LV Function: Post exercise left ventricular global systolic contractility ishyperdynamic, no segmental wall motion abnormalities, and chamber size is smaller. GlobalSystolic Function is normal. Conclusions: Blunted blood pressure response. No exercise induced chest pain. No Echocardiographic evidence of ischemia. Non-diagnostic exercise induced ST-T changes. Average functional capacity. Electronically Signed By: Geovany Moore MD 2020-05-27 12:53:27 SUEDING AND BUFFING MACHINE OPERATOR Ema Dunlap MD CV ECHO PROCEDURES Final Result documented in this encounter Visit Diagnoses Diagnosis Atypical chest pain- Primary Other chest pain SVT (supraventricular tachycardia) (HCC) Other specified cardiac dysrhythmias Pulmonary HTN (HCC) Non-rheumatic mitral regurgitation Right ventricular enlargement Cardiomegaly Atypical chest pain Other chest pain SVT (supraventricular tachycardia) (HCC) Other specified cardiac dysrhythmias documented in this encounter Discontinued Medications Medication Sig Discontinue Reason Start Date End Da te potassium chloride ER (KLOR-CON) 20 mEq CR tablet Take 1 tablet (20 mEq total) by mouth daily Reorder 04/20/2019 04/08/2020 documented as of this encounter Care Teams Truck Body Repairer Relationship Specialty Start Date End Date Gloria Paula MD [address] [place] [address] DR MAY [address] [place] [address] PCP - General Family Medicine 12/04/19 documented as of this encounter
--- OUTSIDE RECORDS SUMMARY | 2024-07-18 11:45 | XMS_ITS | Encounter Summary ---
Author Organization [facility] Address [address] [place] [address] Care Team Providers Care Library Paraprofessional Name Role Phone Gloria Paula MD Primary Care Provider + Encounter Details Date Type Department Care Team (Late st Contact Info) Description 05/27/2020 Orders Only [facility] Cardiology [address] [place] [address] ProviderDannie MD [address] [place], [place] [id number] Social History Tobacco Use Types Packs/Day Years [...] Procedure Name Priority Date/Time Associated Diagnosis Comments CARDIOLOGY DOCUMENT SCAN Routine 05/27/2020 CARDIOLOGY DOCUMENT SCAN Routine 05/27/2020 documented in this encounter Results * SCAN - CARDIOLOGY (05/27/2020) Anatomical Region Laterality Modality Other Historical Provider [facility] CARDIAC SERVICES PROCE DURES Final Result * SCAN - CARDIOLOGY (05/27/2020) Anatomical Region Laterality Modality Other Historical Provider CV CARDIAC SERVICES PROCE DURES Final Result documented in this encounter Visit Diagnoses Not on filedocumented in this encounter Care Teams Library Paraprofessional Relationship Specialty Start Date End Date Gloria Paula MD [address] [place] [address] DR MAY [address] [place] [address] PCP - General Family Medicine 12/04/19 documented as of this encounter
--- OUTSIDE RECORDS SUMMARY | 2024-07-18 11:45 | XMS_ITS | Encounter Summary ---
Author Organization [facility] Address [address] [place] [address] Care Team Providers Care [employer] Social Science Teacher Name Role Phone Gloria Paula MD Primary Care Provider + Encounter Details Date Type Department Care Team (Late st Contact Info) Description 10/14/2020 Orders Only [facility] Cardiology [address] [facility] [address] [place] [address] Provider, MD Dannie [address] [place] [id number] Social History Tobacco Use Types Packs/Day Years [...] Associated Diagnosis Comments CARDIOLOGY DOCUMENT SCAN Routine 10/14/2020 documented in this encounter Results * SCAN - CARDIOLOGY (10/14/2020) Anatomical Region Laterality Modality Other Historical Provider [facility] CARDIAC SERVICES [employer]KS Final Result documented in this encounter Visit Diagnoses Not on filedocumented in this encounter Care Teams [employer] Social Science Teacher Relationship Specialty Start Date End Date Gloria Paula MD [address] [place] [address] DR [address] [place] [address] PCP - General Family Medicine 12/04/19 documented as of this encounter
--- OUTSIDE RECORDS SUMMARY | 2024-07-18 11:45 | XMS_ITS | Encounter Summary ---
Author Organization [facility] Address [address] [place] [address] Phone Care Team Providers Care Senior Web Designer Name Role Phone Gloria Paula MD Primary Care Provider + Reason for Referral * Diagnostic Imaging (Routine) - Closed Specialty Diagnoses / Procedures Referred By Myron mojica Referred To Contact Diagnoses Graves disease Procedures NM Thyroid Uptake(s) Quantitive Measurements NM Thyroid Request - Uptake and/or Imaging and/or Therapy in Hyperthyroid patients Michael Luo MD Phone: tel: fax: [address] [address] Referral ID Status Reason Start Date Expiration Date Visits Re quested Visits Authorized [id number] Closed 05/01/2021 05/31/2022 5 5 Reason for Visit * Consultation (Routine) - Closed Specialty Diagnoses / Procedures Referred By Myron mojica Referred To Contact Endocrinology Diagnoses Hyperthyroidism Kezia Marshall MD Phone: tel: fax: [facility] Loc[facility] Referral ID Status Reason Start Date Expiration Date V isits Requested Visits Authorized [id number] Closed Specialty Services Required 04/24/2021 12 12 Encounter Details Date Type Department Care Team (Latest Contact Info) Description 05/01/2021 10:00 AM CDT Office Visit [facility] Endocrinology Metabolism and Lipid [address] [facility] [place] [address] Graves disease (Primary Dx); Hyperthyroidism Social History Tobacco Use Types Packs/Day Years [...] Sign Reading Time Taken Comments Blood Pressure 98/63 05/01/2021 9:54 AM CDT Pulse 68 05/01/2021 9:54 AM CDT Temperature 36.8 ??C (98.3 ??F) 05/01/2021 9:54 AM CD T Respiratory Rate - - Oxygen Saturation - - Inhaled Oxygen Concentration - - Weight 56.6 kg (124 lb 12.8 oz) 05/01/2021 9:54 AM CDT Height 154.9 cm (5' 1 ) 05/01/2021 9:54 AM CDT Body Mass Index 23.58 05/01/2021 9:54 AM CDT documented in this encounter Patient Instructions * Patient Instructions* Michael Luo MD - 05/01/2021 10:00 AM CDT 1. Stop methimazole 1 week before idoine treatment 2. You will have blood test same morning of the scan 3. Do not resume methimazole after the scan documented in this encounter Progress Notes * Siobhan Aguilar MD - 05/01/2021 10:00 AM CDT Endocrinology Outpatient Clinic Note Patient: Viola Davis, 40 y.o. female (: 1980 ) PCP: Gloria Paula MD (Referring: Kezia Marshall MD) CC: Hyperthyroidism HPI & Subjective She is a 40 year old female patient with PMH of SVT, mild mitral regurge, and hyperthyroidism. She was referred here by another bit setter Dr. Marshall for hyperthyroidism for possible NAVAS. She saidthat she was diagnosed with Graves disease 4 years ago during her . She was initially on PTU then during her 4th month of was switched to methimazole. At the beginning , she was on5 mg daily but for the last 2 years a, she has been on 5 mg EOD. Previous labs showed elevated TSI,with normal TPO. She denies any change in her appetite or weight No tremor or palpitation No change in bowel habits No change in her skin or hair texture No hx of neck radiation in the past She doesn't smoke , no smoking in her surrounding No previous amiodarone use No recent contrast use She doesn't take biotin She denies any eye bulging , no blurred vision, no eye redness S/p Tubal ligation and has also IUD FH of thyroid goiter in her aunt Labs 12/09 >> TSH 0.015, fT4= 1.23, fT3=3.1 Uptake 01/2021 >> 37% uptake indicating Graves disease PMH & PSH She has a past medical history of Thyroid disease. She has a past surgical history that includes section. Social & Family History She reports that she has never smoked. She has never used smokeless tobacco. She reports that she does not drink alcohol and does not use drugs. Her family history is not on file. Review of Systems Twelve point ROS reviewed and negative except as noted in HPI. All other systems negative. Vitals & Physical Exam Blood pressure 98/63, pulse 68, temperature 36.8 ??C (98.3 ??F), height 154.9 cm (5' 1 ), weight 56.6 kg (124 lb 12.8 oz). Body mass index is 23.58 kg/m??. Physical Exam Gen : no acute distress, alert, appropriate, cooperative, appears stated age, well-developed, well-nourished HENT : normocephalic, atraumatic, moist mucus membranes Eyes : conjunctiva clear, anicteric, no proptosis/exophthalmos/lid lag, EOMI Pulm : clear to auscultation in anterior he, non-labored, on room air CV : regular rate & rhythm, no murmurs/rubs/gallops, no JVD Extr : atraumatic, no cyanosis/clubbing/edema Skin : turgor normal, no rashes/wounds/lesions Neuro : alert, speech fluent, comprehension intact, moving all extremities Psych : cooperative, appropriate affect & mood, good insight & judgment Data Medications, labs, imaging, and diagnostics independently reviewed in Epic and commented on below. No results found for: TSH, T3FREE, FREET4, TSI, THYROGLOBULI, THGAB No results found for: CHOL, TRIG, HDL, LDLCALC, LDLDIRECT No results found for: CORTISOL, PTH, 25HYDROVITD, CPEPTIDE, UUZ14OF, IA2AB No results found for: HGBA1C, YPTF2EUCM Assessment & Plan # hyperthyroidism : - she has been on methimazole for 4 years , currently on 5 mg EOD. - Previous labs showed elevated TSI, with normal TPO. - Labs 12/09 >> TSH 0.015, fT4= 1.23, fT3=3.1 - Uptake 01/2021 >> 37% uptake indicating Graves disease Plan : - recheck TFT - We will order a thyroid uptake with ablation therapy - Stop methimazole 1 week before idoine treatment - recheck TFT on the same morning of the scan - we will recheck TFT after the ablation and decide if she needs to be back of methimazole therapy Orders Placed This Encounter ??? CANCELED: NM Thyroid Request - Uptake and/or Imaging and/or Therapy in Hyperthyroid patients ??? NM Thyroid Request - Uptake and/or Imaging and/or Therapy in Hyperthyroid patients ??? T3, free ??? T4, free ??? TSH ??? TSH receptor antibody -- Siobhan Aguilar MD Clinical Fellow Endocrinology, Metabolism, & Lipid Research Cosigned by Michael Luo MD at 05/01/2021 5:22 PM CDT Associated attestation - Michael Luo MD - 05/01/2021 5:22 PM CDT I have seen and examined the patient. I agree with the findings and plan of care with the followingmodifications: : . A 40 year old female with known history of Graves disease (+ TSI and per nuclear images) on thionamides for about 4-5 years. Currently on MMI 5 mg every other day. She is here today because of her interest in more defenit therapy with NAVAS. She had tubal ligation and plan no more pregnancies. Discussed possibl eneed for roasterman levothyroxine and she is aware. Discussed KIMBERLY and risk to develop. Last, reviewed follow up plan post NAVAS treatment. Patient understands and wishes to proceed. My total encounter time on 05/01/2021 was 40 minutes which was spent in the activities documented in the note. This includes time spent prior to the visit and after the visit in direct care of the patient. This time does not include time spent in any separately reportable services. documented in this encounter Plan of Treatment Not on file documented as of this encounter Results * NM Thyroid Uptake(s) Quantitive Measurements (06/02/2021 10:10 AM CERAMICS ENGINEER) Anatomical Region Laterality Modality N/A Nuclear Medicine 06/02/2021 10:4 3 AM CERAMICS ENGINEER Impressions 06/02/2021 6:44 PM CERAMICS ENGINEER The history, physical findings and laboratory studies [...] Jf Tracy M.D. Narrative 06/02/2021 6:44 PM CERAMICS ENGINEER EXAMINATION: THYROID UPTAKE DATE STARTED: 06/01/2021 DATE [...] by: Jf Tracy M.D. Michael Luo MD [facility] [place] PROCEDURES Final Result * (ABNORMAL) TSH receptor antibody (05/01/2021 11:14 AM CDT) TSH receptor ab 3.19(H) 0.00 - 1.75 IUnits/L [facility] Comment: ADDITIONAL INFORMATION At a decision limit of 1.75 IU/L, this assay has 97% sensitivity and 99% specificity for detection of Graves' disease. In healthy individuals and in patients with thyroid disease without diagnosis of Graves' disease, the upper limit of anti-TSHR values are 1.22 IU/L and 1.58 IU/L, respectively (97.5th percentiles). Test Performed by: [facility] [address] [place] [address] Furniture Rental Consultant: Samuel Overton M.D. Ph.D.; CLIA# [id number] Blood 05/01/2021 11:1 4 AM CDT 05/01/2021 4:42 PM CDT Michael Luo MD LAB BLOOD ORDERABLES Final Resu lt [facility] [place] [address] * TSH (05/01/2021 11:14 AM CDT) TSH (Thyrotropin) 2.47 0.27 - 4.20 uIU/mL [facility] Blood specimen (specimen) 05/01/2021 11:14 AM CDT 05/01/2021 12:09 PM CDT Michael Luo MD LAB BLOOD ORDERABLES Final Resu lt [facility] * T4, free (05/01/2021 11:14 AM CDT) Free T4 1.15 0.80 - 1.80 ng/dL [facility] Blood specimen (specimen) 05/01/2021 11:14 AM CDT 05/01/2021 12:09 PM CDT Michael Luo MD LAB BLOOD ORDERABLES Final Resu lt [facility] * (ABNORMAL) T3, free (05/01/2021 11:14 AM CDT) T3, Free 2.29(L) 2.30 - 4.40 pg/mL [facility] Blood specimen (specimen) 05/01/2021 11:14 AM CDT 05/01/2021 12:09 PM CDT Michael Luo MD LAB BLOOD ORDERABLES Final Resu lt Performing Organization Address City/[facility]/ZIP Co de Phone Number [facility] documented in this encounter Visit Diagnoses Diagnosis Graves disease- Primary Toxic diffuse goiter without mention of thyrotoxic crisis or storm Hyperthyroidism Thyrotoxicosis without mention of goiter or other cause, without mention of thyrotoxic crisis or storm Graves disease Toxic diffuse goiter without mention of thyrotoxic crisis or storm Graves disease Toxic diffuse goiter without mention of thyrotoxic crisis or storm documented in this encounter Orders Outpatient Referral Count Last Ordered Date Fir st Ordered Date AMB REFERRAL TO ENDOCRINOLOGY 1 05/01/2021 documented in this encounter Care Teams Senior Web Designer Relationship Specialty Start Date End Date Gloria Paula MD [address] [place] [address] PCP - General Family Medicine 12/04/19 documented as of this encounter
--- OUTSIDE RECORDS SUMMARY | 2024-07-18 11:45 | XMS_ITS | Encounter Summary ---
Author Organization [facility] Address [address] [facility] [address] [place] [address] Care Team Providers Care Dental Patient Coordinator Name Role Phone Gloria Paula MD Primary Care Provider + Encounter Details Date Type Department Care Team (Late st Contact Info) Description 01/25/2020 Telephone [facility] Cardiology [address] [facility] [address] [place] [address] Fabián Holman MD [address] [id number] Social History Tobacco Use Types Packs/Day Years [...] encounter Miscellaneous Notes * Telephone Encounter - Sabrina Wesley RN - 02/01/2020 3:04 PM CDT Lm on for pt to call to make appt to see CT if chest discomfort is continuing or concerning. * Telephone Encounter - Fabián Holman MD - 02/01/2020 2:41 PM CDT Probably noncardiac. Have her see Tammie if needed * Telephone Encounter - Sabrina Wesley RN - 01/28/2020 2:23 PM CDT Cardiac MRI results reviewed with pt. Pt verbalized understanding. Pt states she has been having some episodes of CP, that she thinks is muscles since her last OV. Occurs off and on, about 5 times per day, occurs at rest and goes away on its own. She states she becomes a little SOB and tired when it occurs. Denies N/V/diaphoresis, or radiating pain. Pain rated 1-2/ 10. Next OV 04/08 Please advise * Telephone Encounter - Kathleen Thacker - 01/28/2020 2:09 PM CDT Pt called back to speak with Sabrina OWENS. * Telephone Encounter - Sabrina Wesley RN - 01/28/2020 1:44 PM CDT Lm again on vm to review results of cardiac MRI below per MAF. * Telephone Encounter - Sabrina Wesley RN - 01/25/2020 3:25 PM CDT Lm on vm for pt to return call to discuss result of cardiac MRI ----- Message from Fabián Holman MD sent at 01/25/2020 1:06 PM CDT ----- Normal left ventricular size and function. Subjective mild right ventricular enlargement with moderate tricuspid regurgitation but no evidence of RV dysplasia or other congenital abnormality. This isencouraging. No changes to her medical regimen at this point documented in this encounter Plan of Treatment Not on file documented as of this encounter Visit Diagnoses Not on filedocumented in this encounter Care Teams Dental Patient Coordinator Relationship Specialty Start Date End Date Gloria Paula MD [address] [address] PCP - General Family Medicine 12/04/19 documented as of this encounter
--- OUTSIDE RECORDS SUMMARY | 2024-07-18 11:45 | XMS_ITS | Encounter Summary ---
Author Organization [facility] Address [address] [facility] [address] [place] [address] Care Team Providers Care Gill Box Tender Name Role Phone Gloria Paula MD Primary Care Provider + Reason for Visit * Reason Comments Follow-up 6 mo f/u on RVE, PHT , SVT, MR Encounter Details Date Type Department Care Team (Late st Contact Info) Description 04/21/2021 1:30 PM CDT Office Visit [facility] Cardiology [address] [facility] [address] [place] [address] Fabián Holman MD [address] [id number] Pulmonary HTN (CMS/HCC) (HCC) (Primary Dx); SVT (supraventricular tachycardia) (CMS/HCC) (HCC); Right ventricular enlargement; Non-rheumatic mitral regurgitation; Hypokalemia; Lipid screening Social History Tobacco Use [...] Sign Reading Time Taken Comments Blood Pressure 88/40 04/21/2021 1:39 PM CDT Pulse 72 04/21/2021 1:39 PM CDT Temperature - - Respiratory Rate - - Oxygen Saturation 98% 04/21/2021 1:39 PM CDT Inhaled Oxygen Concentration - - Weight 55.8 kg (123 lb) 04/21/2021 1:39 PM CDT Height 154.9 cm (5' 1 ) 04/21/2021 1:39 PM CDT Body Mass Index 23.24 04/21/2021 1:39 PM CDT documented in this encounter Progress Notes * Fabián Holman MD - 04/21/2021 1:30 PM CDT [facility] DATE OF VISIT: 04/21/2021 CHIEF COMPLAINT Chief Complaint Patient presents with ??? Follow-up 6 mo f/u on RVE, PHT, SVT, MR ZOHREH Davis is a 40 y.o. female with [...] dyspnea, orthopnea, edema. No shortness of breath. MEDICAL HISTORY Past Medical History: Diagnosis Date [...] MG TABLET Take 5 mg by mouth every other day METOPROLOL TARTRATE (LOPRESSOR) 25 MG IMMEDIATE RELEASE TABLET Take 25 mg by mouth every other day ALLERGIES No Known Allergies REVIEW OF SYSTEMS [...] environmental allergies. PHYSICAL EXAM Blood pressure (!) 88/40, pulse 72, height 154.9 cm (5' 1 ), weight 55.8 kg (123 lb), SpO2 98 %. Body mass index is 23.24 kg/m??. Physical Exam Vitals reviewed. HENT: Head: [...] 50-55%. Mild LVH. Grade 1 diastolic dysfunction, lwej-oa-glrybyfs MR, moderate TR, RVSP 35-40. Echo from [...] for this visit: Non-rheumatic mitral regurgitation (Primary) [id number]-vkerfkgq Hypokalemia Potassium was 3.7 at last evaluation Pulmonary HTN (CMS/HCC) Improved SVT (supraventricular tachycardia) (CMS/HCC) Still having episodes a couple times per week Right ventricular enlargement Mild by RVE PLAN/RECOMMENDATIONS Continue current drug regimen. She is stable. Continue her metoprolol Follow-up in 6 months or sooner as clinically indicated Fabián Holman MD, [facility] documented in this encounter Miscellaneous Notes * Addendum Note - Jeanette Turner MA - 04/21/2021 1:30 PM CDTAddended by: JEANETTE TURNER on: 04/21/2021 02:54 PM Modules accepted: Orders documented in this encounter Plan of Treatment Not on file documented as of this encounter Procedures Procedure Name Priority Date/Time Associated Diagnosis Comments POCT LIPID PANEL Routine 04/21/2021 2:54 PM CDT Lipid screening documented in this encounter Results * POCT lipid panel (04/21/2021 2:54 PM CDT) Cholesterol, POC 139 mg/dL HDL, POC 52 mg/dL Triglycerides, POC 49 mg/dL LDL Cholesterol POC 77 mg/dL Chol/HDL Ratio, POC 2.7 Non-HDL Cholesterol, POC 89 mg/dL Cholesterol Total, POC 139 mg/dL Capillary blood 04/21/2021 2 :54 PM CDT us Fabián Holman MD POINT OF CARE TEST ORDERA BLES Final Result documented in this encounter Visit Diagnoses Diagnosis Pulmonary HTN (HCC)- Primary SVT (supraventricular tachycardia) (HCC) Other specified cardiac dysrhythmias Right ventricular enlargement Cardiomegaly Non-rheumatic mitral regurgitation Hypokalemia Hypopotassemia Lipid screening Screening for lipoid disorders documented in this encounter Care Teams Gill Box Tender Relationship Specialty Start Date End Date Gloria Paula MD [address] [place] [address] [address] PCP - General Family Medicine 12/04/19 documented as of this encounter
--- OUTSIDE RECORDS SUMMARY | 2024-07-18 11:45 | XMS_ITS | Encounter Summary ---
Author Organization [facility] Address [address] [facility] [address] [address] [place] [address] Care Team Providers Care Medical Geneticist Name Role Phone Gloria Paula MD Primary Care Provider + Reason for Referral * Diagnostic Imaging (Routine) - Closed Specialty Diagnoses / Procedures Referred By Contac t Referred To Contact Radiology Diagnoses Right ventricular enlargement Non-rheumatic mitral regurgitation SVT (supraventricular tachycardia) (HCC) Procedures MRI Cardiac M&F W WO Contrast CHG CARDIAC MRI W/W/O CONTRAST & FURTHER SEQ Fabián Holman MD [address] [place] [address] Phone: tel: fax: [address] [phone] Referral ID Status Reason Start Date Expiration Date Visits Re quested Visits Authorized [id number] Closed 01/05/2020 07/03/2020 1 1 Reason for Visit * Reason Comments Follow-up SVT's Encounter Details Date Type Department Care Team (Late st Contact Info) Description 12/22/2019 9:30 AM CDT Office Visit [facility] Cardiology [address] [facility] [address] [place] [address] Fabián Holman MD [address] [place] [address] Right ventricular enlargement (Primary Dx); Non-rheumatic mitral regurgitation; Pulmonary HTN (CMS/HCC); SVT (supraventricular tachycardia) (CMS/HCC); Lipid screening Social History Tobacco Use Types [...] Sign Reading Time Taken Comments Blood Pressure 84/40 12/22/2019 10:03 AM CDT Pulse 71 12/22/2019 10:03 AM CDT Temperature - - Respiratory Rate 15 12/22/2019 10:03 AM CDT Oxygen Saturation - - Inhaled Oxygen Concentration - - Weight 54.9 kg (121 lb) 12/22/2019 10:03 AM CDT Height 154.9 cm (5' 1 ) 12/22/2019 10:03 AM CDT Body Mass Index 22.86 12/22/2019 10:03 AM CDT documented in this encounter Progress Notes * Fabián Holman MD - 12/22/2019 9:30 AM CDT [facility] DATE OF VISIT: 12/22/2019 CHIEF COMPLAINT Chief Complaint Patient presents with ??? Follow-up SVT's HPI Viola Davis is a 39 y.o. [...] episodes ever she is nervous or stressed. MEDICAL HISTORY Past Medical History: Diagnosis Date ??? Thyroid disease Social History Tobacco Use ??? Smoking status: Never Smoker ??? Smokeless tobacco: Never Used Substance Use Topics ??? Alcohol use: No ??? Drug use: No History reviewed. No pertinent family history. MEDICATIONS Home Medications FERROUS SULFATE 325 MG (65 MG IRON) CAPSULE, EXTENDED RELEASE Take by mouth. METHIMAZOLE (TAPAZOLE) 5 MG TABLET Take 5 mg by mouth 3 (three) times a day. POTASSIUM CHLORIDE ER (KLOR-CON) 20 MEQ CR TABLET Take 1 tablet (20 mEq total) by mouth daily 25/IRON FUM/FOLIC/DHA (-1 ORAL) Take by mouth. ALLERGIES No Known Allergies REVIEW OF SYSTEMS [...] on file to calculate BMI. Physical Exam Constitutional: She is oriented to [...] 50-55%. Mild LVH. Grade 1 diastolic dysfunction, orhn-jy-mhjxyxwi MR, moderate TR, RVSP 35-40. Echo from [...] mmHg. Moderate tricuspid regurgitation. Normal sinus rhythm. ASSESSMENT Diagnoses and all orders for this visit: Non-rheumatic mitral regurgitation (Primary) Ckja-kf-plvgednw Hypokalemia Potassium was 3.7 at last evaluation Pulmonary HTN (CMS/HCC) Improved SVT (supraventricular tachycardia) (CMS/HCC) Still having episodes a couple times per week Right ventricular enlargement PLAN/RECOMMENDATIONS Because of her RV enlargement which has apparently worsened, I am going to set her up for cardiac MRI for assessment of any shunting, structure heart disease, RV size and function assessment etc. Follow-up in 3 months or sooner as clinically indicated Fabián Holman MD, [facility] documented in this encounter Plan of Treatment Not on file documented as of this encounter Procedures Procedure Name Priority Date/Time Associated Diagnosis Comments POCT LIPID PANEL Routine 12/22/2019 10:1 5 AM CDT Lipid screening documented in this encounter Results * MRI Cardiac M&F W WO Contrast (01/18/2020 11:22 AM CDT) Anatomical Region Laterality Modality Body N/A Magnetic Resonan ce 01/18/2020 2:34 PM CDT Impressions 01/18/2020 6:28 PM CDT 1. Subjective mild right ventricular enlargement which my be secondary to the moderate tricuspid regurgitation. There are no findings specific for right ventricular dysplasia.RVEF, 54%. 2. Normal left ventricular size and systolic function. ??LVEF 62%. Dictated by: Mark Sanchez M.D. The radiology attending physician has personally reviewed this study, and had reviewed and/or edited this written report and agrees with it. Electronically signed by: Rosa Reynoso M.D. Narrative 01/18/2020 6:28 PM CDT EXAM: ?? Cardiac MRI Morphology and Function with Contrast, w/ Cardiac MRI Flow Quantification DATE ??OF EXAMINATION: ??01/18/2020 10:00 AM COMPARISON: ??None available TECHNIQUE: ?? Multiplanar MR imaging of the heart utilizing HASTE and TRUEFISP imaging sequences was performed with the administration of 11 mL intravenous gadolinium contrast agent according to a custom monitored protocol. ??3-D postprocessing was subsequently ??performed on a dedicated 3-D workstation. HISTORY: ?? 39-year-old female with history of supraventricular tachycardia. ??Recent transthoracic echocardiogram dated 12/04/2019 notable for right ventricular enlargement, reportedly increased from prior echocardiogram. Anatomy: There is subjective mild right ventricular and right atrial enlargement. The anatomy of the heart is otherwise normal. Left Ventricular (LV) Size and Function: ??The left ventricle is normal in size. ??There is normal systolic function. No focal wall motion abnormalities are noted. LV functional parameters: LVEF, 62%. ?? LV end diastolic volume, 118mL. ?? LV end diastolic volume index, 77 mL/meter2 LV end systolic volume, 45mL. ?? LV end systolic volume index, 30mL/meter2 Stroke volume, 73mL. Stroke volume index, 48 mL/meter2 Cardiac output, ??4.72 L/min. Cardiac index, 3.07 L/min/meter2 ; BSA 1.54 meter2. Right Ventricular Size and Function: Subjective mild right ventricular enlargement is noted. There are no focal wall motion abnormalities. ??Specifically, no focal regions of aneurysmal dilatation or wall thinning. The systolic function is normal. RV functional parameters: RVEF, 54%. RV end diastolic volume, 134 mL. RV end diastolic volume index, 87 mL/meter2 RV end systolic volume, 62 mL. ?? RV end systolic volume index, 40 mL/meter2 Stroke volume, 72 mL. Stroke volume index, 47 mL/meter2 Cardiac output, ??4.65 L/min. Cardiac index, 3.03 L/min/meter2. Late gadolinium enhancement: ??There is no evidence of a gadolinium enhancement. ??Particular attention is given to the right ventricular free wall. ?? Valves: ?? Mitral valve no evidence of mitral regurgitation or stenosis.. Tricuspid valve moderate tricuspid regurgitation without evidence of stenosis.. Pulmonic valve no evidence of regurgitation or stenosis. Aortic valve ??no evidence of regurgitation or stenosis. Flow Quantification: Aorta above valve (HR 61 bpm) Peak velocity ??0.83 ??m/sec Fwd 66 ml Rev 0 ??ml Net ??66 ml Flow/CO 3.98 L/min MPA ??( HR 57 ??bpm) Peak velocity ??0.62 ??m/sec Fwd ?68 ml Rev ??0 ??ml Net ? 68 ml Flow/CO 3.86 L/min Procedure Note Rosa Reynoso MD - 01/18/2020 EXAM: Cardiac MRI Morphology and Function with Contrast, w/ Cardiac MRI Flow Quantification DATE OF EXAMINATION: 01/18/2020 10:00 AM COMPARISON: None available TECHNIQUE: Multiplanar MR imaging of the heart utilizing HASTE and TRUEFISP imaging sequences was performed with the administration of 11 mL intravenous gadolinium contrast agent according to a custom monitored protocol. 3-D postprocessing was subsequently performed on a dedicated 3-D workstation. HISTORY: 39-year-old female with history of supraventricular tachycardia. Recent transthoracic echocardiogram dated 12/04/2019 notable for right ventricular enlargement, reportedly increased from prior echocardiogram. Anatomy: There is subjective mild right ventricular and right atrial enlargement. The anatomy of the heart is otherwise normal. Left Ventricular (LV) Size and Function: The left ventricle is normal in size. There is normal systolic function. No focal wall motion abnormalities are noted. LV functional parameters: LVEF, 62%. LV end diastolic volume, 118mL. LV end diastolic volume index, 77 mL/meter2 LV end systolic volume, 45mL. LV end systolic volume index, 30mL/meter2 Stroke volume, 73mL. Stroke volume index, 48 mL/meter2 Cardiac output, 4.72 L/min. Cardiac index, 3.07 L/min/meter2 ; BSA 1.54 meter2. Right Ventricular Size and Function: Subjective mild right ventricular enlargement is noted. There are no focal wall motion abnormalities. Specifically, no focal regions of aneurysmal dilatation or wall thinning. The systolic function is normal. RV functional parameters: RVEF, 54%. RV end diastolic volume, 134 mL. RV end diastolic volume index, 87 mL/meter2 RV end systolic volume, 62 mL. RV end systolic volume index, 40 mL/meter2 Stroke volume, 72 mL. Stroke volume index, 47 mL/meter2 Cardiac output, 4.65 L/min. Cardiac index, 3.03 L/min/meter2. Late gadolinium enhancement: There is no evidence of a gadolinium enhancement. Particular attention is given to the right ventricular free wall. Valves: Mitral valve no evidence of mitral regurgitation or stenosis.. Tricuspid valve moderate tricuspid regurgitation without evidence of stenosis.. Pulmonic valve no evidence of regurgitation or stenosis. Aortic valve no evidence of regurgitation or stenosis. Flow Quantification: Aorta above valve (HR 61 bpm) Peak velocity 0.83 m/sec Fwd 66 ml Rev 0 ml Net 66 ml Flow/CO 3.98 L/min MPA ( HR 57 bpm) Peak velocity 0.62 m/sec Fwd 68 ml Rev 0 ml Net 68 ml Flow/CO 3.86 L/min IMPRESSION: 1. Subjective mild right ventricular enlargement which my be secondary to the moderate tricuspid regurgitation. There are no findings specific for right ventricular dysplasia.RVEF, 54%. 2. Normal left ventricular size and systolic function. LVEF 62%. Dictated by: Mark Sanchez M.D. The radiology attending physician has personally reviewed this study, and had reviewed and/or edited this written report and agrees with it. Electronically signed by: Rosa Reynoso M.D. Fabián Holman MD IMG MRI PROCEDURES Final Result * (ABNORMAL) POCT lipid panel (12/22/2019 10:15 AM CDT) Cholesterol, POC 165 mg/dL HDL, POC 65 mg/dL Triglycerides, POC 195 mg/dL LDL Cholesterol POC 61 mg/dL Chol/HDL Ratio, POC 2.6 Non-HDL Cholesterol, POC 100 mg/dL Cholesterol Total, POC 165 mg/dL Capillary blood 12/22/2019 1 0:15 AM CDT Fabián Holman MD POINT OF CARE TEST ORDERA BLES Final Result documented in this encounter Visit Diagnoses Diagnosis Right ventricular enlargement- Primary Cardiomegaly Non-rheumatic mitral regurgitation Pulmonary HTN (HCC) SVT (supraventricular tachycardia) (HCC) Other specified cardiac dysrhythmias Lipid screening Screening for lipoid disorders Right ventricular enlargement Cardiomegaly Non-rheumatic mitral regurgitation SVT (supraventricular tachycardia) (HCC) Other specified cardiac dysrhythmias documented in this encounter Discontinued Medications Medication Sig Discontinue Reason Start Date End Da te 25/IRON FUM/FOLIC/DHA (-1 ORAL) Take by mouth. Therapy completed 12/22/2019 documented as of this encounter Historical Medications * This list may reflect changes made after this encounter. metoprolol tartrate (LOPRESSOR) 25 mg immediate release tablet Take 25 mg by mouth every other day 04/01/2023 added in this encounter Care Teams Medical Geneticist Relationship Specialty Start Date End Date Gloria Paula MD [address] [place] [id number] PCP - General Family Medicine 12/04/19 documented as of this encounter
--- OUTSIDE RECORDS SUMMARY | 2024-07-18 11:45 | XMS_ITS | Encounter Summary ---
Author Organization [facility] Address [address] [facility] [place] [address] Care Team Providers Care Sous Chef Kitchen Manager Name Role Phone Gloria Paula MD Primary Care Provider + Encounter Details Date Type Department Care Team (Late st Contact Info) Description 12/18/2019 Telephone [facility] Cardiology [address] [facility] [address] [place] [address] Fabián Holman MD [facility] [phone] Social History Tobacco Use Types Packs/Day Years [...] encounter Miscellaneous Notes * Telephone Encounter - Jeanette Turner MA - 12/18/2019 11:07 AM CDT Called patient and LMOM for patient to come in December 21 at 9:[address] Holman. Patient to call back and R/S if this date/time does not work. * Telephone Encounter - Yokasta Nagel RN - 12/18/2019 10:13 AM CDT Will forward to Jeanette YI for follow up when available. * Telephone Encounter - Kathleen Thacker - 12/18/2019 9:24 AM CDT Pt called back to reschedule with Dr. Holman for next week as instructed on VM. Dr. Holman scheduleis booked next week. Reached out to Jeanette YI to see where she can fit pt in on the schedule. Jeanette YI is busy so I inform pt someone will call her back to reschedule when they become available. documented in this encounter Plan of Treatment Not on file documented as of this encounter Visit Diagnoses Not on filedocumented in this encounter Care Teams Sous Chef Kitchen Manager Relationship Specialty Start Date End Date Gloria Paula MD [address] [place] [address] [address] PCP - General Family Medicine 12/04/19 documented as of this encounter
--- OUTSIDE RECORDS SUMMARY | 2024-07-18 11:45 | XMS_ITS | Encounter Summary ---
Author Organization [facility] Address [address] [address] Care Team Providers Care Assistant Women'S Basketball Coach Name Role Phone Gloria Paula MD Primary Care Provider + Reason for Visit * Reason Onset Date Comments review echocardiogram results 12/08/2019 Encounter Details Date Type Department Care Team (Late st Contact Info) Description 12/08/2019 Telephone [facility] Cardiology [address] [place] [phone] Fabián Holman MD [address] [place] [id number] review echocardiogram results Social History Tobacco Use Types Packs/Day Years [...] encounter Miscellaneous Notes * Telephone Encounter - Katharina Flores RN - 12/08/2019 10:06 AM CDT ----- Message from Fabián Holman MD sent at 12/08/2019 8:35 AM CDT ----- Normal left ventricular size and function but her right heart is enlarged. It is at least moderately enlarged with some hypokinesis of her RV. Pulmonary hypertension has improved but given her right heart findings, I recommend a cardiac MRI to be performed at [place]. I called the patient and left a voicemail message requesting a return call to review Dr. Holman's message. documented in this encounter Plan of Treatment Not on file documented as of this encounter Visit Diagnoses Not on filedocumented in this encounter Care Teams Assistant Women'S Basketball Coach Relationship Specialty Start Date End Date Gloria Paula MD [address] [place] [address] [address] PCP - General Family Medicine 12/04/19 documented as of this encounter
--- OUTSIDE RECORDS SUMMARY | 2024-07-18 11:45 | XMS_ITS | Encounter Summary ---
Author Organization [facility] Address [address] [facility] [address] [place] [address] Care Team Providers Care Silverware Etcher Name Role Phone Gloria Paula MD Primary Care Provider + Encounter Details Date Type Department Care Team (Late st Contact Info) Description 12/22/2019 Orders Only [facility] Cardiology [address] [facility] [address] [place] [address] Provider, MD Dannie [address] [place], [place] [phone] Social History Tobacco Use Types Packs/Day Years [...] Associated Diagnosis Comments CARDIOLOGY DOCUMENT SCAN Routine 12/22/2019 documented in this encounter Results * SCAN - CARDIOLOGY (12/22/2019) Anatomical Region Laterality Modality Other Historical Provider [facility] [employer] Final Result documented in this encounter Visit Diagnoses Not on filedocumented in this encounter Care Teams Silverware Etcher Relationship Specialty Start Date End Date Gloria Paula MD [address] [place] [address] [address] [place] [id number] PCP - General Family Medicine 12/04/19 documented as of this encounter
--- OUTSIDE RECORDS SUMMARY | 2024-07-18 11:45 | XMS_ITS | Encounter Summary ---
Author Organization [facility] Address [address] [place] [address] Care Team Providers Care Stone Carriage Operator Name Role Phone Gloria Paula MD Primary Care Provider + Reason for Visit * Cardiology (Routine) - Closed Specialty Diagnoses / Procedures Referred By Contac t Referred To Contact Diagnoses Atypical chest pain SVT (supraventricular tachycardia) (HCC) Procedures Echo Exercise Stress Test Only Ema Dunlap MD [address] [address] Phone: tel: fax: [facility] Referral ID Status Reason Start Date Expiration Date Visits Re quested Visits Authorized [id number] Closed 05/03/2020 10/30/2020 1 1 Encounter Details Date Type Department Care Team (Latest Contact Info) Description 05/27/2020 8:15 AM [facility] Ancillary Procedure [facility] Cardiology [address] [place] [address] Atypical chest pain; SVT (supraventricular tachycardia) (CMS/HCC) Social History Tobacco Use Types Packs/Day Years [...] Pressure - - Pulse - - Temperature 36.6 ??C (97.8 ??F) 05/27/2020 8:13 AM CS T Respiratory Rate - - Oxygen Saturation - - Inhaled Oxygen Concentration - - Weight - - Height - - Body Mass Index - - documented in this encounter Plan of Treatment Not on file documented as of this encounter Procedures Procedure Name Priority Date/Time Associated Diagnosis Comments STRESS ECHO EXERCISE WO DOPPLER/CF WO CONTRAST Routine 05/27/2020 9:38 AM [facility] [employer] Atypical chest pain SVT (supraventricular tachycardia) (CMS/HCC) documented in this encounter Results * STRESS ECHO EXERCISE WO DOPPLER/CF WO CONTRAST (05/27/2020 9:38 AM [facility] [employer]) Anatomical Region Laterality Modality Ultrasound 05/27/2020 8:05 AM [facility] [employer] Narrative 05/27/2020 12:53 PM [facility] [employer] Cardiology [address] [facility] [address] [address] [address] [facility] [address], [place] [address] P:[phone] P:[phone] Echocardiographic Report Patient Name: BENNETT DAVIS : 1980 Study Date: 05/27/2020 8:05:59 AM Gender: F Tech: Location: [place] Ref.Provider: TRAVIS Height(Cm): 155 BSA: 1.52 Weight(Kg): 53.98 Heart [...] BP - 98/60. Rate Pressure Product - 67564. METS Achieved - 10.10. Percent Predicted Maximal HR Achieved - 92 %. Interpretation Site: Exam was interpreted at [facility]. Performance: Average exercise functional capacity. Hemodynamic Response: [...] Signed By: Geovany Moore MD 2020-05-27 12:53:27 [facility] Procedure Note Maik Moore MD - 05/27/2020 [facility] Cardiology [address] [facility] [address] [id number] [address] [facility] [address], [place] [address] P:[phone] P:[phone] Echocardiographic Report Patient Name: BENNETT DAVISPatient ID: [id number] : [id number] Date: 05/27/2020 8:05:59 AM Gender: FAccession #: [id number] Tech: Location: [place] Ref.Provider: Helen(Cm): 155 BSA: 1.52Weight(Kg): 53.98 Heart [...] BP - 98/60. Rate Pressure Product - 44874. METS Achieved - 10.10. PercentPredicted Maximal HR Achieved - 92 %. Interpretation Site: Exam was interpreted at [facility]. Performance: Average exercise functional capacity. Hemodynamic Response: [...] Signed By: Geovany Moore MD 2020-05-27 12:53:27 [facility] [employer] Ema Dunlap MD CV ECHO PROCEDURES Final Result documented in this encounter Visit Diagnoses Diagnosis Atypical chest pain Other chest pain SVT (supraventricular tachycardia) (HCC) Other specified cardiac dysrhythmias documented in this encounter Care Teams Stone Carriage Operator Relationship Specialty Start Date End Date Gloria Paula MD [address] [place] [address] PCP - General Family Medicine 12/04/19 documented as of this encounter
--- OUTSIDE RECORDS SUMMARY | 2024-07-18 11:45 | XMS_ITS | Encounter Summary ---
Author Organization [facility] Address [address] [place] [address] Phone Care Team Providers Care Sample Wrapper Name Role Phone Gloria Paula MD Primary Care Provider + Encounter Details Date Type Department Care Team (Late st Contact Info) Description 05/01/2021 11:40 AM CDT Lab [facility] Endocrinology Metabolism and Lipid [address] [place] [address] [place] [address] Hyperthyroidism Social History Tobacco Use Types Packs/Day [...] as of this encounter Miscellaneous Notes * Result Encounter Note - Michael Luo MD - 05/07/2021 8:13 PM CDT Hi, Please advise patient to stop MMI once she is scheduled with nuclear medicine for NAV[facility] treatment I do not see it scheduled yet Thank you! Michael Luo MD documented in this encounter Plan of Treatment Not on file documented as of this encounter Procedures Procedure Name Priority Date/Time Associated Diagnosis Comments T3, FREE Routine 05/01/2021 11:14 AM CDT Hyperthyroidism TSH Routine 05/01/2021 11:14 AM CDT Hyperthyroidism T4, FREE Routine 05/01/2021 11:14 AM CDT Hyperthyroidism documented in this encounter Results * (ABNORMAL) T3, free (05/01/2021 11:14 AM CDT) T3, Free 2.29(L) 2.30 - 4.40 pg/mL [facility] Blood specimen (specimen) 05/01/2021 11:14 AM CDT 05/01/2021 12:09 PM CDT Michael Luo MD LAB BLOOD ORDERABLES Final Resu lt Performing Organization Address [facility] Co de Phone Number [facility] * T4, free (05/01/2021 11:14 AM CDT) Free T4 1.15 0.80 - 1.80 ng/dL [facility] Blood specimen (specimen) 05/01/2021 11:14 AM CDT 05/01/2021 12:09 PM CDT Michael Luo MD LAB BLOOD ORDERABLES Final Resu lt [facility] * TSH (05/01/2021 11:14 AM CDT) TSH (Thyrotropin) 2.47 0.27 - 4.20 uIU/mL [facility] Blood specimen (specimen) 05/01/2021 11:14 AM CDT 05/01/2021 12:09 PM CDT us Michael Luo MD LAB BLOOD ORDERABLES Final Resu lt [facility] documented in this encounter Visit Diagnoses Diagnosis Hyperthyroidism Thyrotoxicosis without mention of goiter or other cause, without mention of thyrotoxic crisis or storm documented in this encounter Care Teams Sample Wrapper Relationship Specialty Start Date End Date Gloria Paula MD [address] [place] [address] [address] [place] [address] PCP - General Family Medicine 12/04/19 documented as of this encounter
--- OUTSIDE RECORDS SUMMARY | 2024-07-18 11:45 | XMS_ITS | Encounter Summary ---
Author Organization [facility] Address [address] [place] [address] Care Team Providers Care Flight Mechanic Name Role Phone Gloria Paula MD Primary Care Provider + Reason for Referral * Diagnostic Imaging (Routine) - Closed Specialty Diagnoses / Procedures Referred By [facility] Referred To Contact Radiology Diagnoses Right ventricular enlargement Non-rheumatic mitral regurgitation SVT (supraventricular tachycardia) (HCC) Procedures MRI Cardiac M&F W WO Contrast CHG CARDIAC MRI W/W/O CONTRAST & FURTHER SEQ Fabián Holman MD [address] [address] Phone: tel: fax: [address] [address] Referral ID Status Reason Start Date Expiration Date Visits Re quested Visits Authorized [id number] Closed 01/05/2020 07/03/2020 1 1 Reason for Visit * Diagnostic Imaging (Routine) - Closed Specialty Diagnoses / Procedures Referred By [facility] Referred To Contact Radiology Diagnoses Right ventricular enlargement Non-rheumatic mitral regurgitation SVT (supraventricular tachycardia) (HCC) Procedures MRI Cardiac M&F W WO Contrast CHG CARDIAC MRI W/W/O CONTRAST & FURTHER SEQ Fabián Holman MD [address] [place] [address] Phone: tel: fax: [facility] [address] [place] [address] Referral ID Status Reason Start Date Expiration Date Visits Re quested Visits Authorized [id number] Closed 01/05/2020 07/03/2020 1 1 Encounter Details Date Type Department Care Team (Latest Contact Info) Description 01/18/2020 9:33 AM CDT - 01/18/2020 11:59 PM CDT Hospital Encounter [facility] [address] [place] [address] Fabián Holman MD [address] [id number] Right ventricular enlargement; Non-rheumatic mitral regurgitation; SVT (supraventricular tachycardia) ([facility]) Discharge Disposition: Discharge to home or self [...] mg by mouth every other day 04/01/2023 potassium chloride ER (KLOR-CON) 20 mEq CR tablet Take 1 tablet (20 mEq total) by mouth daily 30 tablet 11 04/20/2019 04/08/2020 documented as of this encounter Discharge Disposition Disposition Code Departure Means Destination Discharge to home or self care documented in this encounter Plan of Treatment Not on file documented as of this encounter Procedures Procedure Name Priority Date/Time Associated Diagnosis Comments MRI CARDIAC M&FUNC W WO CONTRAST Schedule Routine, Read Routine (OP Routine) 01/18/2020 11:22 AM CDT Right ventricular enlargement Non-rheumatic mitral regurgitation SVT (supraventricular tachycardia) ([facility]) documented in this encounter Results * MRI [...] systolic function. LVEF 62%. Dictated by: Mark Ahmed Nizamuddin, M.D. The radiology attending physician has personally reviewed this study, and had reviewed and/or edited this written report and agrees with it. Electronically signed by: Rosa Reynoso M.D. Fabián Holman MD IMG MRI PROCEDURES Final Result documented in this encounter Visit Diagnoses Diagnosis Right ventricular enlargement Cardiomegaly Non-rheumatic mitral regurgitation SVT (supraventricular tachycardia) (HCC) Other specified cardiac dysrhythmias documented in this encounter Administered Medications Inactive Administered Medications - up to 3 most recent administrations Medication Order MAR Action Action Date Dose Rate Site gadobenate dimeglumine (MULTIHANCE) injection 10.98 mL 10.98 mL (0.1 mmol/kg ? 54.9 kg), intravenous, Once in imaging, contrast, Starting on Sat01/18/20 at 1018, For 1 dose, Imaging Protocol Orders Given 01/18/2020 10:26 AM CDT 11 mL documented in this encounter Orders Medications Ordered That Delvis ht Not Have Been Administered Count Last Ordered Date First Ordered Date gadobenate dimeglumine (MULT IHANCE) injection 10.98 mL 1 01/18/2020 documented in this encounter Care Teams Flight Mechanic Relationship Specialty Start Date End Date Gloria Paula MD [address] [place] [address] [address] [place] [address] PCP - General Family Medicine 12/04/19 documented as of this encounter
--- OUTSIDE RECORDS SUMMARY | 2024-07-18 11:46 | XMS_ITS | Encounter Summary ---
Author Organization [facility] Address [address] [place] [address] Care Team Providers Care Logistics Analyst Name Role Phone Efrain Ramirez MD Primary Care Provider [phone]- [phone] Encounter Details Date Type Department Care Team (Late st Contact Info) Description 10/16/2017 Telephone [facility] [address] [address] [address] [place] [address] Fabián Holman MD [facility] [id number] Social History Tobacco Use Types Packs/Day Years [...] encounter Miscellaneous Notes * Telephone Encounter - Leeanna Pike RN - 10/16/2017 3:58 PM CDT LMOM, BMP was normal. documented in this encounter Plan of Treatment Not on file documented as of this encounter Visit Diagnoses Not on filedocumented in this encounter Care Teams Logistics Analyst Relationship Specialty Start Date End Date Efrain Ramirez MD [address] [place] [address] PCP - General Family Practice 09/04/17 12/03/19 documented as of this encounter
--- OUTSIDE RECORDS SUMMARY | 2024-07-18 11:46 | XMS_ITS | Encounter Summary ---
Author Organization [facility] Care Team Providers Care Trial Court Justice Name Role Phone Efrain Ramirez MD Primary Care Provider [phone]- [phone] Encounter Details Date Type Department Care Team (Latest Contact Info) Description 10/08/2019 Travel Social History Tobacco Use Types Packs/Day Years [...] Orientation Straight 04/26/2021 12 :41 PM CDT COVID-19 Exposure Response Date Recorded In the last month, have you been in contact with someone who was confirmed or suspected to have Coronavirus / COVID-19? No / Unsure 10/08/2019 4:13 PM CDT documented as of this encounter Plan of Treatment Not on file documented as of this encounter Visit Diagnoses Not on filedocumented in this encounter Care Teams Trial Court Justice Relationship Specialty Start Date End Date Efrain Ramirez MD [address] [place] [address] PCP - General Family Practice 09/04/17 12/03/19 documented as of this encounter
--- OUTSIDE RECORDS SUMMARY | 2024-07-18 11:46 | XMS_ITS | Encounter Summary ---
Author Organization [facility] Address [address] [facility] [address] [place] [address] Care Team Providers Care Carcass Washer Name Role Phone Efrain Ramirez MD Primary Care Provider +1- [phone] Reason for Referral * Diagnostic Imaging (Routine) - Closed Specialty Diagnoses / Procedures Referred By Contac t Referred To Contact Diagnoses Non-rheumatic mitral regurgitation Pulmonary HTN (HCC) Procedures Transthoracic Echo Complete W Doppler/CF Ema Dunlap MD Phone: tel: fax: [facility] Referral ID Status Reason Start Date Expiration Date Visits Re quested Visits Authorized [id number] Closed 04/15/2019 10/24/2020 1 1 Reason for Visit * Reason Comments Follow-up 6 mo f/u on MV repai r, PHT Encounter Details Date Type Department Care Team (Latest Contact Info) Description 04/15/2019 3:30 PM CDT Office Visit [facility] [address] [address] [address] [place] [address] Ema Dunlap MD [facility] [address] Non-rheumatic mitral regurgitation (Primary Dx); Pulmonary HTN (CMS/HCC); Hyperthyroidism; Hypokalemia; SVT (supraventricular tachycardia) (CMS/HCC) Social History Tobacco [...] Sign Reading Time Taken Comments Blood Pressure 84/60 04/15/2019 3:37 PM CDT Pulse 63 04/15/2019 3:37 PM CDT Temperature - - Respiratory Rate - - Oxygen Saturation 99% 04/15/2019 3:37 PM CDT Inhaled Oxygen Concentration - - Weight 54 kg (119 lb) 04/15/2019 3:37 PM CDT Height 154.9 cm (5' 1 ) 04/15/2019 3:37 PM CDT Body Mass Index 22.48 04/15/2019 3:37 PM CDT documented in this encounter Progress Notes * Ema Dunlap MD - 04/15/2019 3:30 PM CDT [facility] DATE OF VISIT: 04/15/2019 CHIEF COMPLAINT Chief Complaint Patient presents with ??? Follow-up 6 mo f/u on MV repair, PHT HPI Bennett Davis is a 38 y.o. female with a history of SVT. [...] paroxysmal nocturnal dyspnea, orthopnea, edema or palpitations. MEDICAL HISTORY Past Medical History: Diagnosis Date [...] (three) times a day. POTASSIUM CHLORIDE ER (KLOR-CON,K-DUR) 20 MEQ CR TABLET Take 1 tablet [...] environmental allergies. PHYSICAL EXAM Blood pressure (!) 84/60, pulse 63, height 154.9 cm (5' 1 ), weight [...] She exhibits no distension. There is no tenderness. Musculoskeletal: Normal range of motion. She exhibits no edema. Neurological: She is alert and oriented [...] 50-55%. Mild LVH. Grade 1 diastolic dysfunction, upho-oe-jnlckoyo MR, moderate TR, RVSP 35-40. Echo from May 2017 Echocardiogram June 2018 Normal left ventricular systolic [...] for this visit: Non-rheumatic mitral regurgitation (Primary) Lcht-zg-eibnssax Hypokalemia Potassium was 3.7 at last evaluation Pulmonary HTN (CMS/HCC) Mild SVT (supraventricular tachycardia) (CMS/HCC) Still having episodes a couple times per week PLAN/RECOMMENDATIONS 2D echocardiogram Doppler to re-evaluate her pulmonary hypertension and mitral regurgitation and right heart enlargement. Will discontinue her metoprolol at this point. She is a bit hypotensive. She has not had any palpitations. Will monitor without beta-calvin at this point. I will see her back in 6 months or sooner as clinically indicated. Ema Dunlap MD, [facility] documented in this encounter Plan of Treatment Not on file documented as of this encounter Results * TRANSTHORACIC ECHO (TTE) COMPLETE W DOPPLER/CF WO CONTRAST (12/04/2019 4:01 PM CDT) Anatomical Region Laterality Modality Ultrasound 12/04/2019 2:10 PM CDT Narrative 12/04/2019 4:42 PM CDT [facility] Cardiology [address] [facility] [address] [address] [address] [facility] [address] [address] P:[phone] P:[phone] Echocardiographic Report Patient Name: BENNETT DAVIS : 1980 Study Date: 12/04/2019 2:10:57 PM Gender: F Tech: Location: [place] Ref.Provider: SANA Height(Cm): 155 BSA: 1.52 Weight(Kg): 53.98 Heart Rate: 59 BP: 90/70 Quality: Good Order Provider: EMA DUNLAP Procedures: Echocardiographic Report: Transthoracic echocardiogram with complete 2D, M-Mode, and color Doppler examination. Indications: Pulmonary Hypertension, and Mitral Regurgitation. Measurements: 2D/M Mode Doppler Measurement Value Normal Range Measurement Value Normal Range EF Mod 63 ??AV Mean PG 2 mmHg EF MM 67 [ 55 - 70 ] % AV Peak Kiran 1.13 m/s LVIDd MM 4.13 [ 3.90 - 5.30 ] cm AV Peak PG 5 mmHg LVIDs MM 2.60 [ 2.30 - 3.90 ] cm AV VTI 0.25 cm LVPWd MM 0.80 [ 0.60 - 1.00 ] cm LVOT Peak Kiran 0.78 [ 0.70 - 1.10 ] m/s IVSd MM 0.93 [ 0.60 - 0.90 ] cm LVOT VTI 0.19 cm LA Dimension MM 2.67 [ 2.70 - 3.80 ] cm MV E Peak Kiran 0.71 [ 0.60 - 1.30 ] m/s AoR Diam MM 2.73 [ 2.60 - 3.70 ] cm MV A Peak Kiran 0.47 [ 0.40 - 0.80 ] m/s LA Volume Index 14.00 [ 16.00 - 28.00 ] cc/m2 MV Decel Time 270 [ 150 - 200 ] msec ACS MM 2.00 cm PV Peak Kiran 0.80 [ 0.40 - 0.80 ] m/s TR Peak Kiran 2.37 [ 0.40 - 0.80 ] m/s TR Peak PG 23 mmHg RVSP 31.00 mmHg E' 0.16 E/E' 4 Findings: Interpretation Site: Exam was interpreted at [facility]. Left Ventricle: Normal left ventricular systolic function. No focal wall motion abnormalities. Normal left ventricular size. Normal left ventricular wall thickness. Normal left ventricular diastolic function. Ejection fraction is visually estimated at 60-65 %. Ejection fraction is measured at 63 %. Right Ventricle: At least moderate enlargement of right ventricle. Mild right ventricular hypokinesis. Left Atrium: There is mild enlargement of left atrium. Right Atrium: There is moderate enlargement of right atrium. Atrial Septum: Normal atrial septum. Mitral Valve: Normal appearance of the mitral valve. Mild mitral valve regurgitation. There is no hemodynamically significant mitral stenosis by Doppler. Aortic Valve: No evidence of hemodynamically significant aortic stenosis by Doppler. Aortic cusps appear mildly sclerotic. Trileaflet aortic valve. Trace aortic valve regurgitation. Tricuspid Valve: Normal appearance of the tricuspid valve. Normal right ventricular systolic pressure. Estimated peak RVSP is 31 mmHg. Moderate tricuspid regurgitation. Pulmonic Valve: Normal appearance of the pulmonic valve. No pulmonic stenosis. Mild pulmonic regurgitation. Pericardium: Normal pericardium with no significant pericardial effusion. Aorta: Normal aortic root. IVC: Normal size and no respiratory collapse consistent with elevated right atrial pressure (5-10 mmHg). Conclusions: Normal left ventricular systolic function. No focal [...] RV is still dilated and probably larger. Electronically Signed By: Ema Dunlap MD 2019-12-04 16:41:58 CDT Procedure Note Ema Dunlap MD - 12/04/2019 [facility] Cardiology [address] [facility] [address] [address] [address] [facility] [address] [address] P:[phone] P:[phone] Echocardiographic Report Patient Name: BENNETT DAVIS : 1980 Study Date: 12/04/2019 2:10:57 PM Gender: F Tech: Location: [place] Ref.Provider: SANA Height(Cm): 155 BSA: 1.52 Weight(Kg): 53.98 Heart Rate: 59 BP: 90/70 Quality: Good Order Provider: EMA DUNLAP Procedures: Echocardiographic Report: Transthoracic echocardiogram with complete 2D, M-Mode, and color Dopplerexamination. Indications: Pulmonary Hypertension, and Mitral Regurgitation. Measurements: 2D/M Mode Doppler Measurement Value Normal Range Measurement Value Normal Range EF Mod 63 AV Mean PG 2 mmHg EF MM 67 [ 55 - 70 ] % AV Peak Kiran 1.13 m/s LVIDd MM 4.13 [ 3.90 - 5.30 ] cm AV Peak PG 5 mmHg LVIDs MM 2.60 [ 2.30 - 3.90 ] cm AV VTI 0.25 cm LVPWd MM 0.80 [ 0.60 - 1.00 ] cm LVOT Peak Kiran 0.78 [ 0.70 - 1.10 ] m/s IVSd MM 0.93 [ 0.60 - 0.90 ] cm LVOT VTI 0.19 cm LA Dimension MM 2.67 [ 2.70 - 3.80 ] cm MV E Peak Kiran 0.71 [ 0.60 - 1.30 ]m/s AoR Diam MM 2.73 [ 2.60 - 3.70 ] cm MV A Peak Kiran 0.47 [ 0.40 - 0.80 ]m/s LA Volume Index 14.00 [ 16.00 - 28.00 ] cc/m2 MV Decel Time 270 [ 150 -200 ] msec ACS MM 2.00 cm PV Peak Kiran 0.80 [ 0.40 - 0.80 ] m/s TR Peak Kiran 2.37 [ 0.40 - 0.80 ] m/s TR Peak PG 23 mmHg RVSP 31.00 mmHg E' 0.16 E/E' 4 Findings: Interpretation Site: Exam was interpreted at [facility]. Left Ventricle: Normal left ventricular systolic function. No focal wall motionabnormalities. Normal left ventricular size. Normal left ventricular wall thickness. Normal leftventricular diastolic function. Ejection fraction is visually estimated at 60-65 %.Ejection fraction is measured at 63 %. Right Ventricle: At least moderate enlargement of right ventricle. Mild right ventricularhypokinesis. Left Atrium: There is mild enlargement of left atrium. Right Atrium: There is moderate enlargement of right atrium. Atrial Septum: Normal atrial septum. Mitral Valve: Normal appearance of the mitral valve. Mild mitral valve regurgitation.There is no hemodynamically significant mitral stenosis by Doppler. Aortic Valve: No evidence of hemodynamically significant aortic stenosis by Doppler.Aortic cusps appear mildly sclerotic. Trileaflet aortic valve. Trace aortic valveregurgitation. Tricuspid Valve: Normal appearance of the tricuspid valve. Normal right ventricularsystolic pressure. Estimated peak RVSP is 31 mmHg. Moderate tricuspid regurgitation. Pulmonic Valve: Normal appearance of the pulmonic valve. No pulmonic stenosis. Mildpulmonic regurgitation. Pericardium: Normal pericardium with no significant pericardial effusion. Aorta: Normal aortic root. IVC: Normal size and no respiratory collapse consistent with elevated rightatrial pressure (5-10 mmHg). Conclusions: Normal left ventricular systolic function. No focal wall motionabnormalities. Normal left ventricular size. Normal left ventricular wall thickness. Normal leftventricular diastolic function. Ejection fraction is visually estimated at 60-65 %.Ejection fraction is measured at 63 %. At least moderate enlargement of right ventricle. Mild right ventricularhypokinesis. There is mild enlargement of left atrium. There is moderate enlargement of right atrium. Mild mitral valve regurgitation. Moderate tricuspid regurgitation. Mild pulmonic regurgitation. Normal sinus rhythm. PHTN is better. RV is still dilated and probably larger. Electronically Signed By: Ema Dunlap MD 2019-12-04 16:41:58 CDT Ema Dunlap MD CV ECHO PROCEDURES Final Result documented in this encounter Visit Diagnoses Diagnosis Non-rheumatic mitral regurgitation- Primary Pulmonary HTN (HCC) Hyperthyroidism Thyrotoxicosis without mention of goiter or other cause, without mention of thyrotoxic crisis or storm Hypokalemia Hypopotassemia SVT (supraventricular tachycardia) (HCC) Other specified cardiac dysrhythmias Non-rheumatic mitral regurgitation Pulmonary HTN (HCC) documented in this encounter Discontinued Medications Medication Sig Discontinue Reason Start Date End Da te metoprolol (LOPRESSOR) 25 mg tablet Take 1/2 tablet (12.5mg) every 12 hours Therapy completed 11/17/2018 04/15/2019 documented as of this encounter Care Teams Carcass Washer Relationship Specialty Start Date End Date Efrain Ramirez MD [address] [place] [address] PCP - General Family Practice 09/04/17 12/03/19 documented as of this encounter
--- OUTSIDE RECORDS SUMMARY | 2024-07-18 11:46 | XMS_ITS | Encounter Summary ---
Author Organization [facility] Address [address] [place] [address] Care Team Providers Care Track Man Name Role Phone Efrain Ramirez MD Primary Care Provider [phone]- [phone] Encounter Details Date Type Department Care Team (Late st Contact Info) Description 10/14/2017 Orders Only [facility] [address] [address] [address] [place] [address] Provider, MD Dannie [address] [place], [place] [id number] Social History Tobacco Use Types Packs/Day Years [...] Procedure Name Priority Date/Time Associated Diagnosis Comments BASIC METABOLIC PANEL Routine 10/10/2017 documented in this encounter Results * Basic metabolic panel (10/10/2017) Blood specimen (specimen) Historical Provider LAB BLOOD ORDERABLES Tona l Result documented in this encounter Visit Diagnoses Not on filedocumented in this encounter Care Teams Track Man Relationship Specialty Start Date End Date Efrain Ramirez MD [address] [place] [address] PCP - General Family Practice 09/04/17 12/03/19 documented as of this encounter
--- OUTSIDE RECORDS SUMMARY | 2024-07-18 11:46 | XMS_ITS | Encounter Summary ---
Author Organization [facility] Address [address] [address] Care Team Providers Care Petroleum Blending Plant Operator Name Role Phone Efrain Ramirez MD Primary Care Provider [phone]- [phone] Encounter Details Date Type Department Care Team (Late st Contact Info) Description 11/04/2017 Telephone [facility] [address] [place] [address] [phone] Fabián Holman MD [address] [place] [address] Social History Tobacco Use Types Packs/Day Years [...] PM CDT documented as of this encounter Ordered Prescriptions Prescription Sig Dispense Quantity Refills Last Filled Start Date End Date metoprolol (LOPRESSOR) 25 mg tablet Take 1 tablet (25 mg total) by mouth 2 (two) times a day. Take 1/2 tablet (12.5mg) every 12 hours 90 tablet 3 11/04/2017 11/07/2017 documented in this encounter Miscellaneous Notes * Telephone Encounter - Katharina Montalvo RN - 11/04/2017 11:16 AM CDT I called the patient. She states she is taking metoprolol 12.5mg bid. New script sent. * Addendum Note - Katharina Montalvo RN - 11/04/2017 11:16 AM CDTAddended by: KATHARINA MONTALVO on: 11/04/2017 11:16 AM Modules accepted: Orders * Telephone Encounter - Katharina Chowdary - 11/04/2017 10:35 AM CDT Patient needs refill of metoprolol 25mg 1/2 tablet po BID called into [facility] [address] Please call patient with any questions. documented in this encounter Plan of Treatment Not on file documented as of this encounter Visit Diagnoses Not on filedocumented in this encounter Discontinued Medications Medication Sig Discontinue Reason Start Date End Da te metoprolol (LOPRESSOR) 25 mg tablet Take 25 mg by mouth 2 (two) times a day. Reorder 11/04/2017 documented as of this encounter Care Teams Petroleum Blending Plant Operator Relationship Specialty Start Date End Date Efrain Ramirez MD [address] [place] [address] PCP - General Family Practice 09/04/17 12/03/19 documented as of this encounter
--- OUTSIDE RECORDS SUMMARY | 2024-07-18 11:46 | XMS_ITS | Encounter Summary ---
Author Organization [facility] Address [address] [facility] [address] [place] [address] Care Team Providers Care Trash Collector Name Role Phone Efrain Ramirez MD Primary Care Provider +1- [phone] Reason for Visit * Reason Comments Follow-up 6 week follow up on SVT, PHTN, MR, hypokalemia Encounter Details Date Type Department Care Team (Latest Contact Info) Description 10/18/2017 8:45 AM CDT Office Visit [facility] [address] [facility] [address] [place] [address] Fabián Holman MD [address] [address] Non-rheumatic mitral regurgitation (Primary Dx); Hypokalemia; Pulmonary HTN (CMS/HCC); SVT (supraventricular tachycardia) (CMS/HCC) Social History Tobacco [...] Sign Reading Time Taken Comments Blood Pressure 112/62 10/18/2017 8:46 AM CDT Pulse 73 10/18/2017 8:46 AM CDT Temperature - - Respiratory Rate - - Oxygen Saturation 98% 10/18/2017 8:46 AM CDT Inhaled Oxygen Concentration - - Weight 56.7 kg (125 lb) 10/18/2017 8:46 AM CDT Height 154.9 cm (5' 1 ) 10/18/2017 8:46 AM CDT Body Mass Index 23.62 10/18/2017 8:46 AM CDT documented in this encounter Progress Notes * Fabián Holman MD - 10/18/2017 8:45 AM CDT [facility] DATE OF VISIT: 10/18/2017 CHIEF COMPLAINT Chief Complaint Patient presents with ??? Follow-up 6 week follow up on SVT, PHTN, MR, hypokalemia HPI Viola Davis is a 37 y.o. female with a history of SVT. [...] syncope, presyncope, paroxysmal nocturnal dyspnea, orthopnea, edema. MEDICAL HISTORY Past Medical History: Diagnosis Date ??? Thyroid disease Social History Substance Use Topics ??? Smoking status: Never Smoker ??? Smokeless tobacco: Never Used ??? Alcohol use No History reviewed. No pertinent family history. MEDICATIONS Home Medications FERROUS SULFATE 325 MG (65 MG IRON) CAPSULE, EXTENDED RELEASE Take by mouth. METHIMAZOLE (TAPAZOLE) 5 MG TABLET Take 5 mg by mouth 3 (three) times a day. METOPROLOL (LOPRESSOR) 25 MG TABLET Take 25 mg by mouth 2 (two) times a day. POTASSIUM CHLORIDE ER (KLOR-CON,K-DUR) 20 MEQ CR TABLET Take 1 tablet (20 mEq total) by mouth daily. 25/IRON FUM/FOLIC/DHA (-1 ORAL) Take by mouth. ALLERGIES No Known Allergies REVIEW OF SYSTEMS Review of Systems Constitution: Negative for weakness, weight gain and weight loss. HENT: Negative [...] Negative for dizziness, focal weakness, headaches, light- headedness and numbness. Psychiatric/Behavioral: Negative for depression. The patient is not nervous/anxious. Allergic/Immunologic: Negative for environmental allergies. PHYSICAL EXAM Blood pressure 112/62, pulse 73, height 154.9 cm (5' 1 ), weight 56.7 kg (125 lb), SpO2 98 %. Body mass index is 23.62 kg/m??. Physical Exam Constitutional: She is oriented [...] 50-55%. Mild LVH. Grade 1 diastolic dysfunction, gppl-mj-kqvdryxe MR, moderate TR, RVSP 35-40. Echo from May 2017 ASSESSMENT Diagnoses and all orders for this visit: Non-rheumatic mitral regurgitation (Primary) Cksg-fx-uixkicle Hypokalemia Potassium was 3.7 at last evaluation Pulmonary HTN (CMS/HCC) Mild SVT (supraventricular tachycardia) (CMS/HCC) Symptomatically better PLAN/RECOMMENDATIONS 1. At this point no further cardiac workup is needed. Will see her back in 6 months or sooner as clinically indicated. She will need periodic surveillance of her valvular regurgitation and pulmonary hypertension. Continue metoprolol and she is encouraged to eat a high potassium diet Fabián Holman MD, [facility] documented in this encounter Plan of Treatment Not on file documented as of this encounter Procedures Procedure Name Priority Date/Time Associated Diagnosis Comments POCT LIPID PANEL Routine 10/18/2017 9:34 AM CDT Hypokalemia documented in this encounter Results * POCT lipid panel (10/18/2017 9:34 AM CDT) Cholesterol, POC 194 mg/dL HDL, POC 82 mg/dL Triglycerides, POC 87 mg/dL LDL Cholesterol POC 94 mg/dL Chol/HDL Ratio, POC 2.4 Non-HDL Cholesterol, POC 112 mg/dL Cholesterol Total, POC 194 mg/dL Blood specimen (specimen) 10/18/2017 9:34 AM CDT us Fabián Holman MD POINT OF CARE TEST ORDERA BLES Final Result documented in this encounter Visit Diagnoses Diagnosis Non-rheumatic mitral regurgitation- Primary Hypokalemia Hypopotassemia Pulmonary HTN (HCC) SVT (supraventricular tachycardia) (HCC) Other specified cardiac dysrhythmias documented in this encounter Historical Medications * This list may reflect changes made after this encounter. 25/IRON FUM/FOLIC/DHA (-1 ORAL) Take by mouth. 12/22/2019 ferrous sulfate 325 mg (65 mg iron) capsule, extended release Take by mouth. 04/01/2023 added in this encounter Care Teams Trash Collector Relationship Specialty Start Date End Date Efrain Ramirez MD [address] [place] [address] PCP - General Family Practice 09/04/17 12/03/19 documented as of this encounter
--- OUTSIDE RECORDS SUMMARY | 2024-07-18 11:46 | XMS_ITS | Encounter Summary ---
Author Organization [facility] Address [address] [facility] [address] [place] [address] Care Team Providers Care Diagram Clerk Name Role Phone Gloria Paula MD Primary Care Provider + Reason for Visit * Diagnostic Imaging (Routine) - Closed Specialty Diagnoses / Procedures Referred By Contac t Referred To Contact Diagnoses Non-rheumatic mitral regurgitation Pulmonary HTN (HCC) Procedures Transthoracic Echo Complete W Doppler/CF Ema Dunlap MD Phone: tel: fax: [facility] Referral ID Status Reason Start Date Expiration Date Visits Re quested Visits Authorized [id number] Closed 04/15/2019 10/24/2020 1 1 Encounter Details Date Type Department Care Team (Latest Contact Info) Description 12/04/2019 3:00 PM CDT Ancillary Procedure [facility] Cardiology [address] [facility] [address] [place] [address] Non-rheumatic mitral regurgitation; Pulmonary HTN (CMS/HCC) Social History Tobacco Use Types Packs/Day [...] (TTE) COMPLETE W DOPPLER/CF WO CONTRAST Routine 12/04/2019 4:01 PM CDT Non-rheumatic mitral regurgitation Pulmonary HTN (CMS/HCC) documented in this encounter Results * TRANSTHORACIC ECHO (TTE) COMPLETE W DOPPLER/CF WO CONTRAST (12/04/2019 4:01 PM CDT) Anatomical Region Laterality Modality Ultrasound 12/04/2019 2:10 PM CDT Narrative 12/04/2019 4:42 PM CDT [facility] Cardiology [address] [facility] [address], [place] [address] [address] [facility] [address], [place] [address] P:[phone] P:[phone] Echocardiographic Report Patient Name: BENNETT DAVIS : 1980 Study Date: 12/04/2019 2:10:57 PM Gender: F Tech: Location: [place] Ref.Provider: SANA Height(Cm): 155 BSA: 1.52 Weight(Kg): [...] Findings: Interpretation Site: Exam was interpreted at [facility]. Left Ventricle: Normal left ventricular systolic function. [...] Procedure Note Ema Dunlap MD - 12/04/2019 [facility] Cardiology [address], [place] [address] [address], [place] [address] P:[phone] P:[phone] Echocardiographic Report Patient Name: BENNETT DAVIS : 1980 Study Date: 12/04/2019 2:10:57 PM Gender: F Tech: Location: [place] Ref.Provider: SANA Height(Cm): 155 BSA: 1.52 Weight(Kg): [...] Findings: Interpretation Site: Exam was interpreted at [facility]. Left Ventricle: Normal left ventricular systolic function. [...] By: Ema Dunlap MD 2019-12-04 16:41:58 CDT us Ema Dunlap MD CV ECHO PROCEDURES Final Result documented in this encounter Visit Diagnoses Diagnosis Non-rheumatic mitral regurgitation Pulmonary HTN (HCC) documented in this encounter Care Teams Diagram Clerk Relationship Specialty Start Date End Date Gloria Paula MD [address] [place] [address] DR MAY [address] [place] [address] PCP - General Family Medicine 12/04/19 documented as of this encounter
--- OUTSIDE RECORDS SUMMARY | 2024-07-18 11:46 | XMS_ITS | Encounter Summary ---
Author Organization [facility] Address [address] [place] [address] Care Team Providers Care Security Controls Assessor Name Role Phone Efrain Ramirez MD Primary Care Provider +1- [phone] Encounter Details Date Type Department Care Team (Late st Contact Info) Description 09/16/2017 Telephone [facility] [address] [address] [address] [place] [address] Fabián Holman MD [address] [id number] Social History Tobacco Use Types Packs/Day Years [...] Start Date End Date potassium chloride ER (KLOR-CON,K-DUR) 20 mEq CR tablet Take 1 tablet (20 mEq total) by mouth daily. 30 tablet 11 09/16/2017 09/16/2018 documented in this encounter Miscellaneous Notes * Telephone Encounter - Leeanna Pike RN - 09/30/2017 4:49 PM CDT Called pt, faxed order to [facility] * Telephone Encounter - Chanelle Calvo - 09/30/2017 4:00 PM CDT Patient called back and she just returned from [facility] and is going to start her medication this week and we can go ahead and send the lab request in. Please call patient once request has been sent. * Telephone Encounter - Leeanna Pike RN - 09/16/2017 2:[address] Holman, Her potassium levels continued to be slightly low. ??It was 3.4. ??Start potassium chloride 20 mEq p.o. daily. ??Repeat basic metabolic panel in 1 week LMOM for patient to call and let us know where to send lab order. BOXER documented in this encounter Plan of Treatment Not on file documented as of this encounter Visit Diagnoses Not on filedocumented in this encounter Care Teams Security Controls Assessor Relationship Specialty Start Date End Date Efrain Ramirez MD [address] [place] [address] PCP - General Family Practice 09/04/17 12/03/19 documented as of this encounter
--- OUTSIDE RECORDS SUMMARY | 2024-07-18 11:46 | XMS_ITS | Encounter Summary ---
Author Organization [facility] Address [address] [place] [address] Care Team Providers Care Suit Maker Name Role Phone Efrain Ramirez MD Primary Care Provider +1- [phone] Reason for Referral * Cardiology (Routine) - Closed Specialty Diagnoses / Procedures Referred By Contac t Referred To Contact Diagnoses Non-rheumatic mitral regurgitation Pulmonary HTN (HCC) Procedures Transthoracic Echo Complete W Doppler/CF Ema Dunlap MD Phone: tel: fax: [facility] Referral ID Status Reason Start Date Expiration Date Visits Re quested Visits Authorized [id number] Closed 06/24/2018 01/03/[address] CENTER COORDINATOR Reason for Visit * Reason Comments Follow-up 6 mo f/u on SVT, PHT , MR Encounter Details Date Type Department Care Team (Latest Contact Info) Description 06/24/2018 3:30 PM RECORD CENTER COORDINATOR Office Visit [facility] [address] [address] [address] [place] [address] Ema Dunlap MD [facility] [address] Non-rheumatic mitral regurgitation (Primary Dx); Pulmonary HTN (CMS/HCC) Social History Tobacco Use [...] Sign Reading Time Taken Comments Blood Pressure 90/64 06/24/2018 3:20 PM RECORD CENTER COORDINATOR Pulse 65 06/24/2018 3:20 PM RECORD CENTER COORDINATOR Temperature - - Respiratory Rate - - Oxygen Saturation 99% 06/24/2018 3:20 PM RECORD CENTER COORDINATOR Inhaled Oxygen Concentration - - Weight 54.9 kg (121 lb) 06/24/2018 3:20 PM RECORD CENTER COORDINATOR Height 154.9 cm (5' 1 ) 06/24/2018 3:20 PM RECORD CENTER COORDINATOR Body Mass Index 22.86 06/24/2018 3:20 PM RECORD CENTER COORDINATOR documented in this encounter Progress Notes * Ema Dunlap MD - 06/24/2018 3:30 PM CST [facility] DATE OF VISIT: 06/24/2018 CHIEF COMPLAINT Chief Complaint Patient presents with ??? Follow-up 6 mo f/u on SVT, PHT, MR ZOHREH Davis is a 37 y.o. female with [...] paroxysmal nocturnal dyspnea, orthopnea, shortness of breath MEDICAL HISTORY Past Medical History: Diagnosis Date ??? Thyroid disease Social History Substance Use Topics ??? Smoking status: Never Smoker ??? Smokeless tobacco: Never Used ??? Alcohol use No No family history on file. MEDICATIONS Home Medications FERROUS SULFATE 325 MG (65 MG IRON) CAPSULE, EXTENDED RELEASE Take by mouth. METHIMAZOLE (TAPAZOLE) 5 MG TABLET Take 5 mg by mouth 3 (three) times a day. METOPROLOL (LOPRESSOR) 25 MG TABLET Take 1/2 tablet (12.5mg) every 12 hours POTASSIUM CHLORIDE ER (KLOR-CON,K-DUR) 20 MEQ CR [...] for environmental allergies. PHYSICAL EXAM Blood pressure 90/64, pulse 65, height 154.9 cm (5' 1 ), weight 54.9 kg (121 lb), SpO2 99 %. Body mass index is 22.86 kg/m??. Physical Exam Constitutional: She is oriented [...] 50-55%. Mild LVH. Grade 1 diastolic dysfunction, tsol-gl-vbgthdlw MR, moderate TR, RVSP 35-40. Echo from May 2017 ASSESSMENT Diagnoses and all orders for this visit: Non-rheumatic mitral regurgitation (Primary) Upys-md-cardlfyt Hypokalemia Potassium was 3.7 at last evaluation Pulmonary HTN (CMS/HCC) Mild SVT (supraventricular tachycardia) (CMS/HCC) Still having episodes a couple times per week PLAN/RECOMMENDATIONS Offered further workup and evaluation and possible referral to electrophysiology for consideration of ablation. She wishes to defer at this point. I will have her repeat a 2D echocardiogram Doppler to re-evaluate her pulmonary hypertension and mitral regurgitation. Otherwise continue her current drug regimen without change I will see her back in 6 months or sooner as clinically indicated. Ema Dunlap MD, FACC RD CENTER COORDINATOR documented in this encounter Plan of Treatment Not on file documented as of this encounter Results * TRANSTHORACIC ECHO (TTE) COMPLETE W DOPPLER/CF WO CONTRAST (07/18/2018 12:00 PM RECORD CENTER COORDINATOR) Anatomical Region Laterality Modality Ultrasound 07/18/2018 10:1 7 AM RECORD CENTER COORDINATOR Narrative 07/18/2018 1:15 PM RECORD CENTER COORDINATOR [facility] [facility] [address] [id number] [address] [facility] [address] [address] P:[phone] P:[phone] Echocardiographic Report Patient Name: BENNETT DAVIS : 1980 Study Date: 07/18/2018 10:17:00 AM Gender: F Tech: Location: [place] Ref.Physician: EFRAIN RAMIREZ Height(Cm): 180 BSA: 1.7 Weight(Kg): 54.89 Heart Rate: 79 BP: 90/62 Quality: Good Order Physician: EMA DUNLAP Procedures: Echocardiographic Report: Transthoracic echocardiogram with complete 2D, M-Mode, and color Doppler examination. Indications: Pulmonary Hypertension, and Mitral Regurgitation. Measurements: 2D/M Mode ?Doppler ? Measurement ?Value ?Normal Range ? Measurement ?Value ?Normal Range ? EF Mod ? 57 ?AV Mean PG ? 3 ?mmHg ? EF MM ?66 ? [ 55 - 70 ] % ?AV Peak Kiran ?1.05 ? m/s ? LVIDd MM ? 4.27 ? [ 3.90 - 5.30 ] cm ? AV Peak PG ? 4 ?mmHg ? LVIDs MM ? 2.73 ? [ 2.30 - 3.90 ] cm ? AV VTI ? 0.23 ? cm ? LVPWd MM ? 0.80 ? [ 0.60 - 1.00 ] cm ? LVOT Peak Kiran ?0.80 ? [ 0.70 - 1.10 ] m/s ? IVSd MM ?1.07 ? [ 0.60 - 0.90 ] cm ? LVOT VTI ? 0.15 ? cm ? LA Dimension MM ?2.27 ? [ 2.70 - 3.80 ] cm ? MV E Peak Kiran ?0.66 ? [ 0.60 - 1.30 ] m/s ? AoR Diam MM ?2.67 ? [ 2.60 - 3.70 ] cm ? MV A Peak Kiran ?0.44 ? [ 0.40 - 0.80 ] m/s ? LA Volume Index ?16.00 ?[ 16.00 - 28.00 ] cc/m2 ?MV Decel Time ?337 ?[ 150 - 200 ] msec ? ACS MM ? 1.87 ? cm ? PV Peak Kiran ?0.70 ? [ 0.40 - 0.80 ] m/s ? TR Peak Kiran ?2.37 ? [ 0.40 - 0.80 ] m/s ? TR Peak PG ? 23 ? mmHg ? RVSP ? 43.00 ?mmHg ? E' ? 0.21 ? E/E' ? 3 ? Findings: Interpretation Site: Exam was interpreted at [facility]. Left Ventricle: Normal left ventricular systolic function. No focal wall motion abnormalities. Normal left ventricular size. Normal left ventricular wall thickness. Impaired diastolic relaxation Grade I. Ejection fraction is visually estimated at 55-60 %. Ejection fraction is measured at 57 %. Right Ventricle: Moderate enlargement of right ventricle. Mild right ventricular hypokinesis. Left Atrium: There is mild enlargement of left atrium. Right Atrium: There is mild enlargement of right atrium. Atrial Septum: Normal atrial septum. Mitral Valve: Normal appearance of the mitral valve. Mild mitral valve regurgitation. There is no hemodynamically significant mitral stenosis by Doppler. Aortic Valve: No evidence of hemodynamically significant aortic stenosis by Doppler. Aortic cusps appear mildly sclerotic. Trileaflet aortic valve. Trace aortic valve regurgitation. Tricuspid Valve: Normal appearance of the tricuspid valve. Mild pulmonary hypertension based on right ventricular systolic pressure. Estimated peak RVSP is 40-45 mmHg. Moderate tricuspid regurgitation. Pulmonic Valve: Normal appearance of the pulmonic valve. No pulmonic stenosis. No evidence of pulmonic regurgitation. Pericardium: Trivial pericardial effusion. Aorta: Normal aortic root. IVC: Dilated inferior vena cava with poor inspiratory collapse consistent with elevated right atrial pressures. Pulmonary Artery: Normal pulmonary artery size. Conclusions: Normal left ventricular systolic function. No [...] mmHg. Moderate tricuspid regurgitation. Normal sinus rhythm. Electronically Signed By: Ema Dunlap MD 2018-07-18 13:15:33 RECORD CENTER COORDINATOR CC: CC: Procedure Note Ema Dunlap MD - 07/18/2018 [facility] [address] [facility] [address], [place] [address] [address] [address] P:[phone] P:[phone] Echocardiographic Report Patient Name: BENNETT DAVISPatient ID: [id number] : [id number] Date: 07/18/2018 10:17:00 AM Gender: FAccession #: [id number] Tech: GMLocation: [place] Ref.Physician: Gerald RAMIREZight(Cm): 180 BSA: 1.7Weight(Kg): 54.89 Heart Rate: 79BP: 90/62 Quality: GoodOrder Physician: EMA DUNLAP Procedures: Echocardiographic Report: Transthoracic echocardiogram with complete 2D, M-Mode, and color Dopplerexamination. Indications: Pulmonary Hypertension, and Mitral Regurgitation. Measurements: 2D/M Mode Doppler Measurement Value Normal Range MeasurementValue Normal Range EF Mod 57 AV Mean PG 3mmHg EF MM 66 [ 55 - 70 ] % AV Peak Vel1.05 m/s LVIDd MM 4.27 [ 3.90 - 5.30 ] cm AV Peak PG 4mmHg LVIDs MM 2.73 [ 2.30 - 3.90 ] cm AV VTI0.23 cm LVPWd MM 0.80 [ 0.60 - 1.00 ] cm LVOT Peak Vel0.80 [ 0.70 - 1.10 ] m/s IVSd MM 1.07 [ 0.60 - 0.90 ] cm LVOT VTI0.15 cm LA Dimension MM 2.27 [ 2.70 - 3.80 ] cm MV E Peak Vel0.66 [ 0.60 - 1.30 ] m/s AoR Diam MM 2.67 [ 2.60 - 3.70 ] cm MV A Peak Vel0.44 [ 0.40 - 0.80 ] m/s LA Volume Index 16.00 [ 16.00 - 28.00 ] cc/m2 MV Decel Vydc857 [ 150 - 200 ] msec ACS MM 1.87 cm PV Peak Vel0.70 [ 0.40 - 0.80 ] m/s TR Peak Vel2.37 [ 0.40 - 0.80 ] m/s TR Peak PG 23mmHg RVSP43.00 mmHg E'0.21 E/E' 3 Findings: Interpretation Site: Exam was interpreted at [facility]. Left Ventricle: Normal left ventricular systolic function. No focal wall motionabnormalities. Normal left ventricular size. Normal left ventricular wall thickness. Impaireddiastolic relaxation Grade I. Ejection fraction is visually estimated at 55-60 %.Ejection fraction is measured at 57 %. Right Ventricle: Moderate enlargement of right ventricle. Mild right ventricularhypokinesis. Left Atrium: There is mild enlargement of left atrium. Right Atrium: There is mild enlargement of right atrium. Atrial Septum: Normal atrial septum. Mitral Valve: Normal appearance of the mitral valve. Mild mitral valve regurgitation.There is no hemodynamically significant mitral stenosis by Doppler. Aortic Valve: No evidence of hemodynamically significant aortic stenosis by Doppler.Aortic cusps appear mildly sclerotic. Trileaflet aortic valve. Trace aortic valveregurgitation. Tricuspid Valve: Normal appearance of the tricuspid valve. Mild pulmonary hypertensionbased on right ventricular systolic pressure. Estimated peak RVSP is 40-45 mmHg. Moderatetricuspid regurgitation. Pulmonic Valve: Normal appearance of the pulmonic valve. No pulmonic stenosis. No evidenceof pulmonic regurgitation. Pericardium: Trivial pericardial effusion. Aorta: Normal aortic root. IVC: Dilated inferior vena cava with poor inspiratory collapse consistent withelevated right atrial pressures. Pulmonary Artery: Normal pulmonary artery size. Conclusions: Normal left ventricular systolic function. No focal wall motionabnormalities. Normal left ventricular size. Normal left ventricular wall thickness. Impaireddiastolic relaxation Grade I. Ejection fraction is visually estimated at 55-60 %.Ejection fraction is measured at 57 %. Moderate enlargement of right ventricle. Mild right ventricularhypokinesis. There is mild enlargement of left atrium. There is mild enlargement of right atrium. Mild mitral valve regurgitation. Normal appearance of the tricuspid valve. Mild pulmonary hypertensionbased on right ventricular systolic pressure. Estimated peak RVSP is 40-45 mmHg. Moderatetricuspid regurgitation. Normal sinus rhythm. Electronically Signed By: Ema Dunlap MD 2018-07-18 13:15:33 RECORD CENTER COORDINATOR CC: CC: us Ema Dunlap MD CV ECHO PROCEDURES Final Result documented in this encounter Visit Diagnoses Diagnosis Non-rheumatic mitral regurgitation- Primary Pulmonary HTN (HCC) Non-rheumatic mitral regurgitation Pulmonary HTN (HCC) documented in this encounter Discontinued Medications Medication Sig Discontinue Reason Start Date End Da te AFLURIA QUAD , PF, 60 mcg/0.5 mL syringe ADM 0.5ML IM UTD Therapy completed 05/04/2018 018 documented as of this encounter Historical Medications * This list may reflect changes made after this encounter. AFLURIA QUAD , PF, 60 mcg/0.5 mL syringe ADM 0.5ML IM UTD 0 05/04/2018 06/24/2018 added in this encounter Care Teams Suit Maker Relationship Specialty Start Date End Date Efrain Ramirez MD [address] [place] [address] PCP - General Family Practice 09/04/17 12/03/19 documented as of this encounter
--- OUTSIDE RECORDS SUMMARY | 2024-07-18 11:46 | XMS_ITS | Encounter Summary ---
Author Organization [facility] Address [address] [place] [address] Care Team Providers Care Em Physician Name Role Phone Efrain Ramirez MD Primary Care Provider +1- [phone] Gloria Paula MD Primary Care Provider + Encounter Details Date Type Department Care Team (Late st Contact Info) Description 09/07/[address] [facility] Health Information Management [address] [place] [address] Scanning, Provider Social History Tobacco Use Types Packs/Day Years [...] Procedure Name Priority Date/Time Associated Diagnosis Comments SCAN - RADIOLOGY/IMAGING 09/07/2017 6:59 AM CENTRIFUGAL EXTRACTOR OPERATOR documented in this encounter Results * SCAN - RADIOLOGY/IMAGING (09/07/2017 6:59 AM CENTRIFUGAL EXTRACTOR OPERATOR) Anatomical Region Laterality Modality Other us Provider Scanning Final Result documented in this encounter Visit Diagnoses Not on filedocumented in this encounter Care Teams Em Physician Relationship Specialty Start Date End Date Efrain Ramirez MD [address] [place] [address] PCP - General Family Practice 09/04/17 12/03/19 Gloria Paula MD [address] [place] [address] PCP - General Family Medicine 12/04/19 documented as of this encounter
--- OUTSIDE RECORDS SUMMARY | 2024-07-18 11:46 | XMS_ITS | Encounter Summary ---
Author Organization [facility] Address [address] [place] [address] Care Team Providers Care Activity Manager Name Role Phone Efrain Ramirez MD Primary Care Provider +1- [phone] Encounter Details Date Type Department Care Team (Late st Contact Info) Description 09/16/2017 Orders Only [facility] [address] [address] [address] [place] [address] Provider, MD Dannie [address] [place], [place] [id number] Social History Tobacco Use Types Packs/Day Years [...] Associated Diagnosis Comments BASIC METABOLIC PANEL Routine 09/13/2017 documented in this encounter Results * Basic metabolic panel (09/13/2017) Blood specimen (specimen) Historical Provider LAB BLOOD ORDERABLES Tona l Result documented in this encounter Visit Diagnoses Not on filedocumented in this encounter Care Teams Activity Manager Relationship Specialty Start Date End Date Efrain Ramirez MD [address] [place] [address] PCP - General Family Practice 09/04/17 12/03/19 documented as of this encounter
--- OUTSIDE RECORDS SUMMARY | 2024-07-18 11:46 | XMS_ITS | Encounter Summary ---
Author Organization [facility] Care Team Providers Care Mechanic And Welder Name Role Phone Efrain Ramirez MD Primary Care Provider +1- [phone] Encounter Details Date Type Department Care Team (Latest Contact Info) Description 04/15/2019 Travel Social History Tobacco Use Types Packs/Day [...] on filedocumented in this encounter Care Teams Mechanic And Welder Relationship Specialty Start Date End Date Efrain Ramirez MD [address] [place] [address] PCP - General Family Practice 09/04/17 12/03/19 documented as of this encounter
--- OUTSIDE RECORDS SUMMARY | 2024-07-18 11:46 | XMS_ITS | Encounter Summary ---
Author Organization [facility] Address [address] [place] [address] Care Team Providers Care Scientific Advisor Name Role Phone Efrain Ramirez MD Primary Care Provider +- [phone] Gloria Paula MD Primary Care Provider + Encounter Details Date Type Department Care Team (Late st Contact Info) Description 09/07/2017 Orders Only [facility] Health Information Management [address] [place] [address] Scanning, Provider Social History Tobacco Use Types [...] Priority Date/Time Associated Diagnosis Comments SCAN - LABS 09/07/2017 6:59 AM CHEMICAL ANALYST documented in this encounter Results * SCAN - LABS (09/07/2017 6:59 AM CHEMICAL ANALYST) us Provider Scanning Final Result documented in this encounter Visit Diagnoses Not on filedocumented in this encounter Care Teams Scientific Advisor Relationship Specialty Start Date End Date Efrain Ramirez MD [address] [place] [address] PCP - General Family Practice 09/04/17 12/03/19 Gloria Paula MD [address] [facility] [address] [place] [address] PCP - General Family Medicine 12/04/19 documented as of this encounter
--- OUTSIDE RECORDS SUMMARY | 2024-07-18 11:46 | XMS_ITS | Encounter Summary ---
Author Organization [facility] Address [address] [place] [address] Care Team Providers Care Customer Relations Specialist Name Role Phone Efrain Ramirez MD Primary Care Provider +1- [phone] Reason for Visit * Cardiology (Routine) - Closed Specialty Diagnoses / Procedures Referred By Contac t Referred To Contact Diagnoses Non-rheumatic mitral regurgitation Pulmonary HTN (HCC) Procedures Transthoracic Echo Complete W Doppler/CF Ema Dunlap MD Phone: tel: fax: [facility] Referral ID Status Reason Start Date Expiration Date Visits Re quested Visits Authorized [id number] Closed 06/24/2018 01/03/2020 1 1 Encounter Details Date Type Department Care Team (Latest Contact Info) Description 07/18/2018 11:15 AM GLAZIER METAL FURNITURE Ancillary Procedure [facility] Medical [facility] Cardiology [address] [place] [address] Non-rheumatic mitral regurgitation; Pulmonary HTN [...] (TTE) COMPLETE W DOPPLER/CF WO CONTRAST Routine 07/18/2018 12:00 PM GLAZIER METAL FURNITURE Non-rheumatic mitral regurgitation Pulmonary HTN (CMS/HCC) documented in this encounter Results * TRANSTHORACIC ECHO (TTE) COMPLETE W DOPPLER/CF WO CONTRAST (07/18/2018 12:00 PM GLAZIER METAL FURNITURE) Anatomical Region Laterality Modality Ultrasound 07/18/2018 10:1 7 AM GLAZIER METAL FURNITURE Narrative 07/18/2018 1:15 PM GLAZIER METAL FURNITURE [facility] [address] [facility] [address] [place] [address] [address] [facility] [address], [place] [address] P:[phone] P:[phone] Echocardiographic Report Patient Name: BENNETT DAVIS : 1980 Study Date: 07/18/2018 10:17:00 AM Gender: F Tech: Location: [place] Ref.Physician: EFRAIN RAMIREZ Height(Cm): 180 BSA: 1.7 [...] Findings: Interpretation Site: Exam was interpreted at [facility]. Left Ventricle: Normal left ventricular systolic function. [...] Signed By: Ema Dunlap MD 2018-07-18 13:15:33 GLAZIER METAL FURNITURE CC: CC: Procedure Note Ema Dunlap MD - 07/18/2018 [facility] [address] [facility] [address], [place] [address] [address] [facility] [address], [place] [address] P:[phone] P:[phone] Echocardiographic Report Patient Name: BENNETT DAVISPatient ID: [id number] : [id number] Date: 07/18/2018 10:17:00 AM Gender: FAccession #: [id number] Tech: GMLocation: [place] Ref.Physician: Clemente RAMIREZ(Cm): 180 BSA: 1.7Weight(Kg): 54.89 Heart Rate: 79BP: [...] 16.00 - 28.00 ] cc/m2 MV Decel [id number] [ 150 - 200 ] msec ACS MM 1.87 cm PV Peak Vel0.70 [ 0.40 - 0.80 ] m/s TR Peak Vel2.37 [ 0.40 - 0.80 ] m/s TR Peak PG 23mmHg RVSP43.00 mmHg E'0.21 E/E' 3 Findings: Interpretation Site: Exam was interpreted at [facility]. Left Ventricle: Normal left ventricular systolic function. [...] Signed By: Ema Dunlap MD 2018-07-18 13:15:33 GLAZIER METAL FURNITURE CC: CC: us Ema Dunlap MD CV ECHO PROCEDURES Final Result documented in this encounter Visit Diagnoses Diagnosis Non-rheumatic mitral regurgitation Pulmonary HTN (HCC) documented in this encounter Care Teams Customer Relations Specialist Relationship Specialty Start Date End Date Efrain Ramirez MD [address] [place] [address] PCP - General Family Practice 09/04/17 12/03/19 documented as of this encounter
--- OUTSIDE RECORDS SUMMARY | 2024-07-18 11:47 | XMS_ITS | Encounter Summary ---
Author Organization [facility] Address [address] [place] [address] Care Team Providers Care Body Maker Name Role Phone Efrain Ramirez MD Primary Care Provider [phone]- [phone] Reason for Visit * Reason Comments Hospital Follow Up for PSVT Encounter Details Date Type Department Care Team (Late st Contact Info) Description 09/04/2017 11:00 AM CASH APPLICATION CLERK Office Visit [facility] [address] [place] [address] Fabián Holman MD [facility] [place] [id number] SVT (supraventricular tachycardia) (CMS/HCC) (Primary Dx); Pulmonary HTN (CMS/HCC); Non-rheumatic mitral regurgitation; Hypokalemia Social History Tobacco Use Types Packs/Day Years [...] Sign Reading Time Taken Comments Blood Pressure 98/56 09/04/2017 11:45 AM CASH APPLICATION CLERK Pulse 61 09/04/2017 11:45 AM CASH APPLICATION CLERK Temperature - - Respiratory Rate - - Oxygen Saturation 98% 09/04/2017 11:45 AM CASH APPLICATION CLERK Inhaled Oxygen Concentration - - Weight 60.3 kg (133 lb) 09/04/2017 11:45 AM CASH APPLICATION CLERK Height 154.9 cm (5' 1 ) 09/04/2017 11:45 AM CASH APPLICATION CLERK Body Mass Index 25.13 09/04/2017 11:45 AM CASH APPLICATION CLERK documented in this encounter Progress Notes * Fabián Holman MD - 09/04/2017 11:00 AM CST [facility] DATE OF VISIT: 09/04/2017 CHIEF COMPLAINT Chief Complaint Patient presents with ??? Hospital Follow Up for PSVT HPI Viola Davis is a 37 y.o. [...] family history on file. MEDICATIONS Home Medications METHIMAZOLE (TAPAZOLE) 5 MG TABLET Take 5 mg by mouth 3 (three) times a day. METOPROLOL (LOPRESSOR) 25 MG TABLET Take 25 mg by mouth 2 (two) times a day. ALLERGIES No Known Allergies REVIEW OF SYSTEMS Review of Systems Constitution: Negative for weakness, weight gain and weight loss. HENT: Negative for hearing loss. Eyes: Negative for blurred vision and visual disturbance. Cardiovascular: Positive for palpitations. Negative for chest pain, claudication, dyspnea on exertion, irregular heartbeat, leg swelling, near- syncope, orthopnea, paroxysmal nocturnal dyspnea and syncope. Respiratory: [...] for environmental allergies. PHYSICAL EXAM Blood pressure 98/56, pulse 61, height 154.9 cm (5' 1 ), weight 60.3 kg (133 lb), SpO2 98 %. Body mass index is 25.13 kg/m??. Physical Exam Constitutional: She is oriented [...] 50-55%. Mild LVH. Grade 1 diastolic dysfunction, [id number] MR, moderate TR, RVSP 35-40. Echo from May 2017 ASSESSMENT Diagnoses and all orders for this visit: SVT (supraventricular tachycardia) ([facility]) (Primary) - [facility] Mobile Cardiac Telemetry Event Monitor; Future - Magnesium; Future Pulmonary HTN Non-rheumatic mitral regurgitation Hypokalemia - Basic metabolic panel; Future PLAN/RECOMMENDATIONS 1. Repeat EKG today 2. Basic metabolic panel and magnesium level 3. Seven day rubber off 4. Continue metoprolol at current dose at this point. May be increased depending on the result of the rubber off. Other possibilities include switching to an antiarrhythmic, calcium channel calvin or referral for ablation. 5. Reduce/eliminate caffeine as much as possible 6. Follow-up in 6 weeks or sooner as clinically indicated. Fabián Holman MD, [facility] APPLICATION CLERK documented in this encounter Miscellaneous Notes * Addendum Note - Jeanette Turner MA - 09/04/2017 11:00 AM CSTAddended by: JEANETTE TURNER on: 09/04/2017 01:17 PM Modules accepted: Orders APPLICATION CLERK documented in this encounter Plan of Treatment Pending Results Name Type Priority Associated Diagnoses Date /Time [facility] Mobile Cardiac Telemetry Event Monitor Cardiac Services Routine SVT (supraventricular tachycardia) ([facility]) 09/04/2017 12:26 PM CASH APPLICATION CLERK Scheduled Orders Name Type Priority Associated Diagnoses Orde r Schedule [facility] Mobile Cardiac Telemetry Event Monitor Cardiac Services Routine SVT (supraventricular tachycardia) ([facility]) Expected: 09/04/2017, Expires: 09/04/2018 Basic metabolic panel Lab Routine Hypokalemia 1 Occurrences starting 09/04/2017 until 09/04/2018 Magnesium Lab Routine SVT (supraventricular tachycardia) (CMS/HCC) 1 Occurrences starting 09/04/2017 until 09/04/2018 documented as of this encounter Procedures Procedure Name Priority Date/Time Associated Diagnosis Comments ECG 12-LEAD Routine 09/04/2017 SVT (supraventricular tachycardia) (CMS/HCC) documented in this encounter Results * ECG 12 lead (09/04/2017) us Fabián Holman MD ECG ORDERABLES Final Res ult documented in this encounter Visit Diagnoses Diagnosis SVT (supraventricular tachycardia) (HCC)- Primary Other specified cardiac dysrhythmias Pulmonary HTN (HCC) Non-rheumatic mitral regurgitation Hypokalemia Hypopotassemia documented in this encounter Historical Medications * This list may reflect changes made after this encounter. methIMAzole (TAPAZOLE) 5 mg tablet Take 5 mg by mouth every other day 02/09/2022 metoprolol (LOPRESSOR) 25 mg tablet Take 25 mg by mouth 2 (two) times a day. 11/04/2017 added in this encounter Care Teams Body Maker Relationship Specialty Start Date End Date Efrain Ramirez MD [address] [place] [address] PCP - General Family Practice 09/04/17 12/03/19 documented as of this encounter
--- OUTSIDE RECORDS SUMMARY | 2024-07-18 11:47 | XMS_ITS | Encounter Summary ---
Author Organization [facility] Address [address] [place] [address] Care Team Providers Care Security Program Manager Name Role Phone Laxmi Grace MD Primary Care Provider + [phone] Efrain Ramirez MD Primary Care Provider + [phone] Gloira Paula MD Primary Care Provider + Encounter Details Date Type Department Care Team (Late st Contact Info) Description 06/12/2017 Orders Only [facility] Cardiology [address] [place] [address] Provider, MD Dannie [address] [place] [id number] Social History Tobacco Use Types Packs/Day [...] Date/Time Associated Diagnosis Comments TRANSTHORACIC ECHO (TTE) COM PLETE W DOPPLER/CF Routine 05/31/2017 documented in this encounter Results * Transthoracic Echo Complete W Doppler/CF (05/31/2017) Anatomical Region Laterality Modality Ultrasound us Historical Provider CV ECHO PROCEDURES Final Result documented in this encounter Visit Diagnoses Not on filedocumented in this encounter Care Teams Security Program Manager Relationship Specialty Start Date End Date Laxmi Grace MD [address] [facility] [place] [address] PCP - General 11/08/16 09/03/17 Efrain Ramirez MD [address] [place] [address] PCP - General Family Practice 09/04/17 12/03/19 Gloria Paula MD [address] [address] PCP - General Family Medicine 12/04/19 documented as of this encounter
--- OUTSIDE RECORDS SUMMARY | 2024-07-18 11:47 | XMS_ITS | Encounter Summary ---
Author Organization [facility] Address [address] [place] [address] Care Team Providers Care Printing Equipment Mechanic Apprentice Name Role Phone Efrain Ramirez MD Primary Care Provider +- [phone] Encounter Details Date Type Department Care Team (Latest Contact Info) Description 09/04/2017 12:30 PM MASTERCAM PROGRAMMER Ancillary Procedure [facility] Cardiology [address] [place] [id number] SVT (supraventricular tachycardia) ([facility]) Social History Tobacco Use Types Packs/Day Years [...] PM CDT documented as of this encounter Procedure Notes * Maik Moore MD - 09/13/2017 12:00 AM CST Seven-day telemetry patch monitor, 09/04/2017 to 09/10/2017. Indication Supraventricular tachycardia. Ordering Physician Fabián Holman MD Interpretation This is a 7-day telemetry patch monitor with underlying sinus rhythm with an average heart rate 71 beats per minute. There is no atrial fibrillation and/or atrial flutter. No prolonged pauses or high-grade AV blocks. There are no symptoms returned in conjunction with the study. There were occasional isolated premature atrial contractions noted. ND and QRS duration were within normal limits throughout the study. Conclusions Fairly unremarkable school lunch monitor with isolated asymptomatic premature atrial contractions without ventricular ectopy, atrial fibrillation and/or pauses. ERCAM PROGRAMMER documented in this encounter Plan of Treatment Pending Results Name Type Priority Associated Diagnoses Date /Time [facility] Mobile Cardiac Telemetry Event Monitor Cardiac Services Routine SVT (supraventricular tachycardia) (CMS/HCC) 09/04/2017 12:26 PM MASTERCAM PROGRAMMER documented as of this encounter Visit Diagnoses Diagnosis SVT (supraventricular tachycardia) (HCC) Other specified cardiac dysrhythmias documented in this encounter Care Teams Printing Equipment Mechanic Apprentice Relationship Specialty Start Date End Date Efrain Ramirez MD [address] [place] [address] PCP - General Family Practice 09/04/17 12/03/19 documented as of this encounter
--- OUTSIDE RECORDS SUMMARY | 2024-07-18 11:50 | XMS_ITS | Data Portability ---
Author Organization [facility] Address [address] [place] [address] [place] [address] Care Team Providers Care Job Analysis Manager Name Role Phone SEFERINO ROBLES Primary Care Provider [phone] Assessment Encounter Date Assessment Date Assessment LastModified by Organization Details LastModified Time 11/16/2022 11/16/2022 Annual gynecological exam performed. Patient will come back in a year unless there are new symptoms. Suggest Calcium with Vitamin D if not eating in diet. Patient advised to get annual flu shot. Recommend yearly physicals and preform monthly breast exams. Genetic testing is available for patients with family history of cancer. Engage in safe sexual practices, use condoms. Encouraged to have daily exercise. Avoid tobacco and illicit drugs, moderation of alcohol. If BMI greater than 25 dietary consult advised. If you have any questions please call or email. mammogram order given Not available 11/16/2022 17:29:28 12/04/2023 12/04/2023 Annual gynecological exam performed. Patient will come back in a year unless there are new symptoms. [email or web address] Not available 12/04/2023 17:04:11 Plan of Treatment Reminders Order Date Submit Date Provider Last Modified By Organization Details Last Modified Time Details Appointments None recorded. Lab None recorded. Referral None recorded. Procedures None recorded. Surgeries None recorded. Imaging US, pelvis, complete 2022 023 [email or web address] [place], [address], [place], [address], 05/11/202 3 15:49:26 US, pelvis 05/02/ 2023 05/02/2 023 [email or web address] [place], [address], [place], [address], 3 22:15:26 US, transvagina l 2022 023 [email or web address] [place], [address], [place], [address], 3 22:15:26 US, breast, unilateral - right breast lump, around 9 oclock 2023 024 [facility], [address], [address], [place], [address], 4 05:01:27 MAMMO, diagnostic, unilateral 2023 024 [facility], [address], [address], [place], [address], 4 05:01:27 Medication Orders None recorded. Patient TargetsNo targets recorded. Patient InstructionsNo instructions recorded. Reason for Referral None Reported. Results Created Date Observation Date Name Description Value Unit Range Abnormal Flag Note LastModifiedBy Organization Detail LastModifiedTime 11/17/19 23 11/16/2022 IMAGE GUIDE D PAP AND HPV REGAR DLESS image guided Pap, HPV regardless of Pap result SEE RESULT S BELOW abnormal CASE REPOR T: Cytol ogy Gynec ologi kashmir Repor t Case: [id number] Autho mookie g Provi pavithra: Jeanette Potter NP Colle cted: 11/16 1643 Order ing Locat ion: [place] Patho log[facility] Recei catrachita: 11/17 0252 First Scree n: Lor Herrera ica Rescr een: Ivonnea mpass ak, [place] ay, [place] Speci men: Scree bijan Pap - Image d, Cervi x STATE MENT OF ADEQU ACY: Satis facto ry for evalu ation Trans forma tion zone compo nent prese nt FINAL DIAGN OSIS: Negat raj for Intra epith elial Lesio n or Miteshness valorie (NIL) . Funga l organ isms morph ologi hanny consi stent with Nupur da spp. Elect sandra esquivel yogi d by Chesetr jones, [place] boss, [place] on 023 at 7:17 PM ----- ----- ----- ----- ----- ----- ----- ----- ----- ----- ----- ----- ----- ----- ----- ----- ----- ---- HPV RESUL TS: HPV mRNA E6/E7 : Posit raj - HPV mRNA Detec priscila HPV GENOT YPE 16 (JUAN LUIS) : Not Detec priscila HPV GENOT YPE 18/45 (JUAN LUIS) : Not Detec priscila NOTE: This high risk HPV mRNA assay detec ts fourt een high- risk HPV types (16, 18, 31, 33, 35, 39, 45, 51, 52, 56, 58, 59, 66, 68) witho ut diffe renti ation . This assay can diffe renti ate HPV 16 from HPV 18/45 , but does not diffe renti ate betwe en HPV 18 and HPV 45. A negat raj HPV 16, 18/45 genot ype assay resul t does not exclu de the possi bilit y of cytol ogic abnor malit ies or of futur e or under lying ARABELLA 1, ARABELLA 3 or cance r. COMME NT: This speci men was revie wed by a Cytot echno logis t and/o r Patho logis t (as indic ated in this repor t) after evalu ation using the Thinp rep Imagi ng Syste m. CLINI KASHMIR INFOR MATIO N: Menst rual Statu s: LMP (if appli cable ): Clini kashmir Histo ry/Pr eviou s Pap: Type of Neopl mirtha (if appli cable ): Signi sarahi t Clini kashmir Findi ngs: Other Histo ry: Hormo yolanda (if appli cable ): PAP EDUCA TIAN L NOTE: The Pap Test is a scree bijan test with an inher ent false negat raj rate. Liqui d-bas ed sampl ing may decre ase, but will not elimi kunal, false negat raj resul ts. A negat raj resul t does not precl ude the prese nce and/o r devel opmen t of disea se, since the prese nce of abnor mal cells in the sampl e depen ds on the locat ion of the lesio n and sampl ing techn ique. Ollie nued regul ar scree bijan is the best metho d of cance r preve ntion . If repor priscila cytol ogic findi ng do not corre late with physi kashmir and/o r histo rical findi ngs, furth er inves tigat ion is recom ellen d, as clini hanny marte nted. Not Available [facility] (Lab) [address], [place], [address], 11/21/2022 12:54:52 12/04/19 24 12/04/2023 IMAGE GUIDE D PAP AND HPV REGAR DLESS image guided Pap, HPV regardless of Pap result SEE RESULT S BELOW CASE REPOR T: Cytol ogy Gynec ologi kashmir Repor t Case: [id number] Autho mookie galdamez Provi pavithra: Amalia Swartz, LOW Colle cted: 12/03 1720 Order ing Locat ion: [place] Patho logy Recei catrachita: 12/04 0239 First Scree n: Chen Ziegler , [place] Rescr een: Jeny Blake , [place] Speci men: Scree bijan Pap - Image d, Cervi x STATE MENT OF ADEQU ACY: Satis facto ry for evalu ation Trans forma tion zone compo nent prese nt ----- ----- ----- ----- ----- ----- ----- ----- ----- ----- ----- ----- ----- ----- ----- ----- ----- ---- FINAL DIAGN OSIS: Negat raj for Intra epith elial Lesio n or Gamal eugene (NIL) . Elect sandra calix d by Jeny Blake , [place] on 2023 at 8:03 AM ----- ----- ----- ----- ----- ----- ----- ----- ----- ----- ----- ----- ----- ----- ----- ----- ----- ---- HPV RESUL TS: HPV mRNA E6/E7 : No HPV mRNA Detec priscila NOTE: This high risk HPV mRNA assay detec ts fourt een high- risk HPV types (16, 18, 31, 33, 35, 39, 45, 51, 52, 56, 58, 59, 66, 68) witho ut diffe renti ation . COMME NT: This speci men was revie wed by a Cytot echno logis t and/o r Patho logis t (as indic ated in this repor t) after evalu ation using the Thinp rep Imagi ng Syste m. CLINI KASMHIR INFOR MATIO N: Menst rual Statu s: LMP (if appli cable ): Clini kashmir Histo ry/Pr eviou s Pap: Type of Neopl mirtha (if appli cable ): Signi fican t Clini kashmir Findi ngs: Other Histo ry: Hormo yolanda (if appli cable ): PAP EDUCA TIAN L NOTE: The Pap Test is a scree bijan test with an inher ent false negat raj rate. Liqui d-bas ed sampl ing may decre ase, but will not elimi kunal, false negat raj resul ts. A negat raj resul t does not precl ude the prese nce and/o r devel opmen t of disea se, since the prese nce of abnor mal cells in the sampl e depen ds on the locat ion of the lesio n and sampl ing techn ique. Ollie nued regul ar scree bijan is the best metho d of cance r preve ntion . If repor priscila cytol ogic findi ng do not corre late with physi kashmir and/o r histo rical findi ngs, furth er inves tigat ion is recom ellen d, as clini hanny rosanna nted. Not Available [facility] (Lab) [address], [place], [address], 12/11/2023 09:09:20 08/31/19 22 08/31/2021 US, pelvi s No observ ation record ed. [email or web address] [place] [address], [place], [address], 08/31/2021 21:29:55 08/31/19 22 08/31/2021 US, pelvi s No observ ation record ed. [email or web address] [place] [address], [place], [address], 08/31/2021 17:54:54 08/31/19 22 08/31/2021 US, trans vagin al No observ ation record ed. [email or web address] [place] [address], [place], [address], 08/31/2021 17:55:04 11/21/19 23 11/20/2022 US, pelvi s No observ ation record ed. [email or web address] [place] [address], [place], [address], 11/20/2022 18:18:03 11/21/19 23 11/20/2022 US, trans vagin al No observ ation record ed. [email or web address] [place] [address], [place], [address], 11/20/2022 18:17:53 11/21/19 23 11/20/2022 US, pelvi s No observ ation record ed. [email or web address] [address], [place], [address], 11/22/2022 10:38:10 Result Notes None recorded. Problems Name Problem SNOMED Code Status Onset Date Resolution Date Notes Provider Name and Address Organization Details Recorded Time Gestatio n period, 34 weeks [id number] Completed 201611/09/2020 34 weeks gestatio n of pregnanc y;Record ed Elsewher e: No Locat ion: [facility] S ource: EHR Recordings Librarian abbie: N Carmelitati ce ID: 0001 Roland lable Time: 10:30:00 AM Ame Sanchez [facility] 16:30:26 Complica tion of pregnanc y, childbir th and/or puerperi [id number] Completed 201601/25/2021 Oth diseases and conditio ns compl preg/chl dbrth;Re corded Elsewher e: No Locat ion: [facility] mar[facility] S ource: EHR Recordings Librarian abbie: N Practi ce ID: 0001 Roland lable Time: 09:00:00 AM Ameharsha Sanchez [facility] 15:39:27 Placenta previa [id number] Completed 201611/09/2020 Placenta previa specifie d as w/o hemor, second trimeste r;Record ed Elsewher e: No Locat ion: [facility] S ource: EHR Recordings Librarian abbie: N Practi ce ID: 0001 Roland lable Time: 11:30:00 AM Ame Sanchez [facility] 16:30:36 Gestatio n period, 24 weeks [id number] Completed 201611/09/2020 24 weeks gestatio n of pregnanc y;Record ed Elsewher e: No Locat ion: [facility] S ource: EHR Recordings Librarian abbie: N Practi ce ID: 0001 Roland lable Time: 10:00:00 AM Ame [facility] 04/21/202 1 16:30:23 Gestatio n period, 17 weeks [id number] Completed 201611/09/2020 17 weeks gestatio n of pregnanc y;Record ed Elsewher e: No Locat ion: [facility] jimmy [facility] S ource: EHR Recordings Librarian abbie: N Carmleitati ce ID: 0001 Roland lable Time: 09:00:00 AM Ame balderas [facility] 1 16:30:[address] Concept Completed 201611/09/2020 Maternal care for oth abnormal ity and damage, unsp;Rec orded Elsewher e: No Locat ion: [facility] S ource: EHR Recordings Librarian abbie: N Carmelitati ce ID: 0001 Roland lable Time: 10:30:[address] [facility] 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 1 16:30:31 Gestatio n period, 28 weeks 55396800 Completed 201611/09/2020 28 weeks gestatio n of pregnanc y;Record ed Elsewher e: No Locat ion: [facility] S ource: EHR Recordings Librarian abbie: N Carmelitati ce ID: 0001 Roland lable Time: 10:30:00 AM Ame balderas [facility] 1 16:30:25 Depressi ve disorder 51357827 Active 2016 Depressi on NOS;Fahad rded Elsewher e: No Locat ion: [facility]iana marquez [facility] S ource: EHR Recordings Librarian abbie: N Amira ce ID: 0001 Roland lable Time: 10:30:00 AM Not Available [facility] 0 17:20:11 Normal pregnanc y in multigra prabha [id number] 4106 Completed 201611/09/2020 Encounte r for suprvsn of normal pregnanc y, second trimeste r;Record ed Elsewher e: No Locat ion: Danielle jimmy [facility] S ource: EHR Recordings Librarian abbie: N Amira ce ID: 0001 Roland lable Time: 10:15:[address] [facility] 1 16:30:39 Single liveborn born in hospital by section [id number] Completed 201611/09/2020 Single liveborn delivere d by c section; Recorded Elsewher e: No Locat ion: [facility]le jimmy [facility] S ource: EHR Recordings Librarian abbie: N Amira ce ID: 0001 Roland lable Time: 09:30:[address] [facility] [address] 16:30:[address] Concept Completed 201711/09/2020 Encntr for general adult medical exam w/o abnormal findings ;Recorde d Elsewher e: No Locat ion: [facility] S ource: EHR Recordings Librarian abbie: N Carmelitati ce ID: 0001 Roland lable Time: 11:30:[address] [facility] [address] 16:30:[address] Concept Completed 201911/09/2020 Encntr for pharmacy analyst exam (general ) (routine ) w/o abn findings ;Recorde d Elsewher e: No Locat ion: [facility] S ource: EHR Recordings Librarian abbie: N Practi ce ID: 0001 Roland lable Time: 02:15:00 PM Ame balderas [facility] 16:31:03 Uterine size for dates discrepa ncy Completed 201601/25/2021 Uterine size-janneth e discrepa ncy, first trimeste r;Record ed Elsewher e: No Locat ion: [facility] S ource: EHR Recordings Librarian abbie: N Practi ce ID: 0001 Roland lable Time: 01:00:00 PM Ame balderas, [facility] 15:39:23 Antenata l care: multipar ous, older than 35 years [id number] Completed 201601/25/2021 Supervis ion of elderly multigra prabha, first trimeste r;Record ed Elsewher e: No Locat ion: [facility] S ource: EHR Recordings Librarian abbie: N Practi ce ID: 0001 Roland lable Time: 10:30:00 AM Ame balderas, [facility] 15:39:18 Gestatio n period, 12 weeks [id number] Completed 201611/09/2020 12 weeks gestatio n of pregnanc y;Record ed Elsewher e: No Locat ion: [facility] S ource: EHR Recordings Librarian abbie: N Practi ce ID: 0001 Roland lable Time: 10:00:00 AM Ame balderas [facility] 16:30:16 Pregnanc y detectio n examinat ion Completed 201611/09/2020 Encounte r for pregnanc y test, result positive ;Practic e ID: 0001 Ame balderas, [facility] 16:30:42 Gestatio n period, 20 weeks 12984104 Completed 201611/09/2020 20 weeks gestatio n of pregnanc y;Practi ce ID: 0001 Ame balderas [facility] 1 16:30:21 Steriliz ation procedur e Active 2016 Encounte r for steriliz ation;Pr actice ID: 0001 Not Available [facility] 0 17:20:16 Single live [id number] Completed 201611/09/2020 Single live ;Pr actice ID: 0001 Ame balderas [facility] 16:30:48 Gestatio n period, 38 weeks 23822239 Completed 201611/09/2020 38 weeks gestatio n of pregnanc y;Practi ce ID: 0001 Ame balderas [facility] 16:30:[address] Concept Completed 201911/09/2020 Encntr for routine child health exam w/o abnormal findings ;Recorde d Elsewher e: No Locat ion: [facility] S ource: EHR Recordings Librarian abbie: N Practi ce ID: 0001 Roland lable Time: 02:15:00 PM Ame balderas [facility] 16:31:01 Problem Notes None recorded. Procedures Surgical History Date Name Laterality Status Provider Name and Address Organization Details Recorded Time 11/20/19 24 Date of Last Mammogram completed Ale Perez [facility] 12/04/2023 17:06:27 11/10/19 21 IUD Insertion completed Renard Ryan MD [address], [place], [address], [facility] 11/09/2020 16:57:21 05/29/20 17 section completed Katharina Blandon [facility] 04/02/2020 09:57:23 05/22/20 17 Tubal Ligation completed Katharina Blandon [facility] 04/02/2020 09:57:33 07/22/18 93 Appendectomy completed Katharina Blandon [facility] 11/20/2022 16:13:08 Imaging Results Imaging Date Name Status LastModified by Organization Details LastModified Time 08/31/2021 US, pelvis completed [email or web address] [place] [address], [place], [address], 08/31/2021 21:29:55 08/31/2021 US, pelvis completed [email or web address] [place] [address], [place], [address], 08/31/2021 17:54:54 08/31/2021 US, transvaginal completed [email or web address] [place] [facility] [address], [place], [address], 08/31/2021 17:55:04 11/20/2022 US, pelvis completed [email or web address] [place] [address], [place], [address], 11/20/2022 18:18:03 11/20/2022 US, transvaginal completed [email or web address] [facility] [address], [place], [address], 11/20/2022 18:17:53 11/20/2022 US, pelvis completed [email or web address] [address], [place], [address], 11/22/2022 10:38:10 Procedure Notes None recorded. Medical Equipment None Reported. Allergies No known drug allergies Medications Name Sig Start Date Stop Date Status Note LastModified by Organization Details LastModified Time Mirena 21 mcg/24 hr (up to 8 years) 52 mg intrauter ine device Take by intraute rine route. active Not Available Not Available No t Available azelastin e 0.05 % eye drops 11/16 completed Not Available Not Available Not Available propylthi ouracil 50 mg tablet take 1 tablet by oral route 3 times every day 10/14 completed Prescrib ed Elsewher e: Yes Loca tion: [facility] odify By: kyle grajeda DateTime : 10/30/19 17 09:45:00 AM Not Available Not Available Not Available azithromy arabella 250 mg tablet 12/03 completed Not Available Not Available Not Available fluconazo le 150 mg tablet TAKE 1 TABLET BY MOUTH ONCE AND REPEAT 1 TABLET IN 72 HOURS 12/03 completed Not Available Not Available Not Available prednison e 20 mg tablet TAKE 2 TABLETS BY MOUTH EVERY DAY FOR 5 DAYS 11/16 completed Not Available Not Available Not Available metronida zole 500 mg tablet Take 1 tablet every 8 hours by oral route for 7 days. 10/14 completed Not Available Not Available Not Available triamcino lone acetonide 0.1 % topical cream APPLY THIN LAYER TOPICALL Y TO THE AFFECTED AREA TWICE DAILY FOR UP TO 7 DAYS 11/16 completed Not Available Not Available Not Available potassium chloride ER 20 mEq tablet,ex tended release(p art/cryst ) 10/14 completed Not Available Not Available Not Available triamcino lone acetonide 0.025 % topical cream APPLY TOPICALL Y TO THE AFFECTED AREA TWICE DAILY active Not Available Not Available No t Available Zoloft 50 mg tablet take 1 tablet by oral route every day 07/04 completed Prescrib ed Elsewher e: No [facility] odify By: justin baptiste DateTime : 12/05/19 17 10:30:00 AM Not Available Not Available Not Available methimazo le 5 mg tablet TAKE 2 TABLETS BY MOUTH TWICE DAILY IN THE MORNING AND IN THE EVENING active Not Available Not Available No t Available ergocalci ferol (vitamin D2) 1,250 mcg (50,000 unit) capsule 04/02 completed Not Available Not Available Not Available albuterol sulfate HFA 90 mcg/actua tion aerosol inhaler INHALE 2 PUFFS BY MOUTH EVERY 4 TO 6 HOURS NEEDED FOR SHORTNES S OF BREATH OR WHEEZING active Not Available Not Available No t Available Keswick 5 mg-325 mg tablet take 1 tablet by oral route every 6 hours as needed for pain 07/04 completed Prescrib ed Elsewher e: No Locat ion: [facility] M odify By: justin baptiste DateTime : 06/06/20 17 09:30:00 AM Not Available Not Available Not Available doxycycli ne hyclate 100 mg tablet TAKE 1 TABLET BY MOUTH TWICE DAILY FOR 10 DAYS 12/03 completed Not Available Not Available Not Available amoxicill in 875 mg-potass ium clavulana te 125 mg tablet TAKE 1 TABLET BY MOUTH EVERY 12 HOURS FOR 7 DAYS 12/03 completed Not Available Not Available Not Available metoprolo l tartrate 25 mg tablet TAKE 1 TABLET BY MOUTH EVERY DAY 11/15 completed Not Available Not Available Not Available FeroSul 325 mg (65 mg iron) tablet TAKE 1 TABLET BY MOUTH DAILY 12/03 completed Not Available Not Available Not Available potassium chloride ER 20 mEq tablet,ex tended release TAKE 2 TABLETS BY MOUTH TWICE DAILY active Not Available Not Available No t Available guaifenes in ER 600 mg tablet, extended release 12 hr TAKE 1 TABLET BY MOUTH TWICE DAILY FOR 10 DAYS 12/03 completed Not Available Not Available Not Available Fluzone Quad (PF) 60 mcg (15 mcg x 4)/0.5 mL IM syringe ADM 0.5ML IM UTD 10/14 completed Not Available Not Available Not Available Vitals Date Recorded Body height Body mass index (BMI) Body weight Systolic blood pressure Diastolic blood pressure Provider Name and Address Organization Details Last Updated DateTime 09/08/2021 154.94 cm 22.9 kg/m2 67473.68 g 107 mm[Hg] 68 mm[Hg] Ame Sanchez [facility] 2 17:08:49 Date Recorded Body height Body mass index (BMI) Body weight Systolic blood pressure Diastolic blood pressure Provider Name and Address Organization Details Last Updated DateTime 11/16/2022 154.94 cm 21 kg/m2 89617.75 g 110 mm[Hg] 60 mm[Hg] Katharina Blandon [facility] 3 16:38:50 Date Recorded Body height Body mass index (BMI) Body weight Systolic blood pressure Diastolic blood pressure Provider Name and Address Organization Details Last Updated DateTime 12/05/2022 154.94 cm 21.7 kg/m2 53277.12 g 95 mm[Hg] 60 mm[Hg] Ame Sanchez [facility] 3 15:37:46 Date Recorded Body height Body mass index (BMI) Body weight Systolic blood pressure Diastolic blood pressure Provider Name and Address Organization Details Last Updated DateTime 12/04/2023 154.94 cm 19.5 kg/m2 69544.01 g 103 mm[Hg] 67 mm[Hg] Ale Perez [facility] 4 17:06:18 Social History Question Answer Notes LastModified by Organizat ion Details LastModified Time Tobacco Smoking Status Former Smoker Alhaji Mauro andrey, [facility] 11/16/2022 16:02:54 Do You Have An Advance Directive? No Information not available 11/09/2020 What Is Your Level Of Alcohol Consumption? Occasional [email or web address] Information not available 04/02/2020 Are You Blind Or Do You Have Difficulty Seeing? No Information not available 11/09/2020 What Is Your Level Of Caffeine Consumption? Moderate Information not available 11/09/2020 How Much Tobacco Do You Chew? None Information not available 11/09/2020 In The 14 Days Before Symptom Onset, Have You Had Close Contact With A Laboratory-confir med COVID-19 While That Case Was Ill? No Information not available 11/09/2020 In The 14 Days Before Symptom Onset, Have You Had Close Contact With A Person Who Is Under Investigation For COVID-19 While That Person Was Ill? No Information not available 11/09/2020 Have You Been To An Area Known To Be High Risk For COVID-19? No Information not available 11/09/2020 Are You Deaf Or Do You Have Serious Difficulty Hearing? No Information not available 11/09/2020 What Type Of Diet Are You Following? REGULAR Information not available 11/09/2020 Do You Or Have You Ever Used E-cigarettes Or Vape? Never Used Electronic Cigarettes [email or web address] Information not available 11/16/2022 What Is The Highest Grade Or Level Of School You Have Completed Or The Highest Degree You Have Received? 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 Yes Information not available 11/09/2020 What Was The Date Of Your Most Recent Tobacco Screening? 04/02/2020 [email or web address] Information not available 11/16/2022 Do You Use Protection During Sex? No Information not available 11/09/2020 Do You Use Your Seat Belt Or Car Seat Routinely? Yes Information not available 11/09/2020 Do You Have Smoke And Carbon Monoxide Detectors In Your Home? Yes Information not available 11/09/2020 Do You Or Have You Ever Used Smokeless Tobacco? Never Used Smokeless Tobacco [email or web address] Information not available 11/16/2022 How Much Tobacco Do You Smoke? No [email or web address] Information not available 04/02/2020 Do You Feel Stressed (tense, Restless, Nervous, Or Anxious, Or Unable To Sleep At Night)? [id number] Information not available 11/09/2020 Do You Use Any Illicit Or Recreational Drugs? No Information not available 11/09/2020 Do You Use Sunscreen Routinely? No Information not available 11/09/2020 Have You Used IV Drugs? No Information not available 11/09/2020 Sex: Unknown Functional Status Question Answer Note LastModified by Organizat ion Details LastModified Time Are you able to walk? [email or web address] Information not available 11/09/2020 What is your exercise level? Occasional [email or web address] Information not available 04/02/2020 Mental Status None recorded. Family History Relationship Description Onset Age of this Age Resolved Age Notes LastModified by Organization Details LastModified Time Mother Diabetes mellitus [email or web address] Not available 11/16 16:39:24 Notes:No family history of C ancer, cervical Medical History Condition Response Allergies (Food, seasonal, environmental ) N Other N Blood Transfusion N Breast Cancer N Drug/Latex Allergies/Reactions N Dermatologic Disorders N Lung Disease N Defects or Inherited Disease N Breast Problem N Gestational Diabetes N Hematologic disorders N Anesthesia Complications N History of STI N Deep Vein Thrombosis N Polycystic ovary syndrome N Anxiety Disorder N Autoimmune disease N Arthritis N Polyps N Infertility N Acid Reflux (GERD) N History of abnormal pap N Cancer N Varicosities N Stroke N Neurologic/Epilepsy N Endometriosis N High Cholesterol N Fibromyalgia N Headaches N Kidney Disease N Heart Problems N Thyroid Problems Y Kidney or Bladder Problems N GI Problems N Eating Disorder N Anemia N Art (IVF or FET) N Psychiatric Illness N Ovarian Cancer N Diabetes N Pulmonary (TB, Asthma) N Hepatitis/Liver Disease N No Past Medical History N Eczema N Urinary Tract Infection N Abuse/Domestic Violence N Asthma N Trauma/Violence N Depression/ depression N Heart Disease Y Pre-Eclampsia N Hypertension N Osteoporosis N Thrombophilias N Gynecological History Statement/Question Response Abnormal Pap Y Date of Last Mammogram 11/20/2023 Date of LMP 11/05/2022 On BCP's at Conception? N Was last menstrual period normal N STIs/STDs N HPV Vaccine N Colposcopy Current Control Method Tubal Ligat ion Age at First Child 19 Date of Last Colonoscopy Sexually Active? Y Date of DEXA bone scan Age of first menstrual cycle 10 Date of Last Pap Smear Sexual Problems? N Desired Control Method IUD LMP Approximate N Obstetrics History GPAL:G 2 P 2 0 0 2 Type Value Full Term 2 Living 2 Total 2 Past Encounters Encounter ID Performer Location Encounter Start Date Encounter Closed Date Diagnosis/Indication Diagnosis SNOMED-CT Code Diagnosis ICD10 Code [id number] Cammy Prasad [facility] [address] [address] 04/02/2020 09:38:43 04/02/2020 10:23:51 Abnormal uterine bleeding [id number] 9100 N93.9 [id number] Isela Bowman [facility] [address] [address] 04/29/2020 14:43:43 04/29/2020 15:34:51 Abnormal uterine bleeding [id number] 9100 N93.9 [id number] Cammy Prasad [facility] [address],[facility] [place] [address] 04/29/2020 14:44:18 04/29/2020 16:33:18 Cyst of left ovary [id number] 5901668 N83.202 [id number] [facility] [address],[place] [address] 06/10/2020 14:41:56 06/10/2020 15:47:03 Cyst of left ovary [id number] N83.292 [id number] Cammy Prasad [facility] [address],[place] [address] 06/10/2020 14:42:37 06/10/2020 15:47:18 Abnormal uterine bleeding [id number] 9100 N93.9 N83.202 [id number] Renard Ryan MD [facility] [address],[place] [address] 06/24/2020 15:54:57 06/24/2020 17:18:22 Cyst of ovary 98012236 N83.209 Mid-cycle bleeding 73164 0006 N92.1 [id number] [facility] [address],[place] [address] 10/14/2020 13:32:29 10/14/2020 14:44:00 Cyst of left ovary [id number] N83.292 [id number] Renard Ryan MD [facility] [address],[place] [address] 10/14/2020 13:32:55 10/14/2020 15:20:30 Abnormal uterine bleeding 2576759472 9100 N93.9 [id number] Renard Ryan MD [facility] [address],[place] [address] 01/25/2021 14:59:37 01/25/2021 17:04:57 Cyst of ovary 76615673 N83.209 [id number] Renard Ryan MD [facility] [address],[place] [address] 11/09/2020 16:21:25 11/09/2020 17:12:23 Screening procedure 39024138 Z13.9 [facility] ion care management [id number] Z30.9 [id number] Renard Ryan MD [facility] [address],[place] [address] 12/02/2020 15:57:16 12/05/2020 14:48:23 Contraception care management 633796148 Z30.9 [id number] [facility] [address],[place] [address] 01/25/2021 14:57:54 01/25/2021 15:42:36 Cyst of left ovary [id number] 1769716 N83.292 N83.291 [id number] [facility] [address],[place] [address] 03/29/2021 16:50:58 03/29/2021 18:21:57 Cyst of right ovary [id number] 6709901 N83.291 N83.292 [id number] Renard Ryan MD [facility] [address],[place] [address] 03/31/2021 16:17:05 03/31/2021 16:53:07 Cyst of ovary 00895974 N83.209 Menorrhagia 697235564 N9 2.0 Abnormal u terine bleeding 7363544304 9100 N93.9 [id number] [facility] [address],[place] [address] 06/22/2021 16:52:14 06/23/2021 09:10:14 Cyst of left ovary [id number] 8901205 N83.292 [id number] Renard Ryan MD [facility] [address],[place] [address] 06/30/2021 16:20:05 07/03/2021 18:32:26 Cyst of ovary 65501904 N83.209 [id number] Renard Ryan MD [facility] [address],[place] [address] 09/08/2021 16:45:30 09/09/2021 09:10:01 Cyst of ovary 01777339 N83.209 [id number] Rosalind Heaton [facility] [address],[place] [address] 08/31/2021 17:33:41 08/31/2021 18:01:48 Cyst of ovary 40993296 N83.209 [id number] Jeanette Lundberg CNM [facility] [address],[place] [address] 11/16/2022 16:02:14 11/16/2022 17:31:50 Gynecologic examination 39628653 Z01.419 [id number] [place] Condon [facility] [address],[place] [address] 12/04/2023 16:59:13 12/05/2023 07:24:21 Gynecologic examination 95330640 Z01.419 Breast lump 87686096 N63 .0 [id number] oRsalind Heaton [facility] [address],[place] [address] 11/20/2022 17:28:11 11/20/2022 18:12:09 Pain in pelvis 87631095 R10.2 [id number] Renard Ryan MD [facility] [address],[place] [address] 12/05/2022 15:30:17 12/05/2022 16:22:59 Cyst of ovary 13728061 N83.209 Health Concerns Section Related Observation LastModified by Organization Detai ls LastModified Time None Recorded Concern Status LastModified by Organization Details LastModified Time None Recorded Advance Directives Directive N: Payers Encounter Date Sequence Insurance Name Policy Number Policy Valenzuela Covered Member ID Valenzuela Member ID Guarantor Name 09/08/2021 1 [employer] [id number] Roney Davis [id number] 2 Mananchaya Ryan 11/16/2022 1 [employer] [id number] Roney Davis [id number] 2 Mananchaya Ryan 11/20/2022 1 [employer] [id number] Roney Davis [id number] 2 Mananchaya Ryan 12/05/2022 1 [employer] [id number] Roney Davis [id number] 2 Mananchaya Ryan 12/04/2023 1 [facility] [id number] Roney Davis [id number] 2 Viola Ryan Notes Date Note Type Note Provider Name and Address Organization Details Recorded Time 09/08/2021 text/html this patient is a 41-year-old female presents for follow-up on pelvic ultrasound. Reviewed the results today. We have been following cysts on this patient's ovaries for some time. Previously seen cysts of either resolved or or smaller. Everything was benign at this time. Recent CA 125 was normal. We have agreed to follow-up as needed for symptoms. Renard Ryan MD [address], [place], [address], [facility] 09/08/2021 21:36:57 11/16/2022 text/html Annual GYNReport ed bypatient.History: no gynecologic complaints Menstrual cycle:occ light cycle with mirena Urinary symptoms:No hematuria; No incontinence Vulva:No genital lesion Vagina:Normal vaginal discharge Breast:No breast pain; No breast lump; No nipple discharge Current Contraception:Intr auterine device (iud); Tubal ligation Sexual complaints:No sexual complaints; No pain during intercourse; Normal libido Menopausal Symptoms:No menopausal symptoms; Normal vaginal lubrication Psychological symptoms:No depression; No anxiety; No PMDD Preventive measures:Encourage self breast examination; Encourage regular exercise; Encourage no tobacco use; Encourage regular mammograms starting age 40; Mammogram performed within the past yearNotes:hx cysts on left has been having similar discomfort off and on, needs mammogram order Jeanette Lundberg CNM [address], [place], [address], [facility] 11/16/2022 17:31:36 12/05/2022 text/html This patient is a 42-year-old female presents for follow-up on ultrasound results. We reviewed her ultrasound. We shared some images. She has a prominent ovarian follicle. She has not needed any treatment, follow-up, observation. We talked about her irregular bleeding. She has Mirena IUD. She does seem to have some premenstrual symptoms in her rhythmic way and has some intermittent bleeding at the time of her regular menses. She will follow-up as needed. Renard Ryan MD [address], [place], [address], [facility] 12/05/2022 16:10:36 12/04/2023 text/html Annual GYNReport ed bypatient.Menstrua l cycle:Normal menses Urinary symptoms:No hematuria; No incontinence Vulva:No genital lesion Vagina:Normal vaginal discharge Breast:No breast pain; No nipple discharge;Breast lump Current Contraception:Sati sfied with current contraception; Intrauterine device (iud); Tubal ligation; mirena IUD, inserted 11/09/2020 Sexual complaints:No sexual complaints; No pain during intercourse; Normal libido Menopausal Symptoms:No menopausal symptoms; Normal vaginal lubrication Psychological symptoms:No depression; No anxiety; No PMDD Preventive measures:Encourage self breast examination; Encourage regular exercise; Encourage no tobacco use; Encourage regular mammograms starting age 38Notes:43yo [id number] pap 10/2022 : nilm, HPV (+)no h/o abnormal paps prior to this BC : BTLmirena IUD, inserted 11/09/2020very happy with IUD and desires to continue this method mammogram UTD, 11/2023noticed a right breast lump a few weeks ago after she had her mammogram doneno colon CA screening done yet [place] Condon [address], [place], [address], [facility] 12/04/2023 17:36:14 OBGyn Episode Ob Episode Information Episode Created Date Number of Fetuses Patient Bloodtype Patient rh Status Prepregnancy Weight lbs Domestic Partner Domestic Partner Phone Father Name Policy Analyst Status 04/02/20 20 1 CLOSED Fetus Data First Name Last Name Admitted to NICU Weight (g) Sex Living Outcome Pediatric Complications Fetus ID Race Codes Race Delivery Type 2721.55 2 M Full Term [id number] Vaginal Delivery Chip Calculation CHIP Calculation Method Initial Chip Date Initial Exam Date Initial Exam Provider Initial Ultrasound Date Last Menstrual Period Date Ultra Sound Weeks Gestation Conception by IVF Embryo Age at Transfer Date of Transfer 0 Eighteen To Twenty Week Chip Update Ultra Sound Date Fundal Height At Umbil Quickening Date Ultra Sound Latest Weeks Gestation Final Chip Confirmed By Final Chip Confirmed Date Final Chip Date Ultra Sound Latest Days Gestation 0 0 Menstrual History Last Menstrual Date Menses Monthly On Bcp Conception Prior Menses Frequency Hcg Plus Date Menarche Onset Age Delivery Information Delivery Date Delivery Type Labor Anesthesia Weeks Gestation Incision Type Labor Labor Length Hrs Delivered By Post Complications Tubal Sterilization Discharge Date Comments 0 38 Discharge Information Feeding Method Contraceptive Method Maternal HG B and HCT Levels Ob Episode Information Episode Created Date Number of Fetuses Patient Bloodtype Patient rh Status Prepregnancy Weight lbs Domestic Partner Domestic Partner Phone Father Name Policy Analyst Status 04/02/20 20 1 CLOSED Fetus Data First Name Last Name Admitted to NICU Weight (g) Sex Living Outcome Pediatric Complications Fetus ID Race Codes Race Delivery Type 2948.34 8 F Full Term [id number] Primary Chip Calculation CHIP Calculation Method Initial Chip Date Initial Exam Date Initial Exam Provider Initial Ultrasound Date Last Menstrual Period Date Ultra Sound Weeks Gestation Conception by IVF Embryo Age at Transfer Date of Transfer 0 Eighteen To Twenty Week Chip Update Ultra Sound Date Fundal Height At Umbil Quickening Date Ultra Sound Latest Weeks Gestation Final Chip Confirmed By Final Chip Confirmed Date Final Chip Date Ultra Sound Latest Days Gestation 0 0 Menstrual History Last Menstrual Date Menses Monthly On Bcp Conception Prior Menses Frequency Hcg Plus Date Menarche Onset Age Delivery Information Delivery Date Delivery Type Labor Anesthesia Weeks Gestation Incision Type Labor Labor Length Hrs Delivered By Post Complications Tubal Sterilization Discharge Date Comments 7 37 placenta previa, LLP Discharge Information Feeding Method Contraceptive Method Maternal HG B and HCT Levels
--- OUTSIDE RECORDS SUMMARY | 2024-07-18 11:50 | XMS_ITS | Data Portability ---
Author Organization [facility], Main Office Address [address] [place] [address] Assessment No assessment recorded. Plan of Treatment Reminders Order Date Submit Date Provider Last Modified By Organization Details Last Modified Time Details Appointments None recorded. Lab None recorded. Referral endocrinolo gy referral 2022 023 [email or web address] Mena MD, [address] [place] [address], [address], 3 20:34:01 Procedures None recorded. Surgeries None recorded. Imaging None recorded. Medication Orders prednisone 20 mg tablet 2022 023 [email or web address] 11 [facility] [employer] [id number], [address], [place], [place], [id number], 3 16:58:47 triamcinolo ne acetonide 0.1 % topical cream 2022 023 CLARIBEL [facility] [employer] [facility][id number], [address], [place], [place], [id number], 3 17:34:31 Patient TargetsNo targets recorded. Patient InstructionsNo instructions recorded. Reason for Referral Endocrinology Referral for H yperthyroidism Referring Physician: Shabana Silva, Family Medicine, Encounter Date: 09/19/2022 Results Created Date Observation Date Name Description Value Unit Range Abnormal Flag Note LastModifiedBy Organization Detail LastModifiedTime 08/27/19 23 08/27/2022 XR, foot, 3 or more view No observ ation record ed. [id number] [facility] [place] [address] [facility], [address], [place], [address], 09/19/2022 02:46:58 08/27/1908/27/2022 XR, foot, 3 or more view No observ ation record ed. [id number] [facility] [address], [facility], [place], [address], 09/19/2022 02:46:58 Result Notes None recorded. Problems Name Problem SNOMED Code Status Onset Date Resolution Date Notes Provider Name and Address Organization Details Recorded Time Itching of right eye 3016427924440 9101 Active 2022 GLADYS Marcelo [address] [address], [place], [address] , [employer] 3 16:43:41 Pain in both feet 9229073206357 9102 Active 2022 Not Available [facility] 3 02:39:34 Hyperthyro idism 04415451 Active 2019 Not Available [facility] 3 02:39:34 Blephariti s of right eyelid 5820726817870 03 Active 2022 Gloria Paula MD [address] [address], [place], [address] , [employer] 3 17:33:50 Problem Notes None recorded. Procedures Surgical History Date Name Laterality Status Provider Name and Address Organization Details Recorded Time insertion of intrauterine contraceptive device completed Not Available [facility] 09/19/2022 02:35:59 Imaging Results Imaging Date Name Status LastModified by Organiz ation Details LastModified Time 08/27/2022 XR, foot, 3 or more view completed [id number] [facility] [place] [address] [facility], [facility] [address], [place], [address], 09/19/2022 02:46:58 08/27/2022 XR, foot, 3 or more view completed [id number] [facility] [place] [address] [facility], [address], [place], [address], 09/19/2022 02:46:58 Procedure Notes None recorded. Medical Equipment None Reported. Allergies No known drug allergies Medications Name Sig Start Date Stop Date Status Note LastModified by Organization Details LastModified Time azelastine 0.05 % eye drops 10/16 completed Not Available Not Available Not Available fluconazole 150 mg tablet TAKE 1 TABLET BY MOUTH ONCE AND REPEAT 1 TABLET IN 72 HOURS active Not Available Not Available No t Available prednisone 20 mg tablet TAKE 2 TABLETS BY MOUTH EVERY DAY FOR 5 DAYS 10/16 completed Not Available Not Available Not Available metronidazo le 500 mg tablet TK 1 T PO Q 8 H FOR 7 DAYS active Not Available Not Available No t Available triamcinolo ne acetonide 0.1 % topical cream APPLY THIN LAYER TOPICALLY TO THE AFFECTED AREA TWICE DAILY FOR UP TO 7 DAYS active Not Available Not Available No t Available potassium chloride ER 20 mEq tablet,exte nded release(par t/cryst) TK 1 T PO QD active Not Available Not Available No t Available methimazole 5 mg tablet TAKE 1 TABLET BY MOUTH EVERY DAY IN THE MORNING 05/30 completed Not Available Not Available Not Available ergocalcife rol (vitamin D2) 1,250 mcg (50,000 unit) capsule Take 1 capsule every week by oral route in the morning for 90 days. active Not Available Not Available No t Available metoprolol tartrate 25 mg tablet TK 1 T PO QD 05/30 completed Not Available Not Available Not Available Flucelvax Quad 7721-9859 (PF) 60 mcg (15 mcg x 4)/0.5 mL IM syringe ADM 0.5ML IM UTD active Not Available Not Available No t Available Vitals Date Recorded Body height Body mass index (BMI) Body weight Body temperature Heart rate Oxygen saturation Oxygen saturation in Arterial blood by Pulse oximetry Systolic blood pressure Diastolic blood pressure Provider Name and Address Organization Details Last Updated DateTime 3 154.94 cm 21 kg/m2 84580.7 5 g 97.7 [degF] 80 /min 98 % 98 % 120 mm[Hg] 66 mm[Hg] Sade Peñaloza [place] [facility] 3 16:35:03 Date Recorded Body mass index (BMI) Body height Oxygen saturation Oxygen saturation in Arterial blood by Pulse oximetry Heart rate Respiratory rate Body weight Systolic blood pressure Diastolic blood pressure Provider Name and Address Organization Details Last Updated DateTime 3 21 kg/m2 154.94 cm 98 % 98 % 71 /min 16 /min 23483.7 5 g 105 mm[Hg] 75 mm[Hg] Not Available [facility] 3 02:36:58 Date Recorded Body mass index (BMI) Body height Oxygen saturation Oxygen saturation in Arterial blood by Pulse oximetry Heart rate Body temperature Body weight Systolic blood pressure Diastolic blood pressure Provider Name and Address Organization Details Last Updated DateTime 3 21.5 kg/m2 154.94 cm 98 % 98 % 94 /min 97.8 [degF] 18415.5 3 g 110 mm[Hg] 68 mm[Hg] Not Available [facility] 3 02:36:58 Date Recorded Body mass index (BMI) Body height Oxygen saturation Oxygen saturation in Arterial blood by Pulse oximetry Heart rate Respiratory rate Body weight Systolic blood pressure Diastolic blood pressure Provider Name and Address Organization Details Last Updated DateTime 3 21.5 kg/m2 154.94 cm 99 % 99 % 80 /min 16 /min 62318.5 3 g 99 mm[Hg] 68 mm[Hg] Not Available [facility] 3 02:36:58 Date Recorded Body height Body mass index (BMI) Body weight Body temperature Oxygen saturation Oxygen saturation in Arterial blood by Pulse oximetry Heart rate Systolic blood pressure Diastolic blood pressure Provider Name and Address Organization Details Last Updated DateTime 3 154.94 cm 21.4 kg/m2 03232.9 4 g 97.9 [degF] 98 % 98 % 75 /min 110 mm[Hg] 68 mm[Hg] Sherlyn Barney MA [employer] 3 16:58:23 Social History Question Answer Notes LastModified by Organizat ion Details LastModified Time Tobacco Smoking Status Never Smoker Not Available [facility] 09/19/2022 02:29:15 What Is Your Level Of Alcohol Consumption? Occasional [id number] Information not available 09/19/2022 What Is Your Level Of Caffeine Consumption? Moderate [id number] Information not available 09/19/2022 In The 14 Days Before Symptom Onset, Have You Had Close Contact With A Laboratory-confir med COVID-19 While That Case Was Ill? No [id number] Information not available 09/19/2022 In The 14 Days Before Symptom Onset, Have You Had Close Contact With A Person Who Is Under Investigation For COVID-19 While That Person Was Ill? No [id number] Information not available 09/19/2022 What Type Of Diet Are You Following? REGULAR [email or web address] Information not available 09/19/2022 Which Illicit Or Recreational Drugs Have You Used? 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 No [email or web address] Information not available 09/19/2022 Do You Use Any Illicit Or Recreational Drugs? No [email or web address] Information not available 09/19/2022 Has Tobacco Cessation Counseling Been Provided? No [email or web address] Information not available 09/19/2022 Do You Have Any Dietary Restrictions? No [email or web address] Information not available 09/19/2022 Do You Or Have You Ever Used Any Other Forms Of Tobacco Or Nicotine? No [email or web address] Information not available 09/19/2022 Sex: Unknown Functional Status Question Answer Note LastModified by Organization D etails LastModified Time What is your exercise level? Moderate [email or web address] Information not available 09/19/2022 Mental Status None recorded. Family History Relationship Description Onset Age of this Age Resolved Age Notes LastModified by Organization Details LastModified Time Mother Diabetes mellitus [id number] Not available 09/19/2022 02:36:00 Sister Systemic lupus erythematosu s [id number] Not available 09/19/2022 02:36:00 Medical History Condition Response THYROID DISEASE Y Gynecological HistoryNo gynecological history recorded. Obstetrics History GPAL:G 0 P 0 0 0 0 Immunizations Vaccine Type Date Status Note Provider Nam e and Address Organization Details Recorded Time COVID-19, mRNA, LNP-S, PF, 100 mcg/0.5mL dose or 50 mcg/0.25mL dose 2 completed Not Available [employer] 09/19/2022 02:46:20 Influenza, split virus, quadrivalent, preservative 2 completed Not Available [facility] 09/19/2022 02:46:20 Past Encounters Encounter ID Performer Location Encounter Start Date Encounter Closed Date Diagnosis/Indication Diagnosis SNOMED-CT Code Diagnosis ICD10 Code [id number] [facility] [address] [place] [address] 12/02/2020 00:00:00 12/02/2020 18:41:39 [id number] [facility] [address] [place] [address] 03/10/2021 00:00:00 03/11/2021 10:56:27 [id number] [facility] [place] [address] [place] [address] [address] [place] [address] 05/30/2022 00:00:00 05/30/2022 11:48:22 [id number] [facility] [address], [facility] [address] [place] [address] 07/26/2022 00:00:00 08/06/2022 09:08:26 [id number] [facility] [address] [place] [address] [address] [place] [address] 08/01/2022 00:00:00 08/01/2022 16:52:47 [id number] [facility] [address], [facility] [address] [place] [address] 08/23/2022 00:00:00 08/27/2022 14:01:22 [id number] GLADYS Marcelo [facility] [place] [address] [place] [address] [address] [place] [address] 09/19/2022 16:28:18 09/20/2022 11:51:30 Itching of right eye 1922128925 5386512 H57.89 Hyperthyroidism 12944178 E05.90 [id number] Gloria Paula MD [facility] [place] [address] [place] [address] [address] [place] [address] 10/16/2022 16:49:53 10/16/2022 18:02:29 Blepharitis of right eyelid 3349872869 24346 H01.003 Health Concerns Section Related Observation LastModified by Organization Detai ls LastModified Time None Recorded Concern Status LastModified by Organization Details LastModified Time None Recorded Advance Directives Directive None Recorded Payers Encounter Date Sequence Insurance Name Policy Number Policy Valenzuela Covered Member ID Valenzuela Member ID Guarantor Name 09/19/2022 1 [facility] [id number] [email or web address] [id number] [facility] 10/16/2022 1 [facility] [id number] [facility] [id number] [facility] Notes Date Note Type Note Provider Name and Address Organization Details Recorded Time 09/19/2022 text/html Pt. here with complaints of itching of her right eye. She has had this problem previously and it went away with medications but then came back again. GLADYS Marcelo [address] [address], [place], [address], [email or web address] [place] [employer] 09/19/2022 17:10:38 10/16/2022 text/html irritation right upper eyelid, no pain in eyes, no visual disturbance, no drainage. No new lotions/soaps/prod ucts. Gloria Paula MD [address], [facility] [address], [place], [address], [employer] 10/19/2022 08:17:24 OBGyn Episode No OBEpisode recorded.
== END 2024-07-11 09:35 | disposition home or self-care (01) ==
LOC: ANHLAB 09:35
PROVIDERS: PCP Family Medicine; Visit Provider Student in an Organized Health Care Education/Training Program
DX: D64.9 Anemia, unspecified (principal); R53.83 Other fatigue; Z13.220 Encounter for screening for lipoid disorders
CPT/HCPCS: 36415; 80061; 80076; 82728; 83540; 83550; 85025

== ENCOUNTER 2024-08-08 09:15 | Outpatient (CLI) | payer OTHER, SELFPAY ==
[2024-08-08 10:05] LABS: Free T4 Free Thyroxine 1.15 ng/dL (0.78-2.19)
[2024-08-08 10:19] LABS: Thyroid Stimulating Hormone 0.866 uIU/mL (0.465-4.680); Total Triiodothyronine (T3) 2.09 NG/ML (0.97-1.69)
--- OUTSIDE RECORDS SUMMARY | 2024-08-13 08:42 | XMS_ITS | Clinical Summary ---
Author Organization [facility] Address [address] [place] [address]. [place], [place] [address] [place] [address] Care Team Providers Care Physical Geographer Name Role Phone Shabana Silva Primary Care Provider [phone] Allergies No known active allergies Medications metroNIDAZOLE (FLAGYL) 500 MG tablet Take 1 tablet (500 mg total) by mouth every 8 (eight) hours. Active triamcinolone (KENALOG) 0.1 % cream Apply topically 2 (two) times daily. Active potassium chloride CR (KLOR-CON M) 20 MEQ tablet Take 1 tablet (20 mEq total) by mouth daily. Active Vitamin D, Ergocalciferol, 49449 units Cap Take 1 capsule every week [...] complete this topic Insurance [employer] Care Teams Physical Geographer Relationship Specialty Start Date End Date Shabana Silva PA [address] [place] [address] PCP - General PHYSICIAN MEDICAL DIRECTOR/HEAD TEAM PHYSICIAN 01/14/23
--- OUTSIDE RECORDS SUMMARY | 2024-08-13 08:42 | XMS_ITS | Clinical Summary ---
Author Organization [facility] Address [address] [place] [address] Phone Care Team Providers Care Grant Coordinator Name Role Phone Unavailable Primary Care Provider [...] 2008 Discussion re Starting/Frequency of Mammograms 2018 Colonoscopy 2023 Colorectal Cancer Screening 2023 Influenza Immunization (#1) 2024 10/0 03/2021, 05/21/2020, 04/30/2019, Additional history exists SARS-COV-2 Immunization ( season) 2024 07/16/2021, 10/15/2020, 09/23/2020 Respiratory Syncytial Virus (RSV) Immunization (Adult) (1 - 1-dose 75+ series) 2053 DTaP/Tdap/Td Immunization Discontinued 04/12/2017 TdaP Immunization Completed 04/12/2017 Meningococcal Immunization (ACWY) Aged Out No longer eligible based on patient's age to complete this topic Pneumococcal Immunization Combined Aged Out No longer eligible based on patient's age to complete this topic Rotavirus Immunization Aged Out No lo nger eligible based on patient's age to complete this topic
--- OUTSIDE RECORDS SUMMARY | 2024-08-13 08:42 | XMS_ITS | Clinical Summary ---
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): Off MMI Follow up thyroid function tests Assessment & Plan (01/30/2022 4:39 PM CDT): Off MMI Follow up thyroid function tests Excessive daytime sleepiness 10/14/2020 Hypersomnolence 10/14/2020 Witnessed episode of apnea 10/14/2020 Right ventricular enlargement 12/22/2019 Lipid screening 12/22/2019 SVT (supraventricular tachycardia) 09/04/2017 Pulmonary HTN 09/04/2017 Non-rheumatic mitral regurgitation 09/04/2017 Hypokalemia 09/04/2017 Hyperthyroidism 11/09/2016 Assessment & Plan (08/01/2021 3:52 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
--- OUTSIDE RECORDS SUMMARY | 2024-08-13 08:42 | XMS_ITS | Data Portability ---
Author Organization [facility], Main Office Address [address] [place] [address] Assessment No assessment recorded. Plan of Treatment Reminders Order Date Submit Date Provider Last Modified By Organization Details Last Modified Time Details Appointments None recorded. Lab None recorded. Referral endocrinolo gy referral 2022 023 [email or web address] Mena MD, [address] [place] [address], [id number], 3 20:34:01 Procedures None recorded. Surgeries None recorded. Imaging None recorded. Medication Orders prednisone 20 mg tablet 2022 023 [email or web address] 11 [facility][id number], [address], [place], [place], [id number], 3 16:58:47 triamcinolo ne acetonide 0.1 % topical cream 2022 023 CLARIBEL [facility] #[id number], [address], [place], [place], [id number], 3 17:34:31 Patient TargetsNo targets recorded. Patient InstructionsNo instructions recorded. Reason for Referral Endocrinology Referral for H yperthyroidism Referring Physician: Shabana Silva, Family Medicine, Encounter Date: 09/19/2022 Results Created Date Observation Date Name Description Value Unit Range Abnormal Flag Note LastModifiedBy Organization Detail LastModifiedTime 08/27/19 23 08/27/2022 XR, foot, 3 or more view No observ ation record ed. [id number] [facility] [place] [address] [facility], [address], [place], [address], 09/19/2022 02:46:58 08/27/1908/27/2022 XR, foot, 3 or more view No observ ation record ed. [id number] [facility] [address], [facility], [place], [address], 09/19/2022 02:46:58 Result Notes None recorded. Problems Name Problem SNOMED Code Status Onset Date Resolution Date Notes Provider Name and Address Organization Details Recorded Time Itching of right eye 6623063843735 9101 Active 2022 GLADYS Marcelo [address] [address], [place], [address] , [employer] 3 16:43:41 Pain in both feet 7750278829798 9102 Active 2022 Not Available [facility] 3 02:39:34 Hyperthyro idism 51838664 Active 2019 Not Available [facility] 3 02:39:34 Blephariti s of right eyelid 6022182328327 03 Active 2022 Gloria Paula MD [address] [address], [place], [address] , [employer] 3 17:33:50 Problem Notes None recorded. Procedures Surgical History Date Name Laterality Status Provider Name and Address Organization Details Recorded Time insertion of intrauterine contraceptive device completed Not Available [facility] 09/19/2022 02:35:59 Imaging Results Imaging Date Name Status LastModified by Organiz ation Details LastModified Time 08/27/2022 XR, foot, 3 or more view completed [id number] [facility] [place] [address] [address] [facility], [facility] [address], [place], [address], 09/19/2022 02:46:58 08/27/2022 XR, foot, 3 or more view completed [id number] 26 [facility] [place] [address] [facility], [address], [place], [address], 09/19/2022 02:46:58 Procedure Notes None recorded. Medical [...] Available Not Available Not Available Flucelvax Quad [id number] (PF) 60 mcg (15 mcg x 4)/0.5 [...] Updated DateTime 3 154.94 cm 21 kg/m2 31911.7 5 g 97.7 [degF] 80 /min 98 % 98 % 120 mm[Hg] 66 mm[Hg] Sade Peñaloza MA [place] [facility] 3 16:35:03 Date Recorded Body mass index (BMI) Body height Oxygen saturation Oxygen saturation in Arterial blood by Pulse oximetry Heart rate Respiratory rate Body weight Systolic blood pressure Diastolic blood pressure Provider Name and Address Organization Details Last Updated DateTime 3 21 kg/m2 154.94 cm 98 % 98 % 71 /min 16 /min 01985.7 5 g 105 mm[Hg] 75 mm[Hg] Not Available [facility] 3 02:36:58 Date Recorded Body mass index (BMI) Body height Oxygen saturation Oxygen saturation in Arterial blood by Pulse oximetry Heart rate Body temperature Body weight Systolic blood pressure Diastolic blood pressure Provider Name and Address Organization Details Last Updated DateTime 3 21.5 kg/m2 154.94 cm 98 % 98 % 94 /min 97.8 [degF] 51660.5 3 g 110 mm[Hg] 68 mm[Hg] Not Available [facility] 3 02:36:58 Date Recorded Body mass index (BMI) Body height Oxygen saturation Oxygen saturation in Arterial blood by Pulse oximetry Heart rate Respiratory rate Body weight Systolic blood pressure Diastolic blood pressure Provider Name and Address Organization Details Last Updated DateTime 3 21.5 kg/m2 154.94 cm 99 % 99 % 80 /min 16 /min 17714.5 3 g 99 mm[Hg] 68 mm[Hg] Not Available [facility] 3 02:36:58 Date Recorded Body height Body mass index (BMI) Body weight Body temperature Oxygen saturation Oxygen saturation in Arterial blood by Pulse oximetry Heart rate Systolic blood pressure Diastolic blood pressure Provider Name and Address Organization Details Last Updated DateTime 3 154.94 cm 21.4 kg/m2 19547.9 4 g 97.9 [degF] 98 % 98 % 75 /min 110 mm[Hg] 68 mm[Hg] Sherlyn Barney MA [employer] 3 16:58:23 Social History Question Answer Notes LastModified by Organizat ion Details LastModified Time Tobacco Smoking Status Never Smoker Not Available [facility] 09/19/2022 02:29:15 What Is Your Level Of Alcohol Consumption? Occasional [id number] Information not available 09/19/2022 What Is Your Level Of Caffeine Consumption? Moderate [id number] Information not available 09/19/2022 In The 14 Days Before Symptom Onset, Have You Had Close Contact With A Laboratory-confir med COVID-19 While That Case Was Ill? No [id number] Information not available 09/19/2022 In The 14 Days Before Symptom Onset, Have You Had Close Contact With A Person Who Is Under Investigation For COVID-19 While That Person Was Ill? No [id number] Information not available 09/19/2022 What Type Of Diet Are You Following? REGULAR [email or web address] Information not available 09/19/2022 Which Illicit Or Recreational Drugs Have You Used? 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 No [email or web address] Information not available 09/19/2022 Do You Use Any Illicit Or Recreational Drugs? No [email or web address] Information not available 09/19/2022 Has Tobacco Cessation Counseling Been Provided? No Information not available 09/19/2022 Do You Have Any Dietary Restrictions? No [email or web address] Information not available 09/19/2022 Do You Or Have You Ever Used Any Other Forms Of Tobacco Or Nicotine? No [email or web address] Information not available 09/19/2022 Sex: Unknown Functional Status Question Answer Note LastModified by Organization D etails LastModified Time What is your exercise level? Moderate [email or web address] Information not available 09/19/2022 Mental Status None recorded. Family History Relationship Description Onset Age of this Age Resolved Age Notes LastModified by Organization Details LastModified Time Mother Diabetes mellitus [id number] Not available 09/19/2022 02:36:00 Sister Systemic lupus erythematosu s [id number] Not available 09/19/2022 02:36:00 Medical History Condition [...] preservative 2 completed Not Available [facility] 09/19/2022 02:46:20 Past Encounters Encounter ID Performer Location Encounter Start Date Encounter Closed Date Diagnosis/Indication Diagnosis SNOMED-CT Code Diagnosis ICD10 Code Diagnosis Note [id number] [facility] [address] [place] [address] 12/02/2020 00:00:00 12/02/2020 18:41:39 [id number] [facility] [address] [place] [address] 03/10/2021 00:00:00 03/11/2021 10:56:27 [id number] [facility] [place] [address] [place] [address] [address] [place] [address] 05/30/2022 00:00:00 05/30/2022 11:48:22 [id number] [facility] [address], [address] [place] [address] 07/26/2022 00:00:00 08/06/2022 09:08:26 [id number] [facility] [place] [address] [place] [address] [address] [place] [address] 08/01/2022 00:00:00 08/01/2022 16:52:47 [id number] [facility] [address], [address] [place] [address] 08/23/2022 00:00:00 08/27/2022 14:01:22 [id number] GLADYS Marcelo [facility] [place] [address] [place] [address] [address] [place] [address] 09/19/2022 16:28:18 09/20/2022 11:51:30 Itching of right eye 7855577468 3620188 H57.89 Appears to be allergic.W ill do course of prednisone , advised to start using otc allergy drops like pataday.Sh e has appointmen t with eye doctor in 3 weeks. Hyperthyroidism 62928366 E05.90 Needs new referral. [id number] Gloria Paula MD [facility] [place] [address] [facility] [address] [facility] [place] [address] 10/16/2022 16:49:53 10/16/2022 18:02:29 Blepharitis of right eyelid 2260563324 99873 H01.003 baby shampoo dailytriam cinolone bid x 7 dayscall/r eturn if no improvemen t in 1-2 days or sooner if neededrevi ewed s/s that warrant urgent/saadia rgent eval in meantime Health Concerns Section Related Observation LastModified by Organization Detai ls LastModified Time None Recorded Concern Status LastModified by Organization Details LastModified Time None Recorded Advance Directives Directive None Recorded Payers Encounter Date Sequence Insurance Name Policy Number Policy Valenzuela Covered Member ID Valenzuela Member ID Guarantor Name 09/19/2022 1 [facility] [id number] [facility] [id number] 02 [facility] 10/16/2022 1 [facility] [id number] [facility] [id number] 02 [facility] Notes Date Note Type Note Provider Name and Address Organization Details Recorded Time 09/19/2022 text/html Pt. here with complaints of itching of her right eye. She has had this problem previously and it went away with medications but then came back again. GLADYS Marcelo [address] [address], [place], [address], [employer] 09/19/2022 17:10:38 10/16/2022 text/html irritation right upper eyelid, no pain in eyes, no visual disturbance, no drainage. No new lotions/soaps/prod ucts. Gloria Paula MD [address], [facility] [address], [place], [address], [employer] 10/19/2022 08:17:24 OBGyn Episode No OBEpisode recorded.
--- OUTSIDE RECORDS SUMMARY | 2024-08-13 08:42 | XMS_ITS | Referral Summary ---
Author Organization [facility] [address] Address [address] [place] [address] Care Team Providers Care Radarman Name Role Phone Gloria Paula MD Primary [...] 05/01/2021 Assessment & Plan (07/24/2022 4:27 PM [employer]): Off MMI Follow up thyroid function tests Assessment & Plan (01/30/2022 4:39 PM CDT): Off MMI Follow up thyroid function tests Excessive daytime sleepiness 10/14/2020 Hypersomnolence 10/14/2020 Witnessed episode of apnea 10/14/2020 Right ventricular enlargement 12/22/2019 Lipid screening 12/22/2019 SVT (supraventricular tachycardia) 09/04/2017 Pulmonary HTN 09/04/2017 Non-rheumatic mitral regurgitation 09/04/2017 Hypokalemia 09/04/2017 Hyperthyroidism 11/09/2016 Assessment & Plan (08/01/2021 3:52 PM [employer]OR): Continue MMI on hold Will check thyroid [...] file Insurance CIGNA CIGNA CIGNA Care Teams Radarman Relationship Specialty Start Date End Date Gloria Paula MD [address] [place] [address] DR [place] [address] [place] [phone] PCP - General Family Medicine 12/04/19
--- OUTSIDE RECORDS SUMMARY | 2024-08-13 08:43 | XMS_ITS | Data Portability ---
Author Organization [facility] [place] Address [address] [place] [address] [place] [address] Assessment Encounter Date Assessment Date Assessment LastModified [...] a year unless there are new symptoms. glenn Not available 12/04/2023 17:04:11 Plan of Treatment Reminders Order Date Submit Date Provider Last Modified By Organization Details Last Modified Time Details Appointments None recorded. Lab None recorded. Referral None recorded. Procedures None recorded. Surgeries None recorded. Imaging US, pelvis, complete 2022 023 [email or web address] 1 [place], [address], [place], [address], 15:49:26 US, pelvis 2022 023 [email or web address] [place], [place], [address], 3 22:15:26 US, transvagina l 2022 023 [email or web address] , [address], [address], [place], [address], 3 22:15:26 US, breast, unilateral - right breast lump, around 9 oclock 2023 024 [facility], [address], [address], [place], [address], 4 05:01:27 MAMMO, diagnostic, unilateral 2023 024 [facility], [address], [address], [place], [address], 4 05:01:27 Medication Orders None recorded. Patient [...] CASE REPOR T: Cytol ogy Gynec ologi rajinder Repor t Case: [id number] Autho mookie galdamez Provi pavithra: Jeanette Potter, LOW Colle cted: 11/16 1643 Order ing Locat ion: [place] Path[facility] log[facility] Recei catrachita: 11/17 0252 First Scree n: Anselmo rLor ica Rescr een: Ivonnea mpaabhay ak, [place] ay, CT Speci men: Scree bijan Pap - Image d, Cervi x STATE MENT OF ADEQU ACY: Satis facto ry for evalu ation Trans forma tion zone compo nent prese nt FINAL DIAGN OSIS: Negat raj for Intra epith elial Lesio n or Gamal eugene (NIL) . Funga l organ isms morph ologi hanny consi stent with Nupur da spp. Elect sandra geraldjack yogi d by Chester jones, Dexter boss, CT on 023 at [...] Thinp rep Imagi ng Syste m. CLINI RAJINDER INFOR MATIO N: Menst rual Statu s: LMP (if appli cable ): Clini rajinder Histo ry/Pr eviou s Pap: Type of Neopl mirtha (if appli cable ): Signi fican t Clini rajinder Findi ngs: Other Histo ry: Hormo yolanda [...] ng do not corre late with physi rajinder and/o r histo rical findi ngs, furth er inves tigat ion is recom ellen d, as clini hanny marte nted. Not Available [facility] (Lab) [address], [place], [address], 11/21/2022 12:54:52 12/04/19 24 12/04/2023 IMAGE GUIDE D PAP AND HPV REGAR DLESS image guided Pap, HPV regardless of Pap result SEE RESULT S BELOW CASE REPOR T: Cytol ogy Gynec ologi rajinder Repor t Case: [id number] Autho mookie g Provi pavithra: Amalia Swartz, LOW Colle cted: [...] or Gamal eugene (NIL) . Elect sandra esquivel yogi d by Jeny Blake , CT on 2023 at 8:03 AM ----- ----- [...] Thinp rep Imagi ng Syste m. CLINI RAJINDER INFOR MATIO N: Menst rual Statu s: LMP (if appli cable ): Clini rajinder Histo ry/Pr eviou s Pap: Type of Neopl mirtha (if appli cable ): Signi fican t Clini rajinder Findi ngs: Other Histo ry: Hormo yolanda [...] ng do not corre late with physi rajinder and/o r histo rical findi ngs, furth er inves tigat ion is recom ellen d, as santoi hanny marte nted. Not Available [facility] (Lab) [address], [place], [address], 12/11/2023 09:09:20 08/31/19 22 08/31/2021 US, pelvi s No observ ation record ed. [email or web address] [place] [address], [place], [address], 08/31/2021 21:29:55 08/31/19 22 08/31/2021 US, pelvi s No observ ation record ed. [email or web address] [place] [address], [place], [address], 08/31/2021 17:54:54 08/31/19 22 08/31/2021 US, trans vagin al No observ ation record ed. [email or web address] [place] [address], [place], [address], 08/31/2021 17:55:04 11/21/19 23 11/20/2022 US, pelvi s No observ ation record ed. [email or web address] [place] [address], [place], [address], 11/20/2022 18:18:03 11/21/19 23 11/20/2022 US, trans vagin al No observ ation record ed. [email or web address] [place] [address], [place], [address], 11/20/2022 18:17:53 11/21/19 23 11/20/2022 US, pelvi s No observ ation record ed. [email or web address] [address], [place], [address], 11/22/2022 10:38:10 Result Notes None recorded. Problems Name Problem SNOMED Code Status Onset Date Resolution Date Notes Provider Name and Address Organization Details Recorded Time Gestatio n period, 34 weeks [id number] Completed 201611/09/2020 34 weeks gestatio n of pregnanc y;Record ed Elsewher e: No Locat ion: Danielle jimmy [facility] S ource: EHR Rewinder abbie: N Carmelitati ce ID: 0001 Roland lable Time: 10:30:00 AM [facility] 16:30:26 Complica tion of pregnanc y, childbir th and/or puerperi um [id number] Completed 201601/25/2021 Oth diseases and conditio ns compl preg/chl dbrth;Re corded Elsewher e: No Locat ion: [facility] S ource: EHR Rewinder abbie: N Carmelitati ce ID: 0001 Roland lable Time: 09:00:00 AM Ame Sanchez [facility] 15:39:27 Placenta previa [id number] Completed 201611/09/2020 Placenta previa specifie d as w/o hemor, second trimeste r;Record ed Elsewher e: No Locat ion: [facility] S ource: EHR Rewinder abbie: N Carmelitati ce ID: 0001 Roland lable Time: 11:30:00 AM Ame Sanchez [facility] 16:30:36 Gestatio n period, 24 weeks [id number] Completed 201611/09/2020 24 weeks gestatio n of pregnanc y;Record ed Elsewher e: No Locat ion: [facility] S ource: EHR Rewinder abbie: N Carmelitati ce ID: 0001 Roland lable Time: 10:00:00 AM [facility] 16:30:23 Gestatio n period, 17 weeks 37185801 Completed 201611/09/2020 17 weeks gestatio n of pregnanc y;Record ed Elsewher e: No Locat ion: [facility] S ource: EHR Rewinder abbie: N Practi ce ID: 0001 Roland lable Time: 09:00:00 AM Ame balderas [facility] 1 16:30:[address] Concept Completed 201611/09/2020 Maternal care for oth abnormal ity and damage, unsp;Rec orded Elsewher e: No Locat ion: [facility] S ource: EHR Rewinder abbie: N Practi ce ID: 0001 Roland lable Time: 10:30:00 AM Ame Sanchez [facility] 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 1 16:30:31 Gestatio n period, 28 weeks [id number] Completed 201611/09/2020 28 weeks gestatio n of pregnanc y;Record ed Elsewher e: No Locat ion: [facility] S ource: EHR Rewinder abbie: N Practi ce ID: 0001 Roland lable Time: 10:30:00 AM Ame Sanchez [facility] 1 16:30:25 Depressi ve disorder 52454786 Active 2016 Depressi on NOS;Fahad rded Elsewher e: No Locat ion: Sharlenesamir jimmy [facility] S ource: EHR Rewinder abbie: N Amira ce ID: 0001 Roland lable Time: 10:30:00 AM Not Available [facility] 0 17:20:11 Normal pregnanc y in multigra prabha [id number] 4106 Completed 201611/09/2020 Encounte r for suprvsn of normal pregnanc y, second trimeste r;Record ed Elsewher e: No [facility]: EHR Rewinder abbie: N Carmelitati ce ID: 0001 Roland lable Time: 10:15:00 AM [facility] 1 16:30:39 Single liveborn born in hospital by section [id number] Completed 201611/09/2020 Single liveborn infant delivere d by c section; Recorded Elsewher e: No Locat ion: [facility] S ource: EHR Rewinder abbie: N Amira ce ID: 0001 Roland lable Time: 09:30:00 AM [facility] [address] 16:30:[address] Concept Completed 201711/09/2020 Encntr for general adult medical exam w/o abnormal findings ;Recorde d Elsewher e: No [facility] S ource: EHR Rewinder abbie: N Amira ce ID: 0001 Roland lable Time: 11:30:00 AM [facility] 1 16:30:[address] Concept Completed 201911/09/2020 Encntr for auxiliary engineer exam (general ) (routine ) w/o abn findings ;Recorde d Elsewher e: No [facility] S ource: EHR Rewinder abbie: N Carmelitati ce ID: 0001 Roland lable Time: 02:15:00 PM [facility] 1 16:31:03 Uterine size for dates discrepa ncy Completed 201601/25/2021 Uterine size-janneth e discrepdeion gonsalves, trimeste r;Record ed Elsewher e: No Locat ion: [facility] S ource: EHR Rewinder abbie: N Practi ce ID: 0001 Roland lable Time: 01:00:00 PM Ame balderas [facility] 15:39:23 Antenata l care: multipar ous, older than 35 years 903696367 Completed 201601/25/2021 Supervis ion of elderly multigra prabha, trimeste r;Record ed Elsewher e: No Locat ion: [facility] S ource: EHR Rewinder abbie: N Practi ce ID: 0001 Roland lable Time: 10:30:00 AM Ame balderas [facility] 15:39:18 Gestatio n period, 12 weeks [id number] Completed 201611/09/2020 12 weeks gestatio n of pregnanc y;Record ed Elsewher e: No Locat ion: [facility] S ource: EHR Rewinder abbie: N Practi ce ID: 0001 Roland lable Time: 10:00:00 AM Ame balderas [facility] 16:30:16 Pregnanc y detectio n examinat ion Completed 201611/09/2020 Encounte r for pregnanc y test, result positive ;Practic e ID: 0001 Ame balderas [facility] 16:30:42 Gestatio n period, 20 weeks 31280263 Completed 201611/09/2020 20 weeks gestatio n of pregnanc y;Practi ce ID: 0001 Ame balderas [facility] 16:30:21 Steriliz ation procedur e Active 2016 Encounte r for steriliz ation;Pr actice ID: 0001 Not Available [facility] 0 17:20:16 Single live [id number] Completed 201611/09/2020 Single live ;Pr actice ID: 0001 Ame balderas [facility] 16:30:48 Gestatio n period, 38 weeks 17883687 Completed 201611/09/2020 38 weeks gestatio n of pregnanc y;Practi ce ID: 0001 Ame baledras [facility] 16:30:[address] Concept Completed 201911/09/2020 Encntr for routine child health exam w/o abnormal findings ;Recorde d Elsewher e: No Locat ion: Viviana marquez [facility] S ource: EHR Rewinder abbie: N Practi ce ID: 0001 Roland lable Time: 02:15:00 PM Ame balderas [facility] 16:31:01 Problem Notes None recorded. Procedures Surgical History Date Name Laterality Status Provider Name and Address Organization Details Recorded Time 11/20/19 24 Date of Last Mammogram completed Ale Perez [facility] 12/04/2023 17:06:27 11/10/19 21 IUD Insertion completed Renard Ryan MD [address], [place], [address], [facility] 11/09/2020 16:57:21 05/29/20 17 section completed Katharina Blandon [facility] 04/02/2020 09:57:23 05/22/20 17 Tubal Ligation completed Katharina Blandon [facility] 04/02/2020 09:57:33 07/22/18 93 Appendectomy completed Katharina Blandon [facility] 11/20/2022 16:13:08 Imaging Results Imaging Date Name Status LastModified by Organization Details LastModified Time 08/31/2021 US, pelvis completed [email or web address] [place] [address], [place], [address], 08/31/2021 21:29:55 08/31/2021 US, pelvis completed [email or web address] [place] [address], [place], [address], 08/31/2021 17:54:54 08/31/2021 US, transvaginal completed [email or web address] [place] [address], [place], [address], 08/31/2021 17:55:04 11/20/2022 US, pelvis completed [email or web address] [place] [address], [place], [address], 11/20/2022 18:18:03 11/20/2022 US, transvaginal completed [email or web address] [place] [address], [place], [address], 11/20/2022 18:17:53 11/20/2022 US, pelvis completed [email or web address] [address], [place], [address], 11/22/2022 10:38:10 Procedure Notes None recorded. Medical [...] ed Elsewher e: Yes Loca tion: [facility] odify By: kyle grajeda DateTime : 10/30/19 09:45:00 AM Not Available Not Available Not [...] ed Elsewher e: No [facility]ify By: justin cannonuntjoana DateTime : 12/05/19 10:30:00 AM Not Available Not Available Not [...] Not Available Not Available No t Available [place] 5 mg-325 mg tablet take 1 tablet by oral route every 6 hours as needed for pain 07/04 completed Prescrib ed Elsewher e: No Locat ion: [facility] odify By: [email or web address] E ncounter DateTime : 06/06/20 17 09:30:00 AM Not [...] Updated DateTime 09/08/2021 154.94 cm 22.9 kg/m2 53928.68 g 107 mm[Hg] 68 mm[Hg] Ame Sanchez [facility] 2 17:08:49 Date Recorded Body height Body mass index (BMI) Body weight Systolic blood pressure Diastolic blood pressure Provider Name and Address Organization Details Last Updated DateTime 11/16/2022 154.94 cm 21 kg/m2 19620.75 g 110 mm[Hg] 60 mm[Hg] Katharina Blandon [facility] 3 16:38:50 Date Recorded Body height Body mass index (BMI) Body weight Systolic blood pressure Diastolic blood pressure Provider Name and Address Organization Details Last Updated DateTime 12/05/2022 154.94 cm 21.7 kg/m2 24540.12 g 95 mm[Hg] 60 mm[Hg] Ame Sanchez [facility] 3 15:37:46 Date Recorded Body height Body mass index (BMI) Body weight Systolic blood pressure Diastolic blood pressure Provider Name and Address Organization Details Last Updated DateTime 12/04/2023 154.94 cm 19.5 kg/m2 23861.01 g 103 mm[Hg] 67 mm[Hg] Ale Perez [facility] 4 17:06:18 Social History Question Answer Notes LastModified by Organizat ion Details LastModified Time Tobacco Smoking Status Former Smoker Alhaji Mauro andrey, [facility] 11/16/2022 16:02:54 Do You Have An Advance Directive? No Information not available 11/09/2020 What Is Your Level Of Alcohol Consumption? Occasional [email or web address] Information not available 04/02/2020 Are You Blind [...] E-cigarettes Or Vape? Never Used Electronic Cigarettes [email or web address] Information not available 11/16/2022 What Is The Highest Grade Or Level Of School You Have Completed Or The Highest Degree You Have Received? 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 Yes Information not available 11/09/2020 What Was The Date Of Your Most Recent Tobacco Screening? 04/02/2020 [email or web address] Information not available 11/16/2022 Do You Use Protection During Sex? No Information not available 11/09/2020 Do You Use Your Seat Belt Or Car Seat Routinely? Yes Information not available 11/09/2020 Do You Have Smoke And Carbon Monoxide Detectors In Your Home? Yes Information not available 11/09/2020 Do You Or Have You Ever Used Smokeless Tobacco? Never Used Smokeless Tobacco Information not available 11/16/2022 How Much Tobacco Do You Smoke? No [email or web address] Information not available 04/02/2020 Do You Feel Stressed (tense, Restless, Nervous, Or Anxious, Or Unable To Sleep At Night)? [id number] Information not available 11/09/2020 Do You Use [...] 11/09/2020 What is your exercise level? Occasional [email or web address] Information not available 04/02/2020 Mental Status None recorded. Family History Relationship Description Onset Age of this Age Resolved Age Notes LastModified by Organization Details LastModified Time Mother Diabetes mellitus [email or web address] Not available 11/16 16:39:24 Notes:No family history of C ancer, cervical Medical History Condition Response Allergies (Food, seasonal, environmental ) N Other N Breast Cancer N Drug/Latex Allergies/Reactions N Blood Transfusion N Dermatologic Disorders N Lung Disease N Defects or Inherited Disease N Breast Problem N Gestational Diabetes N Hematologic disorders N Anesthesia Complications N History of STI N Deep Vein Thrombosis N Polycystic ovary syndrome N Anxiety Disorder N Autoimmune disease N Arthritis N Infertility N Polyps N Acid Reflux (GERD) N History of abnormal pap N Cancer N Stroke N Varicosities N Neurologic/Epilepsy N Endometriosis N High Cholesterol N Headaches N Fibromyalgia N Kidney Disease N Heart Problems N Kidney or Bladder Problems N Thyroid Problems Y GI Problems N Eating Disorder N Anemia [...] SNOMED-CT Code Diagnosis ICD10 Code Diagnosis Note [id number] Cammy Prasad [facility] [address] [address] 04/02/2020 09:38:43 04/02/2020 10:23:51 Abnormal uterine bleeding [id number] 9100 N93.9 AUB that has happened over the last 2mos. We agreed to start with TVUS & Vag cx's based on exam today. We will consider labs moving forward if needed. Continue to keep menstrual diary log. Patient is to contact office or go to nearest ED/Urgent care if fever >/= 100.1, pain, excessive bleeding, unusual drainage or swelling in area of concern; or experienci ng worsening sx's or new onset of concerning sx's. Understand ing verbalized . All questions answered to patient satisfacti on. Time spent in visit is a total of 18 mins with at least 50% of visit consisting of counseling and review of plan of care. [id number] [facility] [address],[place] [address] 04/29/2020 14:43:43 04/29/2020 15:34:51 Abnormal uterine bleeding 2786485681 9100 N93.9 [id number] Cammy Prasad [facility] [address],[place] [address] 04/29/2020 14:44:18 04/29/2020 16:33:18 Cyst of left ovary [id number] 3343913 N83.202 TVUS reviewed with patient Left OV contains 4.0 x 4.1 x 4.1cm anechoic cyst. No free fluid. She is still having some AUB but it is not daily, vp care management like spotting & she has no pain. We reviewed options of MD consult for removal or monitor with r/p TVUS x 6wks. She opts to r/p TVUS in 6wks. She is aware to call with any significan t change in her status & we reviewed risks of ovarian torsion & excessive AUB with need to go to ED if pain level reaches significan t levels. She verbalizes understand ing. Time spent in visit is a total of 15 mins with at least 50% of visit consisting of counseling and review of plan of care. [id number] [facility] [address],[place] [address] 06/10/2020 14:41:56 06/10/2020 15:47:03 Cyst of left ovary [id number] 3066188 N83.292 [id number] Cammy Prasad [facility] [address],[place] [address] 06/10/2020 14:42:37 06/10/2020 15:47:18 Abnormal uterine bleeding 3276580091 9100 N93.9 N83.202 TVUS reviewed. Left OV still contains anechoic cyst now measuring 3.5cm x 3.8cm x 3.5cm (previousl y 4.0cm x 4.1 x 4cm). She is still symptomati c more so with AUB vs significan t pain. Considerin g still sx's & very little decrease in size of cyst we agreed on MD consult. Patient is to contact office or go to nearest ED/Urgent care if fever >/= 100.1, pain, excessive bleeding, unusual drainage or swelling in area of concern; or experienci ng worsening sx's or new onset of concerning sx's. Understand ing verbalized . All questions answered to patient satisfacti on. Time spent in visit is a total of 15 mins with at least 50% of visit consisting of counseling and review of plan of care. [id number] Renard Ryan MD [place] [address] [address] 06/24/2020 15:54:57 06/24/2020 17:18:22 Cyst of ovary 70055975 N83.209 Mid-cycle bleeding 04405 0006 N92.1 This patient is a 39-year-ol d female who presents for follow-up on ovarian cyst. She has a 4 cm ovarian cyst on ultrasound . We reviewed it together. It is a simple cyst. We considered observatio n or treatment. We agreed to observe. We spent 25 minutes face-to-fa ce talking about ovarian cyst. We also talked about intermenst rual bleeding. She has old blood that she has every day from the vagina in between regular periods with pre menses type symptoms prior to her regular periods we agreed to consider Evangelina and Mirena. she has a worrisome cardiac status. Estring containing methods of controllin g bleeding are not advisable. She also has a tubal ligation. She will follow up in 6 weeks with ultrasound and to discuss treatment options for intermenst rual bleeding. [id number] Isela Bowman [place] [address] [address] 10/14/2020 13:32:29 10/14/2020 14:44:00 Cyst of left ovary [id number] 9997666 N83.292 [id number] Renard Ryan MD [place] [address] [address] 10/14/2020 13:32:55 10/14/2020 15:20:30 Abnormal uterine bleeding 1317450024 9100 N93.9 This patient is a 40-year-ol d female with ovarian cyst and abnormal uterine bleeding. We have not fully evaluated her abnormal uterine bleeding. She appears to have bleeding about every 2 weeks. She she has No premenstru al symptoms. We agreed to obtain laboratory evaluation . We also agreed to treat her abnormal uterine bleeding protect her endometriu m with a Mirena IUD. We discussed the follow-up ultrasound for her cyst. We reviewed her ultrasound results and we agreed to follow-up in several months for the ovarian cyst. She will return for IUD insertion discussion of abnormal bleeding labs. Additional precaution christina measures were taken to minimize potential exposure to the Covid-19 virus during this patient? s visit, including available hand dental secretary upon arrive, temperatur e check and being asked a series of screening questions. All staff wore face coverings during this encounter, as well as provided additional cleaning and sanitizing of all surfaces, including countertop s, pens, chairs, door handles, light switches, etc, prior to and following the patient? s visit. [id number] Renard Ryan MD [place] [address] [address] 01/25/2021 14:59:37 01/25/2021 17:04:57 Cyst of ovary 11648312 N83.209 This patient is a 40-year-ol d female with pelvic pain and ovarian cyst. She presents for follow-up. Her original cyst is slightly smaller but she has a new 4.5 cm cyst on the contralate ral ovary. This is the right side. She has some intermitte nt sharp intense pain that lasts very briefly. Spent a considerab le amount of time more than 30 minutes discussing her treatment options, reviewing the ultrasound results, talking about ovarian torsion, talking about prevention of ovarian cyst, normal ovarian physiology . We agreed ultimately to observe her ovarian cyst repeat ultrasound in 2 months. [id number] Renard Ryan MD [place] [address] [address] 11/09/2020 16:21:25 11/09/2020 17:12:23 Screening procedure [id number] Z13.9 [facility] [id number] Z30.9 IUD was inserted without complicati ons. She tolerated the procedure well. [id number] Renard Ryan MD [place] [address],[place] [address] 12/02/2020 15:57:16 12/05/2020 14:48:23 Contraception care management [id number] Z30.9 ? t his patient is a 40-year-ol d female with recent IUD insertion. She is here for follow-up and has cramping and some intermitte nt bleeding. The cervix was examined. The IUD string could not be visualized . There was concern about placed from the IUD. We will obtain a pelvic ultrasound . She returned pelvic ultrasound discuss results and consider options. [id number] [facility] [address],[place] [address] 01/25/2021 14:57:54 01/25/2021 15:42:36 Cyst of left ovary [id number] N83.292 N83.291 [id number] [facility] [address],[place] [address] 03/29/2021 16:50:58 03/29/2021 18:21:57 Cyst of right ovary [id number] N83.291 N83.292 [id number] Renard Ryan MD [place] [address],[place] [address] 03/31/2021 16:17:05 03/31/2021 16:53:07 Cyst of ovary [id number] N83.209 Menorrhagia [id number] N9 2.0 Abnormal u terine bleeding [id number] 9100 N93.9 This patient is a 40-year-ol d female presents for follow-up on ultrasound results. Patient was known to have a complex cyst. Was likely hemorrhagi c. We reviewed her ultrasound results. The cyst is slightly smaller. It still appears to contain echoes /Blood. We discussed those findings in detail. We reviewed images together. We spent over 25 minutes face-to-fa ce. Talked about her abnormal bleeding. An IUD was placed a few months back. She continues to have abnormal uterine bleeding. Her bleeding without the IUD was very heavy. Now it is irregular. She has history of severe menorrhagi a. She has accidents. She has blood on her bedding and clothing. It affects her quality of life. Talked about treatment today. We talked about observatio n. Treatment options we considered are endometria l ablation with removal the IUD. Talked about we talked about diagnostic laparoscop y and ovarian cystectomy along with ablation. Talked about total laparoscop ic hysterecto my. Ultimately we agreed to observe, she would talk with her family, and she would take a pack of control pills to try to correct the bleeding. She will follow up shortly. [id number] [facility] [address],[place] [address] 06/22/2021 16:52:14 06/23/2021 09:10:14 Cyst of left ovary [id number] N83.292 [id number] Renard Ryan MD [place] [address],[place] [address] 06/30/2021 16:20:05 07/03/2021 18:32:26 Cyst of ovary [id number] N83.209 this patient is a 40-year-ol d female presents for follow-up on ovarian cyst and menorrhagi a. We have been following a left ovarian cyst with serial ultrasound . The ovarian cyst is slightly larger than the previous ultrasound . We sought gross smaller on 2 other interval ultrasound s. It is still complex. There appears to be some blood or debris within the cyst capsule. Talked about the significan ce of this. Talked about a CA 125 minutes significan ce. Talked about continued follow-up. We talked about surgical remediatio n. Patient also has severe menorrhagi a. We talked about treatments . Patient has failed other medical treatments . We reviewed endometria l ablation again. We talked about different surgical scenarios where the procedure was done in the office or done in the hospital in conjunctio n with the ovarian cystectomy . We spent over 35 minutes face-to-fa ce. The patient is going to consider treatment. She is going to have a follow-up ultrasound in 3 months. We intend to either perform endometria l ablation in the office or perform endometria l ablation and ovarian cystectomy in the hospital. At this time our plan is to have another 3 month follow-up appointmen t And to obtain CA 125. [id number] Renard Ryan MD [place] [address],[place] [address] 09/08/2021 16:45:30 09/09/2021 09:10:01 Cyst of ovary [id number] N83.209 this patient is a 41-year-ol d female presents for follow-up on pelvic ultrasound . Reviewed the results today. We have been following cysts on this patient's ovaries for some time. Previously seen cysts of either resolved or or smaller. Everything was benign at this time. Recent CA 125 was normal. We have agreed to follow-up as needed for symptoms. [id number] Rosalind [place] [address],[place] [address] 08/31/2021 17:33:41 08/31/2021 18:01:48 Cyst of ovary [id number] N83.209 this patient is a 40-year-ol d female presents for follow-up on ovarian cyst and menorrhagi a. We have been following a left ovarian cyst with serial ultrasound . The ovarian cyst is slightly larger than the previous ultrasound . We sought gross smaller on 2 other interval ultrasound s. It is still complex. There appears to be some blood or debris within the cyst capsule. Talked about the significan ce of this. Talked about a CA 125 minutes significan ce. Talked about continued follow-up. We talked about surgical remediatio n. Patient also has severe menorrhagi a. We talked about treatments . Patient has failed other medical treatments . We reviewed endometria l ablation again. We talked about different surgical scenarios where the procedure was done in the office or done in the hospital in conjunctio n with the ovarian cystectomy . We spent over 35 minutes face-to-fa ce. The patient is going to consider treatment. She is going to have a follow-up ultrasound in 3 months. We intend to either perform endometria l ablation in the office or perform endometria l ablation and ovarian cystectomy in the hospital. At this time our plan is to have another 3 month follow-up appointmen t And to obtain CA 125. [id number] Jeanette Lundberg CNM [place] [address],[place] [address] 11/16/2022 16:02:14 11/16/2022 17:31:50 Gynecologic examination [id number] Z01.419 hx cysts tenderness on right will call with results [id number] Amalia SkipgeraD[facility]AS [place] [address],[facility] [place] [address] 12/04/2023 16:59:13 12/05/2023 07:24:21 Gynecologic examination [id number] Z01.419 WWEpap updateddec lined STI screendisc ussed/enco uraged colon CA screeningU TD with PCP Suggested Calcium with Vitamin D daily. Patient advised to get an annual flu shot in the fall and she could obtain at [facility] or [facility] clinic. Also to obtain TDap vaccinatio n if you have not had one in the last 10 years. Recommend yearly mammograms . Encouraged monthly self breast exams. Encourage safe sexual practices, to use condoms and limit partners if not already in a monogamous relationsh ip. Engage in regular exercise. Avoid tobacco and illicit drugs. This lifestyle behavior pattern will lead to less health conditions and longer life span. If BMI greater than 25 dietary consult advised. All questions have been answered. Patient appears to understand informatio n, but if you have any questions please call or respond to this email. Breast lump [id number] N63 .0 right breast lump, recommende d diagnostic right mammogram with u/srecent bilateral screening mammogram done 11/20/2023 [id number] Rosalind Heaton [place] [address] [address] 11/20/2022 17:28:11 11/20/2022 18:12:09 Pain in pelvis [id number] R10.2 [id number] Renard Ryan MD [place] [address],[place] [address] 12/05/2022 15:30:17 12/05/2022 16:22:59 Cyst of ovary [id number] N83.209 This patient is a 42-year-ol d female presents for follow-up on ultrasound results. We reviewed her ultrasound . We shared some images. She has a prominent ovarian follicle. She has not needed any treatment, follow-up, observatio n. We talked about her irregular bleeding. She has Mirena IUD. She does seem to have some premenstru al symptoms in her rhythmic way and has some intermitte nt bleeding at the time of her regular menses. She will follow-up as needed. Health Concerns Section Related Observation LastModified by Organization Detai ls LastModified Time None Recorded Concern Status LastModified by Organization Details LastModified Time None Recorded Advance Directives Directive N: Payers Encounter Date Sequence Insurance Name Policy Number Policy Valenzuela Covered Member ID Valenzuela Member ID Guarantor Name 09/08/2021 1 [employer] (PP[employer]) [id number] Roney Astudillomer [id number] 2 Mananchaya Ryan 11/16/2022 1 [employer] [id number] Roney Astudillomer [id number] 2 Mananchaya Ryan 11/20/2022 1 [employer]) [id number] Roney Astudillomer [id number] 2 Mananchaya Ryan 12/05/2022 1 [employer]) [id number] Roney Astudillomer [id number] 2 Mananchaya Ryan 12/04/2023 1 [employer]PP[employer]) [id number] Roney Ryan [id number] 2 Mananchaya Ryan Notes Date Note Type Note Provider [...] needed for symptoms. Renard Ryan MD [address], [place], [address], [place] [facility] 09/08/2021 21:36:57 11/16/2022 text/html Annual GYNReport [...] needs mammogram order Jeanette Lundberg CNM [address], [place], [address], [facility] 11/16/2022 17:31:36 12/05/2022 text/html [...] follow-up as needed. Renard Ryan MD [address], [place], [address], [facility] 12/05/2022 16:10:36 12/04/2023 text/html [...] use; Encourage regular mammograms starting age 38Notes:43yo [id number] pap 10/2022 : nilm, HPV (+)no h/o abnormal paps prior to this BC : BTLmirena IUD, inserted 11/09/2020very happy with IUD and desires to continue this method mammogram UTD, 11/2023noticed a right breast lump a few weeks ago after she had her mammogram doneno colon CA screening done yet [facility] [address], [place], [address], [place] [facility] 12/04/2023 17:36:14 OBGyn Episode Ob Episode Information Episode Created Date Number of Fetuses Patient Bloodtype Patient rh Status Prepregnancy Weight lbs Domestic Partner Domestic Partner Phone Father Name Hand Cell Tuber Status 04/02/20 20 1 CLOSED Fetus Data First Name Last Name Admitted to NICU Weight (g) Sex Living Outcome Pediatric Complications Fetus ID Race Codes Race Delivery Type 2721.55 2 M Full Term 4462 Vaginal Delivery William Calculation Initial William Date Initial Exam Date Initial Exam Provider Initial Ultrasound Date Last Menstrual Period Date Ultra Sound Weeks Gestation 0 Eighteen To Twenty Week William Update Ultra Sound Date Fundal Height At Umbil Quickening Date Ultra Sound Latest Weeks Gestation Final William Confirmed By Final William Confirmed Date Final William Date Ultra Sound Latest Days Gestation 0 [...] Domestic Partner Domestic Partner Phone Father Name Hand Cell Tuber Status 04/02/20 20 1 CLOSED Fetus Data First Name Last Name Admitted to NICU Weight (g) Sex Living Outcome Pediatric Complications Fetus ID Race Codes Race Delivery Type 2948.34 8 F Full Term 4461 Primary William Calculation Initial William Date Initial Exam Date Initial Exam Provider Initial Ultrasound Date Last Menstrual Period Date Ultra Sound Weeks Gestation 0 Eighteen To Twenty Week William Update Ultra Sound Date Fundal Height At Umbil Quickening Date Ultra Sound Latest Weeks Gestation Final William Confirmed By Final William Confirmed Date Final William Date Ultra Sound Latest Days Gestation 0 [...]
== END 2024-08-08 09:16 | disposition home or self-care (01) ==
LOC: ANHLAB 09:16
PROVIDERS: PCP Family Medicine; Visit Provider Internal Medicine
DX: E05.00 Thyrotoxicosis with diffuse goiter without thyrotoxic crisis or storm (principal)
CPT/HCPCS: 36415; 84439; 84443; 84480

== ENCOUNTER 2024-08-20 14:51 | Outpatient (CLI) | payer OTHER, SELFPAY ==
--- NOTE | ~2024-08-20 | NM_ITS ---
EXAMINATION: GLADIS jordan renal scan DATE: 08/20/2024 15:56 INDICATION: Abnormal result of kidney function studies TECHNIQUE: 1.7 mCi Tc-99m MAG3 was administered IV. 40 mg furosemide was administered IV immediately afterward. The patient was scanned in the supine position. A posterior abdominal radionuclide angiog opal was obtained. A subsequent time course of static images of the kidneys, ureters, and bladder was obtained. COMPARISON: CT dated 11/12/2023 FINDINGS: The posterior abdominal radionuclide angiogram and sequential static images show normal size, positio n, and morphology of the kidneys. Peak renal parenchymal uptake was 3.4 min in left kidney and 3.4 mi n in right kidney (normal peak 3-5 minutes). The relative early renal uptake was 49% on the left and 51% on the right (<40% is abnormal). No abnormalities of the ureters or bladder are seen. T1/2 for clearance of activity from the left kidney and proximal collecting system was 5 minutes. T1/2 for clearance of activity from the right kidney and proximal collecting system was 6 minutes. Notes on interpretation: T1/2 <10 minutes is normal, 10-15 minutes is low grade obstruction of questi onable clinical significance, 15-20 minutes is partial obstruction that is likely clinically signific ant, >20 minutes is high grade obstruction. Note that false positives may be seen with supine positio bijan, dehydration, severely dilated nonobstructed kidney, atonic collecting system, poor renal functi on, and chronic furosemide use. IMPRESSION: 1. Symmetric kidney function. 2. No delay in activity clearance from either kidney to suggest fixed obstruction. Reviewed, dictated and finalized at location B. ROAD COMMISSIONER IMPRESSION: 1. Symmetric kidney function. 2. No delay in activity clearance from either kidney to suggest fixed obstruct ion.
--- OUTSIDE RECORDS SUMMARY | 2024-08-20 15:28 | XMS_ITS | Referral Summary ---
Author Organization [facility] [address] Address [address] [place] [address] Care Team Providers Care Inter Com Installer Name Role Phone Gloria Paula MD Primary [...] Assessment & Plan (07/24/2022 4:27 PM ASSOCIATE PATHOLOGIST): Off MMI Follow up thyroid function tests Assessment & Plan (01/30/2022 4:39 PM CDT): Off MMI Follow up thyroid function tests Excessive daytime sleepiness 10/14/2020 Hypersomnolence 10/14/2020 Witnessed episode of apnea 10/14/2020 Right ventricular enlargement 12/22/2019 Lipid screening 12/22/2019 SVT (supraventricular tachycardia) 09/04/2017 Pulmonary HTN 09/04/2017 Non-rheumatic mitral regurgitation 09/04/2017 Hypokalemia 09/04/2017 Hyperthyroidism 11/09/2016 Assessment & Plan (08/01/2021 3:52 PM ASSOCIATE PATHOLOGIST): Continue MMI on hold Will check thyroid [...] file Insurance CIGNA CIGNA CIGNA Care Teams Inter Com Installer Relationship Specialty Start Date End Date Gloria Paula MD [address] [place] [address] [address] [place] [phone] PCP - General Family Medicine 12/04/19
--- OUTSIDE RECORDS SUMMARY | 2024-08-20 15:29 | XMS_ITS | Clinical Summary ---
Author Organization [facility] [address] Address [address] [place] [address] Care Team Providers Care Med Spa Manager Name Role Phone Gloria Paula MD [...] 05/01/2021 Assessment & Plan (07/24/2022 4:27 PM CONCESSIONS MANAGER): Off MMI Follow up thyroid function tests Assessment & Plan (01/30/2022 4:39 PM CDT): Off MMI Follow up thyroid function tests Excessive daytime sleepiness 10/14/2020 Hypersomnolence 10/14/2020 Witnessed episode of apnea 10/14/2020 Right ventricular enlargement 12/22/2019 Lipid screening 12/22/2019 SVT (supraventricular tachycardia) 09/04/2017 Pulmonary HTN 09/04/2017 Non-rheumatic mitral regurgitation 09/04/2017 Hypokalemia 09/04/2017 Hyperthyroidism 11/09/2016 Assessment & Plan (08/01/2021 3:52 PM CONCESSIONS MANAGER): Continue MMI on hold Will check thyroid [...] topic Insurance CIGNA CIGNA CIGNA Care Teams Med Spa Manager Relationship Specialty Start Date End Date Gloria Paula MD [address] [place] [address] [place] [id number] PCP - General Family Medicine 12/04/19
--- OUTSIDE RECORDS SUMMARY | 2024-08-20 15:29 | XMS_ITS | Data Portability ---
Author Organization [facility] [place] Address [address] [place] [address] Assessment Encounter Date Assessment Date Assessment LastModified [...] US, pelvis, complete 2022 023 [email or web address] 1 [place], [address], [place], [address], 15:49:26 US, pelvis 2022 023 [email or web address] [place], [address], [place], [address], 3 22:15:26 US, transvagina l 2022 023 [email or web address] , [address], [place], [address], 3 22:15:26 US, breast, unilateral - right breast lump, around 9 oclock 2023 024 [facility], [address], [address], [place], [address], 4 05:01:27 MAMMO, diagnostic, unilateral 2023 024 [facility], [address], [address], [place], [address], 4 05:01:27 Medication Orders None recorded. Patient [...] as clini hanny marte nted. Not Available [facility] (Lab) [address], [place], [address], 11/21/2022 12:54:52 12/04/19 24 12/04/2023 IMAGE GUIDE [...] as santoi hanny marte nted. Not Available [facility] (Lab) [address], [place], [address], 12/11/2023 09:09:20 08/31/19 22 08/31/2021 US, pelvi s No observ ation record ed. [email or web address] [place] [address], [place], [address], 08/31/2021 21:29:55 08/31/19 22 08/31/2021 US, pelvi s No observ ation record ed. [email or web address] [place] [address], [place], [address], 08/31/2021 17:54:54 08/31/19 22 08/31/2021 US, trans vagin al No observ ation record ed. [email or web address] [place] [address], [place], [address], 08/31/2021 17:55:04 11/21/19 23 11/20/2022 US, pelvi s No observ ation record ed. [email or web address] [place] [address], [place], [address], 11/20/2022 18:18:03 11/21/19 23 11/20/2022 US, trans vagin al No observ ation record ed. [email or web address] [place] [address], [place], [address], 11/20/2022 18:17:53 11/21/19 23 11/20/2022 US, pelvi s No observ ation record ed. [email or web address] [address], [place], [address], 11/22/2022 10:38:10 Result Notes None recorded. Problems Name Problem SNOMED Code Status Onset Date Resolution Date Notes Provider Name and Address Organization Details Recorded Time Gestatio n period, 34 weeks [id number] Completed 201611/09/2020 34 weeks gestatio n of pregnanc y;Record ed Elsewher e: No Locat ion: Danielle jimmy [facility] S ource: EHR Supervisor Telephone Clerks abbie: N Carmelitati ce ID: 0001 Roland lable Time: 10:30:00 AM Ame [facility] 16:30:26 Complica tion of pregnanc y, childbir th and/or puerperi um [id number] Completed 201601/25/2021 Oth diseases and conditio ns compl preg/chl dbrth;Re corded Elsewher e: No Locat ion: [facility] S ource: EHR Supervisor Telephone Clerks abbie: N Carmelitati ce ID: 0001 Roland lable Time: 09:00:[address] [facility] 15:39:27 Placenta previa [id number] Completed 201611/09/2020 Placenta previa specifie d as w/o hemor, second trimeste r;Record ed Elsewher e: No Locat ion: [facility] S ource: EHR Supervisor Telephone Clerks abbie: N Carmelitati ce ID: 0001 Roland lable Time: 11:30:[address] [facility] 16:30:36 Gestatio n period, 24 weeks [id number] Completed 201611/09/2020 24 weeks gestatio n of pregnanc y;Record ed Elsewher e: No Locat ion: [facility] S ource: EHR Supervisor Telephone Clerks abbie: N Carmelitati ce ID: 0001 Roland lable Time: 10:00:00 AM Ame [facility] 16:30:23 Gestatio n period, 17 weeks [id number] Completed 201611/09/2020 17 weeks gestatio n of pregnanc y;Record ed Elsewher e: No Locat ion: [facility] S ource: EHR Supervisor Telephone Clerks abbie: N Practi ce ID: 0001 Roland lable Time: 09:00:00 AM Ame balderas [facility] 1 16:30:[address] Concept Completed 201611/09/2020 Maternal care for oth abnormal ity and damage, unsp;Rec orded Elsewher e: No Locat ion: [facility] S ource: EHR Supervisor Telephone Clerks abbie: N Practi ce ID: 0001 Roland lable Time: 10:30:00 AM Ame [facility] 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 ic crisis;R ecorded Elsewher e: No Locat ion: [facility] S ource: EHR Supervisor Telephone Clerks abbie: N Carmelitati ce ID: 0001 Roland lable Time: 10:15:00 AM Not Available [facility] 0 17:20:11 Gestatio n period, 8 weeks 59502086 Completed 201611/09/2020 8 weeks gestatio n of pregnanc y;Record ed Elsewher e: No Locat ion: [facility] S ource: EHR Supervisor Telephone Clerks abbie: N Carmelitati ce ID: 0001 Roland lable Time: 01:00:00 PM Ame [facility] 1 16:30:31 Gestatio n period, 28 weeks [id number] Completed 201611/09/2020 28 weeks gestatio n of pregnanc y;Record ed Elsewher e: No Locat ion: [facility] S ource: EHR Supervisor Telephone Clerks abbie: N Practi ce ID: 0001 Roland lable Time: 10:30:00 AM Ame [facility] 1 16:30:25 Depressi ve disorder 60638869 Active 2016 Depressi on NOS;Fahad rded Elsewher e: No Locat ion: Sharlenesamir jimmy [facility] S ource: EHR Supervisor Telephone Clerks abbie: N Amira ce ID: 0001 Roland lable Time: 10:30:00 AM Not Available [facility] 0 17:20:11 Normal pregnanc y in multigra prabha [id number] 4106 Completed 201611/09/2020 Encounte r for suprvsn of normal pregnanc y, second trimeste r;Record ed Elsewher e: No [facility] Supervisor Telephone Clerks abbie: N Carmelitati ce ID: 0001 Roland lable Time: 10:15:00 AM [facility] 1 16:30:39 Single liveborn born in hospital by section [id number] Completed 201611/09/2020 Single liveborn infant delivere d by c section; Recorded Elsewher e: No Locat ion: [facility] S ource: EHR Supervisor Telephone Clerks abbie: N Amira ce ID: 0001 Roland lable Time: 09:30:00 AM [facility] [address] 16:30:[address] Concept Completed 201711/09/2020 Encntr for general adult medical exam w/o abnormal findings ;Recorde d Elsewher e: No [facility]: EHR Supervisor Telephone Clerks abbie: N Amira ce ID: 0001 Roland lable Time: 11:30:00 AM Ame [facility] [address] 16:30:[address] Concept Completed 201911/09/2020 Encntr for rest room attendant exam (general ) (routine ) w/o abn findings ;Recorde d Elsewher e: No [facility]: [facility] Supervisor Telephone Clerks abbie: N Carmelitati ce ID: 0001 Roland lable Time: 02:15:00 PM [facility] 1 16:31:03 Uterine size for dates discrepa ncy Completed 201601/25/2021 Uterine size-janneth e discrepdeion gonsalves, trimeste r;Record ed Elsewher e: No Locat ion: [facility] S ource: EHR Supervisor Telephone Clerks abbie: N Practi ce ID: 0001 Roland lable Time: 01:00:00 PM Aem balderas [facility] 15:39:23 Antenata l care: multipar ous, older than 35 years 161166126 Completed 201601/25/2021 Supervis ion of elderly multigra prabha, trimeste r;Record ed Elsewher e: No Locat ion: [facility] S ource: EHR Supervisor Telephone Clerks abbie: N Practi ce ID: 0001 Roland lable Time: 10:30:00 AM Ame balderas [facility] 15:39:18 Gestatio n period, 12 weeks 05595479 Completed 201611/09/2020 12 weeks gestatio n of pregnanc y;Record ed Elsewher e: No Locat ion: [facility] S ource: EHR Supervisor Telephone Clerks abbie: N Practi ce ID: 0001 Roland lable Time: 10:00:00 AM Ame balderas [facility] 16:30:16 Pregnanc y detectio n examinat ion Completed 201611/09/2020 Encounte r for pregnanc y test, result positive ;Practic e ID: 0001 Ame balderas [facility] 16:30:42 Gestatio n period, 20 weeks 05661908 Completed 201611/09/2020 20 weeks gestatio n of pregnanc y;Practi ce ID: 0001 Ame balderas [facility] 16:30:21 Steriliz ation procedur e Active 2016 Encounte r for steriliz ation;Pr actice ID: 0001 Not Available [facility] 0 17:20:16 Single live 140817951 Completed 201611/09/2020 Single live ;Pr actice ID: 0001 Ame balderas [facility] 16:30:48 Gestatio n period, 38 weeks [id number] Completed 201611/09/2020 38 weeks gestatio n of pregnanc y;Practi ce ID: 0001 Ame balderas [facility] 16:30:[address] Concept Completed 201911/09/2020 Encntr for routine child health exam w/o abnormal findings ;Recorde d Elsewher e: No Locat ion: Viviana marquez [facility] S ource: EHR Supervisor Telephone Clerks abbie: N Practi ce ID: 0001 Roland lable Time: 02:15:00 PM Ame balderas [facility] 16:31:01 Problem Notes None recorded. Procedures Surgical History Date Name Laterality Status Provider Name and Address Organization Details Recorded Time 11/20/19 24 Date of Last Mammogram completed Ale Perez [facility] 12/04/2023 17:06:27 11/10/19 21 IUD Insertion completed Renard Ryan MD [address], [place], [address], [facility] 11/09/2020 16:57:21 05/29/20 17 section completed Katharina Blandon [facility] 04/02/2020 09:57:23 05/22/20 17 Tubal Ligation completed Katharina Blandon [facility] 04/02/2020 09:57:33 07/22/18 93 Appendectomy completed Katharina Blandon [facility] 11/20/2022 16:13:08 Imaging Results Imaging Date Name Status LastModified by Organization Details LastModified Time 08/31/2021 US, pelvis completed [email or web address] [place] [address], [place], [address], 08/31/2021 21:29:55 08/31/2021 US, pelvis completed [email or web address] [place] [address], [place], [address], 08/31/2021 17:54:54 08/31/2021 US, transvaginal completed [email or web address] [place] [address], [place], [address], 08/31/2021 17:55:04 11/20/2022 US, pelvis completed [email or web address] [place] [address], [place], [address], 11/20/2022 18:18:03 11/20/2022 US, transvaginal completed [email or web address] [place] [address], [place], [address], 11/20/2022 18:17:53 11/20/2022 US, pelvis completed [email or web address] [address], [place], [address], 11/22/2022 10:38:10 Procedure Notes None recorded. Medical [...] ed Elsewher e: Yes Loca tion: Viviana [facility] odify By: kyle grajeda DateTime : [...] ed Elsewher e: No [facility]at [facility] odify By: justin cannonuntjoana DateTime : [...] Not Available Not Available No t Available [place] 5 mg-325 mg tablet take 1 tablet by oral route every 6 hours as needed for pain 07/04 completed Prescrib ed Elsewher e: No Locat ion: Viviana [facility] odify By: [email or web address] E ncounter DateTime [...] Updated DateTime 09/08/2021 154.94 cm 22.9 kg/m2 60433.68 g 107 mm[Hg] 68 mm[Hg] Ame Sanchez [facility] 2 17:08:49 Date Recorded Body height Body mass index (BMI) Body weight Systolic blood pressure Diastolic blood pressure Provider Name and Address Organization Details Last Updated DateTime 11/16/2022 154.94 cm 21 kg/m2 28390.75 g 110 mm[Hg] 60 mm[Hg] Katharina Blandon [facility] 3 16:38:50 Date Recorded Body height Body mass index (BMI) Body weight Systolic blood pressure Diastolic blood pressure Provider Name and Address Organization Details Last Updated DateTime 12/05/2022 154.94 cm 21.7 kg/m2 03901.12 g 95 mm[Hg] 60 mm[Hg] Ame Sanchez [facility] 3 15:37:46 Date Recorded Body height Body mass index (BMI) Body weight Systolic blood pressure Diastolic blood pressure Provider Name and Address Organization Details Last Updated DateTime 12/04/2023 154.94 cm 19.5 kg/m2 62438.01 g 103 mm[Hg] 67 mm[Hg] Ale Perez [facility] 4 17:06:18 Social History Question Answer Notes LastModified by Organizat ion Details LastModified Time Tobacco Smoking Status Former Smoker Alhaji Mauro andrey, [facility] 11/16/2022 16:02:54 Do You Have An Advance Directive? No Information not available 11/09/2020 What Is Your Level Of Alcohol Consumption? Occasional [email or web address] Information not available 04/02/2020 Are You Blind [...] E-cigarettes Or Vape? Never Used Electronic Cigarettes [email or web address] Information not available 11/16/2022 What Is The Highest Grade Or Level Of School You Have Completed Or The Highest Degree You Have Received? 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 Yes Information not available 11/09/2020 What Was The Date Of Your Most Recent Tobacco Screening? 04/02/2020 [email or web address] Information not available 11/16/2022 Do You Use Protection During Sex? No Information not available 11/09/2020 Do You Use Your Seat Belt Or Car Seat Routinely? Yes Information not available 11/09/2020 Do You Have Smoke And Carbon Monoxide Detectors In Your Home? Yes Information not available 11/09/2020 Do You Or Have You Ever Used Smokeless Tobacco? Never Used Smokeless Tobacco [email or web address] Information not available 11/16/2022 How Much Tobacco Do You Smoke? No [email or web address] Information not available 04/02/2020 Do You Feel Stressed (tense, Restless, Nervous, Or Anxious, Or Unable To Sleep At Night)? [id number] Information not available 11/09/2020 Do You Use [...] 11/09/2020 What is your exercise level? Occasional [email or web address] Information not available 04/02/2020 Mental Status None recorded. Family History Relationship Description Onset Age of this Age Resolved Age Notes LastModified by Organization Details LastModified Time Mother Diabetes mellitus [email or web address] Not available 11/16 16:39:24 Notes:No family history [...] SNOMED-CT Code Diagnosis ICD10 Code Diagnosis Note [id number] Cammy Prasad [facility] [address] [address] 04/02/2020 09:38:43 04/02/2020 10:23:51 Abnormal uterine bleeding [id number] 9100 N93.9 AUB that has happened over [...] counseling and review of plan of care. [id number] [facility] [address],[place] [address] 04/29/2020 14:43:43 04/29/2020 15:34:51 Abnormal uterine bleeding 6337042678 9100 N93.9 [id number] Cammy Prasad [facility] [address],[place] [address] 04/29/2020 14:44:18 04/29/2020 16:33:18 Cyst of left ovary 3705076625 8609736 N83.202 TVUS reviewed with patient Left OV contains 4.0 x 4.1 x 4.1cm anechoic cyst. No free fluid. 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 [...] counseling and review of plan of care. [id number] [facility] [address],[place] [address] 06/10/2020 14:41:56 06/10/2020 15:47:03 Cyst of left ovary 8859338407 0563060 N83.292 [id number] Cammy Prasad [facility] [address],[place] [address] 06/10/2020 14:42:37 06/10/2020 15:47:18 Abnormal uterine bleeding 9307981450 9100 N93.9 N83.202 TVUS reviewed. Left OV [...] counseling and review of plan of care. [id number] Renard Ryan MD [place] [address] [address] 06/24/2020 15:54:57 06/24/2020 17:18:22 Cyst of ovary 86321160 N83.209 Mid-cycle bleeding 46452 0006 N92.1 This patient is a 39-year-ol [...] discuss treatment options for intermenst rual bleeding. [id number] Isela Bowman [place] [address] [address] 10/14/2020 13:32:29 10/14/2020 14:44:00 Cyst of left ovary 7684940866 3230023 N83.292 [id number] Renard Ryan MD [place] [address] [address] 10/14/2020 13:32:55 10/14/2020 15:20:30 Abnormal uterine bleeding 7826279259 9100 N93.9 This patient is a 40-year-ol [...] this patient? s visit, including available hand president sales and marketing upon arrive, temperatur e check and being asked a series of screening questions. All staff wore face coverings during this encounter, as well as provided additional cleaning and sanitizing of all surfaces, including countertop s, pens, chairs, door handles, light switches, etc, prior to and following the patient? s visit. [id number] Renard Ryan MD [place] [address] [address] 01/25/2021 14:59:37 01/25/2021 17:04:57 Cyst of ovary 54488987 N83.209 This patient is a 40-year-ol d [...] ovarian cyst repeat ultrasound in 2 months. [id number] Renard Ryan MD [place] [address] [address] 11/09/2020 16:21:25 11/09/2020 17:12:23 Screening [facility] 45743179 [facility].9 [facility] 281961505 Z30.9 IUD was inserted without complicati ons. She tolerated the procedure well. [id number] Renard Ryan MD [place] [address],[place] [address] 12/02/2020 15:57:16 12/05/2020 14:48:23 Contraception care management 590913656 Z30.9 ? t his patient is a 40-year-ol d female with recent IUD insertion. She is here for follow-up and has cramping and some intermitte nt bleeding. The cervix was examined. The IUD string could not be visualized . There was concern about placed from the IUD. We will obtain a pelvic ultrasound . She returned pelvic ultrasound discuss results and consider options. [id number] [facility] [address],[place] [address] 01/25/2021 14:57:54 01/25/2021 15:42:36 Cyst of left ovary 3105773721 9689067 N83.292 N83.291 [id number] [facility] [address],[place] [address] 03/29/2021 16:50:58 03/29/2021 18:21:57 Cyst of right ovary 6445319278 3297754 N83.291 N83.292 [id number] Renard Ryan MD [place] [address],[place] [address] 03/31/2021 16:17:05 03/31/2021 16:53:07 Cyst of ovary 08113269 N83.209 Menorrhagia 442224398 N9 2.0 Abnormal u terine bleeding 8215612879 9100 N93.9 This patient is a 40-year-ol [...] the bleeding. She will follow up shortly. [id number] [facility] [address] [address] 06/22/2021 16:52:14 06/23/2021 09:10:14 Cyst of left ovary 9980714833 1746626 N83.292 [id number] Renard Ryan MD [place] [address] [address] 06/30/2021 16:20:05 07/03/2021 18:32:26 Cyst of ovary 75896582 N83.209 this patient is a 40-year-ol d [...] appointmen t And to obtain [place] 125. [id number] Renard Ryan MD [place] [address] [address] 09/08/2021 16:45:30 09/09/2021 09:10:01 Cyst of ovary 85850417 N83.209 this patient is a 41-year-ol d female presents for follow-up on pelvic ultrasound . Reviewed the results today. We have been following cysts on this patient's ovaries for some time. Previously seen cysts of either resolved or or smaller. Everything was benign at this time. Recent CA 125 was normal. We have agreed to follow-up as needed for symptoms. [id number] Rosalind Robertson [place] [address] [address] 08/31/2021 17:33:41 08/31/2021 18:01:48 Cyst of ovary 74922847 N83.209 this patient is a 40-year-ol d [...] appointmen t And to obtain CA 125. [id number] Jeanette Lundberg CNM [place] [address] [address] 11/16/2022 16:02:14 11/16/2022 17:31:50 Gynecologic examination 72538640 Z01.419 hx cysts tenderness on right will call with results [id number] Amalia SkipgeraDALLAS [place] [address],[facility] [address] 12/04/2023 16:59:13 12/05/2023 07:24:21 Gynecologic examination 10267350 Z01.419 WWEpap updateddec lined STI screendisc ussed/enco uraged colon CA screeningU TD with PCP Suggested Calcium with Vitamin D daily. Patient advised to get an annual flu shot in the fall and she could obtain at [facility] or [facility] clinic. Also to obtain TDap vaccinatio n [...] or respond to this email. Breast lump 88123826 N63 .0 right breast lump, recommende d diagnostic right mammogram with u/srecent bilateral screening mammogram done 11/20/2023 [id number] Rosalind Heaton [place] [address] [address] 11/20/2022 17:28:11 11/20/2022 18:12:09 Pain in pelvis 92068668 R10.2 [id number] Renard Ryan MD [place] [address] [address] 12/05/2022 15:30:17 12/05/2022 16:22:59 Cyst of ovary 34075543 N83.209 This patient is a 42-year-ol d [...] Guarantor Name 09/08/2021 1 [employer] [id number] Roney Astudillomer [id number] 2 Mananchaya Ryan 11/16/2022 1 [employer] [id number] Roney Astudillomer [id number] 2 Mananchaya Ryan 11/20/2022 1 [employer] [id number] Roney Astudillomer [id number] 2 Mananchaya Ryan 12/05/2022 1 [employer] [id number] Roney Astudillomer [id number] 2 Mananchaya Ryan 12/04/2023 1 [employer] [id number] Roney Ryan [id number] 2 Mananchaya Ryan Notes Date Note Type [...] symptoms. Renard Ryan MD [address], [place], [address], [place] [facility] 09/08/2021 21:36:57 11/16/2022 text/html Annual GYNReport [...] order Jeanette Lundberg CNM [address], [place], [address], [facility] 11/16/2022 17:31:36 12/05/2022 text/html This patient [...] needed. Renard Ryan MD [address], [place], [address], [facility] 12/05/2022 16:10:36 12/04/2023 text/html Annual GYNReport [...] use; Encourage regular mammograms starting age 38Notes:43yo [id number] pap 10/2022 : nilm, HPV (+)no h/o abnormal paps prior to this BC : BTLmirena IUD, inserted 11/09/2020very happy with IUD and desires to continue this method mammogram UTD, 11/2023noticed a right breast lump a few weeks ago after she had her mammogram doneno colon CA screening done yet [place] [address], [place], [address], [place] [facility] 12/04/2023 17:36:14 OBGyn Episode Ob Episode Information Episode Created Date Number of Fetuses Patient Bloodtype Patient rh Status Prepregnancy Weight lbs Domestic Partner Domestic Partner Phone Father Name Project Analyst Status 04/02/20 20 1 CLOSED Fetus [...] Domestic Partner Domestic Partner Phone Father Name Project Analyst Status 04/02/20 20 1 CLOSED Fetus [...]
--- OUTSIDE RECORDS SUMMARY | 2024-08-20 15:29 | XMS_ITS | Clinical Summary ---
Author Organization [facility] Address [address] [place] [address] Phone Care Team Providers Care Casino Supervisor Name Role Phone Unavailable Primary Care Provider [...]
--- OUTSIDE RECORDS SUMMARY | 2024-08-20 15:29 | XMS_ITS | Clinical Summary ---
Author Organization [facility] Address [address] [place] [address]. [place], [place] [address] [place] [address] Care Team Providers Care Rubber Tubing Splicer Name Role Phone Shabana Silva Primary Care Provider [phone] Allergies No known active allergies Medications metroNIDAZOLE (FLAGYL) 500 MG tablet Take 1 tablet (500 mg total) by mouth every 8 (eight) hours. Active triamcinolone (KENALOG) 0.1 % cream Apply topically 2 (two) times daily. Active potassium chloride CR (KLOR-CON M) 20 MEQ tablet Take 1 tablet (20 mEq total) by mouth daily. 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
[2024-08-20 16:13] LABS: Hematocrit 39.3 % (37.0-47.0); Hemoglobin 12.6 g/dL (12.0-15.0); Mean Corpuscular HGB Conc 32.1 g/dl (32-36); Mean Corpuscular Hemoglobin 31.5 pg (26-34); Mean Corpuscular Volume 98.3 fl (80-100); Mean Platelet Volume 9.8 fl (7.4-10.4); Platelet Count Result 206 k/mm3 (150-375); Red Cell Distribution Width 12.7 % (11.5-14.5); White Blood Count 4.5 K/mm3 (4.5-10.0)
[2024-08-20 16:26] LABS: Albumin Level 4.8 g/dL (3.5-5.1); Anion Gap 16 mmol/L (4-12); Blood Urea Nitrogen 17 mg/dL (7-17); Calcium 9.1 mg/dL (8.4-10.2); Carbon Dioxide 19 mmol/L (22-30); Chloride 109 mmol/L (98-107); Estimated Glomerular Filt Rate 46; Glucose 100 mg/dL (65-110); Phosphorus 3.2 mg/dL (2.5-4.5); Potassium 3.4 mmol/L (3.4-5.0); Sodium 144 mmol/L (137-145)
[2024-08-20 16:43] LABS: Total Protein Urine Random 11 mg/dL
[2024-08-21 05:42] LABS: Creatinine Urine < 3.2 mg/dL; Ur Ttl Prot Creatinine Ratio < 3.00 mg/mg (0-0.20)
== END 2024-08-20 14:52 | disposition home or self-care (01) ==
PROVIDERS: Internal Medicine Nephrology; PCP Family Medicine; Visit Provider Nurse Practitioner
DX: N13.30 Unspecified hydronephrosis (principal); N12 Tubulo-interstitial nephritis, not specified as acute or chronic; M35.00 Sjogren syndrome, unspecified; R94.4 Abnormal results of kidney function studies
CPT/HCPCS: 36415; 78708; 80069; 82570; 83970; 84156; 85027; A9562; J1940

== ENCOUNTER 2024-10-14 17:07 | Outpatient (CLI) | payer OTHER, SELFPAY ==
--- OUTSIDE RECORDS SUMMARY | 2024-10-14 17:24 | XMS_ITS | Clinical Summary ---
Author Organization [facility] Address [address] [place] [address] Care Team Providers Care Creative Services Intern Name Role Phone Shabana Silva Primary Care Provider [phone] Allergies No known active allergies Medications metroNIDAZOLE (FLAGYL) 500 MG tablet Take 1 tablet (500 mg total) by mouth every 8 (eight) hours. Active triamcinolone (KENALOG) 0.1 % cream Apply topically 2 (two) times daily. Active potassium chloride CR (KLOR-CON M) 20 MEQ tablet Take 1 tablet (20 mEq total) by mouth daily. Active Vitamin D, Ergocalciferol, 31750 units Cap Take 1 capsule every week [...] Date Last Done Comments Cervical Cancer Screening Pelon blackburn Smear (Age 30 to 64) Every 3 [...] patient's age to complete this topic [place] [address] Care Teams Creative Services Intern Relationship Specialty Start Date End Date Shabana Silva PA [address] [place] [address] PCP - General PHYSICIAN INSULATION NOZZLEMAN 01/14/23
--- OUTSIDE RECORDS SUMMARY | 2024-10-14 17:24 | XMS_ITS | Referral Summary ---
Author Organization [facility] [address] Address [address] [place] [address] Care Team Providers Care Calendering Machine Operator Name Role Phone Gloria Paula MD [...] 05/01/2021 Assessment & Plan (07/24/2022 4:27 PM FINGER BUFFS ASSEMBLER): Off MMI Follow up thyroid function tests Assessment & Plan (01/30/2022 4:39 PM CDT): Off MMI Follow up thyroid function tests Excessive daytime sleepiness 10/14/2020 Hypersomnolence 10/14/2020 Witnessed episode of apnea 10/14/2020 Right ventricular enlargement 12/22/2019 Lipid screening 12/22/2019 SVT (supraventricular tachycardia) 09/04/2017 Pulmonary HTN 09/04/2017 Non-rheumatic mitral regurgitation 09/04/2017 Hypokalemia 09/04/2017 Hyperthyroidism 11/09/2016 Assessment & Plan (08/01/2021 3:52 PM FINGER BUFFS ASSEMBLER): Continue MMI on hold Will check [...] 79 04/14/2024 3:26 PM CDT Temperature 36.8 C (98.3 F) 05/01/2021 9:54 AM CDT Respiratory Rate 15 12/22/2019 10:03 AM CDT Oxygen Saturation 99% 04/14/2024 3:26 PM CDT Inhaled Oxygen Concentration - - Weight 49 kg (108 lb) 04/14/2024 3:26 PM CDT Height 154.9 cm (5' 1 ) 04/14/2024 3:26 PM CDT Body Mass Index 20.41 04/14/2024 3:26 PM CDT Plan of Treatment [place] [address] [place] [address] [employer] Care Teams Calendering Machine Operator Relationship Specialty Start Date End Date Gloria Paula MD [address] [place] [address] DR AMY [address] [place] [address] PCP - General Family Medicine 12/04/19
--- OUTSIDE RECORDS SUMMARY | 2024-10-14 17:24 | XMS_ITS | Clinical Summary ---
Author Organization [facility] Address [address] [place] [address] Phone Care Team Providers Care Conference Center Manager Name Role Phone Unavailable Primary Care Provider [...]
--- OUTSIDE RECORDS SUMMARY | 2024-10-14 17:24 | XMS_ITS | Clinical Summary ---
Author Organization [facility] [address] Address [address] [place] [address] Care Team Providers Care Clinical Research Director Name Role Phone Gloria Paula MD Primary [...] 05/01/2021 Assessment & Plan (07/24/2022 4:27 PM LASER SYSTEMS ENGINEER): Off MMI Follow up thyroid function tests Assessment & Plan (01/30/2022 4:39 PM CDT): Off MMI Follow up thyroid function tests Excessive daytime sleepiness 10/14/2020 Hypersomnolence 10/14/2020 Witnessed episode of apnea 10/14/2020 Right ventricular enlargement 12/22/2019 Lipid screening 12/22/2019 SVT (supraventricular tachycardia) 09/04/2017 Pulmonary HTN 09/04/2017 Non-rheumatic mitral regurgitation 09/04/2017 Hypokalemia 09/04/2017 Hyperthyroidism 11/09/2016 Assessment & Plan (08/01/2021 3:52 PM LASER SYSTEMS ENGINEER): Continue MMI on hold Will check thyroid [...] patient's age to complete this topic Insurance [place] [id number] [place] [id number] [place] [id number] [employer] Care Teams Clinical Research Director Relationship Specialty Start Date End Date Gloria Paula MD [address] [place] [address] [address] PCP - General Family Medicine 12/04/19
[2024-10-14 17:30] LABS: Anion Gap 10 mmol/L (4-12); Blood Urea Nitrogen 18 mg/dL (7-17); Calcium 8.4 mg/dL (8.4-10.2); Carbon Dioxide 19 mmol/L (22-30); Chloride 111 mmol/L (98-107); Estimated Glomerular Filt Rate 39; Glucose 89 mg/dL (65-110); Potassium 3.7 mmol/L (3.4-5.0); Sodium 140 mmol/L (137-145)
== END 2024-10-14 17:08 | disposition home or self-care (01) ==
LOC: ANHLAB 17:08
PROVIDERS: PCP Family Medicine; Visit Provider Internal Medicine Nephrology
DX: N12 Tubulo-interstitial nephritis, not specified as acute or chronic (principal); N18.31 Chronic kidney disease, stage 3a
CPT/HCPCS: 36415; 80048

== ENCOUNTER 2024-11-27 17:10 | Outpatient (CLI) | payer OTHER, SELFPAY ==
--- OUTSIDE RECORDS SUMMARY | 2024-11-27 17:15 | XMS_ITS | Data Portability ---
Author Organization [facility], Main Office Address [address] [place] [address] Assessment No assessment recorded. Plan of Treatment Reminders Order Date Submit Date Provider Last Modified By Organization Details Last Modified Time Details Appointments None recorded. Lab None recorded. Referral endocrinolo gy referral 2022 023 Norman Mena MD, [address] [place] [address], [address], 20:34:01 Procedures None recorded. Surgeries None recorded. Imaging None recorded. Medication Orders triamcinolo ne acetonide 0.1 % topical cream 2022 023 [id number], [address], [place], [place], [id number], 3 17:34:31 prednisone 20 mg tablet 20[address] [place] [address] [facility], [address], [place], [place], [id number], 3 16:58:47 Patient TargetsNo targets recorded. Patient InstructionsNo instructions recorded. Reason for Referral Endocrinology Referral for H yperthyroidism Referring Physician: Shabana Silva, Family Medicine, Encounter Date: 09/19/2022 Results Created Date Observation Date Name Description Value Unit Range Abnormal Flag Note LastModifiedBy Organization Detail LastModifiedTime 08/27/19 23 08/27/2022 XR, foot, 3 or more view No observ ation record ed. [id number] [facility] [place] [address] [facility], [address], [place], [address], 09/19/2022 02:46:58 08/27/1908/27/2022 XR, foot, 3 or more view No observ ation record ed. [id number] [facility] Podiatry [address], [facility], [place], [address], 09/19/2022 02:46:58 Result Notes None recorded. Problems Name Problem SNOMED Code Status Onset Date Resolution Date Notes Provider Name and Address Organization Details Recorded Time Itching of right eye 8609853987677 9101 Active 2022 GLADYS Marcelo [address] [address], [place], [address] , [employer] 3 16:43:41 Pain in both feet 6732866299011 9102 Active 2022 Not Available [facility] 3 02:39:34 Hyperthyro idism 94009062 Active 2019 Not Available [facility] 3 02:39:34 Blephariti s of right eyelid 3081438903589 03 Active 2022 Gloria Paula MD [address] [address], [place], [address] , [employer] 3 17:33:50 Problem Notes None recorded. Procedures Surgical History Date Name Laterality Status Provider Name and Address Organization Details Recorded Time insertion of intrauterine contraceptive device completed Not Available [facility] 09/19/2022 02:35:59 Imaging Results Imaging Date Name Status LastModified by Organiz ation Details LastModified Time 08/27/2022 XR, foot, 3 or more view completed [id number] [facility] Pod[facility] [place] [address] [facility], [facility] [address], [place], [address], 09/19/2022 02:46:58 08/27/2022 XR, foot, 3 or more view completed [id number] [facility] [place] [address] [facility], [address], [place], [address], 09/19/2022 02:46:58 Procedure Notes None recorded. Medical [...] Available Not Available Not Available Flucelvax Quad 9080-2833 (PF) 60 mcg (15 mcg x 4)/0.5 [...] Updated DateTime 3 154.94 cm 21 kg/m2 43496.7 5 g 97.7 [degF] 80 /min 98 % 98 % 120 mm[Hg] 66 mm[Hg] Sade Peñaloza MA [place] [facility] 3 16:35:03 Date Recorded Body mass index (BMI) Body height Oxygen saturation Oxygen saturation in Arterial blood by Pulse oximetry Heart rate Respiratory rate Body weight Systolic blood pressure Diastolic blood pressure Provider Name and Address Organization Details Last Updated DateTime 3 21 kg/m2 154.94 cm 98 % 98 % 71 /min 16 /min 23051.7 5 g 105 mm[Hg] 75 mm[Hg] Not Available [facility] 3 02:36:58 Date Recorded Body mass index (BMI) Body height Oxygen saturation Oxygen saturation in Arterial blood by Pulse oximetry Heart rate Body temperature Body weight Systolic blood pressure Diastolic blood pressure Provider Name and Address Organization Details Last Updated DateTime 3 21.5 kg/m2 154.94 cm 98 % 98 % 94 /min 97.8 [degF] 41686.5 3 g 110 mm[Hg] 68 mm[Hg] Not Available [facility] 3 02:36:58 Date Recorded Body mass index (BMI) Body height Oxygen saturation Oxygen saturation in Arterial blood by Pulse oximetry Heart rate Respiratory rate Body weight Systolic blood pressure Diastolic blood pressure Provider Name and Address Organization Details Last Updated DateTime 3 21.5 kg/m2 154.94 cm 99 % 99 % 80 /min 16 /min 16243.5 3 g 99 mm[Hg] 68 mm[Hg] Not Available [facility] 3 02:36:58 Date Recorded Body height Body mass index (BMI) Body weight Body temperature Oxygen saturation Oxygen saturation in Arterial blood by Pulse oximetry Heart rate Systolic blood pressure Diastolic blood pressure Provider Name and Address Organization Details Last Updated DateTime 3 154.94 cm 21.4 kg/m2 68839.9 4 g 97.9 [degF] 98 % 98 % 75 /min 110 mm[Hg] 68 mm[Hg] Sherlyn Barney MA [employer] 3 16:58:23 Social History Question Answer Notes LastModified by Organizat ion Details LastModified Time Tobacco Smoking Status Never Smoker Not Available [facility] 09/19/2022 02:29:15 What Is Your Level Of Alcohol Consumption? Occasional [id number] Information not available 09/19/2022 What Is Your Level Of Caffeine Consumption? Moderate [id number] Information not available 09/19/2022 In The 14 Days Before Symptom Onset, Have You Had Close Contact With A Laboratory-confir med COVID-19 While That Case Was Ill? No [id number] Information not available 09/19/2022 In The 14 Days Before Symptom Onset, Have You Had Close Contact With A Person Who Is Under Investigation For COVID-19 While That Person Was Ill? No [id number] Information not available 09/19/2022 What Type Of Diet Are You Following? REGULAR [email or web address] Information not available 09/19/2022 Which Illicit Or Recreational Drugs Have You Used? 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 No [email or web address] Information not available 09/19/2022 Do You Use Any Illicit Or Recreational Drugs? No Information not available 09/19/2022 Has Tobacco Cessation Counseling Been Provided? No [email or web address] Information not available 09/19/2022 Do You Have Any Dietary Restrictions? No [email or web address] Information not available 09/19/2022 Do You Or Have You Ever Used Any Other Forms Of Tobacco Or Nicotine? No [email or web address] Information not available 09/19/2022 Sex: Unknown Functional Status Question Answer Note LastModified by Organization D etails LastModified Time What is your exercise level? Moderate [email or web address] Information not available 09/19/2022 Mental Status None recorded. Family History Relationship Description Onset Age of this Age Resolved Age Notes LastModified by Organization Details LastModified Time Mother Diabetes mellitus [id number] Not available 09/19/2022 02:36:00 Sister Systemic lupus erythematosu s [id number] Not available 09/19/2022 02:36:00 Medical History Condition [...] virus, quadrivalent, preservative 2 completed Not Available [facility] 09/19/2022 02:46:20 Past Encounters Encounter ID Performer Location Encounter Start Date Encounter Closed Date Diagnosis/Indication Diagnosis SNOMED-CT Code Diagnosis ICD10 Code Diagnosis Note [id number] Kezia Marshall MD [facility] [place] [address] [place] [address] 12/02/2020 00:00:00 12/02/2020 18:41:39 [id number] Kezia Marshall MD [facility] [place] [address] [place] [address] 03/10/2021 00:00:00 03/11/2021 10:56:27 [id number] Gloria Paula MD [facility] [place] [address] [facility] [address] [place] [address] 05/30/2022 00:00:00 05/30/2022 11:48:22 [id number] Kelvin Juan DPM [facility] Podiat[facility] [place] [address] [place] [address] 07/26/2022 00:00:00 08/06/2022 09:08:26 [id number] GLADYS Marcelo [facility] [place] [address] [place] [address] [address] [place] [address] 08/01/2022 00:00:00 08/01/2022 16:52:47 [id number] Kelvin Juan DPM [facility] Pod[facility] [place] [address] [place] [address] 08/23/2022 00:00:00 08/27/2022 14:01:22 [id number] GLADYS Marcelo [facility] [place] [address] [facility] [address] [place] [address] 09/19/2022 16:28:18 09/20/2022 11:51:30 Itching of right eye 5471194360 3155777 H57.89 Appears to be allergic.W ill do course of prednisone , advised to start using otc allergy drops like pataday.Sh e has appointmen t with eye doctor in 3 weeks. Hyperthyroidism 05648053 E05.90 Needs new referral. [id number] Gloria Paula MD [facility] Primary [facility] [place] [address] [facility] [address] [place] [address] 10/16/2022 16:49:53 10/16/2022 18:02:29 Blepharitis of right eyelid 8838378948 54729 H01.003 baby shampoo dailytriam cinolone bid x [...] Valenzuela Member ID Guarantor Name 09/19/2022 1 [facility] [id number] [facility] Davis [id number] Viola Davis 10/16/2022 1 [employer] [facility] [id number] Fawadgail Ryan [id number] 02 [id number] Viola Davis Notes Date Note Type Note Provider Name and Address Organization Details Recorded Time 09/19/2022 text/html Pt. here with complaints of itching of her right eye. She has had this problem previously and it went away with medications but then came back again. GLADYS Marcelo [address], [facility] [employer], [place], [address], [employer] 09/19/2022 17:10:38 10/16/2022 text/html irritation right upper eyelid, no pain in eyes, no visual disturbance, no drainage. No new lotions/soaps/prod ucts. Gloria Paula MD [address], [address], [place], [address], [employer] 10/19/2022 08:17:24 OBGyn Episode No OBEpisode recorded.
--- OUTSIDE RECORDS SUMMARY | 2024-11-27 17:15 | XMS_ITS | Clinical Summary ---
Author Organization [facility] [address] Address [address] [place] [address] Care Team Providers Care Electrician Office Name Role Phone Gloria Paula MD Primary [...] 05/01/2021 Assessment & Plan (07/24/2022 4:27 PM FIRST MATE): Off MMI Follow up thyroid function tests Assessment & Plan (01/30/2022 4:39 PM CDT): Off MMI Follow up thyroid function tests Excessive daytime sleepiness 10/14/2020 Hypersomnolence 10/14/2020 Witnessed episode of apnea 10/14/2020 Right ventricular enlargement 12/22/2019 Lipid screening 12/22/2019 SVT (supraventricular tachycardia) 09/04/2017 Pulmonary HTN 09/04/2017 Non-rheumatic mitral regurgitation 09/04/2017 Hypokalemia 09/04/2017 Hyperthyroidism 11/09/2016 Assessment & Plan (08/01/2021 3:52 PM FIRST MATE): Continue MMI on hold Will check thyroid [...] patient's age to complete this topic Insurance [place] [id number] [place] [id number] [place] [address] [employer] Care Teams Electrician Office Relationship Specialty Start Date End Date Gloria Paula MD [address] [place] [address] [address] PCP - General Family Medicine 12/04/19
--- OUTSIDE RECORDS SUMMARY | 2024-11-27 17:15 | XMS_ITS | Referral Summary ---
Author Organization [facility] [address] Address [address] [place] [address] Care Team Providers Care Cut Order Hand Name Role Phone Gloria Paula MD Primary [...] 05/01/2021 Assessment & Plan (07/24/2022 4:27 PM TRANSMITTER TESTER): Off MMI Follow up thyroid function tests Assessment & Plan (01/30/2022 4:39 PM CDT): Off MMI Follow up thyroid function tests Excessive daytime sleepiness 10/14/2020 Hypersomnolence 10/14/2020 Witnessed episode of apnea 10/14/2020 Right ventricular enlargement 12/22/2019 Lipid screening 12/22/2019 SVT (supraventricular tachycardia) 09/04/2017 Pulmonary HTN 09/04/2017 Non-rheumatic mitral regurgitation 09/04/2017 Hypokalemia 09/04/2017 Hyperthyroidism 11/09/2016 Assessment & Plan (08/01/2021 3:52 PM TRANSMITTER TESTER): Continue MMI on hold Will check thyroid [...] of Treatment Not on [place] [address] [place] [address] [employer] Care Teams Cut Order Hand Relationship Specialty Start Date End Date Gloria Paula MD [address] [place] [address] DR MAY [address] [place] [address] PCP - General Family Medicine 12/04/19
--- OUTSIDE RECORDS SUMMARY | 2024-11-27 17:15 | XMS_ITS | Clinical Summary ---
Author Organization [facility] Address [address] [place] [address] Phone Care Team Providers Care Tobacco Sieve Operator Name Role Phone Unavailable Primary Care Provider [...]
--- OUTSIDE RECORDS SUMMARY | 2024-11-27 17:16 | XMS_ITS | Clinical Summary ---
Author Organization [facility] Address [address] [place] [id number] Care Team Providers Care Kettle Coordinator Name Role Phone Shabana Silva Primary Care Provider [phone] Allergies No known active allergies Medications metroNIDAZOLE (FLAGYL) 500 MG tablet Take 1 tablet (500 mg total) by mouth every 8 (eight) hours. Active triamcinolone (KENALOG) 0.1 % cream Apply topically 2 (two) times daily. Active potassium chloride CR (KLOR-CON M) 20 MEQ tablet Take 1 tablet (20 mEq total) by mouth daily. Active Vitamin D, Ergocalciferol, 20316 units Cap Take 1 capsule every week [...] Vaccine ( - 2023-2 5 season) 2024 Meningococcal B Vaccine Aged Out No l onger eligible based on patient's age to complete this topic Meningococcal Vaccine Aged Out No dionne kelsy eligible based on patient's age to complete this topic Pneumococcal Vaccine: Pediat rics (0 to 5 Years) and At-Risk Patients (6 to 49 Years) Aged Out No longer eligible b ased on patient's age to complete this topic RSV Immunizations Under 20 Months Aged Out No longer eligible based on patient's age to complete this topic Insurance [facility] Care Teams Kettle Coordinator Relationship Specialty Start Date End Date Shabana Silva PA [address] [place] [id number] PCP - General PHYSICIAN C[employer] WORKER 01/14/23
--- OUTSIDE RECORDS SUMMARY | 2024-11-27 17:16 | XMS_ITS | Data Portability ---
Author Organization [facility] [place] Address [address] [place] [address] [place] [address] Assessment Encounter Date Assessment Date Assessment LastModified [...] None recorded. Surgeries None recorded. Imaging US, breast, unilateral - right breast lump, around 9 oclock 2023 024 [facility], [address], [address], [place], [address], 4 05:01:27 MAMMO, diagnostic, unilateral 2023 024 [facility], [address], [address], [place], [address], 4 05:01:27 US, pelvis 2022 023 [email or web address] [address], [address], [place], [address], 3 22:15:26 US, transvagina l 2022 023 [email or web address] [address], [address], [place], [address], 3 22:15:26 US, pelvis, complete 2022 023 [email or web address] [address], [address], [place], [address], 3 15:49:26 Medication Orders None recorded. Patient TargetsNo targets [...] catrachita: 11/17 0252 First Scree n: Anselmo r, Lor ica Rescr een: Nacha mpass ak, Dexter ay, CT Speci men: [...] as clini hanny marte nted. Not Available [facility] (Lab) [address], [place], [address], 11/21/2022 12:54:52 12/04/19 24 12/04/2023 IMAGE GUIDE [...] as santoi hanny marte nted. Not Available [facility] (Lab) [address], [place], [address], 12/11/2023 09:09:20 08/31/19 22 08/31/2021 US, pelvi s No observ ation record ed. [email or web address] [place] [address], [place], [address], 08/31/2021 21:29:55 08/31/19 22 08/31/2021 US, pelvi s No observ ation record ed. [email or web address] [place] [address], [place], [address], 08/31/2021 17:54:54 08/31/19 22 08/31/2021 US, trans vagin al No observ ation record ed. [email or web address] [place] [address], [place], [address], 08/31/2021 17:55:04 11/21/19 23 11/20/2022 US, pelvi s No observ ation record ed. [email or web address] [place] [address], [place], [address], 11/20/2022 18:18:03 11/21/19 23 11/20/2022 US, trans vagin al No observ ation record ed. [email or web address] [place] [address], [place], [address], 11/20/2022 18:17:53 11/21/19 23 11/20/2022 US, pelvi s No observ ation record ed. [email or web address] [address], [place], [address], 11/22/2022 10:38:10 Result Notes None recorded. Problems Name Problem SNOMED Code Status Onset Date Resolution Date Notes Provider Name and Address Organization Details Recorded Time Gestatio n period, 34 weeks 15717737 Completed 201611/09/2020 34 weeks gestatio n of pregnanc y;Record ed Elsewher e: No Locat ion: Danielle jazmine [facility] S ource: EHR Medical Economics Consultant abbie: N Carmelitati ce ID: 0001 Roland lable Time: 10:30:00 AM [facility]me [facility] 16:30:26 Complica tion of pregnanc y, childbir th and/or puerperi um [id number] Completed 201601/25/2021 Oth diseases and conditio ns compl preg/chl dbrth;Re corded Elsewher e: No Locat ion: [facility] S ource: EHR Medical Economics Consultant abbie: N Carmelitati ce ID: 0001 Roland lable Time: 09:00:00 AM Ame Sanchez [facility] 15:39:27 Placenta previa [id number] Completed 201611/09/2020 Placenta previa specifie d as w/o hemor, second trimeste r;Record ed Elsewher e: No Locat ion: [facility] S ource: EHR Medical Economics Consultant abbie: N Carmelitati ce ID: 0001 Roland lable Time: 11:30:00 AM Ame Sanchez [facility] 16:30:36 Gestatio n period, 24 weeks [id number] Completed 201611/09/2020 24 weeks gestatio n of pregnanc y;Record ed Elsewher e: No Locat ion: [facility] S ource: EHR Medical Economics Consultant abbie: N Carmelitati ce ID: 0001 Roland lable Time: 10:00:00 AM Ame [facility] 16:30:23 Gestatio n period, 17 weeks [id number] Completed 201611/09/2020 17 weeks gestatio n of pregnanc y;Record ed Elsewher e: No Locat ion: [facility] S ource: EHR Medical Economics Consultant abbie: N Practi ce ID: 0001 Roland lable Time: 09:00:00 AM Ame balderas [facility] 1 16:30:[address] Concept Completed 201611/09/2020 Maternal care for oth abnormal ity and damage, unsp;Rec orded Elsewher e: No Locat ion: [facility] S ource: EHR Medical Economics Consultant abbie: N Practi ce ID: 0001 Roland lable Time: 10:30:00 AM Ame Sanchez [facility] 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 thyrotox ic crisis;R ecorded Elsewher e: No Locat ion: [facility] S ource: EHR Medical Economics Consultant abbie: N Carmelitati ce ID: 0001 Roland lable Time: 10:15:00 AM Not Available [facility] 17:20:11 Gestatio n period, 8 weeks 76559622 Completed 201611/09/2020 8 weeks gestatio n of pregnanc y;Record ed Elsewher e: No Locat ion: [facility] S ource: EHR Medical Economics Consultant abbie: N Carmelitati ce ID: 0001 Roland lable Time: 01:00:00 PM Ame Sanchez [facility] 1 16:30:31 Gestatio n period, 28 weeks 29187424 Completed 201611/09/2020 28 weeks gestatio n of pregnanc y;Record ed Elsewher e: No Locat ion: [facility] S ource: EHR Medical Economics Consultant abbie: N Practi ce ID: 0001 Roland lable Time: 10:30:00 AM Ame Sanchez [facility] 1 16:30:25 Depressi ve disorder 44872110 Active 2016 Depressi on NOS;Fahad rded Elsewher e: No Locat ion: [facility]lenesamir jazmine [facility] S ource: EHR Medical Economics Consultant abbie: N Amira ce ID: 0001 Roland lable Time: 10:30:00 AM Not Available [facility] 0 17:20:11 Normal pregnanc y in multigra prabha [id number] 4106 Completed 201611/09/2020 Encounte r for suprvsn of normal pregnanc y, second trimeste r;Record ed Elsewher e: No [facility]at [facility]: [facility] S ource: EHR Medical Economics Consultant abbie: N Carmelitati ce ID: 0001 Roland lable Time: 10:15:00 AM [facility] 1 16:30:39 Single liveborn born in hospital by section [id number] Completed 201611/09/2020 Single liveborn infant delivere d by c section; Recorded Elsewher e: No Locat ion: [facility] S ource: EHR Medical Economics Consultant abbie: N Amira ce ID: 0001 Roland lable Time: 09:30:00 AM [facility] [address] 16:30:[address] Concept Completed 201711/09/2020 Encntr for general adult medical exam w/o abnormal findings ;Recorde d Elsewher e: No [facility] ource: EHR Medical Economics Consultant abbie: N Amira ce ID: 0001 Roland lable Time: 11:30:00 AM Ame [facility] [address] 16:30:[address] Concept Completed 201911/09/2020 Encntr for medical assistant ob gyn exam (general ) (routine ) w/o abn findings ;Recorde d Elsewher e: No [facility]at [facility] S ource: EHR Medical Economics Consultant abbie: N Carmelitati ce ID: 0001 Roland lable Time: 02:15:00 PM [facility] 1 16:31:03 Uterine size for dates discrepa ncy Completed 201601/25/2021 Uterine size-janneth e discrepdeion gonsalves, trimeste r;Record ed Elsewher e: No Locat ion: [facility] S ource: EHR Medical Economics Consultant abbie: N Practi ce ID: 0001 Roland lable Time: 01:00:00 PM Ame balderas [facility] 15:39:23 Antenata l care: multipar ous, older than 35 years [id number] Completed 201601/25/2021 Supervis ion of elderly multigra prabha, trimeste r;Record ed Elsewher e: No Locat ion: [facility] S ource: EHR Medical Economics Consultant abbie: N Practi ce ID: 0001 Roland lable Time: 10:30:00 AM Ame balderas [facility] 15:39:18 Gestatio n period, 12 weeks [id number] Completed 201611/09/2020 12 weeks gestatio n of pregnanc y;Record ed Elsewher e: No Locat ion: [facility] S ource: EHR Medical Economics Consultant abbie: N Practi ce ID: 0001 Roland lable Time: 10:00:00 AM Ame balderas [facility] 16:30:16 Pregnanc y detectio n examinat ion Completed 201611/09/2020 Encounte r for pregnanc y test, result positive ;Practic e ID: 0001 Ame balderas [facility] 16:30:42 Gestatio n period, 20 weeks 74942905 Completed 201611/09/2020 20 weeks gestatio n of pregnanc y;Practi ce ID: 0001 Ame balderas [facility] 16:30:21 Steriliz ation procedur e Active 2016 Encounte r for steriliz ation;Pr actice ID: 0001 Not Available [facility] 0 17:20:16 Single live from singleto n pregnanc y [id number] Completed 201611/09/2020 Single live ;Pr actice ID: 0001 Ame balderas, [facility] 16:30:48 Gestatio n period, 38 weeks [id number] Completed 201611/09/2020 38 weeks gestatio n of pregnanc y;Practi ce ID: 0001 Ame balderas, [facility] 16:30:[address] Concept Completed 201911/09/2020 Encntr for routine child health exam w/o abnormal findings ;Recorde d Elsewher e: No Locat ion: Viviana marquez [facility] S ource: EHR Medical Economics Consultant abbie: N Practi ce ID: 0001 Roland lable Time: 02:15:00 PM Ame balderas, [facility] 16:31:01 Problem Notes None recorded. Procedures Surgical History Date Name Laterality Status Provider Name and Address Organization Details Recorded Time 11/20/19 24 Date of Last Mammogram completed Ale Perez [facility] 12/04/2023 17:06:27 11/10/19 21 IUD Insertion completed Renard Ryan MD [address], [place], [address], [facility] 11/09/2020 16:57:21 05/29/20 17 section completed Katharina Blandon [facility] 04/02/2020 09:57:23 05/22/20 17 Tubal Ligation completed Katharina Blandon [facility] 04/02/2020 09:57:33 07/22/18 93 Appendectomy completed Katharina Blandon [facility] 11/20/2022 16:13:08 Imaging Results Imaging Date Name Status LastModified by Organization Details LastModified Time 08/31/2021 US, pelvis completed [email or web address] [address], [place], [address], 08/31/2021 21:29:55 08/31/2021 US, pelvis completed [email or web address] [place] [address], [place], [address], 08/31/2021 17:54:54 08/31/2021 US, transvaginal completed [email or web address] [place] e [address], [place], [address], 08/31/2021 17:55:04 11/20/2022 US, pelvis completed [email or web address] [place] [address], [place], [address], 11/20/2022 18:18:03 11/20/2022 US, transvaginal completed [email or web address] [place] [address], [place], [address], 11/20/2022 18:17:53 11/20/2022 US, pelvis completed [email or web address] [address], [place], [address], 11/22/2022 10:38:10 Procedure Notes None recorded. Medical [...] Prescrib ed Elsewher e: Yes Loca tion: [facility] odify By: kyle grajeda DateTime : [...] Prescrib ed Elsewher e: No [facility]at [facility] odify By: justin baptiste DateTime : [...] Not Available Not Available No t Available [place] 5 mg-325 mg tablet take 1 tablet by oral route every 6 hours as needed for pain 07/04 completed Prescrib ed Elsewher e: No [facility] odjustin By: [email or web address] Jazmine oliva DateTime : 06/06/20 09:30:00 AM Not Available Not Available Not [...] Updated DateTime 09/08/2021 154.94 cm 22.9 kg/m2 11179.68 g 107 mm[Hg] 68 mm[Hg] Ame Sanchez [facility] 2 17:08:49 Date Recorded Body height Body mass index (BMI) Body weight Systolic blood pressure Diastolic blood pressure Provider Name and Address Organization Details Last Updated DateTime 11/16/2022 154.94 cm 21 kg/m2 26644.75 g 110 mm[Hg] 60 mm[Hg] Katharina Blandon [facility] 3 16:38:50 Date Recorded Body height Body mass index (BMI) Body weight Systolic blood pressure Diastolic blood pressure Provider Name and Address Organization Details Last Updated DateTime 12/05/2022 154.94 cm 21.7 kg/m2 15972.12 g 95 mm[Hg] 60 mm[Hg] Ame Sanchez [facility] 3 15:37:46 Date Recorded Body height Body mass index (BMI) Body weight Systolic blood pressure Diastolic blood pressure Provider Name and Address Organization Details Last Updated DateTime 12/04/2023 154.94 cm 19.5 kg/m2 55433.01 g 103 mm[Hg] 67 mm[Hg] Ale Perez [facility] 4 17:06:18 Social History Question Answer Notes LastModified by Organizat ion Details LastModified Time Tobacco Smoking Status Former Smoker Alhaji Mauro andrey, [facility] 11/16/2022 16:02:54 Do You Have An Advance Directive? No Information not available 11/09/2020 What Is Your Level Of Alcohol Consumption? Occasional [email or web address] Information not available 04/02/2020 Are You Blind [...] E-cigarettes Or Vape? Never Used Electronic Cigarettes [email or web address] Information not available 11/16/2022 What Is The Highest Grade Or Level Of School You Have Completed Or The Highest Degree You Have Received? 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 Yes Information not available 11/09/2020 What Was The Date Of Your Most Recent Tobacco Screening? 04/02/2020 [email or web address] Information not available 11/16/2022 Do You Use Protection During Sex? No Information not available 11/09/2020 Do You Use Your Seat Belt Or Car Seat Routinely? Yes Information not available 11/09/2020 Do You Have Smoke And Carbon Monoxide Detectors In Your Home? Yes Information not available 11/09/2020 Do You Or Have You Ever Used Smokeless Tobacco? Never Used Smokeless Tobacco [email or web address] Information not available 11/16/2022 How Much Tobacco Do You Smoke? No [email or web address] Information not available 04/02/2020 Do You Feel Stressed (tense, Restless, Nervous, Or Anxious, Or Unable To Sleep At Night)? [id number] Information not available 11/09/2020 Do You Use [...] 11/09/2020 What is your exercise level? Occasional [email or web address] Information not available 04/02/2020 Mental Status None recorded. Family History Relationship Description Onset Age of this Age Resolved Age Notes LastModified by Organization Details LastModified Time Mother Diabetes mellitus Not available 11/16 16:39:24 Notes:No family history of C ancer, cervical Medical History Condition Response Allergies (Food, seasonal, environmental ) N Other N Drug/Latex Allergies/Reactions N Breast Cancer N Blood Transfusion N Lung Disease N Dermatologic Disorders N Defects or Inherited Disease N Breast Problem N Gestational Diabetes N Hematologic disorders N Anesthesia Complications N History of STI N Deep Vein Thrombosis N Polycystic ovary syndrome N Anxiety Disorder N Autoimmune disease N Arthritis N Polyps N Infertility N History of abnormal pap N Acid Reflux (GERD) N Cancer N Varicosities N Stroke N [...] SNOMED-CT Code Diagnosis ICD10 Code Diagnosis Note [id number] Cammy Prasad [facility] [address] [address] 04/02/2020 09:38:43 04/02/2020 10:23:51 Abnormal uterine bleeding 9123829302 9100 N93.9 AUB that has happened over [...] counseling and review of plan of care. [id number] Renard Ryan MD [place] [address],[place] [address] 04/29/2020 14:43:43 04/29/2020 15:34:51 Abnormal uterine bleeding 0206803380 9100 N93.9 [id number] Cammy Prasad [facility] [address],[place] [address] 04/29/2020 14:44:18 04/29/2020 16:33:18 Cyst of left ovary 3062359242 0411677 N83.202 TVUS reviewed with patient Left OV contains 4.0 x 4.1 x 4.1cm anechoic cyst. No free fluid. She is still having some AUB but it is not daily, study manager like spotting & she has no pain. [...] counseling and review of plan of care. [id number] Renard Ryan MD [place] [address],[place] [address] 06/10/2020 14:41:56 06/10/2020 15:47:03 Cyst of left ovary 0612723472 0502767 N83.292 [id number] Cammy Prasad [facility] [address],[place] [address] 06/10/2020 14:42:37 06/10/2020 15:47:18 Abnormal uterine bleeding 3517269523 9100 N93.9 N83.202 TVUS reviewed. Left OV [...] counseling and review of plan of care. [id number] Renard Ryna MD [place] [address] [address] 06/24/2020 15:54:57 06/24/2020 17:18:22 Cyst of ovary 19165635 N83.209 Mid-cycle bleeding 84187 0006 N92.1 This patient is a 39-year-ol [...] discuss treatment options for intermenst rual bleeding. [id number] MD Cathy Robles [address] [address] 10/14/2020 13:32:29 10/14/2020 14:44:00 Cyst of left ovary 9079221981 6027698 N83.292 [id number] MD Cathy Robles [address] [address] 10/14/2020 13:32:55 10/14/2020 15:20:30 Abnormal uterine bleeding 8608261791 9100 N93.9 This patient is a 40-year-ol [...] exposure to the Covid-19 virus during this patient s visit, including available hand assistant reading teacher upon arrive, temperatur e check and being asked a series of screening questions. All staff wore face coverings during this encounter, as well as provided additional cleaning and sanitizing of all surfaces, including countertop s, pens, chairs, door handles, light switches, etc, prior to and following the patient s visit. [id number] Renard Ryan MD [place] [address] [address] 01/25/2021 14:59:37 01/25/2021 17:04:57 Cyst of ovary 41945908 N83.209 This patient is a 40-year-ol d [...] ovarian cyst repeat ultrasound in 2 months. [id number] Renard Ryan MD [place] [address] [address] 11/09/2020 16:21:25 11/09/2020 17:12:23 Screening procedure 76331409 Z13.9 [facility] ion care management 333655249 Z30.9 IUD was inserted without complicati ons. She tolerated the procedure well. [id number] Renard Ryan MD [place] [address],[place] [address] 12/02/2020 15:57:16 12/05/2020 14:48:23 Contraception care management 921734748 Z30.9 this patient is a 40-year-ol d female with recent IUD insertion. She is here for follow-up and has cramping and some intermitte nt bleeding. The cervix was examined. The IUD string could not be visualized . There was concern about placed from the IUD. We will obtain a pelvic ultrasound . She returned pelvic ultrasound discuss results and consider options. [id number] Renard Ryan MD [place] [address],[place] [address] 01/25/2021 14:57:54 01/25/2021 15:42:36 Cyst of left ovary 9573602616 9782891 N83.292 N83.291 [id number] Renard Ryan MD [place] [address],[place] [address] 03/29/2021 16:50:58 03/29/2021 18:21:57 Cyst of right ovary 3634006993 7557265 N83.291 N83.292 [id number] Renard Ryan MD [place] [address],[place] [address] 03/31/2021 16:17:05 03/31/2021 16:53:07 Cyst of ovary 44574738 N83.209 Menorrhagia 822993709 N9 2.0 Abnormal u terine bleeding 5364924312 9100 N93.9 This patient is a 40-year-ol [...] the bleeding. She will follow up shortly. [id number] Renard Ryan MD [place] [address] [address] 06/22/2021 16:52:14 06/23/2021 09:10:14 Cyst of left ovary 1003016843 2205665 N83.292 [id number] Renard Ryan MD [place] [address] [address] 06/30/2021 16:20:05 07/03/2021 18:32:26 Cyst of ovary 54952715 N83.209 this patient is a 40-year-ol d [...] appointmen t And to obtain CA 125. [id number] Renard Ryan MD [place] [address] [address] 09/08/2021 16:45:30 09/09/2021 09:10:01 Cyst of ovary 72546180 N83.209 this patient is a 41-year-ol d female presents for follow-up on pelvic ultrasound . Reviewed the results today. We have been following cysts on this patient's ovaries for some time. Previously seen cysts of either resolved or or smaller. Everything was benign at this time. Recent CA 125 was normal. We have agreed to follow-up as needed for symptoms. [id number] Renard Ryan MD [place] [address] [address] 08/31/2021 17:33:41 08/31/2021 18:01:48 Cyst of ovary 95446132 N83.209 this patient is a 40-year-ol d [...] appointmen t And to obtain CA 125. [id number] Jeanette Lundberg CNM [place] [address] [address] 11/16/2022 16:02:14 11/16/2022 17:31:50 Gynecologic examination 63498086 Z01.419 hx cysts tenderness on right will call with results [id number] [place] Condon [place] [address] [address] 12/04/2023 16:59:13 12/05/2023 07:24:21 Gynecologic examination 48915849 Z01.419 WWEpap updateddec lined STI screendisc ussed/enco uraged colon CA screeningU TD with PCP Suggested Calcium with Vitamin D daily. Patient advised to get an annual flu shot in the fall and she could obtain at [facility] or [facility] care clinic. Also to obtain TDap vaccinatio n [...] or respond to this email. Breast lump 79059586 N63 .0 right breast lump, recommende d diagnostic right mammogram with u/srecent bilateral screening mammogram done 11/20/2023 [id number] Renard Ryan MD [place] [address] [address] 11/20/2022 17:28:11 11/20/2022 18:12:09 Pain in pelvis 12498131 R10.2 [id number] Renard Ryan MD [place] [address] [address] 12/05/2022 15:30:17 12/05/2022 16:22:59 Cyst of ovary 51767012 N83.209 This patient is a 42-year-ol d [...] Guarantor Name 09/08/2021 1 [employer] [id number] Roney Ryan [id number] 2 Mananchaya Ryan 11/16/2022 1 [employer] [id number] Roney Davis [id number] 2 Mananchaya Ryan 11/20/2022 1 [employer] [id number] Roneygarret Astudillomer [id number] 2 Mananchaya Ryan 12/05/2022 1 [employer] [id number] Roneygarret Astudillomer [id number] 2 Mananchaya Ryan 12/04/2023 1 [employer] [id number] Roney Astudillomer [id number] 2 Mananchaya Ryan Notes Date Note Type [...] symptoms. Renard Ryan MD [address], [place], [address], [facility] 09/08/2021 21:36:57 11/16/2022 text/html Annual [...] order Jeanette Lundberg CNM [address], [place], [address], [facility] 11/16/2022 17:31:36 12/05/2022 text/html [...] needed. Renard Ryan MD [address], [place], [address], [facility] 12/05/2022 16:10:36 12/04/2023 text/html [...] use; Encourage regular mammograms starting age 38Notes:43yo [id number] pap 10/2022 : nilm, HPV (+)no h/o abnormal paps prior to this BC : BTLmirena IUD, inserted 11/09/2020very happy with IUD and desires to continue this method mammogram UTD, 11/2023noticed a right breast lump a few weeks ago after she had her mammogram doneno colon CA screening done yet [place] Condon [address], [place], [address], [facility] 12/04/2023 17:36:14 OBGyn Episode Ob Episode Information Episode Created Date Number of Fetuses Patient Bloodtype Patient rh Status Prepregnancy Weight lbs Domestic Partner Domestic Partner Phone Father Name Combination Machine Tender Status 04/02/20 20 1 CLOSED Fetus Data [...] Domestic Partner Domestic Partner Phone Father Name Combination Machine Tender Status 04/02/20 20 1 CLOSED Fetus Data [...]
[2024-11-27 18:11] LABS: Prothrombin Time 13.5 Seconds (11.1-14.7)
[2024-11-27 18:12] LABS: Partial Thromboplastin Time 33.2 Seconds (22.3-36.8)
[2024-11-27 18:27] LABS: Free T4 Free Thyroxine 1.19 ng/dL (0.78-2.19)
[2024-11-27 18:41] LABS: Thyroid Stimulating Hormone 0.256 uIU/mL (0.465-4.680); Total Triiodothyronine (T3) 1.67 NG/ML (0.97-1.69)
== END 2024-11-27 17:11 | disposition home or self-care (01) ==
PROVIDERS: PCP Family Medicine; Referring Provider Anesthesiology; Visit Provider Internal Medicine
DX: N18.31 Chronic kidney disease, stage 3a (principal); E05.00 Thyrotoxicosis with diffuse goiter without thyrotoxic crisis or storm
CPT/HCPCS: 36415; 83519; 84439; 84443; 84445; 84480; 85610; 85730

== ENCOUNTER 2024-12-07 00:32 | Day surgery (SDC) | payer OTHER, SELFPAY ==
[2024-11-26 14:37] VITALS: BMI 19.8
--- NOTE | 2024-11-26 14:38 | PC.NURSE ---
Report to the Outpatient Waiting Room, entrance under the green pavilion located off [facility], at time _1000_ on date _20-41-0740_. Planned Procedure Time: _1200_. Time changes happen often and if your time is changed the preop area will call you the afternoon before. - You and your visitor will be asked to self-screen and do not enter if you have any COVID symptoms. Please call surgeon if you need to reschedule. - A mask is optional within the hospital at this time. Patients may have clear liquids (water, carbonated beverages, clear teas, apple juice) until 3 hours prior to surgery with a maximum of 20 ounces. - No food from midnight until time of surgery and no smoking, or chewing tobacco (or any form of nicotine). No chewing gum, candy or mints. Take only the following medications with a SIP of water on the morning of surgery: __None___ DO NOT STOP ANY OF YOUR OTHER PRESCRIPTION MEDICATIONS PRIOR TO SURGERY EXCEPT THE FOLLOWING Hold all vitamins and supplements for 3 days per anesthesiologist. Medications to discontinue per physician Date to take last pshg___[id number]___ Please no make-up, nail persian, hairspray, perfume, deodorant, or body powder the day of surgery. No jewelry (including any body piercings) or valuables the day of surgery, leave them at home. Please take a shower or bath the night before, or the morning of, surgery with an antibacterial soap. Wear comfortable, loose fitting clothing. - Jewelry must be removed prior to entering the operating room. Rings and piercings that are not removed may be cut off. - The hospital will not accept responsibility for valuables. - Please leave all valuables, including medications, at home the day of surgery. If you are going home after surgery, a licensed starting gate driver must drive you home. - NO public transportation without another adult if you receive anesthesia. - We recommend that an adult stay with you for 24 hours following discharge. - We also recommend that you do not drive, make important decision, drink alcoholic beverages, or take any drugs that were not prescribed by your health care provider for at least 24 hours after your discharge time. Follow any additional instructions given to you from your surgeon. Telephone instructions given to __Maya__and asked if any additional questions and then verbalized understanding. Patient advised to call surgeon office or pre surgery nurse liaison [phone] if any additional questions.
[2024-12-07] VITALS (10 sets, daily range): BP systolic 98–127; BP diastolic 69–82; PULSE 52–73; RESP 11–18; TEMP 36.6–37; O2SAT 97–100
--- OUTSIDE RECORDS SUMMARY | 2024-12-07 00:35 | XMS_ITS | Referral Summary ---
Author Organization [facility] [place] [address] Address [address] [place] [address] Care Team Providers Care Retail Loss Prevention Investigator Name Role Phone Gloria Paula MD Primary [...] 05/01/2021 Assessment & Plan (07/24/2022 4:27 PM COCONUT CANDY MAKER): Off MMI Follow up thyroid function tests Assessment & Plan (01/30/2022 4:39 PM CDT): Off MMI Follow up thyroid function tests Excessive daytime sleepiness 10/14/2020 Hypersomnolence 10/14/2020 Witnessed episode of apnea 10/14/2020 Right ventricular enlargement 12/22/2019 Lipid screening 12/22/2019 SVT (supraventricular tachycardia) 09/04/2017 Pulmonary HTN 09/04/2017 Non-rheumatic mitral regurgitation 09/04/2017 Hypokalemia 09/04/2017 Hyperthyroidism 11/09/2016 Assessment & Plan (08/01/2021 3:52 PM COCONUT CANDY MAKER): Continue MMI on hold Will check thyroid [...] of Treatment Not on [place] [id number] [place] [address] [employer] Care Teams Retail Loss Prevention Investigator Relationship Specialty Start Date End Date Gloria Paula MD [address] [place] [address] DR MAY [address] [place] [id number] PCP - General Family Medicine 12/04/19
--- OUTSIDE RECORDS SUMMARY | 2024-12-07 00:35 | XMS_ITS | Clinical Summary ---
Author Organization [facility] [place] [address] Address [address] [place] [address] Care Team Providers Care Press Leader Name Role Phone Gloria Paula MD Primary [...] 05/01/2021 Assessment & Plan (07/24/2022 4:27 PM OUTSOLE BEVELER): Off MMI Follow up thyroid function tests Assessment & Plan (01/30/2022 4:39 PM CDT): Off MMI Follow up thyroid function tests Excessive daytime sleepiness 10/14/2020 Hypersomnolence 10/14/2020 Witnessed episode of apnea 10/14/2020 Right ventricular enlargement 12/22/2019 Lipid screening 12/22/2019 SVT (supraventricular tachycardia) 09/04/2017 Pulmonary HTN 09/04/2017 Non-rheumatic mitral regurgitation 09/04/2017 Hypokalemia 09/04/2017 Hyperthyroidism 11/09/2016 Assessment & Plan (08/01/2021 3:52 PM OUTSOLE BEVELER): Continue MMI on hold Will check thyroid [...] patient's age to complete this topic Insurance [place] [id number] [place] [id number] [place] [id number] [employer] Care Teams Press Leader Relationship Specialty Start Date End Date Gloria Paula MD [address] [place] [address] [address] PCP - General Family Medicine 12/04/19
--- OUTSIDE RECORDS SUMMARY | 2024-12-07 00:35 | XMS_ITS | Data Portability ---
Author Organization [facility] [employer], Main Office Address [address] [place] [address] Assessment No assessment recorded. Plan of Treatment Reminders Order Date Submit Date Provider Last Modified By Organization Details Last Modified Time Details Appointments None recorded. Lab None recorded. Referral endocrinolo gy referral 2022 023 Norman Mena MD, [address] [place] [address], [address], 20:34:01 Procedures None recorded. Surgeries None recorded. Imaging None recorded. Medication Orders triamcinolo ne acetonide 0.1 % topical cream 2022 023 CLAR[id number], [address], [place], [place], [id number], 3 17:34:31 prednisone 20 mg tablet 2022 [address] [place] [address] [id number], [address], [place], [place], [id number], 3 16:58:47 Patient TargetsNo targets recorded. Patient InstructionsNo instructions recorded. Reason for Referral Endocrinology Referral for H yperthyroidism Referring Physician: Shabana Silva, Family Medicine, Encounter Date: 09/19/2022 Results Created Date Observation Date Name Description Value Unit Range Abnormal Flag Note LastModifiedBy Organization Detail LastModifiedTime 08/27/19 23 08/27/2022 XR, foot, 3 or more view No observ ation record ed. [id number] [facility] Pod[facility] [place] [address] [facility], [address], [place], [address], 09/19/2022 02:46:58 08/27/1908/27/2022 XR, foot, 3 or more view No observ ation record ed. [id number] [facility] Podiatry [address], [facility], [place], [address], 09/19/2022 02:46:58 Result Notes None recorded. Problems Name Problem SNOMED Code Status Onset Date Resolution Date Notes Provider Name and Address Organization Details Recorded Time Itching of right eye 0284143709005 9101 Active 2022 GLADYS Marcelo [address] [address], [place], [address] , [employer] 3 16:43:41 Pain in both feet 0175436480359 9102 Active 2022 Not Available [facility] 3 02:39:34 Hyperthyro idism 72902163 Active 2019 Not Available [facility] 3 02:39:34 Blephariti s of right eyelid 4467029061316 03 Active 2022 Gloria Paula MD [address] [address], [place], [address] , [employer] 3 17:33:50 Problem Notes None recorded. Procedures Surgical History Date Name Laterality Status Provider Name and Address Organization Details Recorded Time insertion of intrauterine contraceptive device completed Not Available [facility] 09/19/2022 02:35:59 Imaging Results Imaging Date Name Status LastModified by Organiz ation Details LastModified Time 08/27/2022 XR, foot, 3 or more view completed [id number] [facility] Podiat[facility] [place] [id number] [facility], [facility] [address], [place], [address], 09/19/2022 02:46:58 08/27/2022 XR, foot, 3 or more view completed [id number] [facility] [place] [address] [facility], [address], [place], [address], 09/19/2022 02:46:58 Procedure Notes None recorded. Medical [...] Available Not Available Not Available Flucelvax Quad 0026-7450 (PF) 60 mcg (15 mcg x 4)/0.5 [...] Updated DateTime 3 154.94 cm 21 kg/m2 07624.7 5 g 97.7 [degF] 80 /min 98 % 98 % 120 mm[Hg] 66 mm[Hg] Sade Peñaloza MA [place] [facility] [employer] [facility] 3 16:35:03 Date Recorded Body mass index (BMI) Body height Oxygen saturation Oxygen saturation in Arterial blood by Pulse oximetry Heart rate Respiratory rate Body weight Systolic blood pressure Diastolic blood pressure Provider Name and Address Organization Details Last Updated DateTime 3 21 kg/m2 154.94 cm 98 % 98 % 71 /min 16 /min 36399.7 5 g 105 mm[Hg] 75 mm[Hg] Not Available [facility] 3 02:36:58 Date Recorded Body mass index (BMI) Body height Oxygen saturation Oxygen saturation in Arterial blood by Pulse oximetry Heart rate Body temperature Body weight Systolic blood pressure Diastolic blood pressure Provider Name and Address Organization Details Last Updated DateTime 3 21.5 kg/m2 154.94 cm 98 % 98 % 94 /min 97.8 [degF] 93564.5 3 g 110 mm[Hg] 68 mm[Hg] Not Available [facility] 3 02:36:58 Date Recorded Body mass index (BMI) Body height Oxygen saturation Oxygen saturation in Arterial blood by Pulse oximetry Heart rate Respiratory rate Body weight Systolic blood pressure Diastolic blood pressure Provider Name and Address Organization Details Last Updated DateTime 3 21.5 kg/m2 154.94 cm 99 % 99 % 80 /min 16 /min 63122.5 3 g 99 mm[Hg] 68 mm[Hg] Not Available [facility] 3 02:36:58 Date Recorded Body height Body mass index (BMI) Body weight Body temperature Oxygen saturation Oxygen saturation in Arterial blood by Pulse oximetry Heart rate Systolic blood pressure Diastolic blood pressure Provider Name and Address Organization Details Last Updated DateTime 3 154.94 cm 21.4 kg/m2 03943.9 4 g 97.9 [degF] 98 % 98 % 75 /min 110 mm[Hg] 68 mm[Hg] Sherlyn Barney MA [employer] 3 16:58:23 Social History Question Answer Notes LastModified by Organizat ion Details LastModified Time Tobacco Smoking Status Never Smoker Not Available [facility] 09/19/2022 02:29:15 What Is Your Level Of Caffeine Consumption? Moderate [id number] Information not available 09/19/2022 In The 14 Days Before Symptom Onset, Have You Had Close Contact With A Laboratory-confirm ed COVID-19 While That Case Was Ill? No [id number] Information not available 09/19/2022 In The 14 Days Before Symptom Onset, Have You Had Close Contact With A Person Who Is Under Investigation For COVID-19 While That Person Was Ill? No [id number] Information not available 09/19/2022 What Type Of Diet Are You Following? REGULAR Information n ot available 09/19/2022 Which Illicit Or Recreational Drugs Have You Used? None [id number] Information not available 09/19/2022 Have You Ever Been Counseled For Unhealthy Alcohol Use? No Information not available 09/19/2022 Has Tobacco Cessation Counseling Been Provided? No [email or web address] Information not available 09/19/2022 Do You Have Any Dietary Restrictions? No [email or web address] Information not available 09/19/2022 Sex: Unknown Functional Status Question Answer Note LastModified by Organizat ion Details LastModified Time Do you use any illicit or recreational drugs? No [email or web address] Information not available 09/19/2022 Do you or have you ever used any other forms of tobacco or nicotine? No [email or web address] Information not available 09/19/2022 What is your level of alcohol consumption? 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 Moderate [email or web address] Information not available 09/19/2022 Mental Status None recorded. Family History Relationship Description Onset Age of this Age Resolved Age Notes LastModified by Organization Details LastModified Time Mother Diabetes mellitus [id number] Not available 09/19/2022 02:36:00 Sister Systemic lupus erythematosu s [id number] Not available 09/19/2022 02:36:00 Medical History Condition [...] virus, quadrivalent, preservative 2 completed Not Available [facility] 09/19/2022 02:46:20 Past Encounters Encounter ID Performer Location Encounter Start Date Encounter Closed Date Diagnosis/Indication Diagnosis SNOMED-CT Code Diagnosis ICD10 Code Diagnosis Note [id number] Kezia Marshall MD [facility] [place] [address] [place] [address] 12/02/2020 00:00:00 12/02/2020 18:41:39 [id number] Kezia Marshall MD [facility] [place] [address] [place] [address] 03/10/2021 00:00:00 03/11/2021 10:56:27 [id number] Gloria Paula MD [facility] [place] [address] [place] [address] [address] [place] [address] 05/30/2022 00:00:00 05/30/2022 11:48:22 [id number] Kelvin Juan DPM [facility] [place] [address] [place] [address] 07/26/2022 00:00:00 08/06/2022 09:08:26 [id number] GLADYS Marcelo [facility] [place] [address] [place] [address] [address] [facility] [place] [address] 08/01/2022 00:00:00 08/01/2022 16:52:47 [id number] Kelvin Juan DPM [facility] [place] [address] [place] [id number] 08/23/2022 00:00:00 08/27/2022 14:01:22 [id number] GLADYS Marcelo [facility] [place] [address] [place] [address] [address] [place] [address] 09/19/2022 16:28:18 09/20/2022 11:51:30 Itching of right eye [id number] 5782719 H57.89 Appears to be allergic.W ill do course of prednisone , advised to start using otc allergy drops like pataday.Sh e has appointmen t with eye doctor in 3 weeks. Hyperthyroidism 86666078 E05.90 Needs new referral. [id number] Gloria Paula MD [facility] [address] [facility] [address] [place] [address] 10/16/2022 16:49:53 10/16/2022 18:02:29 Blepharitis of right eyelid 6757433934 38700 H01.003 baby shampoo dailytriam cinolone bid x [...] Valenzuela Member ID Guarantor Name 09/19/[address] [facility] [id number] Guillermojose Ryan [id number] 02 [id number] Viola Davis 10/16/2022 1 Re[facility] [id number] Viola Ryan [id number] Fawadgail Ryan Notes Date Note Type Note Provider Name and Address Organization Details Recorded Time 09/19/2022 text/html Pt. here with complaints of itching of her right eye. She has had this problem previously and it went away with medications but then came back again. GLADYS Marcelo [address], [address], [place], [address], [employer] 09/19/2022 17:10:38 10/16/2022 text/html irritation right upper eyelid, no pain in eyes, no visual disturbance, no drainage. No new lotions/soaps/prod ucts. Gloria Paula MD [address], [address], [place], [address], [employer] 10/19/2022 08:17:24 OBGyn Episode No OBEpisode recorded.
--- OUTSIDE RECORDS SUMMARY | 2024-12-07 00:35 | XMS_ITS | Clinical Summary ---
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
--- OUTSIDE RECORDS SUMMARY | 2024-12-07 00:36 | XMS_ITS | Data Portability ---
Author Organization [facility] [place] [place] Address [address] [place] [address] [place] [address] Assessment Encounter Date Assessment Date Assessment LastModified [...] breast lump, around 9 oclock 2023 024 [facility], [address], [address], [place], [address], 05:01:27 MAMMO, diagnostic, unilateral 2023 024 [facility], [address], [address], [place], [address], 4 05:01:27 US, pelvis 2022 023 [email or web address] [place], [address], [place], [address], 3 22:15:26 US, transvagina l 2022 023 [email or web address] [place], [address], [place], [address], 3 22:15:26 US, pelvis, complete 2022 023 [email or web address] [place], [address], [place], [address], 3 15:49:26 Medication Orders None recorded. Patient [...] Lor ica Rescr een: Nacha mpass ak, Elifil ay, CT Speci men: Scree bijan Pap - Image d, Cervi x STATE MENT OF ADEQU ACY: Satis facto ry for evalu ation Trans forma tion zone compo nent prese nt FINAL DIAGN OSIS: Negat raj for Intra epith elial Lesio n or Gamal eugene (NIL) . Funga l organ isms morph ologi hanny consi stent with Nupur da spp. Elect juddkatie calix d by Chester jones, Dexter boss, CT [...] as clini hanny marte nted. Not Available [facility] (Lab) [address], [place], [address], 11/21/2022 12:54:52 12/04/19 24 12/04/2023 IMAGE GUIDE D PAP AND HPV REGAR DLESS image guided Pap, HPV regardless of Pap result SEE RESULT S BELOW CASE REPOR T: Cytol ogy Gynec ologi rajinder Repor t Case: [id number] Autho mookie galdamez Provi pavithra: Amalia Swartz, LOW Reaglado cted: 12/03 1720 Order ing Locat ion: [place] Patho log[facility] Recei catrachita: 12/04 0239 First Scree n: Chen Ziegler , CT Rescr een: Jeny Blake , CT Speci men: Screjazmine heathg Pap - Image d, Cervi x STATE [...] furth er inves tigat ion is recom lelen d, as korin clayed. Not Available [facility] (Lab) [address], [place], [address], 12/11/2023 09:09:20 08/31/19 22 08/31/2021 US, pelvi s No observ ation record ed. [email or web address] [place] [address], [place], [address], 08/31/2021 21:29:55 08/31/19 22 08/31/2021 US, pelvi s No observ ation record ed. [email or web address] [place] [address], [place], [address], 08/31/2021 17:54:54 08/31/19 22 08/31/2021 US, trans vagin al No observ ation record ed. [email or web address] [place] [address], [place], [address], 08/31/2021 17:55:04 11/21/19 23 11/20/2022 US, pelvi s No observ ation record ed. [email or web address] [place] [address], [place], [address], 11/20/2022 18:18:03 11/21/19 23 11/20/2022 US, trans vagin al No observ ation record ed. [email or web address] [place] [address], [place], [address], 11/20/2022 18:17:53 11/21/19 23 11/20/2022 US, pelvi s No observ ation record ed. [address], [place], [address], 11/22/2022 10:38:10 Result Notes None recorded. Problems Name Problem SNOMED Code Status Onset Date Resolution Date Notes Provider Name and Address Organization Details Recorded Time Gestatio n period, 34 weeks 72976859 Completed 201611/09/2020 34 weeks gestatio n of pregnanc y;Record ed Elsewher e: No [facility] E[facility] Political Organizer abbie: N Carmelitati ce ID: 0001 Roland lable Time: 10:30:00 AM Ame [facility] 16:30:26 Complica tion of pregnanc y, childbir th and/or puerperi um [id number] Completed 201601/25/2021 Oth diseases and conditio ns compl preg/chl dbrth;Re corded Elsewher e: No Locat ion: [facility] S ource: EHR Political Organizer abbie: N Carmelitati ce ID: 0001 Roland lable Time: 09:00:00 AM Ame Sanchez [facility] 15:39:27 Placenta previa [id number] Completed 201611/09/2020 Placenta previa specifie d as w/o hemor, second trimeste r;Record ed Elsewher e: No Locat ion: [facility] S ource: EHR Political Organizer abbie: N Carmelitati ce ID: 0001 Roland lable Time: 11:30:00 AM Ame Sanchez [facility] 16:30:36 Gestatio n period, 24 weeks 444020696 Completed 201611/09/2020 24 weeks gestatio n of pregnanc y;Record ed Elsewher e: No Locat ion: [facility] S ource: EHR Political Organizer abbie: N Carmelitati ce ID: 0001 Roland lable Time: 10:00:00 AM Ame [facility] 16:30:23 Gestatio n period, 17 weeks 21505284 Completed 201611/09/2020 17 weeks gestatio n of pregnanc y;Record ed Elsewher e: No Locat ion: [facility] S ource: EHR Political Organizer abbie: N Carmelitati ce ID: 0001 Roland lable Time: 09:00:00 AM Ame balderas [facility] 1 16:30:[address] Concept Completed 201611/09/2020 Maternal care for oth abnormal ity and damage, unsp;Rec orded Elsewher e: No Locat ion: [facility] S ource: EHR Political Organizer abbie: N Carmelitati ce ID: 0001 Roland lable Time: 10:30:00 AM Ame Sanchez [facility] 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 1 16:30:31 Gestatio n period, 28 weeks 86562408 Completed 201611/09/2020 28 weeks gestatio n of pregnanc y;Record ed Elsewher e: No Locat ion: [facility] S ource: EHR Political Organizer abbie: N Carmelitati ce ID: 0001 Roland lable Time: 10:30:00 AM Ame Sanchez [facility] 1 16:30:25 Depressi ve disorder 41398643 Active 2016 Depressi on NOS;Fahad rded Elsewher e: No Locat ion: Sharlenesamir jazmine [facility] S ource: EHR Political Organizer abbie: N Amira ce ID: 0001 Roland lable Time: 10:30:00 AM Not Available [facility] 0 17:20:11 Normal pregnanc y in multigra prabha [id number] 4106 Completed 201611/09/2020 Encounte r for suprvsn of normal pregnanc y, second trimeste r;Record ed Elsewher e: No Locat ion: Danielle jazmine [facility] S ource: EHR Political Organizer abbie: N Carmelitati ce ID: 0001 Roland lable Time: 10:15:00 AM [facility] 1 16:30:39 Single liveborn born in hospital by section [id number] Completed 201611/09/2020 Single liveborn infant delivere d by c section; Recorded Elsewher e: No Locat ion: [facility] S ource: EHR Political Organizer abbie: N Carmelitati ce ID: 0001 Roland lable Time: 09:30:00 AM Ame [facility] [address] 16:30:[address] Concept Completed 201711/09/2020 Encntr for general adult medical exam w/o abnormal findings ;Recorde d Elsewher e: No [facility]: [facility] Political Organizer abbie: N Carmelitati ce ID: 0001 Roland lable Time: 11:30:00 AM Ame [facility] [address] 16:30:[address] Concept Completed 201911/09/2020 Encntr for obgyn specialist exam (general ) (routine ) w/o abn findings ;Recorde d Elsewher e: No [facility] Political Organizer abbie: N Carmelitati ce ID: 0001 Roland lable Time: 02:15:00 PM Ame Laura null, [facility] 16:31:03 Uterine size for dates discrepa ncy Completed 201601/25/2021 Uterine size-janneth e discrepa major, trimeste r;Record ed Elsewher e: No Locat ion: [facility] S ource: EHR Political Organizer abbie: N Practi ce ID: 0001 Roland lable Time: 01:00:00 PM Ame balderas [facility] 15:39:23 Antenata l care: multipar ous, older than 35 years [id number] Completed 201601/25/2021 Supervis ion of elderly multigra prabha, trimeste r;Record ed Elsewher e: No Locat ion: [facility] S ource: EHR Political Organizer abbie: N Practi ce ID: 0001 Roland lable Time: 10:30:00 AM Ame balderas [facility] 15:39:18 Gestatio n period, 12 weeks 94534286 Completed 201611/09/2020 12 weeks gestatio n of pregnanc y;Record ed Elsewher e: No Locat ion: [facility] S ource: EHR Political Organizer abbie: N Practi ce ID: 0001 Roland lable Time: 10:00:00 AM Ame balderas [facility] 16:30:16 Pregnanc y detectio n examinat ion Completed 201611/09/2020 Encounte r for pregnanc y test, result positive ;Practic e ID: 0001 Ame balderas [facility] 16:30:42 Gestatio n period, 20 weeks 60724043 Completed 201611/09/2020 20 weeks gestatio n of pregnanc y;Practi ce ID: 0001 Ame balderas [facility] 04/21/202 1 16:30:21 Steriliz ation procedur e Active 2016 Encounte r for steriliz ation;Pr actice ID: 0001 Not Available [facility] 0 17:20:16 Single live from singleto n pregnanc y [id number] Completed 201611/09/2020 Single live ;Pr actice ID: 0001 Ame balderas, [facility] 1 16:30:48 Gestatio n period, 38 weeks 58148802 Completed 201611/09/2020 38 weeks gestatio n of pregnanc y;Practi ce ID: 0001 Ame balderas, [facility] 16:30:[address] Concept Completed 201911/09/2020 Encntr for routine child health exam w/o abnormal findings ;Recorde d Elsewher e: No Locat ion: Viviana marquez [facility] S ource: EHR Political Organizer abbie: N Practi ce ID: 0001 Roland lable Time: 02:15:00 PM Ame balderas, [facility] 16:31:01 Problem Notes None recorded. Procedures Surgical History Date Name Laterality Status Provider Name and Address Organization Details Recorded Time 11/20/19 24 Date of Last Mammogram completed Ale Perez [facility] 12/04/2023 17:06:27 11/10/19 21 IUD Insertion completed Renard Ryan MD [address], [place], [address], [facility] 11/09/2020 16:57:21 05/29/20 17 section completed Katharina Blandon [facility] 04/02/2020 09:57:23 05/22/20 17 Tubal Ligation completed Katharina Blandon [facility] 04/02/2020 09:57:33 07/22/18 93 Appendectomy completed Katharina Blandon [facility] 11/20/2022 16:13:08 Imaging Results Imaging Date Name Status LastModified by Organization Details LastModified Time 08/31/2021 US, pelvis completed [email or web address] [place] [address], [place], [address], 08/31/2021 21:29:55 08/31/2021 US, pelvis completed [email or web address] [place] [address], [place], [address], 08/31/2021 17:54:54 08/31/2021 US, transvaginal completed [email or web address] [place] [address], [place], [address], 08/31/2021 17:55:04 11/20/2022 US, pelvis completed [email or web address] [place] [address], [place], [address], 11/20/2022 18:18:03 11/20/2022 US, transvaginal completed [email or web address] [place] [address], [place], [address], 11/20/2022 18:17:53 11/20/2022 US, pelvis completed [email or web address] [address], [place], [address], 11/22/2022 10:38:10 Procedure Notes None recorded. Medical [...] Prescrib ed Elsewher e: Yes [facility] By: kyle grajeda DateTime : 10/30/19 [...] Prescrib ed Elsewher e: No Locat ion: [facility] odify By: [email or web address] Marquez [email or web address] DateTime : 12/05/19 17 10:30:00 AM Not [...] Not Available Not Available No t Available [place] 5 mg-325 mg tablet take 1 tablet by oral route every 6 hours as needed for pain 07/04 completed Prescrib ed Elsewher e: No Locat ion: [facility] Emily odjustin By: [email or web address] Jazmine oliva DateTime : [...] Updated DateTime 09/08/2021 154.94 cm 22.9 kg/m2 99363.68 g 107 mm[Hg] 68 mm[Hg] Ame Sanchez [facility] 2 17:08:49 Date Recorded Body height Body mass index (BMI) Body weight Systolic blood pressure Diastolic blood pressure Provider Name and Address Organization Details Last Updated DateTime 11/16/2022 154.94 cm 21 kg/m2 34786.75 g 110 mm[Hg] 60 mm[Hg] Katharina Blandon [facility] 3 16:38:50 Date Recorded Body height Body mass index (BMI) Body weight Systolic blood pressure Diastolic blood pressure Provider Name and Address Organization Details Last Updated DateTime 12/05/2022 154.94 cm 21.7 kg/m2 40896.12 g 95 mm[Hg] 60 mm[Hg] Ame Sanchez [facility] 3 15:37:46 Date Recorded Body height Body mass index (BMI) Body weight Systolic blood pressure Diastolic blood pressure Provider Name and Address Organization Details Last Updated DateTime 12/04/2023 154.94 cm 19.5 kg/m2 83647.01 g 103 mm[Hg] 67 mm[Hg] Ale Perez [facility] 4 17:06:18 Social History Question Answer Notes LastModified by Organizat ion Details LastModified Time Tobacco Smoking Status Former Smoker Alhaji Mauro andrey, [facility] 11/16/2022 16:02:54 Do You Have An Advance Directive? No Information n ot available 11/09/2020 Are You Blind Or Do You Have Difficulty Seeing? No Information n ot available 11/09/2020 What Is Your Level Of Caffeine Consumption? Moderate Information not available 11/09/2020 How Much Tobacco Do You Chew? None Information not available 11/09/2020 In The 14 Days Before Symptom Onset, Have You Had Close Contact With A Laboratory-confirm ed COVID-19 While That Case Was Ill? No Information n ot available 11/09/2020 In The 14 Days Before [...] You Following? REGULAR Information n ot available 11/09/2020 What Is The Highest Grade Or Level Of School You Have Completed Or The Highest Degree You Have Received? [id number] Information not available 11/09/2020 Are There Any Guns Present In Your Home? Yes Information not available 11/09/2020 What Was The Date Of Your Most Recent Tobacco Screening? 04/02/2020 [email or web address] Information not available 11/16/2022 Do You Use Protection During Sex? No Information not available 11/09/2020 Do You Use Your Seat Belt Or Car Seat Routinely? Yes Information not available 11/09/2020 Do You Have Smoke And Carbon Monoxide Detectors In Your Home? Yes Information not available 11/09/2020 How Much Tobacco Do You Smoke? No [email or web address] Information not available 04/02/2020 Do You Use Sunscreen Routinely? No Information not available 11/09/2020 Have You Used IV Drugs? No Information not available 11/09/2020 Sex: Unknown Functional Status Question Answer Note LastModified by Organizat ion Details LastModified Time Do you use any illicit or recreational drugs? No Information not available 11/09/2020 What is your level of alcohol consumption? Occasional [email or web address] Information not available 04/02/2020 Do you or have you ever used smokeless tobacco? Never used smokeless tobacco [email or web address] Information not available 11/16/2022 Are you able to walk? 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 Never used electronic cigarettes [email or web address] Information not available 11/16/2022 What is your exercise level? Occasional [email or web address] Information not available 04/02/2020 Mental Status Question Answer Note LastModified by Organization D etails LastModified Time Do you feel stressed (tense, restless, nervous, or anxious, or unable to sleep at night)? [id number] Information not available 11/09/2020 Family History Relationship Description Onset Age of this Age Resolved Age Notes LastModified by Organization Details LastModified Time Mother Diabetes mellitus [email or web address] Not available 11/16 16:39:24 Notes:No family history of C ancer, cervical Medical History Condition Response Allergies (Food, seasonal, environmental ) N Other N Breast Cancer N Drug/Latex Allergies/Reactions N Blood Transfusion N Lung Disease N [...] SNOMED-CT Code Diagnosis ICD10 Code Diagnosis Note [id number] [facility] [address] [address] 04/02/2020 09:38:43 04/02/2020 10:23:51 Abnormal uterine bleeding [id number] 9100 N93.9 AUB that has happened over the last 2mos. We agreed to start with TVUS & Vag cx's based on exam today. We will consider labs mov [id number]|2024-12-07 00:36:00|2024-12-07 00:35:00|XMS_ITS|[facility]|External Medical Summaries|[id number]|" Clinical Summary Created on: December 07, 2024 Viola Davis : 1980 Sex: Female Author Organization [facility] Address [address] [place] [address] Care Team Providers Care Braille Coder Name Role Phone RicardoRadhaisela GRAHAM Primary Care Provider [phone] Allergies No known active allergies Medications metroNIDAZOLE (FLAGYL) 500 MG tablet Take 1 tablet (500 mg total) by mouth every 8 (eight) hours. Active triamcinolone (KENALOG) 0.1 % cream Apply topically 2 (two) times daily. Active potassium chloride CR (KLOR-CON M) 20 MEQ tablet Take 1 tablet (20 mEq total) by mouth daily. Active Vitamin D, Ergocalciferol, 54077 units Cap Take 1 capsule every week [...] patient's age to complete this topic Insurance [place] [address] [address] Care Teams Braille Coder Relationship Specialty Start Date End Date Shabana Silva PA [address] [place] [address] PCP - General PHYSICIAN TOP STEEP TENDER 01/14/23 "
--- NOTE | 2024-12-07 11:12 | P.PNAN_ITS ---
Anes - Initial Pre Proc Eval Procedure: Operation Date: 12/07/24 12:00 Proposed Procedures p Lower Lip Excisional Biopsy, Salivary Gland Biopsy - Burt El MD Date/Time: 12/07/24 11:12 Surgeon: Burt El MD Pre Op Diagnosis: Sjögren's disease Patient Data Age: 44 Gender: F Height: 1.55 m Weight: 47.7 kg Allergies Allergy/AdvReac Type Severity Reaction Status Date / Time No Known Allergies Allergy Verified 11/26/24 14:27 Home Medications Medication Instructions Recorded Confirmed Type methimazole 5 mg tablet 5 mg PO DAILY #90 tabs 08/12/24 11/26/24 Rx potassium chloride 20 mEq 20 meq PO DAILY #90 tabs 09/11/24 11/26/24 Rx tablet,extended release triamterene 50 mg capsule 50 mg PO BID #180 caps 09/28/24 11/26/24 Rx sodium bicarbonate 650 mg tablet 1,300 mg (2 x 650 mg) PO TID #540 10/16/24 11/26/24 Rx tabs cyanocobalamin (vitamin B-12) 1,000 mcg PO DAILY 11/26/24 11/26/24 History 1,000 mcg tablet,extended release (Vitamin B-12 ER) pyridoxine (vitamin B6) 100 mg 100 mg PO DAILY 11/26/24 11/26/24 History tablet (Vitamin B-6) Patient hx anesthesia problems: none Family hx anesthesia problems: none Results Review: All pre-operative results and documents have been reviewed as part of the pre- operative evaluation. [facility] Past Medical History Medical History SVT (supraventricular tachycardia) Non-rheumatic mitral regurgitation Pulmonary hypertension Hypersomnolence Right ventricular enlargement Seasonal allergies Palpitation Hyperthyroidism Surgical History Surgical History Previous section Family History Family History Father Family history of emphysema Mother Diabetes mellitus Social History Social History Smoking status: Never smoker Alcohol intake: never Do You Feel Safe in your Home?: Yes Lack of Transportation: No Lack of Food: Never True Current Housing: I Have Housing Concerned About Future Housing: No Difficulty Paying Gas/Electric Bills: No Difficulty Paying for Meds: No Currently Unemployed: No Education: High School Diploma/GED Difficulty w/ Childcare or Family Care: No Living arrangements: with family Gender identity (if verbalized by the patient): Female Spiritual care concerns: No Anes - Eval Final PreProcedure Day of Procedure 12/07/24 11:12 Patient weight: thin Heart: regular rate and rhythm Lungs: clear to auscultation Airway: Mallampati scale class II Neurological: alert and oriented Last oral intake: >/= 8 hours ASA classification: III Emergent: no Anesthetic plan: proceed Anesthesia type and monitoring: general ETT and standard monitoring Results Review: All pre-operative results and documents have been reviewed as part of the pre- operative evaluation. Informed Consent: The patient's anesthetic plan and its attendant risks and benefits were discussed with the patient/family/POA. Questions were solicited and answers provided to the satisfaction of the patient/family/POA.
--- NOTE | 2024-12-07 11:29 | WPDHPUPDATE1 ---
History and Physical Update Update Date/Time: 12/07/24 11:29 History and Physical has been reviewed, including an updated exam of the patient. There are NO changes in the patient's condition. Risks, benefits, and alternatives have been discussed and questions answered. Patient agrees to proceed with procedure.
[2024-12-07] MEDS: LACTATED RINGERS 1,000 ML 30 ML IV CONT (12:22)
--- NOTE | 2024-12-07 12:43 | W.PM.PROC2 ---
Procedure Note - Detailed Date of Procedure 12/07/24 Pre-op Diagnosis Sjögren's disease Post-op Diagnosis Same Procedure Performed Lower lip excision of minor salivary gland Surgeon Burt El MD Anesthesia General (LMA) Indications Possible Sjogren Findings 3 minor salivary glands were excised without complication Description of Procedure Patient identified consent verified the preoperative holding area. Patient brought to the operating room. Time-out performed. General anesthesia induced LMA secured. Patient prepped draped position procedure confirmed 2nd time-out performed. Total 0.2 cc 1% lidocaine with 1 100,000 parts epinephrine was injected just submucosally underneath a pre drawn 2 cm linear incision in the lower lip mucosa. Fifteen blade utilized to dissected mucosa small bleeding vessels were cauterized with bipolar at a setting of 5. Three minor salivary glands were then dissected out and sent for pathologic analysis in formalin. The wound was then irrigated with sterile normal saline. The wound was then closed with 3 interrupted 4-0 chromic sutures. No complications. I performed all dictated portions of procedure care the patient given Anesthesiology. Patient taken to PACU. Blood loss less than 1 cc. Estimated Blood Loss 1 Packing No Pathology Yes Complications No immediate complications Condition Stable Disposition PACU [facility] Billing Surgery - Charge Forward: Surgery Billing
[2024-12-07] MEDS: oxyCODONE (*CRX) 5 MG/5 ML ORAL SOLN IR 2.5 MG PO (14:08)
== END 2024-12-07 14:31 | disposition home or self-care (01) ==
PROVIDERS: PCP Family Medicine; Visit Provider Otolaryngology
PROC: (CPT 40810; principal; 2024-12-07 12:00)
DX: G89.18 Other acute postprocedural pain (principal); E05.90 Thyrotoxicosis, unspecified without thyrotoxic crisis or storm; I47.10 Supraventricular tachycardia, unspecified; I34.0 Nonrheumatic mitral (valve) insufficiency; I27.20 Pulmonary hypertension, unspecified; G47.10 Hypersomnia, unspecified; R00.2 Palpitations
CPT/HCPCS: 42405; 88305; 88342; A9270; J1100; J2004; J2250; J2405; J2704; J3010; J7120

== ENCOUNTER 2025-03-13 08:28 | Outpatient (CLI) | payer OTHER, SELFPAY ==
--- OUTSIDE RECORDS SUMMARY | 2025-03-13 08:32 | XMS_ITS | Clinical Summary ---
Author Organization [facility] [address] Address [address] [place] [address] Care Team Providers Care Assurance Auditor Name Role Phone Gloria Paula MD Primary [...] 05/01/2021 Assessment & Plan (07/24/2022 4:27 PM ON CAR SUPERVISOR): Off MMI Follow up thyroid function tests Assessment & Plan (01/30/2022 4:39 PM CDT): Off MMI Follow up thyroid function tests Excessive daytime sleepiness 10/14/2020 Hypersomnolence 10/14/2020 Witnessed episode of apnea 10/14/2020 Right ventricular enlargement 12/22/2019 Lipid screening 12/22/2019 SVT (supraventricular tachycardia) 09/04/2017 Pulmonary HTN 09/04/2017 Non-rheumatic mitral regurgitation 09/04/2017 Hypokalemia 09/04/2017 Hyperthyroidism 11/09/2016 Assessment & Plan (08/01/2021 3:52 PM ON CAR SUPERVISOR): Continue MMI on hold Will check thyroid [...] 3:26 PM CDT Height 154.9 cm (5' 1) 04/14/2024 3:26 PM CDT Body Mass Index 20.41 04/14/2024 3:26 PM CDT Plan of Treatment Health Maintenance Due Date Last Done Comments Breast Cancer Screening-Mammogram 1980 Cervical Cancer Screening 1978 Colon Cancer Screening-Colonoscopy 1980 Depression Screening 1978 Hepatitis C Screening 1978 Hepatitis B Screening 1996 Regular Well Visit/Exam 18-64 1996 Influenza Vaccine (#1) 2025 2, 04/30/2019, 05/03/2018, Additional history exists DTaP/Tdap/Td Vaccine (2 - Td or Tdap) 04/12/2027 04/12/2017 HPV Vaccines Aged Out No longer eligi ble based on patient's age to complete this topic Pneumococcal vaccine <65 Aged Out No longer eligible based on patient's age to complete this topic [place] [id number] [place] [id number] [place] [id number] [place] Care Teams Assurance Auditor Relationship Specialty Start Date End Date Gloria Paula MD [address] [place] [address] [address] PCP - General Family Medicine 12/04/19
--- OUTSIDE RECORDS SUMMARY | 2025-03-13 08:32 | XMS_ITS | Clinical Summary ---
Author Organization [facility] Address [address] [place] [address] Phone Care Team Providers Care Steel Erecting Pusher Name Role Phone Unavailable Primary Care Provider [...] Cervical Cancer Screening (CCS) 2008 HPV/Cotest 2008 Cologuard 2023 Colonoscopy 2023 Colorectal Cancer Screening 2023 Immunochemical Fecal Occult Blood 2023 SARS-COV-2 Immunization ( season) 2024 07/16/2021, 10/15/2020, 09/23/2020 Influenza Immunization (#1) 2025 10/0 03/2021, 05/21/2020, 04/30/2019, Additional history exists Respiratory Syncytial Virus (RSV) Immunization (Adult) (1 - 1-dose 75+ series) 2053 DTaP/Tdap/Td Immunization Discontinued 04/12/2017 TdaP Immunization Completed 04/12/2017 Human Papillomavirus (HPV) Immunization Aged Out No longer eligible based on patient's age to complete this topic Meningococcal Immunization (ACWY) Aged Out No longer eligible based on patient's age to complete this topic Pneumococcal Immunization Combined Aged Out No longer eligible based on patient's age to complete this topic Rotavirus Immunization Aged Out No lo nger eligible based on patient's age to complete this topic
--- OUTSIDE RECORDS SUMMARY | 2025-03-13 08:32 | XMS_ITS | Clinical Summary ---
Author Organization [facility] Address [address] [place] [address] Care Team Providers Care Advertising Project Manager Name Role Phone Shabana Silva Primary Care Provider [phone] Allergies No known active allergies Medications metroNIDAZOLE (FLAGYL) 500 MG tablet Take 1 tablet (500 mg total) by mouth every 8 (eight) hours. Active triamcinolone (KENALOG) 0.1 % cream Apply topically 2 (two) times daily. Active potassium chloride CR (KLOR-CON M) 20 MEQ tablet Take 1 tablet (20 mEq total) by mouth daily. Active Vitamin D, Ergocalciferol, 79727 units Cap Take 1 capsule every week [...] patient's age to complete this topic Insurance [facility] Care Teams Advertising Project Manager Relationship Specialty Start Date End Date Shabana Silva PA [address] [place] [id number] PCP - General PHYSICIAN TERADATA SOLUTION ARCHITECT 01/14/23
[2025-03-13 09:03] LABS: Hematocrit 37.2 % (37.0-47.0); Hemoglobin 11.9 g/dL (12.0-15.0); Mean Corpuscular HGB Conc 32.0 g/dl (32-36); Mean Corpuscular Hemoglobin 31.0 pg (26-34); Mean Corpuscular Volume 96.9 fl (80-100); Platelet Count Result 200 k/mm3 (150-375); Red Blood Count 3.84 M/mm3 (4.2-5.4); White Blood Count 4.7 K/mm3 (4.5-10.0)
[2025-03-13 09:49] LABS: Alanine Aminotransferase 16 U/L (6-35); Albumin Level 4.1 g/dL (3.5-5.1); Alkaline Phosphatase 48 U/L (38-126); Anion Gap 9 mmol/L (4-12); Aspartate Amino Transferase 27 U/L (14-36); Bilirubin,Total 0.5 mg/dL (0.2-1.3); Blood Urea Nitrogen 14 mg/dL (7-17); Calcium 8.4 mg/dL (8.4-10.2); Carbon Dioxide 18 mmol/L (22-30); Chloride 115 mmol/L (98-107); Cholesterol 149 mg/dL (0-200); Estimated Glomerular Filt Rate 40; Glucose 84 mg/dL (65-110); HDL Direct 51 mg/dL; Potassium 3.7 mmol/L (3.4-5.0); Sodium 142 mmol/L (137-145); Total Protein 8.5 g/dL (6.3-8.2); Triglycerides 44 mg/dL (<150)
[2025-03-13 09:55] LABS: Iron 76 ug/dL (37-170)
[2025-03-13 09:57] LABS: Parathyroid Intact 50.4 pg/mL (14.5-75.2)
[2025-03-13 09:59] LABS: Percent Iron Saturation 27 % (20-50)
[2025-03-13 10:03] LABS: Free T4 Free Thyroxine 0.85 ng/dL (0.78-2.19)
[2025-03-13 10:05] LABS: Total Protein Urine Random 24 mg/dL; Ur Ttl Prot Creatinine Ratio 0.39 mg/mg (0-0.20)
[2025-03-13 10:18] LABS: Thyroid Stimulating Hormone 3.560 uIU/mL (0.465-4.680); Total Triiodothyronine (T3) 0.95 NG/ML (0.82-1.58)
[2025-03-13 10:26] LABS: Ferritin 175.00 ng/mL (6.24-137)
== END 2025-03-13 08:29 | disposition home or self-care (01) ==
LOC: ANHLAB 08:30
PROVIDERS: Internal Medicine; Student in an Organized Health Care Education/Training Program; PCP Family Medicine; Visit Provider Internal Medicine Nephrology
DX: N12 Tubulo-interstitial nephritis, not specified as acute or chronic (principal); E05.00 Thyrotoxicosis with diffuse goiter without thyrotoxic crisis or storm; N18.31 Chronic kidney disease, stage 3a; E87.6 Hypokalemia; D64.9 Anemia, unspecified; Z13.220 Encounter for screening for lipoid disorders
CPT/HCPCS: 36415; 80053; 80061; 82570; 82728; 83540; 83550; 83970; 84100; 84156; 84439; 84443; 84480; 85027

== ENCOUNTER 2025-03-21 11:51 | Emergency (ER) | payer OTHER, SELFPAY ==
--- NOTE | 2025-03-21 11:52 | ED.SKABFB ---
HPI - Skin/Abscess/Foreign Bdy General Chief complaint: Skin/Abscess/Foreign Body Stated complaint: itchy tattoo Time Seen by Provider: 03/21/25 11:52 Source: patient Mode of arrival: ambulatory Limitations: no limitations History of Present Illness HPI narrative: Michell is a 44-year-old female patient presenting to the clinic today with complaints ?itchy tattoo?. She reports she received a tattoo to to the left upper arm/antecubital 2 months ago. Is having some lingering itching to the antecubital area of the tattoo. Denies any fevers, chills, body aches. No drainage from the area. Has tried Vaseline and [id number] itch/tattoo cream from pharmacy. Related Data Home Medications ?Medication ?Instructions ?Recorded ?Confirmed ?Last Taken ?Type hydroxychloroquine 200 mg tablet mg PO 03/21/25 Unknown History Allergies Allergy/AdvReac Type Severity Reaction Status Date / Time No Known Allergies Allergy Verified 03/21/25 11:58 Review of Systems Review of Systems: Pertinent positives per HPI. Patient denies any fever, chills, headache, visual changes, dizziness, cough, runny nose, sore throat, shortness of breath, chest pain, palpitations, nausea, vomiting, diarrhea, constipation, abdominal pain, or any urinary issues. [facility] Past Medical History Medical History SVT (supraventricular tachycardia) Non-rheumatic mitral regurgitation Pulmonary hypertension Hypersomnolence Right ventricular enlargement Seasonal allergies Palpitation Hyperthyroidism Surgical History Surgical History Previous section Family History Family History Father Family history of emphysema Mother Diabetes mellitus Social History Social History Smoking status: Never smoker Alcohol intake: never Do You Feel Safe in your Home?: Yes Lack of Transportation: No Lack of Food: Never True Current Housing: I Have Housing Concerned About Future Housing: No Difficulty Paying Gas/Electric Bills: No Difficulty Paying for Meds: No Currently Unemployed: No Education: High School Diploma/GED Difficulty w/ Childcare or Family Care: No Living arrangements: with family Gender identity (if verbalized by the patient): Female Spiritual care concerns: No Comments At the time of my signature, I reviewed and agree with the nursing past medical, surgical, social, and family history. There is no relevant family history pertinent to the patient complaint. Exam Narrative: General: Well-developed, well nourished, in no apparent distress Head: Normocephalic, atraumatic. Cardio: Regular rate and rhythm, s1 and s2 normal, no murmur appreciated. Resp: Clear to auscultation bilaterally, no rhonchi, rales, wheezing or rubs. Integumentary: Pars[place], warm, and dry, intact without lesion, itchy, dry, raised rash to the left antecubital, no redness, erythema, or drainage. Rash consistent with dermatitis Course Course Emergency Course: Portions of this record may have been created with voice recognition software. Level of Care: Express Care Visit Vital Signs Vital signs: Vital Signs Temperature 36.6 C 03/21/25 11:59 Pulse Rate 66 03/21/25 11:59 Respiratory Rate 18 03/21/25 11:59 Blood Pressure 107/66 03/21/25 11:59 Pulse Oximetry 100 03/21/25 11:59 Oxygen Delivery Room Air 03/21/25 11:59 Temperature 36.6 C 03/21/25 11:59 Pulse Rate 66 03/21/25 11:59 Respiratory Rate 18 03/21/25 11:59 Blood Pressure 107/66 03/21/25 11:59 Pulse Oximetry 100 03/21/25 11:59 Oxygen Delivery Room Air 03/21/25 11:59 Vital signs reviewed MDM - Skin/Abscess/Foreign Bdy MDM Narrative Medical decision making narrative: At the time of visit patient is resting comfortably on the exam table. Patient appears to be nontoxic. Complaints ?itchy tattoo?. She reports she received a tattoo to to the left upper arm/antecubital 2 months ago. Is having some lingering itching to the antecubital area of the tattoo. Denies any fevers, chills, body aches. No drainage from the area. Has tried Vaseline and [id number]-[id number] itch/tattoo cream from pharmacy. On exam patient has itchy, dry, raised rash to the left antecubital, no redness, erythema, or drainage. Rash consistent with dermatitis Plan: I suspect patient has dermatitis of the left antecubital. Prescription for triamcinolone cream was sent to the pharmacy. Supportive measures were discussed with the patient and they voiced understanding discharge instructions and agrees to treatment plan. Return precautions reviewed Differential Diagnosis Differential diagnosis: Likely abscess of skin or subcutaneous tissue, viral exanthem, dermatophytosis, urticaria, herpes zoster, allergic reaction to drug, cellulitis, eczema, insect bites, impetigo, contact dermatitis and other (Dry skin dermatitis, pruritus) Discharge Plan Discharge Clinical Impression: Dermatitis Patient Disposition: Home Condition: Stable Instructions: Antibiotic Form, Dermatitis (ED) Additional Instructions: Apply triamcinolone cream as directed Avoid hot showers May apply Cetaphil, Lubriderm, or Aquaphor lotion to the affected area twice daily Avoid scratching as this can cause a secondary infection May take benadryl 25-50mg every 6 hours as needed for itching. Follow up with your PCP in 3-5 days if symptoms persist or sooner if they worsen Go to the Emergency Room if symptoms worsen- fever, rash spreading with treatment, shortness of breath, tongue swelling, drooling, or chest pain Patient Language: Icelandic Prescriptions: New triamcinolone acetonide 0.1 % cream 1 applic topical BID 7 Days Qty: 30 0RF No Action hydroxychloroquine 200 mg tablet PO sodium bicarbonate 650 mg tablet 1,300 mg PO TID Qty: 540 3RF Patient Comments: Says only takes once a day. Rx Instructions: on a full stomach triamterene 50 mg capsule 50 mg PO BID Qty: 180 3RF methimazole 5 mg tablet 5 mg PO DAILY Qty: 90 3RF potassium chloride 20 mEq tablet extended release 20 meq PO DAILY Qty: 90 3RF Follow-up/Referrals: Maryanne Oro MD [Primary Care Provider, [facility]] Time of Disposition: 12:05 Quality NIHSS Nursing Documentation ED NIHSS nursing documentation: reviewed/agree
[2025-03-21 11:59] VITALS: BP 107/66; PULSE 66; RESP 18; TEMP 36.6; O2SAT 100
== END 2025-03-21 12:10 | disposition home or self-care (01) ==
PROVIDERS: Emergency Provider Nurse Practitioner Family; PCP Family Medicine
DX: L30.9 Dermatitis, unspecified (principal); I27.20 Pulmonary hypertension, unspecified; E05.90 Thyrotoxicosis, unspecified without thyrotoxic crisis or storm
CPT/HCPCS: 99213; G0463

== ENCOUNTER 2025-04-09 00:58 | Day surgery (SDC) | payer OTHER, SELFPAY ==
[2025-03-25 11:31] VITALS: BMI 20.2
--- OUTSIDE RECORDS SUMMARY | 2025-04-09 01:02 | XMS_ITS | Clinical Summary ---
Author Organization [facility] Address [address] [place] [address] Care Team Providers Care Client Services Coordinator Name Role Phone Shabana Silva Primary Care Provider [phone] Allergies No known active allergies Medications metroNIDAZOLE (FLAGYL) 500 MG tablet Take 1 tablet (500 mg total) by mouth every 8 (eight) hours. Active triamcinolone (KENALOG) 0.1 % cream Apply topically 2 (two) times daily. Active potassium chloride CR (KLOR-CON M) 20 MEQ tablet Take 1 tablet (20 mEq total) by mouth daily. Active Vitamin D, Ergocalciferol, 52487 units Cap Take 1 capsule every week [...] COVID-19 Vaccine ( - 2023-2 5 season) 2025 Meningococcal B Vaccine Aged Out No l [...] age to complete this topic Insurance [facility] Care Teams Client Services Coordinator Relationship Specialty Start Date End Date Shabana Silva PA [address] [place] [phone] PCP - General PHYSICIAN CROSSING GATEMAN 01/14/23
--- OUTSIDE RECORDS SUMMARY | 2025-04-09 01:02 | XMS_ITS | Clinical Summary ---
Author Organization [facility] Address [address] [place] [address] Phone Care Team Providers Care Stock Selector Name Role Phone Unavailable Primary Care Provider [...]
[2025-04-09 07:50] VITALS: BP 112/77; PULSE 74; RESP 16; TEMP 36.6; O2SAT 100
[2025-04-09 07:53] LABS: BEDSIDEPREGUCG Negative (Negative)
[2025-04-09] MEDS: LACTATED RINGERS 1,000 ML 150 ML IV CONT (08:00)
--- NOTE | 2025-04-09 08:04 | WPDANESEPPF ---
Anes - Initial Pre Proc Eval Procedure: Operation Date: 04/09/25 09:00 Proposed Procedures p Screening Colonoscopy - Samy Dent MD Date/Time: 04/09/25 08:04 Surgeon: Samy Dent MD Pre Op Diagnosis: Screening Patient Data Age: 44 Gender: F Height: 1.55 m Weight: 48.8 kg Last Vital Signs Temp 36.6 C 04/09/25 07:50 Pulse 74 04/09/25 07:50 Resp 16 04/09/25 07:50 BP 112/77 04/09/25 07:50 Pulse Ox 100 04/09/25 07:50 O2 Del Method Room Air 04/09/25 07:50 Allergies Allergy/AdvReac Type Severity Reaction Status Date / Time No Known Allergies Allergy Verified 04/09/25 07:49 Home Medications ?Medication ?Instructions ?Recorded ?Confirmed ?Type potassium chloride 20 mEq 20 meq PO DAILY #90 tabs 09/11/24 04/09/25 Rx tablet,extended release triamterene 50 mg capsule 50 mg PO BID #180 caps 09/28/24 04/09/25 Rx methimazole 5 mg tablet 5 mg PO DAILY #90 tabs 12/15/24 04/09/25 Rx sodium bicarbonate 650 mg tablet 1,300 mg (2 x 650 mg) PO TID #540 01/13/25 04/09/25 Rx tabs hydroxychloroquine 200 mg tablet 200 mg PO DAILY 03/21/25 04/09/25 History triamcinolone acetonide 0.1 % 1 applic topical BID 7 days #30 03/21/25 04/09/25 Rx topical cream grams Laboratory Tests 04/09/25 07:50 POC Urine HCG, Qual Negative (Negative) Patient hx anesthesia problems: none Family hx anesthesia problems: none Results Review: All pre-operative results and documents have been reviewed as part of the pre-operative evaluation. [facility] Past Medical History Medical History SVT (supraventricular tachycardia) Non-rheumatic mitral regurgitation Pulmonary hypertension Hypersomnolence Right ventricular enlargement Seasonal allergies Palpitation Hyperthyroidism Surgical History Surgical History Previous section Family History Family History Father Family history of emphysema Mother Diabetes mellitus Social History Social History Smoking status: Never smoker Alcohol intake: never Substance use: never Substance use type: does not use Do You Feel Safe in your Home?: Yes Lack of Transportation: No Lack of Food: Never True Current Housing: I Have Housing Concerned About Future Housing: No Difficulty Paying Gas/Electric Bills: No Difficulty Paying for Meds: No Currently Unemployed: No Education: High School Diploma/GED Difficulty w/ Childcare or Family Care: No Living arrangements: with family Gender identity (if verbalized by the patient): Female Spiritual care concerns: No Anes - Eval Final PreProcedure Day of Procedure 04/09/25 08:04 Patient weight: normal Heart: regular rate and rhythm Lungs: clear to auscultation Airway: Mallampati scale class II Neurological: alert and oriented Last oral intake: >/= 8 hours ASA classification: III Emergent: no Anesthetic plan: proceed Anesthesia type and monitoring: general GIVS and standard monitoring Results Review: All pre-operative results and documents have been reviewed as part of the pre-operative evaluation. Informed Consent: The patient's anesthetic plan and its attendant risks and benefits were discussed with the patient/family/POA. Questions were solicited and answers provided to the satisfaction of the patient/family/POA.
--- NOTE | 2025-04-09 08:46 | PM.HPGS ---
History of Present Illness History of Present Illness Consent: Risks, benefits, and alternatives have been discussed and questions answered. Patient agrees to proceed with procedure. Chief complaint: Screening Narrative: Viola Davis is a 44 year old female here for first screening colonoscopy Review of Systems Review of Systems: All systems reviewed & are unremarkable except as noted in HPI and below PMFSH Past Medical History Medical History (Updated 04/09/25 @ 08:47 by Samy Dent MD) Colon cancer screening SVT (supraventricular tachycardia) Non-rheumatic mitral regurgitation Pulmonary hypertension Hypersomnolence Right ventricular enlargement Seasonal allergies Palpitation Hyperthyroidism Surgical History Surgical History Previous section Family History Family History Father Family history of emphysema Mother Diabetes mellitus Social History Social History Smoking status: Never smoker Alcohol intake: never Substance use: never Substance use type: does not use Do You Feel Safe in your Home?: Yes Lack of Transportation: No Lack of Food: Never True Current Housing: I Have Housing Concerned About Future Housing: No Difficulty Paying Gas/Electric Bills: No Difficulty Paying for Meds: No Currently Unemployed: No Education: High School Diploma/GED Difficulty w/ Childcare or Family Care: No Living arrangements: with family Gender identity (if verbalized by the patient): Female Spiritual care concerns: No Meds Home Medications and Allergies Home Medications ?Medication ?Instructions ?Recorded ?Confirmed ?Type potassium chloride 20 mEq 20 meq PO DAILY #90 tabs 09/11/24 04/09/25 Rx tablet,extended release triamterene 50 mg capsule 50 mg PO BID #180 caps 09/28/24 04/09/25 Rx methimazole 5 mg tablet 5 mg PO DAILY #90 tabs 12/15/24 04/09/25 Rx sodium bicarbonate 650 mg tablet 1,300 mg (2 x 650 mg) PO TID #540 01/13/25 04/09/25 Rx tabs hydroxychloroquine 200 mg tablet 200 mg PO DAILY 03/21/25 04/09/25 History triamcinolone acetonide 0.1 % 1 applic topical BID 7 days #30 03/21/25 04/09/25 Rx topical cream grams Allergies Allergy/AdvReac Type Severity Reaction Status Date / Time No Known Allergies Allergy Verified 04/09/25 07:49 Vital Signs Vital Signs - 24 hr 04/09/25 07:50 Temperature 97.8 F Pulse Rate 74 Respiratory Rate 16 Blood Pressure 112/77 Pulse Oximetry 100 Oxygen Delivery Room Air Exam Const: General: comfortable and no acute distress HENMT: Face/Nose/Sinus: Normal nares present Eyes: General: appearance normal, both eyes and all related structures Neck: Neck: no JVD Resp: Auscultation: clear to auscultation bilaterally Cardio: Rate: regular rate Rhythm: regular rhythm GI: Inspection: non-distended GI Palp: Yes Soft to palpation Skin: General skin exam: normal color Neuro: Speech: normal speech Extrem: General: normal to inspection Psych: Mental Status: mental status grossly normal Assessment and Plan Assessment and plan (1) Colon cancer screening: Code(s): Z12.11 - Encounter for screening for malignant neoplasm of colon Status: Acute Assessment and Plan: colonoscopy
--- NOTE | 2025-04-09 09:00 | S_PTH ---
PATIENT: Viola Davis LOC: [facility]#:[id number] AGE/SX: 44/F ROOM: RE04/09/[address]: Samy Dent MD : 1980 BED: DIS: 04/09/2025 SPEC #: [id number] RECD: 04/09/25 09:48 STATUS: JOSE REQ #: [id number] BRITTA: 04/09/25 09:[address]: Samy Dent DEPT: [facility] Surgical RECD BY: Karissa Foley ENTERED: 04/09/25 09:48 SP TYPE: Surgical OTHR DR: Maryanne OroMD Tissues: A - Colon Polypectomy B - Colon Polypectomy Procedures: Hematoxylin and Eosin Stain Gross and Microscopic Level 4
[2025-04-09 09:05] VITALS: BP 88/58; PULSE 80; RESP 18; O2SAT 100
[2025-04-09 09:15] VITALS: BP 97/68; PULSE 80; RESP 19; O2SAT 100
[2025-04-09 09:25] VITALS: BP 106/73; PULSE 77; RESP 20; O2SAT 100
== END 2025-04-09 09:35 | disposition home or self-care (01) ==
PROVIDERS: Anesthesiology; PCP Family Medicine; Referring Provider Student in an Organized Health Care Education/Training Program; Visit Provider Internal Medicine Gastroenterology
PROC: 0DJD8ZZ Inspection of Lower Intestinal Tract, Via Natural or Artificial Opening Endoscopic (ICD-10-PCS; CPT 45378; principal; 2025-04-09 09:00)
DX: Z12.11 Encounter for screening for malignant neoplasm of colon (principal); D12.3 Benign neoplasm of transverse colon; D12.5 Benign neoplasm of sigmoid colon; E05.90 Thyrotoxicosis, unspecified without thyrotoxic crisis or storm; I47.10 Supraventricular tachycardia, unspecified; I34.0 Nonrheumatic mitral (valve) insufficiency; I27.20 Pulmonary hypertension, unspecified; G47.10 Hypersomnia, unspecified; R00.2 Palpitations; Z98.890 Other specified postprocedural states
CPT/HCPCS: 45380; 45385; 88305; J2704; J7120

== ENCOUNTER 2025-05-22 08:58 | Outpatient (CLI) | payer OTHER, SELFPAY ==
[2025-05-22 09:54] LABS: Free T4 Free Thyroxine 1.00 ng/dL (0.78-2.19)
[2025-05-22 10:01] LABS: Thyroid Stimulating Hormone 3.620 uIU/mL (0.465-4.680); Total Triiodothyronine (T3) 1.07 NG/ML (0.82-1.58)
== END 2025-05-22 08:59 | disposition home or self-care (01) ==
LOC: ANHLAB 08:59
PROVIDERS: PCP Family Medicine; Visit Provider Internal Medicine
DX: E05.00 Thyrotoxicosis with diffuse goiter without thyrotoxic crisis or storm (principal); D64.9 Anemia, unspecified; N18.31 Chronic kidney disease, stage 3a; E87.6 Hypokalemia; R94.4 Abnormal results of kidney function studies; N13.30 Unspecified hydronephrosis; N12 Tubulo-interstitial nephritis, not specified as acute or chronic; M35.00 Sjogren syndrome, unspecified; Z12.11 Encounter for screening for malignant neoplasm of colon
CPT/HCPCS: 36415; 84439; 84443; 84480